=== PATIENT | female | born 1955 | race Caucasian/White ===

== ENCOUNTER → 2017-08-21 16:37 | Outpatient (CLI) | payer OTHER, SELFPAY ==
--- NOTE | 2017-08-21 16:41 | DI.MRI.S_ITS ---
PROCEDURE: MR ANKLE LT WO CON INDICATIONS: SIGNIFICANT BILATERAL MIDFOOT MEDIAL PLANTAR TECHNIQUE: Noncontrast sagittal T1 spin echo and T2 fast spin echo with fat saturation, axial proton density fast spin echo and T2 fast spin echo with fat saturation, coronal T1 spin echo and T2 fast spin echo with fat saturation through the ankle/hindfoot. COMPARISON: [facility], CR, FOOT 3V RIGHT, 03/28/2017, 11:47. [facility], MR, MR ANKLE RT WO CON, 08/21/2017, 16:42. FINDINGS: Image quality: Excellent. Bones and joints: No bone marrow contusions or fractures. There is mild degeneration at the third tarsometatarsal joint. No hindfoot coalitions. No osteochondral injuries of the talar dome. No pathologic joint effusions. Medial structures: The posterior tibialis, flexor digitorum longus, and flexor hallucis longus tendons are intact. Minimal fluid surrounds the posterior tibialis and flexor digitorum longus tendons at about the level of the tip of the medial malleolus. The posterior tibial neurovascular bundle appears normal within the tarsal tunnel, without extrinsic mass effect. The deep layer (anterior and posterior tibiotalar ligaments) and superficial layer (tibionavicular, tibiospring, and tibiocalcaneal ligaments) of the deltoid ligament appear normal. The spring ligament components (superomedial calcaneonavicular, medioplantar oblique calcaneonavicular, and inferoplantar longitudinal ligaments) are intact. Lateral structures: The anterior talofibular, calcaneofibular, and posterior talofibular ligaments appear intact. More superiorly, the anterior and posterior tibiofibular ligaments appear intact, as is the intermalleolar ligament. The tibiofibular syndesmosis is normal in width at 2 mm or less. The peroneus longus and brevis tendons demonstrate normal location and morphology. Adjacent bony peroneal tubercle and retrotrochlear prominence are normal in size. The sinus tarsi demonstrates normal fatty signal, without edema, fibrosis, or cyst formation. Visualized sinus tarsi components (cervical ligament, interosseous talocalcaneal ligament, roots of the inferior extensor retinaculum) appear normal. The calcaneonavicular and calcaneocuboid components of the bifurcate ligament appear intact. The dorsal calcaneocuboid ligament appears intact. Anterior structures: The tibialis anterior, extensor hallucis longus, and extensor digitorum longus tendons appear intact. There is mild tibialis anterior tenosynovitis (image 27 series 6. There is more prominent fluid surrounding the extensor digitorum longus tendon image 21 series 6. The dorsal talonavicular ligament appears intact. Posterior and plantar structures: Achilles tendon is intact however there is mild low signal thickening suggestive of chronic distal low-grade tendinopathy. There is mild thickening and signal change involving the medial band of the plantar fascia at the calcaneal attachment. IMPRESSION: Mild tenosynovitis involving the tibialis anterior, tibialis posterior, flexor digitorum longus and extensor digitorum longus tendons as above. Low-grade chronic appearing distal Achilles tendinopathy Isolated third TMT joint degeneration. Please correlate clinically as the remaining TMT joints appear relatively preserved. Minimal medial band plantar fasciitis Dictated by: Maximus Barrera M.D. on 08/22/2017 at 9:21 Approved by: Maximus Barrera M.D. on 08/22/2017 at 9:32
--- NOTE | 2017-08-21 16:41 | DI.MRI.S_ITS ---
PROCEDURE: MR ANKLE RT WO CON INDICATIONS: SIGNIFICANT BILATERAL MIDFOOT MEDIAL PLANTAR TECHNIQUE: Noncontrast sagittal T1 spin echo and T2 fast spin echo with fat saturation, axial proton density fast spin echo and T2 fast spin echo with fat saturation, coronal T1 spin echo and T2 fast spin echo with fat saturation through the ankle/hindfoot. COMPARISON: [facility], , FOOT 3V RIGHT, 03/28/2017, 11:47. FINDINGS: Image quality: Diagnostic. Bones and joints: No acute fracture, dislocation, or suspicious osseous lesion is identified involving the osseous structures of the right midfoot or hindfoot. Ankle mortise is well-maintained. No osteochondral defects are present. There mild degenerative changes involving the midfoot joints at the level of the tarsometatarsal joints. There is a small plantar calcaneal spur. No significant joint effusions are evident. Medial structures: There is moderate focal thickening and diffuse increased signal evident involving the distal aspect of the tibialis posterior tendon at the level of the navicular. The flexor hallucis longus and flexor digitorum longus tendons are intact and otherwise within normal limits. The deltoid ligament and spring ligament are intact. The posterior tibial nerve appears to be within normal limits through the region of the tarsal tunnel. Lateral structures: The anterior and posterior distal tibiofibular ligaments are somewhat heterogeneous and mildly irregular. No full-thickness tears are evident. There is thickening of the anterior talofibular ligament. The posterior talofibular ligament is attenuated and thinned. A similar appearance is noted involving the calcaneofibular ligament. No full-thickness tear is evident. There is increased signal noted involving the peroneus longus and progress brevis tendons along the posterior margin of the lateral malleolus. No full-thickness tear is evident. There is edema/increased signal identified on the fluid sensitive sequences within the sinus tarsi. Anterior structures: The tibialis anterior, extensor hallucis longus, and extensor digitorum longus tendons appear intact. However, there is fluid contained within the extensor digitorum tendon sheath. Posterior and plantar structures: Achilles tendon is intact. Mild edema is noted within Kagers fat pad. Nonspecific focal thickening is identified involving the mid to distal aspect of the medial band of the plantar fascia underlying the 1st tarsometatarsal joint with increased signal present at this location. This is located near the site of the patient's area of concern. No significant tearing is appreciated. The plantar fascia is otherwise unremarkable. IMPRESSION: 1. Moderate tendinopathy involving the distal margin of the tibialis posterior tendon without significant tearing. 2. Moderate focal thickening involving the mid to distal margin of the plantar fascia underlying the 1st tarsometatarsal joint may be related to plantar fascitis versus plantar fibromatosis. Please correlate clinically. 3. Mild progress brevis and peroneus brevis tendinopathy without significant tearing. 4. Extensor digitorum tenosynovitis. 5. Scarring of the lateral ankle ligaments without a full-thickness tear evident. 6. Small plantar calcaneal spur. Dictated by: Conner Marie M.D. on 08/21/2017 at 16:14 Approved by: Conner Marie M.D. on 08/21/2017 at 16:39
== END ==
PROVIDERS: PCP Family Medicine; Visit Provider Podiatrist
DX: M72.2 Plantar fascial fibromatosis (principal); M65.872 Other synovitis and tenosynovitis, left ankle and foot; M65.871 Other synovitis and tenosynovitis, right ankle and foot
CPT/HCPCS: 73721

== ENCOUNTER → 2017-12-16 11:37 | Outpatient (CLI) | payer OTHER, SELFPAY ==
--- NOTE | 2017-12-16 | DI.MG.S_ITS ---
BILATERAL DIGITAL SCREENING MAMMOGRAM 3D/2D WITH CAD: 12/16/2017 CLINICAL: Routine screening. Family history of breast cancer. Comparison is made to exams dated: 10/29/2016 mammogram, 08/03/2015 mammogram, and 06/22/2014 mammogram - [facility]. There are scattered fibroglandular elements in both breasts. Current study was also evaluated with a Computer Aided Detection (CAD) system. No significant masses, calcifications, or other findings are seen in either breast. There has been no significant interval change. IMPRESSION: NEGATIVE There is no mammographic evidence of malignancy. A 1 year screening mammogram is recommended.(12/17/2018) This exam was interpreted at Station ID: [id number]. NOTE: For mammograms, a report in lay terms will be sent to the patient. Approximately 15% of breast malignancies will not be visualized mammographically. In the management of a palpable breast mass, a negative mammogram must not discourage biopsy of a clinically suspicious lesion. Electronically Signed By: Leah trinidad/kale:12/16/2017 12:26:27 letter sent: Normal Exam ACR BI-RADS Category 1: Negative [id number]
== END ==
PROVIDERS: PCP Family Medicine; Visit Provider Family Medicine
DX: Z12.31 Encounter for screening mammogram for malignant neoplasm of breast (principal); Z80.3 Family history of malignant neoplasm of breast
CPT/HCPCS: 77063; 77067

== ENCOUNTER → 2018-05-19 10:20 | Outpatient (CLI) | payer MEDICARE, OTHER, SELFPAY ==
[2018-05-19 11:08] LABS: Add Manual Diff / Slide Review NO; Basophils Absolute Auto 100 /uL (0-100); Eosinophils Absolute Auto 100 /uL (0-450); Eosinophils Percent Auto 1.3 % (2-4); Hematocrit 42.4 % (36-46); Hemoglobin 13.9 g/dL (12.0-16.0); Lymphocytes Absolute Auto 1300 /uL (1100-4500); Lymphocytes Percent Auto 23.6 % (25-40); Mean Corpuscular HGB Conc 32.9 % (30-36); Mean Corpuscular Hemoglobin 32.7 PG (26-34); Mean Corpuscular Volume 99.3 fL (80-100); Monocytes Absolute Auto 500 /uL (0-900); Monocytes Percent Auto 9.4 % (3-14); Neutrophils Absolute Auto 3500 /uL (1500-7000); Neutrophils Percent Auto 64.7 % (50-75); Platelet Count 316 X10^3/uL (150-400); Red Blood Cell Count 4.27 X10^6/uL (4.0-5.2); White Blood Cell Count 5.4 X10^3/uL (4.5-11.0)
[2018-05-19 12:11] LABS: Alanine Aminotransferase 33 IU/L (9-52); Albumin 4.4 g/dL (3.5-5.0); Albumin Globulin Ratio 1.5 (1.0-2.8); Alkaline Phosphatase 84 U/L (38-126); Aspartate Aminotransferase 24 IU/L (14-36); Bilirubin Total 0.6 mg/dL (0.2-1.3); Blood Urea Nitrogen 18 mg/dL (7-17); Calcium 9.3 mg/dL (8.4-10.2); Carbon Dioxide 25 mmol/L (22-32); Chloride 104 mmol/L (98-107); Cholesterol 274 mg/dL (140-199); Estimated Glomerular Filt Rate > 60.0 mL/min (>60); Globulin 2.9 g/dL (1.7-4.1); Glucose 98 mg/dL (80-110); HDL Cholesterol 66 mg/dL (40-60); HEMOLYSIS < 15 (0-50); LDL Cholesterol Calculated 184 mg/dL (<100); Sodium 138 mmol/L (137-145); Total Protein 7.3 g/dL (6.3-8.2); Triglycerides 121 mg/dL (35-150)
[2018-05-19 12:37] LABS: Thyroid Stimulating Hormone 2.53 uIU/mL (0.47-4.68)
[2018-05-19 17:15] LABS: Creatinine Urine Random 96.8 mg/dL
[2018-05-19 17:21] LABS: Microalbumi Creatinin Ratio Ur 7.2 ug/mg CR (<30); Microalbumin Urine Random 0.7 mg/dL (0-1.6)
== END ==
PROVIDERS: PCP Family Medicine; Visit Provider Family Medicine
DX: E34.9 Endocrine disorder, unspecified (principal); E78.5 Hyperlipidemia, unspecified; I10 Essential (primary) hypertension; M81.0 Age-related osteoporosis without current pathological fracture
CPT/HCPCS: 36415; 80053; 80061; 82043; 82306; 82570; 84443; 85025

== ENCOUNTER → 2018-08-15 11:10 | Outpatient (CLI) | payer MEDICARE, OTHER, SELFPAY ==
[2018-08-18 08:46] LABS: Lipoprofile NMR SEE SEPERATE REPORT
== END ==
PROVIDERS: PCP Family Medicine; Visit Provider Family Medicine
DX: E78.2 Mixed hyperlipidemia (principal)
CPT/HCPCS: 36415; 83704

== ENCOUNTER → 2018-12-09 08:44 | Outpatient (CLI) | payer MEDICARE, OTHER, SELFPAY ==
[2018-12-09 09:58] LABS: Cholesterol 232 mg/dL (140-199); HDL Cholesterol 70 mg/dL (40-60); LDL Cholesterol Calculated 124 mg/dL (<100); Triglycerides 191 mg/dL (35-150)
== END ==
PROVIDERS: PCP Family Medicine; Visit Provider Family Medicine
DX: E78.2 Mixed hyperlipidemia (principal)
CPT/HCPCS: 36415; 80061

== ENCOUNTER → 2019-01-20 12:09 | Outpatient (CLI) | payer MEDICARE, OTHER, SELFPAY ==
--- NOTE | 2019-01-20 | DI.MG.S_ITS ---
BILATERAL DIGITAL SCREENING MAMMOGRAM 3D/2D WITH CAD: 01/20/2019 CLINICAL: Routine screening. Family history of breast cancer. Comparison is made to exams dated: 12/16/2017 mammogram, 10/29/2016 mammogram, and 08/03/2015 mammogram - [facility]. There are scattered fibroglandular elements in both breasts. Current study was also evaluated with a Computer Aided Detection (CAD) system. No significant masses, calcifications, or other findings are seen in either breast. There has been no significant interval change. IMPRESSION: NEGATIVE There is no mammographic evidence of malignancy. A 1 year screening mammogram is recommended. This exam was interpreted at Station ID: [id number]. NOTE: For mammograms, a report in lay terms will be sent to the patient. Approximately 15% of breast malignancies will not be visualized mammographically. In the management of a palpable breast mass, a negative mammogram must not discourage biopsy of a clinically suspicious lesion. Electronically Signed By: Dani mcdowell/kale:01/20/2019 16:01:52 letter sent: Normal Exam ACR BI-RADS Category 1: Negative [id number]
== END ==
PROVIDERS: PCP Family Medicine; Visit Provider Family Medicine
DX: Z12.31 Encounter for screening mammogram for malignant neoplasm of breast (principal); Z80.3 Family history of malignant neoplasm of breast
CPT/HCPCS: 77063; 77067

== ENCOUNTER 2019-04-24 20:01 | Emergency (ER) | payer MEDICARE, OTHER, SELFPAY ==
--- NOTE | 2019-04-24 20:32 | DI.RAD.S_ITS ---
PROCEDURE: XR CHEST 1V INDICATIONS: chest pain TECHNIQUE: One view of the chest was acquired. COMPARISON: [facility], CHEST 2 VIEW, 08/14/2010, 15:55. [facility], CHEST 2 VIEW, 05/05/2014, 10:34. [facility], CHEST 1 VIEW, 04/24/2016, 15:01. FINDINGS: Surgical changes and devices: None. Lungs and pleura: Lungs are clear. No pleural effusions or pneumothorax. Mediastinum: Mediastinal contours appear normal. Heart size is normal. Atherosclerotic calcification of the aortic arch is noted. Bones and chest wall: Age-appropriate bony degenerative changes are seen. No suspicious bony lesions. Overlying soft tissues appear unremarkable. IMPRESSION: Portable chest within normal limits. Dictated by: Cirilo Guadalupe M.D. on 04/24/2019 at 20:42 Approved by: Cirilo Guadalupe M.D. on 04/24/2019 at 20:43
[2019-04-24 20:33] VITALS: BP 174/80; PULSE 90; RESP 16; TEMP 37; O2SAT 100; BMI 27.4
[2019-04-24 20:40] LABS: Add Manual Diff / Slide Review NO; Basophils Absolute Auto 100 /uL (0-100); Basophils Percent Auto 0.9 % (0-2); Eosinophils Absolute Auto 0 /uL (0-450); Eosinophils Percent Auto 0.7 % (2-4); Hematocrit 40.6 % (36-46); Hemoglobin 13.9 g/dL (12.0-16.0); Lymphocytes Absolute Auto 2100 /uL (1100-4500); Lymphocytes Percent Auto 35.2 % (25-40); Mean Corpuscular HGB Conc 34.1 % (30-36); Mean Corpuscular Hemoglobin 33.3 PG (26-34); Mean Corpuscular Volume 97.5 fL (80-100); Monocytes Absolute Auto 700 /uL (0-900); Monocytes Percent Auto 11.6 % (3-14); Neutrophils Absolute Auto 3000 /uL (1500-7000); Neutrophils Percent Auto 51.6 % (50-75); Platelet Count 235 X10^3/uL (150-400); Red Blood Cell Count 4.17 X10^6/uL (4.0-5.2); Red Cell Distribution Width 13.5 % (11.6-14.8); White Blood Cell Count 5.9 X10^3/uL (4.5-11.0)
[2019-04-24 20:41] LABS: Prothrombin Time 11.1 SECONDS (10.1-12.7)
[2019-04-24 20:44] LABS: PTT Partial Thromboplastin Tim 34 SECONDS (26.4-36.2)
[2019-04-24 20:46] LABS: Alanine Aminotransferase 36 IU/L (<35); Albumin 4.5 g/dL (3.5-5.0); Albumin Globulin Ratio 1.6 (1.0-2.8); Alkaline Phosphatase 76 U/L (38-126); Aspartate Aminotransferase 35 IU/L (14-36); Bilirubin Total 0.4 mg/dL (0.2-1.3); Blood Urea Nitrogen 21 mg/dL (7-17); Calcium 9.4 mg/dL (8.4-10.2); Carbon Dioxide 21 mmol/L (22-32); Chloride 108 mmol/L (98-107); Creatine Kinase 76 U/L (30-135); Estimated Glomerular Filt Rate > 60.0 mL/min (>60); Globulin 2.9 g/dL (1.7-4.1); Glucose 108 mg/dL (80-110); HEMOLYSIS < 15 (0-50); Lipase 94 U/L (23-300); Potassium 3.6 mmol/L (3.4-5.1); Sodium 139 mmol/L (137-145); Total Protein 7.4 g/dL (6.3-8.2)
[2019-04-24 20:58] LABS: Troponin I < 0.012 ng/mL (0.01-0.034)
[2019-04-24 21:26] VITALS: BP 185/90; PULSE 88; RESP 20; O2SAT 98
[2019-04-24 21:32] VITALS: BP 182/87; BP 182/95; BP 185/90; PULSE 79; PULSE 80; PULSE 88
[2019-04-24 21:33] LABS: Bacteria Urine None Seen; RBC Urine None Seen (0-5/HPF); WBC Urine None Seen (0-5/HPF)
[2019-04-24 21:39] LABS: Culture Indicated Urine Cult Not Indicated; Urine Comments Microscopic Normal
--- NOTE | 2019-04-24 21:46 | ED_ITS ---
HPI - Chest Pain General Chief Complaint: Chest Pain Stated Complaint: numbness all over,SOB, thinks heart attack Time Seen by Provider: 04/24/19 21:16 Source: patient Mode of arrival: Family Vehicle Limitations: no limitations History of Present Illness HPI narrative: CC: Chest Pressure HPI: The patient is a 64-year-old female who presented to the emergency department with heaviness in her chest. The pain and discomfort started prior to dinner but persisted throughout dinner. It radiated into her left neck and she had tightness in her shoulders. She had nausea with heaving on her way into the emergency department. She has a history of hypertension on losartan. She denies ever having a stroke myocardial infarction or congestive heart failure. Her chest discomfort started between 6:30 p.m. and 7:00 p.m.. She had mild shortness of breath but no palpitations. She had mild facial numbness but no headache and no history of migraines. She has had no cough or recent fall. She did not have any tingling or numbness in her arms. She denied any neck pain. Her discomfort has been 4 to 5/10 in intensity and is always heavy. On her arrival into the emergency department it was still present. She denies a history of smoking cigarettes or headache. She has a history of disequilibrium with dizziness. She has had nausea without vomiting or diarrhea. She has had no troubles with urination. Related Data Home Medications Medication Instructions Recorded Confirmed calcium carbonate 600 mg calcium 1,200 mg PO ONCE tab 05/21/18 04/25/19 (1,500 mg) tablet cholecalciferol (vitamin D3) 50 4,000 unit PO DAILY cap 05/21/18 04/25/19 mcg (2,000 unit) capsule flaxseed 1,000 mg capsule 1,000 mg PO DAILY cap 05/21/18 04/25/19 multivitamin 1 tab PO DAILY 04/25/19 04/25/19 Previous Rx's Medication Instructions Recorded losartan 25 mg tablet 25 mg PO DAILY #90 tab 05/21/18 rosuvastatin 40 mg tablet 40 mg PO DAILY #90 tab 05/21/18 ezetimibe 10 mg tablet 10 mg PO DAILY #90 tab 08/25/18 alprazolam 0.25 mg tablet 0.25 mg PO Q6HP PRN #14 tab 09/17/19 Allergies Allergy/AdvReac Type Severity Reaction Status Date / Time No Known Drug Allergies Allergy Verified 04/21/19 10:50 Review of Systems Review of Systems ROS Unobtainable: All systems reviewed & are unremarkable except as noted in HPI and below Patient History Medical History Abnormal Pap smear of vagina (Acute) Cervical dysplasia (Chronic) Surgical History Anesthesia (Acute) History of colonoscopy (Acute ~2007) History of colonoscopy (Acute ~2015) History of foot surgery (Resolved ~05/17/14) History of hysteroscopy (Acute ~2004) Status post loop electrosurgical excision procedure (LEEP) of cervix (~2012) Family History Father Esophageal cancer Mother Hyperlipidemia Diabetes mellitus Congestive heart failure Grandfather No problems noted. Grandmother Stroke Grandmother No problems noted. Brother Cancer Brother Thyroid disease Brother Neuropathy High cholesterol Sister Crohn's disease Daughter Type 2 diabetes mellitus Family/Other Cancer Family/Other Cancer Social History Smoking Status: Never smoker Smoking Status: Never smoker alcohol intake frequency: 0-2 drinks per day Alcohol type: wine Substance Use Type: does not use Exam Narrative Exam Narrative: PHYSICAL EXAM: CONSTITUTIONAL: Awake, Alert, Oriented, Coherent, Cooperative in NAD. Does not appear toxic or ill. HEAD: AT/NC EENT: PERRL, FROM of eyes, no discharge, no nystagmus No epistaxis or nasal drainage Oral mucosa is moist and pink, posterior pharynx is without erythema or exudate. NECK: Supple, no obvious JVD, Trachea is midline without stridor, no palpable LN or masses. SPINE: No gross deformity, no palpable tenderness of the cervical, thoracic, lumbar or sacral spine. No CVA tenderness. THORAX: No deformity, retractions, chest wall tenderness, subcutaneous air or crepitice. LUNGS: Clear with symmetrical breath sounds without respiratory distress HEART: Normal heart tones, regular rhythm and rate without murmur. ABDOMEN: Soft, non-tender, normal bowel sounds without guarding, rebound, rigidity or palpable mass or organomegaly. EXTREMITIES: No edema, cyanosis, deformity or tenderness. SKIN: No rash, bruising, petechiae or purpura. NEURO: Awake, alert, oriented, conversive, cranial nerves II-XII are symmetrical and normal, moves all 4 extremities and is ambulatory Initial Vital Signs Initial Vital Signs: Vital Signs Temperature 98.6 F 04/24/19 20:33 Pulse Rate 90 04/24/19 20:33 Respiratory Rate 16 04/24/19 20:33 Blood Pressure 174/80 H 04/24/19 20:33 Pulse Oximetry 100 04/24/19 20:33 Scores HEART Score Heart Score history: Moderately Suspicious Heart Score EKG: Normal Heart Score Age: > or = 65 years old Heart Score risk factors: > 3 risk factors or hx of atherosclerotic disease Heart Score troponin: < or = to normal limit Heart Score Total: 5 Course Course Course Narrative: 2344 the patient's chest x-ray and EKG are normal. Her chest pain has resolved. She continues to have hypertension with a systolic blood pressure of 170. Her 2nd troponin is less than 0.012. She has been administered 0.5 inch of Nitropaste. Her heart score is 4-5. I will discuss the patient with the on-call wireless retail manager at [facility]. 0032: Despite the 1/2 inch of nitropaste the patient continues to have some chest pain that ranges from 2 to 4 over 10 in intensity. She will be administered 4 mg of morphine sulfate. We are waiting for the wireless retail manager to call. 0049 I discussed the patient with the hospitalist at [facility]. That physician was Dr. Romano. The patient continued to have pain and discomfort that was 2 to 4/10 in intensity. Just prior to my talking to him I had ordered 4 mg of morphine sulfate for her persistent chest pain. He wanted me to order a nitro drip. However after the patient received nitro her pain and discomfort resolved. Her heart score was 4 to 5/10 in intensity. The patient has a family history of heart disease, she has a history of hypertension and high cholesterol. The patient will be transferred by ALS ambulance to [facility]. At this time the patient is pain-free. Orders Ordered: Discontinued Medications Hydralazine HCl (Apresoline) 5 mg IV NOW ONE Stop: 04/24/19 21:47 Last Admin: 04/24/19 22:09 Dose: 5 mg Documented by: ÓSCAR Nitroglycerin (Nitroglycerin) 50 mg in 250 mls @ 1.5 mls/hr IV TITRATE IRENE; Protocol Last Admin: 04/25/19 01:17 Dose: Not Given Documented by: ÓSCAR Ketorolac Tromethamine (Toradol) 30 mg IV NOW ONE Stop: 04/24/19 21:41 Last Admin: 04/24/19 22:09 Dose: 30 mg Documented by: ÓSCAR Morphine Sulfate (Morphine Sulfate) 4 mg IV NOW ONE Stop: 04/25/19 00:33 Last Admin: 04/25/19 00:54 Dose: 4 mg Documented by: ÓSCAR Nitroglycerin (Nitro-Bid) 0.5 inch TOP NOW ONE Stop: 04/24/19 23:44 Last Admin: 04/25/19 00:02 Dose: 0.5 inch Documented by: ÓSCAR Vital Signs Vital signs: Vital Signs - 8 hr 04/24/19 20:33 04/24/19 21:26 04/24/19 21:32 Temperature 98.6 F Pulse Rate 90 88 Pulse Rate [Orthostatic Lying] 79 Pulse Rate [Orthostatic Sitting] 80 Pulse Rate [Orthostatic Standing] 88 Respiratory Rate 16 20 Blood Pressure 174/80 H Blood Pressure [Orthostatic Lying] 182/87 H Blood Pressure [Orthostatic Sitting] 182/95 H Blood Pressure [Orthostatic Standing] 185/90 H Blood Pressure [Right Arm] 185/90 H Pulse Oximetry 100 98 04/24/19 22:09 04/24/19 23:00 04/25/19 00:02 Temperature Pulse Rate 82 78 81 Pulse Rate [Orthostatic Lying] Pulse Rate [Orthostatic Sitting] Pulse Rate [Orthostatic Standing] Respiratory Rate Blood Pressure 178/88 H 168/83 H 180/84 H Blood Pressure [Orthostatic Lying] Blood Pressure [Orthostatic Sitting] Blood Pressure [Orthostatic Standing] Blood Pressure [Right Arm] Pulse Oximetry MDM - Chest Pain Lab Data Attestation: I reviewed the patient's lab results. Result diagrams: 04/24/19 20:30 04/24/19 20:30 Labs: Lab Results 04/24/19 04/24/19 04/24/19 Range/Units 20:30 20:30 20:30 WBC 5.9 (4.5-11.0) X10^3/uL RBC 4.17 (4.0-5.2) X10^6/uL Hgb 13.9 (12.0-16.0) g/dL Hct 40.6 (36-46) % MCV 97.5 (80-100) fL MCH 33.3 (26-34) PG MCHC 34.1 (30-36) % RDW 13.5 (11.6-14.8) % Plt Count 235 (150-400) X10^3/uL Neut % (Auto) 51.6 (50-75) % Lymph % (Auto) 35.2 (25-40) % [place] % (Auto) 11.6 (3-14) % Eos % (Auto) 0.7 L (2-4) % Baso % (Auto) 0.9 (0-2) % Neut # (Auto) 3000 (1839-4855) /uL Lymph # (Auto) 2100 (1204-1807) /uL [place] # (Auto) 700 (0-900) /uL Eos # (Auto) 0 (0-450) /uL Baso # (Auto) 100 (0-100) /uL PT 11.1 (10.1-12.7) SECONDS INR 1.0 (0.9-1.3) APTT 34 (26.4-36.2) SECONDS Sodium 139 (137-145) mmol/L Potassium 3.6 (3.4-5.1) mmol/L Chloride 108 H (98-107) mmol/L Carbon Dioxide 21 L (22-32) mmol/L BUN 21 H (7-17) mg/dL Creatinine 0.60 (0.52-1.04) mg/dL Estimated GFR > 60.0 (>60) mL/min BUN/Creatinine Ratio 35.0 H (6-22) Glucose 108 (80-110) mg/dL Calcium 9.4 (8.4-10.2) mg/dL Total Bilirubin 0.4 (0.2-1.3) mg/dL AST 35 (14-36) IU/L ALT 36 H (<35) IU/L Alkaline Phosphatase 76 (38-126) U/L Total Creatine Kinase 76 (30-135) U/L CK-MB (CK-2) TNP CK-MB (CK-2) Rel Index TNP Troponin I < 0.012 (0.01-0.034) ng/mL Total Protein 7.4 (6.3-8.2) g/dL Albumin 4.5 (3.5-5.0) g/dL Globulin 2.9 (1.7-4.1) g/dL Albumin/Globulin Ratio 1.6 (1.0-2.8) Lipase 94 (23-300) U/L Urine RBC (0-5/HPF) Urine WBC (0-5/HPF) Urine Bacteria (None) Ur Culture Indicated? Micro UA Comment 04/24/19 04/24/19 Range/Units 21:20 22:35 WBC (4.5-11.0) X10^3/uL RBC (4.0-5.2) X10^6/uL Hgb (12.0-16.0) g/dL Hct (36-46) % MCV (80-100) fL MCH (26-34) PG MCHC (30-36) % RDW (11.6-14.8) % Plt Count (150-400) X10^3/uL Neut % (Auto) (50-75) % Lymph % (Auto) (25-40) % Pre[place] % (Auto) (3-14) % Eos % (Auto) (2-4) % Baso % (Auto) (0-2) % Neut # (Auto) (0388-9192) /uL Lymph # (Auto) (8805-8849) /uL Preble # (Auto) (0-900) /uL Eos # (Auto) (0-450) /uL Baso # (Auto) (0-100) /uL PT (10.1-12.7) SECONDS INR (0.9-1.3) APTT (26.4-36.2) SECONDS Sodium (137-145) mmol/L Potassium (3.4-5.1) mmol/L Chloride (98-107) mmol/L Carbon Dioxide (22-32) mmol/L BUN (7-17) mg/dL Creatinine (0.52-1.04) mg/dL Estimated GFR (>60) mL/min BUN/Creatinine Ratio (6-22) Glucose (80-110) mg/dL Calcium (8.4-10.2) mg/dL Total Bilirubin (0.2-1.3) mg/dL AST (14-36) IU/L ALT (<35) IU/L Alkaline Phosphatase (38-126) U/L Total Creatine Kinase 72 (30-135) U/L CK-MB (CK-2) TNP CK-MB (CK-2) Rel Index TNP Troponin I < 0.012 (0.01-0.034) ng/mL Total Protein (6.3-8.2) g/dL Albumin (3.5-5.0) g/dL Globulin (1.7-4.1) g/dL Albumin/Globulin Ratio (1.0-2.8) Lipase (23-300) U/L Urine RBC None seen (0-5/HPF) Urine WBC None seen (0-5/HPF) Urine Bacteria None seen (None) Ur Culture Indicated? Cult not indicated Micro UA Comment Microscopic normal Urine Dip Bedside Urine Glucose Negative Bedside Urine Bilirubin - Negative Bedside Urine Ketone - Negative Urine Specific [place] 1.015 Bedside Urine Occult Blood +/- Bedside Urine pH 6.0 Bedside Urine Protein - Negative Bedside Urine Urobilinogen - Negative Bedside Urine Nitrite - Negative Bedside Urine Leukocytes +/- 15 Esterase ECG Data Attestation: I personally reviewed and interpreted this ECG as follows: Interpretation: The patient's EKG obtained on April 24 at [place] 20:0 5:[address] depressions in leads V3 V4 V5 and V6. T-wave inversion in V1 and III. There are no other acute diagnostic ST segment changes. Her ventricular rate is 96 underlying rhythm is sinus rhythm intervals otherwise are normal with a normal axis. Discharge Plan Departure Patient Disposition: [facility] Clinical Impression: Chest pressure, Essential hypertension, Dysequilibrium Discharge Date/Time: 04/25/19 01:50 Prescriptions: No Action alprazolam 0.25 mg tablet 0.25 mg PO Q6HP PRN (Reason: anxiety ) Qty: 14 RF: 3 ezetimibe [Zetia] 10 mg tablet 10 mg PO DAILY Qty: 90 RF: 3 cholecalciferol (vitamin D3) 2,000 unit capsule 4,000 unit PO DAILY RF: 0 calcium carbonate 600 mg calcium (1,500 mg) tablet 1,200 mg PO ONCE RF: 0 flaxseed 1,000 mg capsule 1,000 mg PO DAILY RF: 0 rosuvastatin [Crestor] 40 mg tablet 40 mg PO DAILY Qty: 90 RF: 3 losartan 25 mg tablet 25 mg PO DAILY Qty: 90 RF: 3 multivitamin Tablet 1 tab PO DAILY RF: 0 Referrals: Jasson Jim MD [Primary Care Provider] -
[2019-04-24 22:09] VITALS: BP 178/88; PULSE 82
[2019-04-24] MEDS: HYDRALAZINE 20 MG/ML VIAL 5 MG IV (22:09)
[2019-04-24] MEDS: KETOROLAC 60 MG/2 ML VIAL 30 MG IV (22:09)
[2019-04-24 22:52] LABS: Creatine Kinase 72 U/L (30-135)
[2019-04-24 23:00] VITALS: BP 168/83; PULSE 78
[2019-04-24 23:05] LABS: Troponin I < 0.012 ng/mL (0.01-0.034)
[2019-04-25 00:02] VITALS: BP 180/84; PULSE 81
[2019-04-25] MEDS: NITROGLYCERIN OINT 1 INCH/GM OINT...G. 0.5 INCH TOP (00:02)
[2019-04-25] MEDS: MORPHINE 5 MG/ML INJ 4 MG IV (00:54)
--- NOTE | 2019-04-25 01:06 | PC.NURSE ---
Per Dr Mccullough, hold nitro drip if no Chest pain after morphine. Pt has no current chest pain.
[2019-04-25 01:23] VITALS: BP 157/79; PULSE 83; RESP 13; TEMP 37; O2SAT 97
== END 2019-04-25 01:50 | disposition short-term general hospital (02) ==
PROVIDERS: Emergency Provider Emergency Medicine; PCP Family Medicine
DX: R07.9 Chest pain, unspecified (principal); I10 Essential (primary) hypertension; R42 Dizziness and giddiness
CPT/HCPCS: 36415; 71045; 80053; 81003; 81015; 82550; 83690; 84484; 85025; 85610; 85730; 93005; 96374; 96375; 99284; 99285; J0360; J1885; J2270

== ENCOUNTER 2019-05-20 11:11 | Emergency (ER) | payer MEDICARE, OTHER, SELFPAY ==
[2019-05-20 11:15] VITALS: BP 187/90; PULSE 99; RESP 20; TEMP 36.7; O2SAT 97
--- NOTE | 2019-05-20 11:22 | DI.RAD.S_ITS ---
PROCEDURE: XR CHEST 1V INDICATIONS: chest pain TECHNIQUE: One view of the chest was acquired. COMPARISON: [facility], CR, XR CHEST 1V, 04/24/2019, 20:35. FINDINGS: Surgical changes and devices: None. Lungs and pleura: Lungs are clear. No pleural effusions or pneumothorax. Mediastinum: Mediastinal contours appear normal. Heart size is normal. Bones and chest wall: No suspicious bony lesions. Overlying soft tissues appear unremarkable. IMPRESSION: No acute process. Dictated by: Fatuma Miranda M.D. on 05/20/2019 at 11:37 Approved by: Fatuma Miranda M.D. on 05/20/2019 at 11:37
--- NOTE | 2019-05-20 11:35 | ED_ITS ---
HPI - General Adult General Chief complaint: Abdominal Pain Stated complaint: Severe abdominal pain, hx of hypertension Time Seen by Provider: 05/20/19 11:27 Source: patient Mode of arrival: Ambulatory Limitations: no limitations History of Present Illness HPI narrative: 64-year-old female here for evaluation of epigastric abdominal pain. She states that she has had the pain off and on for the past week. However she has had the pain that she presented to the emergency department today since 0700 hours this morning. Is been constant since this morning. Some nausea no vomiting. No bowel symptoms. No urinary symptoms. Not worse with palpation to movement or breathing. Was seen here in the emergency department approximately 1 month ago where she was transferred to an outside facility for cardiac workup. States she had a stress test at that time and was told that it was unremarkable. No prior abdominal surgeries. Not on nonsteroidal anti- inflammatory. No change in stool color. Has tried some epkl-dax-hvwrvum antacids over the past couple days without any improvement Related Data Home Medications Medication Instructions Recorded Confirmed calcium carbonate 600 mg calcium 1,200 mg PO DAILY tab 05/21/18 05/20/19 (1,500 mg) tablet cholecalciferol (vitamin D3) 50 4,000 unit PO DAILY cap 05/21/18 05/20/19 mcg (2,000 unit) capsule multivitamin 1 tab PO DAILY 04/25/19 05/20/19 ezetimibe [Zetia] 10 mg PO QPM 05/20/19 05/20/19 losartan 25 mg PO QPM 05/20/19 05/20/19 paroxetine HCl [Paxil] 10 mg PO QAM 05/20/19 05/20/19 rosuvastatin [Crestor] 40 mg PO QPM 05/20/19 05/20/19 trazodone 50 - 100 mg PO BEDTIME 05/20/19 05/20/19 Previous Rx's Medication Instructions Recorded sucralfate [Carafate] 1 gram PO QACHS #60 tab 05/20/19 Allergies Allergy/AdvReac Type Severity Reaction Status Date / Time No Known Drug Allergies Allergy Verified 05/20/19 11:21 Review of Systems Constitutional Constitutional: Denies fever(s) and Denies headache(s) ENT Ears, Nose, Mouth, and Throat: Denies headache(s) Cardiovascular Cardiovascular: Denies chest pain and Denies dyspnea Respiratory Respiratory: Denies dyspnea Gastrointestinal Gastrointestinal: Reports abdominal pain, Denies change in stool character, Reports nausea and Denies vomiting Genitourinary Genitourinary: Denies dysuria and Denies vaginal discharge Musculoskeletal Musculoskeletal: Denies myalgias and Denies arthralgias Integumentary/Breasts Skin/Breast: Denies lesions and Denies rash Neurologic Neurologic: Denies behavioral changes and Denies headache(s) Psychiatric Psychiatric: Denies behavioral changes Hematologic/Lymphatic Hematologic/Lymphatic: Denies easy bleeding and Denies easy bruising Patient History Medical History Abnormal Pap smear of vagina (Acute) Cervical dysplasia (Chronic) Social History Smoking Status: Never smoker Smoking Status: Never smoker alcohol intake frequency: 0-2 drinks per day Alcohol type: wine Substance Use Type: does not use Exam Initial Vital Signs Initial Vital Signs: Vital Signs Temperature 98.0 F 05/20/19 11:15 Pulse Rate 99 H 05/20/19 11:15 Respiratory Rate 20 05/20/19 11:15 Blood Pressure 187/90 H 05/20/19 11:15 Pulse Oximetry 97 05/20/19 11:15 Const General: cooperative, comfortable, well developed and well groomed Limitations: mental status not altered HENHI Head: normal to inspection and normocephalic Resp Effort & Inspection: normal respiratory effort Auscultation: clear to auscultation bilaterally Cardio Rate: regular rate Rhythm: regular rhythm GI Inspection: non-distended Palpation: soft, No firm and No tender Skin Lesions: no lesions Rashes: no rashes Neuro General: alert and awake Cognition: normal cognition Speech: speech normal Extrem General: normal to inspection and capillary refill normal Psych Appearance: grossly normal and well kempt Course Orders Ordered: ED Orders 05/20/19 11:21 EKG-12 Lead Stat 05/20/19 11:22 XR chest 1V Stat 05/20/19 11:37 Complete Blood Count AUTO DIFF Stat Comprehensive Metabolic Panel Stat Lipase Stat Magnesium Stat Partial Thromboplastin Time Stat Prothrombin Time INR Stat Troponin & CK Cardiac Panel Stat Discontinued Medications Al Hydrox/Mg Hydrox/Simethicone 20 ml/ Lidocaine HCl 15 ml 0 ml PO NOW ONE Stop: 05/20/19 11:37 Last Admin: 05/20/19 11:41 Dose: 35 ml Documented by: LORENAHT Pantoprazole Sodium (Protonix) 40 mg IV NOW ONE Stop: 05/20/19 13:06 Vital Signs Vital signs: Vital Signs - 8 hr 05/20/19 11:15 05/20/19 11:45 05/20/19 12:45 Temperature 98.0 F Pulse Rate 99 H 72 81 Respiratory Rate 20 20 14 Blood Pressure 187/90 H Blood Pressure [Left Arm] 143/74 H 154/84 H Pulse Oximetry 97 96 96 Medical Decision Making Lab Data Lab results reviewed: Yes I reviewed the patient's lab results. Result diagrams: 05/20/19 11:37 05/20/19 11:37 Labs: Lab Results 05/20/19 05/20/19 05/20/19 Range/Units 11:37 11:37 11:37 WBC 5.3 (4.5-11.0) X10^3/uL RBC 4.32 (4.0-5.2) X10^6/uL Hgb 14.3 (12.0-16.0) g/dL Hct 41.7 (36-46) % MCV 96.5 (80-100) fL MCH 33.0 (26-34) PG MCHC 34.2 (30-36) % RDW 13.4 (11.6-14.8) % Plt Count 232 (150-400) X10^3/uL Neut % (Auto) 67.9 (50-75) % Lymph % (Auto) 23.8 L (25-40) % [place] % (Auto) 7.6 (3-14) % Eos % (Auto) 0.2 L (2-4) % Baso % (Auto) 0.5 (0-2) % Neut # (Auto) 3600 (3148-6157) /uL Lymph # (Auto) 1300 (2141-3017) /uL [place] # (Auto) 400 (0-900) /uL Eos # (Auto) 0 (0-450) /uL Baso # (Auto) 0 (0-100) /uL PT 12.2 (10.1-12.7) SECONDS INR 1.1 (0.9-1.3) APTT 32 D (26.4-36.2) SECONDS Sodium 138 (137-145) mmol/L Potassium 3.9 (3.4-5.1) mmol/L Chloride 101 (98-107) mmol/L Carbon Dioxide 26 (22-32) mmol/L BUN 15 (7-17) mg/dL Creatinine 0.70 (0.52-1.04) mg/dL Estimated GFR > 60.0 (>60) mL/min BUN/Creatinine Ratio 21.4 (6-22) Glucose 134 H (80-110) mg/dL Calcium 10.4 H (8.4-10.2) mg/dL Magnesium 1.5 L (1.6-2.3) mg/dL Total Bilirubin 0.6 (0.2-1.3) mg/dL AST 28 (14-36) IU/L ALT 35 H (<35) IU/L Alkaline Phosphatase 69 (38-126) U/L Total Creatine Kinase 43 (30-135) U/L CK-MB (CK-2) TNP CK-MB (CK-2) Rel Index TNP Troponin I < 0.012 (0.01-0.034) ng/mL Total Protein 7.3 (6.3-8.2) g/dL Albumin 4.6 (3.5-5.0) g/dL Globulin 2.7 (1.7-4.1) g/dL Albumin/Globulin Ratio 1.7 (1.0-2.8) Lipase 65 (23-300) U/L Urine Dip Bedside Urine Glucose Negative Bedside Urine Bilirubin - Negative Bedside Urine Ketone - Negative Urine Specific [place] 1.015 Bedside Urine Occult Blood +/- Bedside Urine pH 6.5 Bedside Urine Protein - Negative Bedside Urine Urobilinogen - Negative Bedside Urine Nitrite - Negative Bedside Urine Leukocytes - Negative Esterase Point of care testing: Urine Dip Bedside Urine Glucose Negative Bedside Urine Bilirubin - Negative Bedside Urine Ketone - Negative Urine Specific [place] 1.015 Bedside Urine Occult Blood +/- Bedside Urine pH 6.5 Bedside Urine Protein - Negative Bedside Urine Urobilinogen - Negative Bedside Urine Nitrite - Negative Bedside Urine Leukocytes - Negative Esterase Imaging Data Chest x-ray: Radiologist's Impression: [address] [address] XRay Report Signed Patient: Divine Santamaria DIEGO#: [id number] : [id number]:[id number] Age/Sex: 64 / FDate of Service: 05/20/19 Loc: ED Accession Number: [id number] Procedure: XR chest 1V Ordering Provider: Won Burdick D.O. PROCEDURE: XR CHEST 1V INDICATIONS: chest pain TECHNIQUE: One view of the chest was acquired. COMPARISON: [facility], CR, XR CHEST 1V, 04/24/2019, 20:35. FINDINGS: Surgical changes and devices: None. Lungs and pleura: Lungs are clear. No pleural effusions or pneumothorax. Mediastinum: Mediastinal contours appear normal. Heart size is normal. Bones and chest wall: No suspicious bony lesions. Overlying soft tissues appear unremarkable. IMPRESSION: No acute process. Dictated by: Fatuma Miranda M.D. on 05/20/2019 at 11:37 Approved by: Fatuma Miranda M.D. on 05/20/2019 at 11:37 ECG Data Attestation: I personally reviewed and interpreted this ECG as follows: Prior ECG tracings: not available for review Interpretation: Sinus rhythm Ventricular rate of 91 Normal axis Normal QRS Normal QTC Nonspecific ST T wave changes MDM Narrative Medical decision making narrative: Patient has unremarkable EKG. Unremarkable labs. Unremarkable chest x-ray. Had a stress test performed within the past months that patient states is unremarkable. She reported some improvement with a GI cocktail however not as much as she had hoped. Low suspicion for pancreatitis. Low suspicion for gallbladder pathology. No free under the diaphragm. Low suspicion for perforated gastric ulcer. Low suspicion for pneumonia. Low suspicion for pulmonary embolism. Recent cardiac workup and negative troponin and unremarkable EKG make ACS unlikely. I do feel that this is most likely GI etiology. I had long discussion with the patient regarding this. Will send home with Carafate. She has a follow-up with her primary pro vider in approximately 2 weeks. She was instructed to keep that appointment. She was given return precautions and follow-up instructions. Expressed understanding and agreement. Discharge Plan Departure Patient Disposition: Home Clinical Impression: Abdominal pain Qualifiers: Abdominal location: epigastric Qualified Code(s): R10.13 - Epigastric pain Instructions: DI for Abdominal Pain-Adult Activity Restrictions/Additional Instructions: I recommend that you take the Carafate as directed and like we discussed. Keep your follow-up appointment that you have scheduled with your primary provider return to the emergency department for any new or worsening symptoms your prescriptions were electronically transmitted to [facility] Prescriptions: New sucralfate [Carafate] 1 gram tablet 1 gram PO QACHS Qty: 60 RF: 0 No Action cholecalciferol (vitamin D3) 2,000 unit capsule 4,000 unit PO DAILY RF: 0 calcium carbonate 600 mg calcium (1,500 mg) tablet 1,200 mg PO DAILY RF: 0 trazodone 50 mg tablet 50 - 100 mg PO BEDTIME RF: 0 paroxetine HCl [Paxil] 10 mg tablet 10 mg PO QAM RF: 0 losartan 25 mg tablet 25 mg PO QPM RF: 0 ezetimibe [Zetia] 10 mg tablet 10 mg PO QPM RF: 0 rosuvastatin [Crestor] 40 mg tablet 40 mg PO QPM RF: 0 multivitamin Tablet 1 tab PO DAILY RF: 0 Referrals: Jasson Jim MD [Primary Care Provider] -
[2019-05-20] MEDS: MAG HYDROX/ALUMINUM/SIMETH SUS 20 ML, LIDOCAINE VISCOUS 2% 15 ML PO (11:41)
[2019-05-20 11:45] VITALS: BP 143/74; PULSE 72; RESP 20; O2SAT 96
[2019-05-20 11:46] LABS: Add Manual Diff / Slide Review NO; Basophils Absolute Auto 0 /uL (0-100); Basophils Percent Auto 0.5 % (0-2); Eosinophils Absolute Auto 0 /uL (0-450); Eosinophils Percent Auto 0.2 % (2-4); Hematocrit 41.7 % (36-46); Hemoglobin 14.3 g/dL (12.0-16.0); Lymphocytes Absolute Auto 1300 /uL (1100-4500); Lymphocytes Percent Auto 23.8 % (25-40); Mean Corpuscular HGB Conc 34.2 % (30-36); Mean Corpuscular Volume 96.5 fL (80-100); Monocytes Absolute Auto 400 /uL (0-900); Monocytes Percent Auto 7.6 % (3-14); Neutrophils Absolute Auto 3600 /uL (1500-7000); Neutrophils Percent Auto 67.9 % (50-75); Platelet Count 232 X10^3/uL (150-400); Red Blood Cell Count 4.32 X10^6/uL (4.0-5.2); Red Cell Distribution Width 13.4 % (11.6-14.8); White Blood Cell Count 5.3 X10^3/uL (4.5-11.0)
[2019-05-20 11:53] LABS: INR 1.1 (0.9-1.3); Prothrombin Time 12.2 SECONDS (10.1-12.7)
[2019-05-20 11:56] LABS: PTT Partial Thromboplastin Tim 32 SECONDS (26.4-36.2)
[2019-05-20 11:58] LABS: Alanine Aminotransferase 35 IU/L (<35); Albumin 4.6 g/dL (3.5-5.0); Albumin Globulin Ratio 1.7 (1.0-2.8); Alkaline Phosphatase 69 U/L (38-126); Aspartate Aminotransferase 28 IU/L (14-36); BUN Creatinine Ratio 21.4 (6-22); Bilirubin Total 0.6 mg/dL (0.2-1.3); Blood Urea Nitrogen 15 mg/dL (7-17); Calcium 10.4 mg/dL (8.4-10.2); Carbon Dioxide 26 mmol/L (22-32); Chloride 101 mmol/L (98-107); Creatine Kinase 43 U/L (30-135); Estimated Glomerular Filt Rate > 60.0 mL/min (>60); Globulin 2.7 g/dL (1.7-4.1); Glucose 134 mg/dL (80-110); HEMOLYSIS < 15 (0-50); Lipase 65 U/L (23-300); Magnesium 1.5 mg/dL (1.6-2.3); Potassium 3.9 mmol/L (3.4-5.1); Sodium 138 mmol/L (137-145); Total Protein 7.3 g/dL (6.3-8.2)
[2019-05-20 12:12] LABS: Troponin I < 0.012 ng/mL (0.01-0.034)
[2019-05-20 12:45] VITALS: BP 154/84; PULSE 81; RESP 14; O2SAT 96
[2019-05-20] MEDS: PANTOPRAZOLE 40 MG VIAL IV (13:08)
[2019-05-20 14:00] VITALS: BP 144/82; PULSE 69; O2SAT 99
== END 2019-05-20 14:11 | disposition home or self-care (01) ==
PROVIDERS: Emergency Provider Emergency Medicine; PCP Family Medicine
DX: R10.13 Epigastric pain (principal); R07.9 Chest pain, unspecified; I10 Essential (primary) hypertension
CPT/HCPCS: 36415; 71045; 80053; 81003; 82550; 83690; 83735; 84484; 85025; 85610; 85730; 93005; 93010; 96374; 99284; C9113

== ENCOUNTER → 2019-05-29 09:10 | Outpatient (CLI) | payer MEDICARE, OTHER, SELFPAY ==
[2019-05-29 09:49] LABS: Add Manual Diff / Slide Review NO; Basophils Absolute Auto 100 /uL (0-100); Basophils Percent Auto 0.9 % (0-2); Eosinophils Absolute Auto 100 /uL (0-450); Eosinophils Percent Auto 1.3 % (2-4); Hematocrit 39.4 % (36-46); Hemoglobin 13.1 g/dL (12.0-16.0); Lymphocytes Absolute Auto 1100 /uL (1100-4500); Lymphocytes Percent Auto 19.3 % (25-40); Mean Corpuscular HGB Conc 33.2 % (30-36); Mean Corpuscular Hemoglobin 32.5 PG (26-34); Mean Corpuscular Volume 97.7 fL (80-100); Monocytes Absolute Auto 600 /uL (0-900); Monocytes Percent Auto 11.4 % (3-14); Neutrophils Absolute Auto 3700 /uL (1500-7000); Neutrophils Percent Auto 67.1 % (50-75); Platelet Count 248 X10^3/uL (150-400); Red Blood Cell Count 4.04 X10^6/uL (4.0-5.2); Red Cell Distribution Width 13.5 % (11.6-14.8); White Blood Cell Count 5.5 X10^3/uL (4.5-11.0)
[2019-05-29 10:23] LABS: Alanine Aminotransferase 29 IU/L (<35); Albumin 4.2 g/dL (3.5-5.0); Albumin Globulin Ratio 1.8 (1.0-2.8); Alkaline Phosphatase 73 U/L (38-126); Aspartate Aminotransferase 26 IU/L (14-36); BUN Creatinine Ratio 21.1 (6-22); Bilirubin Total 0.5 mg/dL (0.2-1.3); Blood Urea Nitrogen 15 mg/dL (7-17); Calcium 9.4 mg/dL (8.4-10.2); Carbon Dioxide 28 mmol/L (22-32); Chloride 105 mmol/L (98-107); Cholesterol 164 mg/dL (140-199); Estimated Glomerular Filt Rate > 60.0 mL/min (>60); Globulin 2.4 g/dL (1.7-4.1); Glucose 93 mg/dL (80-110); HDL Cholesterol 48 mg/dL (40-60); HEMOLYSIS < 15 (0-50); LDL Cholesterol Calculated 98 mg/dL (<100); Magnesium 1.9 mg/dL (1.6-2.3); Potassium 4.2 mmol/L (3.4-5.1); Sodium 139 mmol/L (137-145); Total Protein 6.6 g/dL (6.3-8.2); Triglycerides 90 mg/dL (35-150)
== END ==
PROVIDERS: PCP Family Medicine; Referring Provider Family Medicine; Visit Provider Family Medicine
DX: I10 Essential (primary) hypertension (principal)
CPT/HCPCS: 36415; 80053; 80061; 83735; 85025

== ENCOUNTER → 2019-09-18 11:10 | Outpatient (CLI) | payer MEDICARE, OTHER, SELFPAY ==
[2019-09-18 12:23] LABS: Cholesterol 227 mg/dL (140-199); HDL Cholesterol 69 mg/dL (40-60); LDL Cholesterol Calculated 140 mg/dL (<100); Triglycerides 91 mg/dL (35-150)
== END ==
PROVIDERS: PCP Family Medicine; Referring Provider Family Medicine; Visit Provider Family Medicine
DX: E78.2 Mixed hyperlipidemia (principal)
CPT/HCPCS: 36415; 80061

== ENCOUNTER → 2020-01-13 12:21 | Outpatient (CLI) | payer MEDICARE, OTHER, SELFPAY ==
[2020-01-13 14:03] LABS: BUN Creatinine Ratio 27.4 (6-22); Blood Urea Nitrogen 17 mg/dL (7-17); Carbon Dioxide 27 mmol/L (22-32); Chloride 102 mmol/L (98-107); Cholesterol 221 mg/dL (140-199); Estimated Glomerular Filt Rate > 60.0 mL/min (>60); Glucose 89 mg/dL (80-110); HDL Cholesterol 74 mg/dL (40-60); HEMOLYSIS < 15 (0-50); LDL Cholesterol Calculated 123 mg/dL (<100); Potassium 4.2 mmol/L (3.4-5.1); Sodium 134 mmol/L (137-145); Triglycerides 118 mg/dL (35-150)
== END ==
PROVIDERS: PCP Family Medicine; Referring Provider Family Medicine; Visit Provider Family Medicine
DX: E78.2 Mixed hyperlipidemia (principal)
CPT/HCPCS: 36415; 80048; 80061

== ENCOUNTER → 2020-03-14 10:58 | Outpatient (CLI) | payer MEDICARE, OTHER, SELFPAY ==
[2020-03-14 11:45] LABS: Add Manual Diff / Slide Review NO; Basophils Absolute Auto 0 /uL (0-100); Basophils Percent Auto 0.9 % (0-2); Eosinophils Absolute Auto 0 /uL (0-450); Eosinophils Percent Auto 0.4 % (2-4); Hematocrit 42.5 % (36-46); Hemoglobin 14.3 g/dL (12.0-16.0); Lymphocytes Absolute Auto 1000 /uL (1100-4500); Lymphocytes Percent Auto 18.7 % (25-40); Mean Corpuscular HGB Conc 33.6 % (30-36); Mean Corpuscular Hemoglobin 32.9 PG (26-34); Monocytes Absolute Auto 400 /uL (0-900); Monocytes Percent Auto 7.9 % (3-14); Neutrophils Absolute Auto 3800 /uL (1500-7000); Neutrophils Percent Auto 72.1 % (50-75); Platelet Count 251 X10^3/uL (150-400); Red Blood Cell Count 4.33 X10^6/uL (4.0-5.2); Red Cell Distribution Width 14.7 % (11.6-14.8); White Blood Cell Count 5.3 X10^3/uL (4.5-11.0)
[2020-03-14 11:52] LABS: Hemoglobin A1C% w Est Avg Glu 5.7 % (4.0-6.0)
[2020-03-14 12:02] LABS: Alanine Aminotransferase 44 IU/L (<35); Albumin 4.4 g/dL (3.5-5.0); Albumin Globulin Ratio 1.4 (1.0-2.8); Alkaline Phosphatase 92 U/L (38-126); Aspartate Aminotransferase 37 IU/L (14-36); BUN Creatinine Ratio 25.7 (6-22); Bilirubin Total 0.9 mg/dL (0.2-1.3); Blood Urea Nitrogen 18 mg/dL (7-17); Calcium 9.3 mg/dL (8.4-10.2); Carbon Dioxide 29 mmol/L (22-32); Chloride 103 mmol/L (98-107); Estimated Glomerular Filt Rate > 60.0 mL/min (>60); Globulin 3.1 g/dL (1.7-4.1); Glucose 111 mg/dL (80-110); HEMOLYSIS < 15 (0-50); Lipase 63 U/L (23-300); Potassium 4.3 mmol/L (3.4-5.1); Sodium 135 mmol/L (137-145); Total Protein 7.5 g/dL (6.3-8.2)
[2020-03-14 12:21] LABS: Free T4, Direct Thyroxine 0.75 ng/dL (0.78-2.19)
== END ==
PROVIDERS: PCP Family Medicine; Referring Provider Family Medicine; Visit Provider Family Medicine
DX: E78.2 Mixed hyperlipidemia (principal); R00.2 Palpitations; I10 Essential (primary) hypertension
CPT/HCPCS: 36415; 80053; 83036; 83690; 84439; 84443; 85025

== ENCOUNTER → 2020-04-18 10:34 | Outpatient (CLI) | payer MEDICARE, OTHER, SELFPAY ==
[2020-04-18 12:06] LABS: Alanine Aminotransferase 43 IU/L (<35); Albumin 4.2 g/dL (3.5-5.0); Albumin Globulin Ratio 1.8 (1.0-2.8); Alkaline Phosphatase 80 U/L (38-126); Aspartate Aminotransferase 41 IU/L (14-36); BUN Creatinine Ratio 27.7 (6-22); Bilirubin Total 0.5 mg/dL (0.2-1.3); Blood Urea Nitrogen 18 mg/dL (7-17); Calcium 9.4 mg/dL (8.4-10.2); Carbon Dioxide 26 mmol/L (22-32); Chloride 104 mmol/L (98-107); Estimated Glomerular Filt Rate > 60.0 mL/min (>60); Globulin 2.4 g/dL (1.7-4.1); Glucose 108 mg/dL (80-110); HEMOLYSIS < 15 (0-50); Potassium 4.4 mmol/L (3.4-5.1); Sodium 136 mmol/L (137-145); Total Protein 6.6 g/dL (6.3-8.2)
[2020-04-18 12:14] LABS: Hemoglobin A1C% w Est Avg Glu 5.7 % (4.0-6.0)
[2020-04-18 12:24] LABS: Free T4, Direct Thyroxine 0.79 ng/dL (0.78-2.19)
[2020-04-18 12:38] LABS: Thyroid Stimulating Hormone 0.515 uIU/mL (0.47-4.68)
== END ==
PROVIDERS: PCP Family Medicine; Referring Provider Family Medicine; Visit Provider Family Medicine
DX: E03.9 Hypothyroidism, unspecified (principal); R73.9 Hyperglycemia, unspecified; R00.2 Palpitations
CPT/HCPCS: 36415; 80053; 83036; 84439; 84443

== ENCOUNTER → 2021-01-11 12:13 | Outpatient (CLI) | payer MEDICARE, OTHER, SELFPAY ==
[2021-01-11 12:46] LABS: Cholesterol 263 mg/dL (140-199); HDL Cholesterol 91 mg/dL (40-60); LDL Cholesterol Calculated 137 mg/dL (<100); Triglycerides 173 mg/dL (35-150)
[2021-01-11 13:06] LABS: Free T4, Direct Thyroxine 0.84 ng/dL (0.78-2.19)
[2021-01-11 13:20] LABS: Thyroid Stimulating Hormone 1.55 uIU/mL (0.47-4.68)
--- NOTE | 2021-01-11 17:43 | DI.MG.S_ITS ---
BILATERAL DIGITAL SCREENING MAMMOGRAM 3D/2D WITH CAD: 01/11/2021 CLINICAL: Routine screening. Family history of breast cancer. Comparison is made to exams dated: 01/20/2019 mammogram, 12/16/2017 mammogram, 10/29/2016 mammogram, 08/03/2015 mammogram, and 06/22/2014 mammogram - [facility]. There are scattered fibroglandular elements in both breasts. Current study was also evaluated with a Computer Aided Detection (CAD) system. No significant masses, calcifications, or other findings are seen in either breast. There has been no significant interval change. IMPRESSION: NEGATIVE There is no mammographic evidence of malignancy. A 1 year screening mammogram is recommended. This exam was interpreted at Station ID: [id number]. NOTE: For mammograms, a report in lay terms will be sent to the patient. Approximately 15% of breast malignancies will not be visualized mammographically. In the management of a palpable breast mass, a negative mammogram must not discourage biopsy of a clinically suspicious lesion. Electronically Signed By: Rajeev evans/kale:01/12/2021 08:51:12 letter sent: Normal Exam ACR BI-RADS Category 1: Negative [id number]
== END ==
PROVIDERS: Family Medicine; PCP Family Medicine; Referring Provider Family Medicine; Visit Provider Family Medicine
DX: E78.2 Mixed hyperlipidemia (principal); E03.9 Hypothyroidism, unspecified; Z12.31 Encounter for screening mammogram for malignant neoplasm of breast; Z80.3 Family history of malignant neoplasm of breast; I10 Essential (primary) hypertension; R00.2 Palpitations
CPT/HCPCS: 36415; 77063; 77067; 80061; 84439; 84443

== ENCOUNTER → 2021-04-03 10:16 | Outpatient (CLI) | payer MEDICARE, OTHER, SELFPAY ==
[2021-04-03 12:10] LABS: Add Manual Diff / Slide Review NO; Basophils Absolute Auto 0 /uL (0-100); Eosinophils Absolute Auto 0 /uL (0-450); Eosinophils Percent Auto 1.1 % (2-4); Hematocrit 40.4 % (36-46); Hemoglobin 13.7 g/dL (12.0-16.0); Lymphocytes Absolute Auto 1400 /uL (1100-4500); Mean Corpuscular HGB Conc 33.9 % (30-36); Mean Corpuscular Volume 97.3 fL (80-100); Monocytes Absolute Auto 400 /uL (0-900); Monocytes Percent Auto 8.9 % (3-14); Neutrophils Absolute Auto 2600 /uL (1500-7000); Platelet Count 248 X10^3/uL (150-400); Red Blood Cell Count 4.16 X10^6/uL (4.0-5.2); Red Cell Distribution Width 14.5 % (11.6-14.8); White Blood Cell Count 4.4 X10^3/uL (4.5-11.0)
[2021-04-03 12:59] LABS: Alanine Aminotransferase 30 IU/L (<35); Albumin 4.3 g/dL (3.5-5.0); Albumin Globulin Ratio 1.7 (1.0-2.8); Alkaline Phosphatase 73 U/L (38-126); Aspartate Aminotransferase 29 IU/L (14-36); BUN Creatinine Ratio 23.6 (6-22); Bilirubin Total 0.5 mg/dL (0.2-1.3); Blood Urea Nitrogen 17 mg/dL (7-17); Calcium 9.7 mg/dL (8.4-10.2); Carbon Dioxide 27 mmol/L (22-32); Chloride 104 mmol/L (98-107); Cholesterol 230 mg/dL (140-199); Estimated Glomerular Filt Rate > 60.0 mL/min (>60); Globulin 2.5 g/dL (1.7-4.1); Glucose 101 mg/dL (80-110); HDL Cholesterol 81 mg/dL (40-60); HEMOLYSIS < 15 (0-50); LDL Cholesterol Calculated 131 mg/dL (<100); Potassium 4.6 mmol/L (3.4-5.1); Sodium 138 mmol/L (137-145); Total Protein 6.8 g/dL (6.3-8.2); Triglycerides 91 mg/dL (35-150)
[2021-04-03 13:09] LABS: Free T4, Direct Thyroxine 0.71 ng/dL (0.78-2.19)
[2021-04-03 13:23] LABS: Thyroid Stimulating Hormone 0.978 uIU/mL (0.47-4.68)
== END ==
PROVIDERS: PCP Family Medicine; Referring Provider Family Medicine; Visit Provider Family Medicine
DX: E03.9 Hypothyroidism, unspecified (principal); E78.2 Mixed hyperlipidemia; I10 Essential (primary) hypertension; R73.9 Hyperglycemia, unspecified
CPT/HCPCS: 36415; 80053; 80061; 84439; 84443; 85025

== ENCOUNTER → 2021-08-17 15:13 | Outpatient (CLI) | payer MEDICARE, OTHER, SELFPAY ==
--- NOTE | 2021-08-17 15:15 | DI.RAD.S_ITS ---
PROCEDURE: XR ANKLE RT MIN 3V INDICATIONS: right ankle pain TECHNIQUE: 3 views of the ankle were acquired. COMPARISON: None. FINDINGS: Bones: No fractures or dislocations. Ankle mortise is normally aligned. No suspicious bony lesions. Calcaneal spur is present. Soft tissues: No tibiotalar joint effusion. Achilles tendon appears normal. IMPRESSION: No visualized acute fracture or dislocation. However, if clinical concern and/or pain persist, short interval imaging followup in 7-10 days is recommended, as occult injury cannot be definitively excluded. Dictated by: Talia Martínez M.D. on 08/17/2021 at 18:39 Approved by: Talia Martínez M.D. on 08/17/2021 at 18:40
== END ==
PROVIDERS: PCP Family Medicine; Referring Provider Family Medicine; Visit Provider Family Medicine
DX: M25.571 Pain in right ankle and joints of right foot (principal)
CPT/HCPCS: 73610

== ENCOUNTER → 2021-09-19 09:37 | Outpatient (CLI) | payer MEDICARE, OTHER, SELFPAY ==
--- NOTE | 2021-09-19 09:38 | DI.MRI.S_ITS ---
PROCEDURE: MR ANKLE RT WO CON INDICATIONS: persistent Right ankle pain TECHNIQUE: Noncontrast sagittal T1 spin echo and T2 fast spin echo with fat saturation, axial proton density fast spin echo and T2 fast spin echo with fat saturation, coronal T1 spin echo and T2 fast spin echo with fat saturation through the ankle/hindfoot. COMPARISON: [facility], MR, MR ANKLE RT WO CON, 08/21/2017, 16:42. FINDINGS: Image quality: Excellent. Bones and joints: There is mild pes planus that appears to be new when compared to the prior MRI from 08/21/2017. There is suspected mild hindfoot valgus. No acute trabecular bone injury. No osteochondral lesion in the talar dome. Prominent nonedematous plantar calcaneal enthesophyte is seen and there is a small posterior calcaneal enthesophyte. Djce-xv-tgnmuvms degenerative changes are seen at the 2nd and 3rd tarsometatarsal joints with subchondral cystic changes. Medial structures: The deep fibers of the deltoid ligament are intact. The superomedial band of the spring ligament and the tibiospring ligament are bowed medially around the talar head. There is thickening of the distal posterior tibialis tendon with surrounding fluid signal, consistent with tendinosis and tenosynovitis. Findings appear mildly worse when compared to the MRI from 08/21/2017. A lobular ganglion cyst is seen projecting into the subcutaneous tissues medial to the talar head measuring approximately 1.5 x 0.5 x 1.0 cm. The flexor digitorum longus and flexor hallucis longus tendons are intact. The posterior tibial neurovascular bundle appears normal within the tarsal tunnel, without extrinsic mass effect. Lateral structures: The anterior talofibular, calcaneofibular, and posterior talofibular ligaments appear intact. The anterior and posterior tibiofibular ligaments appear intact. Mild peroneus brevis tendinosis. The peroneus longus tendon appears to be intact. A there is effacement of the normal fat signal in the sinus tarsi. A ganglion cyst is seen arising from the lateral sinus tarsi extending superiorly towards the extensor retinaculum, measuring up to approximately 1.5 x 0.8 x 1.2 cm. Anterior structures: Moderate fluid is seen surrounding the distal extensor digitorum longus tendons at the level of the mortise joint, which is similar to slightly more prominent when compared to the prior exam from 2018. The tibialis anterior and extensor hallucis longus tendons appear intact. The dorsal talonavicular ligament appears intact. Posterior and plantar structures: Mild thickening of the Achilles tendon is consistent with mild tendinosis. Mild focal thickening of the mid to distal plantar fascia appears unchanged when compared to the prior exam. There is mild chronic thickening of the proximal plantar fascia without associated edema. No abductor digiti quinti muscle atrophy to suggest Georges neuropathy. IMPRESSION: 1. Moderate posterior tibialis tendinosis and tenosynovitis. 2. Mild pes planus and suspected mild hindfoot valgus are new when compared to the prior MRI from 08/21/2017. Medial bowing of the superomedial band of the spring ligament and the tibiospring ligament is noted around the talar head. 3. Mild peroneus brevis tendinosis. 4. Tenosynovitis of the extensor digitorum longus tendon is stable to mildly progressed. 5. Mild Achilles tendinosis. 6. Stable focal thickening of the mid to distal plantar fascia. Chronic mild proximal plantar fasciitis. 7. Optn-jm-[id number] midfoot degenerative changes. Dictated by: Jackson Peralta M.D. on 09/19/2021 at 13:00 Approved by: Jackson Peralta M.D. on 09/19/2021 at 13:15
== END ==
PROVIDERS: PCP Family Medicine; Referring Provider Family Medicine; Visit Provider Family Medicine
DX: M25.571 Pain in right ankle and joints of right foot (principal); G89.29 Other chronic pain; M65.871 Other synovitis and tenosynovitis, right ankle and foot; M21.41 Flat foot [pes planus] (acquired), right foot; M72.2 Plantar fascial fibromatosis
CPT/HCPCS: 73721

== ENCOUNTER → 2021-09-28 12:42 | Outpatient (CLI) | payer MEDICARE, OTHER, SELFPAY ==
[2021-09-28 14:16] LABS: Alanine Aminotransferase 24 IU/L (<35); Albumin 4.2 g/dL (3.5-5.0); Albumin Globulin Ratio 1.6 (1.0-2.8); Alkaline Phosphatase 87 U/L (38-126); Aspartate Aminotransferase 29 IU/L (14-36); BUN Creatinine Ratio 21.9 (6-22); Bilirubin Total 0.7 mg/dL (0.2-1.3); Blood Urea Nitrogen 14 mg/dL (7-17); Calcium 8.7 mg/dL (8.4-10.2); Carbon Dioxide 25 mmol/L (22-32); Chloride 104 mmol/L (98-107); Cholesterol 245 mg/dL (140-199); Estimated Glomerular Filt Rate > 60 mL/min (>60); Globulin 2.6 g/dL (1.7-4.1); Glucose 91 mg/dL (80-110); HDL Cholesterol 54 mg/dL (40-60); HEMOLYSIS < 15 (0-50); LDL Cholesterol Calculated 150 mg/dL (<100); Potassium 3.7 mmol/L (3.4-5.1); Sodium 137 mmol/L (137-145); Total Protein 6.8 g/dL (6.3-8.2); Triglycerides 204 mg/dL (35-150)
[2021-09-28 14:33] LABS: T4 Total Thyroxine 6.39 ug/dL (5.5-11.0)
[2021-09-28 14:46] LABS: Thyroid Stimulating Hormone 0.653 uIU/mL (0.47-4.68)
== END ==
PROVIDERS: PCP Family Medicine; Referring Provider Family Medicine; Visit Provider Family Medicine
DX: E03.9 Hypothyroidism, unspecified (principal); R73.9 Hyperglycemia, unspecified; E78.2 Mixed hyperlipidemia
CPT/HCPCS: 36415; 80053; 80061; 84436; 84443

== ENCOUNTER → 2022-01-29 10:53 | Outpatient (CLI) | payer MEDICARE, OTHER, SELFPAY ==
[2022-01-29 13:15] LABS: Cholesterol 252 mg/dL (140-199); HDL Cholesterol 56 mg/dL (40-60); LDL Cholesterol Calculated 157 mg/dL (<100); Triglycerides 196 mg/dL (35-150)
[2022-01-29 13:28] LABS: Free T4, Direct Thyroxine 0.82 ng/dL (0.78-2.19)
[2022-01-29 13:42] LABS: Thyroid Stimulating Hormone 0.577 uIU/mL (0.47-4.68)
== END ==
PROVIDERS: Family Provider Family Medicine; PCP Family Medicine; Referring Provider Family Medicine; Visit Provider Family Medicine
DX: R73.9 Hyperglycemia, unspecified (principal); E78.2 Mixed hyperlipidemia; E03.9 Hypothyroidism, unspecified; I10 Essential (primary) hypertension
CPT/HCPCS: 36415; 80061; 83036; 84439; 84443

== ENCOUNTER 2022-03-28 09:00 | Outpatient (RCR) | payer MEDICARE, OTHER, SELFPAY ==
--- NOTE | 2021-10-30 18:48 | PT.OIE ---
Current Diagnoses Other chronic pain (10/30/21) Flat foot [pes planus] (acquired), right foot (10/30/21) Pain in right ankle and joints of right foot (10/30/21) Difficulty in walking, not elsewhere classified (10/30/21) Abnormal posture (10/30/21) Weakness (10/30/21) Past Medical History (Last Updated 10/03/21 @ 10:08 by Dc Joy DO) Abnormal Pap smear of vagina Cervical dysplasia Hyperglycemia Hypertension Hypothyroidism Palpitations Pes planus of right foot Right ankle pain Past Surgical History (Last Reviewed 10/03/21 @ 09:32 by Dc Joy DO) Anesthesia History of colonoscopy (~2007) History of colonoscopy (~2015) History of foot surgery (~05/17/14) History of hysteroscopy (~2004) Status post loop electrosurgical excision procedure (LEEP) of cervix (~2012) Visit Care Team Role Provider Type Dc Joy DO Attending Provider Physician Family Provider Primary Care Provider Referring Provider Specialty: Family Practice Address: [address] [place] [address], [facility] Email: [email or web address] Physical Therapy Initial Evaluation PT-OP-A Visit Information Start: 10/26/21 18:06 Freq: Status: Active Protocol: Document 10/30/21 10:29 [facility] (Rec: 10/30/21 12:19 [facility] [id number]) Out-Patient Physical Therapy Visit Information Visit Information Visit Type Initial Evaluation Visit Start Time 11:23 Visit Stop Time 12:15 Total Visit Minutes 52 Visit Number 1 Number of CUSHION BUILDER Visits 0 PT-OP-B Current Condition Start: 10/26/21 18:06 Freq: Status: Active Protocol: Document 10/30/21 10:29 [facility] (Rec: 10/30/21 12:19 [facility] [id number]) Current Condition History of Current Condition Onset Date chronic w/worsening in apr Current Complaints R foot pain & med foot History of Current Condition Pt reports med foot pain along arch and med ankle. Pt saw Dr Jim Hutchinson who noted some changes from prior MRI. She made her a custom insole in 2018 but it made her foot hurt more. She tried to put it in her shoes but couldn't get it in prior to work. 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 Pt tried to wear high tops (chris) but that seemed to hurt worse. Pt has been wearing [employer] shoes and she likes them a lot. She quit walking d/t pain. She works at [employer] in [employer] the section. It would shoot sharp pains when going down and its not as much right now but still uncomfortable. Foot pain got really bad starting in Apr with inc activity at [email or web address]. Foot pain initially started in 2017. She remembers going to her class reunion and wearing heels and the next day foot pain started and that was when it iniitally started. Restaurant General Manager told her she had flat feet.Pt reports the last month its been getting a bit better but unsure why. She works 3 days a week ( thru Sat). By the end of Sat, it is very painful. When not at work, its okay. Pt has not gone on her typical walks since Apr where she used to walk daily (doing [place] 2x). Now rarely walking d/t pain. Avoiding hiking d/t uneven terrain. 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 Has not taken ibuprofen lately but was taking 4 three times a day per MD order but that wwas a little while ago. She hasnt taken anything in the last 2 weeks. Pt reports occ back pain and RLS. She notes she is heavier than she ever has been this past year and was diagnosed w/hypothyroidism . Pt reports dizziness that is a side effect of her meds ( has already discussed w/MD) and she does wonder if this has changed how she walks Prior Treatments and Tests ankle MRI: IMPRESSION: 1. Moderate posterior tibialis tendinosis and tenosynovitis. 2. Mild pes planus and suspected mild hindfoot valgus are new when compared to the prior MRI from 08/21/2017. Medial bowing of the superomedial band of the spring ligament and the tibiospring ligament is noted around the talar head. 3. Mild peroneus brevis tendinosis. 4. Tenosynovitis of the extensor digitorum longus tendon is stable to mildly progressed. 5. Mild Achilles tendinosis. 6. Stable focal thickening of the mid to distal plantar fascia. Chronic mild proximal plantar fasciitis. 7. [id number] midfoot degenerative changes. Treatment Goals Patient/Caregiver Goals Get back to consistant walks, work w/o pain, get foot stronger, cont to be able to cont gardening and walking PT-OP-C Subjective Start: 10/26/21 18:06 Freq: Status: Active Protocol: Document 10/30/21 10:29 [facility] (Rec: 10/30/21 12:19 [facility] [id number]) Patient Questionnaires Foot & Ankle Ability Measure- ADL and Sports FAAM-ADL Score 56 FAAM-Sport Score 9/27 Lower Extremity Functional Scale LEFS Score 58/80 OP-PT Pain Assessment Location R foot Pain Location Details med arch and med ankle Intensity 8 Scale Used Numeric (0 - 10) Description Aching,Throbbing Frequency Constant Pain Duration can take a cuople of days for pain to dec after working 3 full days Pain Aggravating Factors Activity,Standing,Walking, Stair Climbing Other Pain Aggravating Factors uneven terrain, at night, 1st thing in the AM Pain Alleviating Factors Cold,Heat,Medication PT-OP-D Balance Start: 10/26/21 18:06 Freq: Status: Active Protocol: Document 10/30/21 10:29 [facility] (Rec: 10/30/21 12:19 [facility] [id number]) Balance Tests Single Limb Standing Single Limb- Right 5 sec w/lat pelvis shear w/ pain Single Limb- Left 4 sec w/lat pelvis shear PT-OP-F Manual Assessment Start: 10/26/21 18:06 Freq: Status: Active Protocol: Document 10/30/21 10:29 [facility] (Rec: 10/30/21 12:19 [facility] [id number]) Manual Assessments Soft Tissue Assessment Soft Tissue Mobility Assessment plantar fascia tightness and calf tightness, med around fibula discomfort Joint Mobility Assessment Joint Mobility Assessment R foot pronates in>L, R foot turned out, IR of tibia & femur w/knee bends, B rearfoot valgus, L forefoot valgus, R varsu PT-OP-G Mobility & Gait Start: 10/26/21 18:06 Freq: Status: Active Protocol: Document 10/30/21 10:29 [facility] (Rec: 10/30/21 12:19 [facility] [id number]) OP Gait Assessment Comments Gait Comments Dec push off B, reaches w/ steps, Dec stance time R PT-OP-K Range of Motion Start: 10/26/21 18:06 Freq: Status: Active Protocol: Document 10/30/21 10:29 [facility] (Rec: 10/30/21 12:19 [facility] [id number]) Ankle and Foot Goniometric Range of Motion Ankle and Foot Right Active Dorsiflexion with Knee Flexed 8 Dorsiflexion with Knee Extended 0 Plantarflexion 40 Inversion 36 Eversion 10 Comments PROM big toe 70 deg ext Left Active Dorsiflexion with Knee Flexed 10 Dorsiflexion with Knee Extended 5 Plantarflexion 46 Inversion 40 Eversion 20 Comments PROM big toe 60 deg ext PT-OP-M Strength Start: 10/26/21 18:06 Freq: Status: Active Protocol: Document 10/30/21 10:29 [facility] (Rec: 10/30/21 12:19 [facility] [id number]) Hip Strength Hip Manual Muscle Testing Right Flexion (L2) 3+ Fair+ Extension (S1) 3 Fair Abduction 3+ Fair+ External Rotation 3+ Fair+ Internal Rotation 4- Good- Left Flexion (L2) 4 Good Extension (S1) 4- Good- Abduction 4- Good- External Rotation 3+ Fair+ Internal Rotation 5 Normal Knee Strength Knee Manual Muscle Testing Right Flexion (S2) 4- Good- Extension (L3) 5 Normal Comments pain w/flex Left Flexion (S2) 5 Normal Extension (L3) 5 Normal Ankle/Foot Strength Ankle and Foot Manual Muscle Testing Right Dorsiflexion (L4) 4 Good Plantarflexion (S1) 4 Good Inversion 3+ Fair+ Eversion (S1) 4- Good- Comments 15 heel raises -pain Left Dorsiflexion (L4) 5 Normal Plantarflexion (S1) 5 Normal Inversion 5 Normal Eversion (S1) 5 Normal Comments 20 heel raises, cues for knee straight PT-OP-Q Treatments Start: 10/26/21 18:06 Freq: Status: Active Protocol: Document 10/30/21 10:29 [facility] (Rec: 10/30/21 12:19 [facility] [id number]) Self-Care/Home Management Treatment Education Other Education edu re: considering talking to re: sleep study and edu how that can affect pain and her other comorbitities. Discussed how she has atrophy in RLE and how her dec balacne is not appropriate for her age & athleticism PT-OP-T Assessment and Plan Start: 10/26/21 18:06 Freq: Status: Active Protocol: Document 10/30/21 10:29 [facility] (Rec: 10/30/21 12:19 [facility] [id number]) Physical Therapy Assessment Rehab Potential Rehabilitation Potential Good Evaluation Complexity Number of Personal Factors/Comorbidities 3 or More Number of Body Systems Impaired 4 or More Clinical Presentation at Evaluation Evolving Impairments Impairments Activity Tolerance,Balance, Functional Activities, Functional Mobility,Gait,Pain, Posture,ROM,Soft Tissue Mobility,Strength Goals balance Short Term Goal (STG) Pt will be able to do SLS 10 B Rug Inspector Helper Goal (LTG) Pt will be able to do SLS 10 sec w/o lat hip shear, UE use or drop of arch or pain LTG Duration 01/30 strength Short Term Goal (STG) Pt will be indep w/HEP for strength, balance and ROM STG Duration 12/15 Rug Inspector Helper Goal (LTG) Pt will have at least 4+/5 hip strength and 5/5 ankle & knee MMT along w/ at least 3/5 on LPM to show improved stability to allow for greater time on feet w/improved mechanics LTG Duration 01/30 activities Short Term Goal (STG) Pt will be able to do typical home gardening w/o inc foot pain STG Duration 12/15/21 Rug Inspector Helper Goal (LTG) Pt will be able to work without pain inc greater than 2/10 in R foot LTG Duration 01/30 walking Short Term Goal (STG) Pt will be able to walk 2 miles w/mild hills w/o inc pain in foot. STG Duration 12/30 Alf Goal (LTG) Pt will be able to walk [place] 2x in a row w/o inc pain in foot. LTG Duration 01/30 Assessment Summary Assessment Pt presents w/medial ankle pain and medial arch pain with recent MRI showing further pronation and post tib tendinosis & tenosynovitis along wperoneus brevis tendinosis & tenosynovitis of the EDL tendon, and mild achilles teninosis & thickening of mid to distal plantar fascia long w/mild proximal plantar fasciitis. She has had pain since 2018 but has had worsening this year, whcih has significantly decreased her activity. 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 She has significantly impaired balance B in SLS and dec hip stabiltiy which likely contribues to inc load to her R foot. Her R arch is collapsed further than L and further change was noted on imaging. She has impaired gait pattern which may be related to dizziness that pt notes w/ her current meds. She has overall weakness of R foot and would benefit from skilled PT to address these deficits to improve pt's ability to do typical activities. Physical Therapy Plan Frequency and Duration Frequency of Treatment 1-2x/week Duration of Treatment 3 months Plan of Care Start Date 10/30/21 Plan of Care End Date 01/30/22 Therapeutic Interventions Therapeutic Interventions Aquatic Therapy,Balance Training,Gait Training,Home Exercise Program,Joint Mobilizations,Manual Therapy, Neuromuscular Re-education, Patient/Caregiver Education, Self-Care/Home Management,Soft Tissue Mobilization,Taping, Therapeutic Activities, Therapeutic Exercises Modalities Cold Pack/Ice Massage,Electric Stimulation,Hot Packs, Infrared Therapy,Ultrasound Next Visit Focus/Plan Next Note Type Treatment Note Next Visit Plan calf stretch, PF stretch, ball work w/foot, big toe & little toe DF, arch lift, manual to foot and ankle position
--- NOTE | 2021-10-30 18:48 | PT.OPPOC ---
Physical, Occupational & Speech Therapy At [facility] Current Diagnoses Other chronic pain (10/30/21) Flat foot [pes planus] (acquired), right foot (10/30/21) Pain in right ankle and joints of right foot (10/30/21) Difficulty in walking, not elsewhere classified (10/30/21) Abnormal posture (10/30/21) Weakness (10/30/21) Visit Care Team Role Provider Type Dc Joy DO Attending Provider Physician Family Provider Primary Care Provider Referring Provider Specialty: Family Practice Address: [address] [place] [address] Email: [email or web address] Plan Of Care PT-OP-T Assessment and Plan Start: 10/26/21 18:06 Freq: Status: Active Protocol: Document 10/30/21 10:29 [facility] (Rec: 10/30/21 12:19 [facility] [id number]) Physical Therapy Assessment Rehab Potential Rehabilitation Potential Good Evaluation Complexity Number of Personal Factors/Comorbidities 3 or More Number of Body Systems Impaired 4 or More Clinical Presentation at Evaluation Evolving Impairments Impairments Activity Tolerance,Balance, Functional Activities, Functional Mobility,Gait,Pain, Posture,ROM,Soft Tissue Mobility,Strength Goals balance Short Term Goal (STG) Pt will be able to do SLS 10 B Facility Manager Goal (LTG) Pt will be able to do SLS 10 sec w/o lat hip shear, UE use or drop of arch or pain LTG Duration 01/30 strength Short Term Goal (STG) Pt will be indep w/HEP for strength, balance and ROM STG Duration 12/15 Facility Manager Goal (LTG) Pt will have at least 4+/5 hip strength and 5/5 ankle & knee MMT along w/ at least 3/5 on LPM to show improved stability to allow for greater time on feet w/improved mechanics LTG Duration 01/30 activities Short Term Goal (STG) Pt will be able to do typical home gardening w/o inc foot pain STG Duration 12/15/21 [facility] Goal (LTG) Pt will be able to work without pain inc greater than 2/10 in R foot LTG Duration 01/30 walking Short Term Goal (STG) Pt will be able to walk 2 miles w/mild hills w/o inc pain in foot. STG Duration 12/30 [facility] Goal (LTG) Pt will be able to walk [place] 2x in a row w/o inc pain in foot. LTG Duration 01/30 Assessment Summary Assessment Pt presents w/medial ankle pain and medial arch pain with recent MRI showing further pronation and post tib tendinosis & tenosynovitis along wperoneus brevis tendinosis & tenosynovitis of the EDL tendon, and mild achilles teninosis & thickening of mid to distal plantar fascia long w/mild proximal plantar fasciitis. She has had pain since 2018 but has had worsening this year, whcih has significantly decreased her activity. 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 She has significantly impaired balance B in SLS and dec hip stabiltiy which likely contribues to inc load to her R foot. Her R arch is collapsed further than L and further change was noted on imaging. She has impaired gait pattern which may be related to dizziness that pt notes w/ her current meds. She has overall weakness of R foot and would benefit from skilled PT to address these deficits to improve pt's ability to do typical activities. Physical Therapy Plan Frequency and Duration Frequency of Treatment 1-2x/week Duration of Treatment 3 months Plan of Care Start Date 10/30/21 Plan of Care End Date 01/30/22 Therapeutic Interventions Therapeutic Interventions Aquatic Therapy,Balance Training,Gait Training,Home Exercise Program,Joint Mobilizations,Manual Therapy, Neuromuscular Re-education, Patient/Caregiver Education, Self-Care/Home Management,Soft Tissue Mobilization,Taping, Therapeutic Activities, Therapeutic Exercises Modalities Cold Pack/Ice Massage,Electric Stimulation,Hot Packs, Infrared Therapy,Ultrasound Next Visit Focus/Plan Next Note Type Treatment Note Next Visit Plan calf stretch, PF stretch, ball work w/foot, big toe & little toe DF, arch lift, manual to foot and ankle position Plan of Care Dates Plan of Care Start Date 10/30/21 Plan of Care End Date 01/30/22 Electronically Signed by: Heather Joy, PT 10/30/21 [id number] If you are in agreement with this Plan of Care, please return a signed and dated copy. I have reviewed this Plan of Care and certify that the skilled therapy services above are required to meet the patient?s needs. Physician Signature Date Printed Name and Credentials Clinical Instructor Signature Printed Name and Credentials
--- NOTE | 2021-10-31 17:45 | PT.OTN ---
Current Diagnoses Other chronic pain (10/31/21) Flat foot [pes planus] (acquired), right foot (10/31/21) Pain in right ankle and joints of right foot (10/31/21) Difficulty in walking, not elsewhere classified (10/31/21) Abnormal posture (10/31/21) Weakness (10/31/21) Physical Therapy Treatment Note PT-OP-A Visit Information Start: 10/26/21 18:06 Freq: Status: Active Protocol: Document 10/31/21 14:37 [facility] (Rec: 10/31/21 17:45 [facility] [id number]) Out-Patient Physical Therapy Visit Information Visit Information Visit Type Treatment Note Visit Start Time 14:35 Visit Stop Time 15:15 Total Visit Minutes 40 Visit Number 2 Number of STUCCO MASON Visits 0 PT-OP-B Current Condition Start: 10/26/21 18:06 Freq: Status: Active Protocol: Document 10/30/21 10:29 [facility] (Rec: 10/30/21 12:19 [facility] [id number]) Current Condition History of Current Condition Onset Date chronic w/worsening in apr Current Complaints R foot pain & med foot History of Current Condition Pt reports med foot pain along arch and med ankle. Pt saw Dr Jim Hutchinson who noted some changes from prior MRI. She made her a custom insole in 2018 but it made her foot hurt more. She tried to put it in her shoes but couldn't get it in prior to work. 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 Pt tried to wear high tops (chris) but that seemed to hurt worse. Pt has been wearing [employer] shoes and she likes them a lot. She quit walking d/t pain. She works at [employer] in [employer]. It would shoot sharp pains when going down and its not as much right now but still uncomfortable. Foot pain got really bad starting in Apr with inc activity at nursery. Foot pain initially started in 2018. She remembers going to her class reunion and wearing heels and the next day foot pain started and that was when it iniitally started. [employer] Representative told her she had flat feet.Pt reports the last month its been getting a bit better but unsure why. She works 3 days a week ( thru Sat). By the end of Sat, it is very painful. When not at work, its okay. Pt has not gone on her typical walks since Apr where she used to walk daily (doing [place] 2x). Now rarely walking d/t pain. Avoiding hiking d/t uneven terrain. 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 Has not taken ibuprofen lately but was taking 4 three times a day per MD order but that wwas a little while ago. She hasnt taken anything in the last 2 weeks. Pt reports occ back pain and RLS. She notes she is heavier than she ever has been this past year and was diagnosed w/hypothyroidism . Pt reports dizziness that is a side effect of her meds ( has already discussed w/) and she does wonder if this has changed how she walks Prior Treatments and Tests ankle MRI: IMPRESSION: 1. Moderate posterior tibialis tendinosis and tenosynovitis. 2. Mild pes planus and suspected mild hindfoot valgus are new when compared to the prior MRI from 08/21/2017. Medial bowing of the superomedial band of the spring ligament and the tibiospring ligament is noted around the talar head. 3. Mild peroneus brevis tendinosis. 4. Tenosynovitis of the extensor digitorum longus tendon is stable to mildly progressed. 5. Mild Achilles tendinosis. 6. Stable focal thickening of the mid to distal plantar fascia. Chronic mild proximal plantar fasciitis. 7. [id number] midfoot degenerative changes. Treatment Goals Patient/Caregiver Goals Get back to consistant walks, work w/o pain, get foot stronger, cont to be able to cont gardening and walking PT-OP-C Subjective Start: 10/26/21 18:06 Freq: Status: Active Protocol: Document 10/31/21 14:37 [facility] (Rec: 10/31/21 17:45 [facility] [id number]) OP-PT Subjective Patient Comments Patient Comments Pt reprots she is planning to contact re: sleep study PT-OP-D Balance Start: 10/26/21 18:06 Freq: Status: Active Protocol: Document 10/30/21 10:29 [facility] (Rec: 10/30/21 12:19 [facility] [id number]) Balance Tests Single Limb Standing Single Limb- Right 5 sec w/lat pelvis shear w/ pain Single Limb- Left 4 sec w/lat pelvis shear PT-OP-F Manual Assessment Start: 10/26/21 18:06 Freq: Status: Active Protocol: Document 10/30/21 10:29 [facility] (Rec: 10/30/21 12:19 [facility] [id number]) Manual Assessments Soft Tissue Assessment Soft Tissue Mobility Assessment plantar fascia tightness and calf tightness, med around fibula discomfort Joint Mobility Assessment Joint Mobility Assessment R foot pronates in>L, R foot turned out, IR of tibia & femur w/knee bends, B rearfoot valgus, L forefoot valgus, R varsu PT-OP-G Mobility & Gait Start: 10/26/21 18:06 Freq: Status: Active Protocol: Document 10/30/21 10:29 [facility] (Rec: 10/30/21 12:19 [facility] [id number]) OP Gait Assessment Comments Gait Comments Dec push off B, reaches w/ steps, Dec stance time R PT-OP-K Range of Motion Start: 10/26/21 18:06 Freq: Status: Active Protocol: Document 10/30/21 10:29 [facility] (Rec: 10/30/21 12:19 [facility] [id number]) Ankle and Foot Goniometric Range of Motion Ankle and Foot Right Active Dorsiflexion with Knee Flexed 8 Dorsiflexion with Knee Extended 0 Plantarflexion 40 Inversion 36 Eversion 10 Comments PROM big toe 70 deg ext Left Active Dorsiflexion with Knee Flexed 10 Dorsiflexion with Knee Extended 5 Plantarflexion 46 Inversion 40 Eversion 20 Comments PROM big toe 60 deg ext PT-OP-M Strength Start: 10/26/21 18:06 Freq: Status: Active Protocol: Document 10/30/21 10:29 [facility] (Rec: 10/30/21 12:19 [facility] [id number]) Hip Strength Hip Manual Muscle Testing Right Flexion (L2) 3+ Fair+ Extension (S1) 3 Fair Abduction 3+ Fair+ External Rotation 3+ Fair+ Internal Rotation 4- Good- Left Flexion (L2) 4 Good Extension (S1) 4- Good- Abduction 4- Good- External Rotation 3+ Fair+ Internal Rotation 5 Normal Knee Strength Knee Manual Muscle Testing Right Flexion (S2) 4- Good- Extension (L3) 5 Normal Comments pain w/flex Left Flexion (S2) 5 Normal Extension (L3) 5 Normal Ankle/Foot Strength Ankle and Foot Manual Muscle Testing Right Dorsiflexion (L4) 4 Good Plantarflexion (S1) 4 Good Inversion 3+ Fair+ Eversion (S1) 4- Good- Comments 15 heel raises -pain Left Dorsiflexion (L4) 5 Normal Plantarflexion (S1) 5 Normal Inversion 5 Normal Eversion (S1) 5 Normal Comments 20 heel raises, cues for knee straight PT-OP-Q Treatments Start: 10/26/21 18:06 Freq: Status: Active Protocol: Document 10/31/21 14:37 [facility] (Rec: 10/31/21 17:45 [facility] [id number]) Therapeutic Exercises Sitting Exercises reciprocal toe ext Sitting Exercise Name tried seated adn standing Side bilateral Reps/Minutes 10 ea Comments required hold down of opp toe tennis ball Side right Equipment Used sm ball Reps/Minutes 1 min Comments set up under tender spot & move toes stretch Sitting Exercise Name plantar fasica Side right Reps/Minutes 30 sec Standing Exercises arch lift Side bilateral Reps/Minutes 2x10 SLS Standing Exercise Name HH on rail prn Side bilateral Reps/Minutes 45 sec ea trialing stretch Standing Exercise Name fwd lean calf stretch Side bilateral Reps/Minutes 30 sec Manual Therapy Treatment Soft Tissue Mobilization plantar fascia Body Location R Mobilization Type Rolling Intensity/Depth Moderate Body Position Supine Joint Mobilizations cuneiforms Joint R Direction gapipng FM over foam roll talus Joint R Direction distraction, lat glide, AP FM tibfib Joint R Direction AP tib FM calcaneus Joint R Direction distraction, med glide FM PT-OP-T Assessment and Plan Start: 10/26/21 18:06 Freq: Status: Active Protocol: Document 10/31/21 14:37 [facility] (Rec: 10/31/21 17:45 [facility] [id number]) Physical Therapy Assessment Goals balance Short Term Goal (STG) Pt will be able to do SLS 10 B Intermediate Goal (LTG) Pt will be able to do SLS 10 sec w/o lat hip shear, UE use or drop of arch or pain LTG Duration 01/30 strength Short Term Goal (STG) Pt will be indep w/HEP for strength, balance and ROM STG Duration 12/15 Intermediate Goal (LTG) Pt will have at least 4+/5 hip strength and 5/5 ankle & knee MMT along w/ at least 3/5 on LPM to show improved stability to allow for greater time on feet w/improved mechanics LTG Duration 01/30 activities Short Term Goal (STG) Pt will be able to do typical home gardening w/o inc foot pain STG Duration 12/15/21 Intermediate Goal (LTG) Pt will be able to work without pain inc greater than 2/10 in R foot LTG Duration 01/30 walking Short Term Goal (STG) Pt will be able to walk 2 miles w/mild hills w/o inc pain in foot. STG Duration 12/30 [place] Goal (LTG) Pt will be able to walk [place] 2x in a row w/o inc pain in foot. LTG Duration 01/30 Assessment Summary Assessment Pt did well with exercises w/o c/o pain but had difficulty w /reciprocal toe ext. She had improved ability to create arch w/arch lift w/o lift of big toe after manual treatment Physical Therapy Plan Frequency and Duration Frequency of Treatment 1-2x/week Duration of Treatment 3 months Plan of Care Start Date 10/30/21 Plan of Care End Date 01/30/22 Next Visit Focus/Plan Next Note Type Treatment Note Next Visit Plan review exercises, cont to work on manual to foot and ankle
--- NOTE | 2021-11-06 18:04 | PT.OTN ---
Current Diagnoses Other chronic pain (11/06/21) Flat foot [pes planus] (acquired), right foot (11/06/21) Pain in right ankle and joints of right foot (11/06/21) Difficulty in walking, not elsewhere classified (11/06/21) Abnormal posture (11/06/21) Weakness (11/06/21) Physical Therapy Treatment Note PT-OP-A Visit Information Start: 10/26/21 18:06 Freq: Status: Active Protocol: Document 11/06/21 18:01 [facility] (Rec: 11/06/21 18:04 [facility] [id number]) Out-Patient Physical Therapy Visit Information Visit Information Visit Type Treatment Note Visit Start Time 11: Visit Stop Time 12:02 Total Visit Minutes 40 Visit Number 3 Number of DIRECTOR OF CARDIOPULMONARY SERVICES Visits 0 PT-OP-B Current Condition Start: 10/26/21 18:06 Freq: Status: Active Protocol: Document 10/30/21 10:29 [facility] (Rec: 10/30/21 12:19 [facility] [id number]) Current Condition History of Current Condition Onset Date chronic w/worsening in apr Current Complaints R foot pain & med foot History of Current Condition Pt reports med foot pain along arch and med ankle. Pt saw Dr Jim Hutchinson who noted some changes from prior MRI. She made her a custom insole in 2018 but it made her foot hurt more. She tried to put it in her shoes but couldn't get it in prior to work. 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 Pt tried to wear high tops (chris) but that seemed to hurt worse. Pt has been wearing [employer] shoes and she likes them a lot. She quit walking d/t pain. She works at [employer] in [employer] [place] [employer]. It would shoot sharp pains when going down and its not as much right now but still uncomfortable. Foot pain got really bad starting in Apr with inc activity at nursery. Foot pain initially started in 2018. She remembers going to her class reunion and wearing heels and the next day foot pain started and that was when it iniitally started. [employer] Artist told her she had flat feet.Pt reports the last month its been getting a bit better but unsure why. She works 3 days a week ( thru Sat). By the end of Sat, it is very painful. When not at work, its okay. Pt has not gone on her typical walks since Apr where she used to walk daily (doing [place] 2x). Now rarely walking d/t pain. Avoiding hiking d/t uneven terrain. 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 Has not taken ibuprofen lately but was taking 4 three times a day per MD order but that wwas a little while ago. She hasnt taken anything in the last 2 weeks. Pt reports occ back pain and RLS. She notes she is heavier than she ever has been this past year and was diagnosed w/hypothyroidism . Pt reports dizziness that is a side effect of her meds ( has already discussed w/) and she does wonder if this has changed how she walks Prior Treatments and Tests ankle MRI: IMPRESSION: 1. Moderate posterior tibialis tendinosis and tenosynovitis. 2. Mild pes planus and suspected mild hindfoot valgus are new when compared to the prior MRI from 08/21/2017. Medial bowing of the superomedial band of the spring ligament and the tibiospring ligament is noted around the talar head. 3. Mild peroneus brevis tendinosis. 4. Tenosynovitis of the extensor digitorum longus tendon is stable to mildly progressed. 5. Mild Achilles tendinosis. 6. Stable focal thickening of the mid to distal plantar fascia. Chronic mild proximal plantar fasciitis. 7. [id number] midfoot degenerative changes. Treatment Goals Patient/Caregiver Goals Get back to consistant walks, work w/o pain, get foot stronger, cont to be able to cont gardening and walking PT-OP-C Subjective Start: 10/26/21 18:06 Freq: Status: Active Protocol: Document 11/06/21 18:01 [facility] (Rec: 11/06/21 18:04 [facility] [id number]) OP-PT Subjective Patient Comments Patient Comments Pt reports compliance w/HEP PT-OP-D Balance Start: 10/26/21 18:06 Freq: Status: Active Protocol: Document 10/30/21 10:29 [facility] (Rec: 10/30/21 12:19 [facility] [id number]) Balance Tests Single Limb Standing Single Limb- Right 5 sec w/lat pelvis shear w/ pain Single Limb- Left 4 sec w/lat pelvis shear PT-OP-F Manual Assessment Start: 10/26/21 18:06 Freq: Status: Active Protocol: Document 10/30/21 10:29 [facility] (Rec: 10/30/21 12:19 [facility] [id number]) Manual Assessments Soft Tissue Assessment Soft Tissue Mobility Assessment plantar fascia tightness and calf tightness, med around fibula discomfort Joint Mobility Assessment Joint Mobility Assessment R foot pronates in>L, R foot turned out, IR of tibia & femur w/knee bends, B rearfoot valgus, L forefoot valgus, R varsu PT-OP-G Mobility & Gait Start: 10/26/21 18:06 Freq: Status: Active Protocol: Document 10/30/21 10:29 [facility] (Rec: 10/30/21 12:19 [facility] [id number]) OP Gait Assessment Comments Gait Comments Dec push off B, reaches w/ steps, Dec stance time R PT-OP-K Range of Motion Start: 10/26/21 18:06 Freq: Status: Active Protocol: Document 10/30/21 10:29 [facility] (Rec: 10/30/21 12:19 [facility] [id number]) Ankle and Foot Goniometric Range of Motion Ankle and Foot Right Active Dorsiflexion with Knee Flexed 8 Dorsiflexion with Knee Extended 0 Plantarflexion 40 Inversion 36 Eversion 10 Comments PROM big toe 70 deg ext Left Active Dorsiflexion with Knee Flexed 10 Dorsiflexion with Knee Extended 5 Plantarflexion 46 Inversion 40 Eversion 20 Comments PROM big toe 60 deg ext PT-OP-M Strength Start: 10/26/21 18:06 Freq: Status: Active Protocol: Document 10/30/21 10:29 [facility] (Rec: 10/30/21 12:19 [facility] [id number]) Hip Strength Hip Manual Muscle Testing Right Flexion (L2) 3+ Fair+ Extension (S1) 3 Fair Abduction 3+ Fair+ External Rotation 3+ Fair+ Internal Rotation 4- Good- Left Flexion (L2) 4 Good Extension (S1) 4- Good- Abduction 4- Good- External Rotation 3+ Fair+ Internal Rotation 5 Normal Knee Strength Knee Manual Muscle Testing Right Flexion (S2) 4- Good- Extension (L3) 5 Normal Comments pain w/flex Left Flexion (S2) 5 Normal Extension (L3) 5 Normal Ankle/Foot Strength Ankle and Foot Manual Muscle Testing Right Dorsiflexion (L4) 4 Good Plantarflexion (S1) 4 Good Inversion 3+ Fair+ Eversion (S1) 4- Good- Comments 15 heel raises -pain Left Dorsiflexion (L4) 5 Normal Plantarflexion (S1) 5 Normal Inversion 5 Normal Eversion (S1) 5 Normal Comments 20 heel raises, cues for knee straight PT-OP-Q Treatments Start: 10/26/21 18:06 Freq: Status: Active Protocol: Document 11/06/21 18:01 [facility] (Rec: 11/06/21 18:04 [facility] [id number]) Therapeutic Exercises Sitting Exercises reciprocal toe ext Side bilateral Reps/Minutes 10 ea Comments required hold down of opp toe & help of PT stretch Sitting Exercise Name plantar fasica Side right Reps/Minutes 30 sec Standing Exercises arch lift Side bilateral Reps/Minutes 2x10 Comments PT assisting in movement SLS Standing Exercise Name HH on rail prn Side bilateral Reps/Minutes 45 sec ea trialing stretch Standing Exercise Name fwd lean calf stretch Side bilateral Reps/Minutes 30 sec Manual Therapy Treatment Soft Tissue Mobilization plantar fascia Body Location R Mobilization Type Rolling Intensity/Depth Moderate Body Position Supine Joint Mobilizations talus Joint R Direction distraction, lat glide, AP FM tibfib Joint R Direction AP tib FM calcaneus Joint R Direction distraction FM PT-OP-T Assessment and Plan Start: 10/26/21 18:06 Freq: Status: Active Protocol: Document 11/06/21 18:01 [facility] (Rec: 11/06/21 18:04 [facility] [id number]) Physical Therapy Assessment Goals balance Short Term Goal (STG) Pt will be able to do SLS 10 B Service Person Goal (LTG) Pt will be able to do SLS 10 sec w/o lat hip shear, UE use or drop of arch or pain LTG Duration 01/30 strength Short Term Goal (STG) Pt will be indep w/HEP for strength, balance and ROM STG Duration 12/15 [facility] Goal (LTG) Pt will have at least 4+/5 hip strength and 5/5 ankle & knee MMT along w/ at least 3/5 on LPM to show improved stability to allow for greater time on feet w/improved mechanics LTG Duration 01/30 activities Short Term Goal (STG) Pt will be able to do typical home gardening w/o inc foot pain STG Duration 12/15/21 [facility] Goal (LTG) Pt will be able to work without pain inc greater than 2/10 in R foot LTG Duration 01/30 walking Short Term Goal (STG) Pt will be able to walk 2 miles w/mild hills w/o inc pain in foot. STG Duration 12/30 Service Person Goal (LTG) Pt will be able to walk [place] 2x in a row w/o inc pain in foot. LTG Duration 01/30 Assessment Summary Assessment Pt did well with exercises w/ min cues but still struggles w /reciprocal DF exercise. She had imrpoved ankle joint DF w/ manual today. Physical Therapy Plan Frequency and Duration Frequency of Treatment 1-2x/week Duration of Treatment 3 months Plan of Care Start Date 10/30/21 Plan of Care End Date 01/30/22 Next Visit Focus/Plan Next Note Type Treatment Note Next Visit Plan cont to work on reciprocal toe ext exercises, manual to foot and ankle further. hip hikes for SL strengthening
--- NOTE | 2021-11-13 12:17 | PT.OTN ---
Current Diagnoses Other chronic pain (11/13/21) Flat foot [pes planus] (acquired), right foot (11/13/21) Pain in right ankle and joints of right foot (11/13/21) Difficulty in walking, not elsewhere classified (11/13/21) Abnormal posture (11/13/21) Weakness (11/13/21) Physical Therapy Treatment Note PT-OP-A Visit Information Start: 10/26/21 18:06 Freq: Status: Active Protocol: Document 11/13/21 11:20 [facility] (Rec: 11/13/21 12:17 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 (Rec: 10/30/21 12:19 [facility] [id number]) Current Condition History of Current Condition Onset Date chronic w/worsening in apr Current Complaints R foot pain & med foot History of Current Condition Pt reports med foot pain along arch and med ankle. Pt saw Dr Jim Hutchinson who noted some changes from prior MRI. She made her a custom insole in 2018 but it made her foot hurt more. She tried to put it in her shoes but couldn't get it in prior to work. 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 Pt tried to wear high tops (chris) but that seemed to hurt worse. Pt has been wearing [employer] shoes and she likes them a lot. She quit walking d/t pain. She works at [employer] in [place] [employer]. It would shoot sharp pains when going down and its not as much right now but still uncomfortable. Foot pain got really bad starting in Apr with inc activity at nursery. Foot pain initially started in 2018. She remembers going to her class reunion and wearing heels and the next day foot pain started and that was when it iniitally started. Medical Pathologist told her she had flat feet.Pt reports the last month its been getting a bit better but unsure why. She works 3 days a week ( thru Sat). By the end of Sat, it is very painful. When not at work, its okay. Pt has not gone on her typical walks since Apr where she used to walk daily (doing [place] 2x). Now rarely walking d/t pain. Avoiding hiking d/t uneven terrain. 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 Has not taken ibuprofen lately but was taking 4 three times a day per MD order but that wwas a little while ago. She hasnt taken anything in the last 2 weeks. Pt reports occ back pain and RLS. She notes she is heavier than she ever has been this past year and was diagnosed w/hypothyroidism . Pt reports dizziness that is a side effect of her meds ( has already discussed w/) and she does wonder if this has changed how she walks Prior Treatments and Tests ankle MRI: IMPRESSION: 1. Moderate posterior tibialis tendinosis and tenosynovitis. 2. Mild pes planus and suspected mild hindfoot valgus are new when compared to the prior MRI from 08/21/2017. Medial bowing of the superomedial band of the spring ligament and the tibiospring ligament is noted around the talar head. 3. Mild peroneus brevis tendinosis. 4. Tenosynovitis of the extensor digitorum longus tendon is stable to mildly progressed. 5. Mild Achilles tendinosis. 6. Stable focal thickening of the mid to distal plantar fascia. Chronic mild proximal plantar fasciitis. 7. [id number] midfoot degenerative changes. Treatment Goals Patient/Caregiver Goals Get back to consistant walks, work w/o pain, get foot stronger, cont to be able to cont gardening and walking PT-OP-C Subjective Start: 10/26/21 18:06 Freq: Status: Active Protocol: Document 11/13/21 11:20 [facility] (Rec: 11/13/21 12:17 [facility] [id number]) OP-PT Subjective Patient Comments Patient Comments Pt reports compliance w/HEP. not very sore today PT-OP-D Balance Start: 10/26/21 18:06 Freq: Status: Active Protocol: Document 10/30/21 10:29 [facility] (Rec: 10/30/21 12:19 [facility] [id number]) Balance Tests Single Limb Standing Single Limb- Right 5 sec w/lat pelvis shear w/ pain Single Limb- Left 4 sec w/lat pelvis shear PT-OP-F Manual Assessment Start: 10/26/21 18:06 Freq: Status: Active Protocol: Document 10/30/21 10:29 [facility] (Rec: 10/30/21 12:19 [facility] [id number]) Manual Assessments Soft Tissue Assessment Soft Tissue Mobility Assessment plantar fascia tightness and calf tightness, med around fibula discomfort Joint Mobility Assessment Joint Mobility Assessment R foot pronates in>L, R foot turned out, IR of tibia & femur w/knee bends, B rearfoot valgus, L forefoot valgus, R varsu PT-OP-G Mobility & Gait Start: 10/26/21 18:06 Freq: Status: Active Protocol: Document 10/30/21 10:29 [facility] (Rec: 10/30/21 12:19 [facility] [id number]) OP Gait Assessment Comments Gait Comments Dec push off B, reaches w/ steps, Dec stance time R PT-OP-K Range of Motion Start: 10/26/21 18:06 Freq: Status: Active Protocol: Document 10/30/21 10:29 [facility] (Rec: 10/30/21 12:19 [facility] [id number]) Ankle and Foot Goniometric Range of Motion Ankle and Foot Right Active Dorsiflexion with Knee Flexed 8 Dorsiflexion with Knee Extended 0 Plantarflexion 40 Inversion 36 Eversion 10 Comments PROM big toe 70 deg ext Left Active Dorsiflexion with Knee Flexed 10 Dorsiflexion with Knee Extended 5 Plantarflexion 46 Inversion 40 Eversion 20 Comments PROM big toe 60 deg ext PT-OP-M Strength Start: 10/26/21 18:06 Freq: Status: Active Protocol: Document 10/30/21 10:29 [facility] (Rec: 10/30/21 12:19 [facility] [id number]) Hip Strength Hip Manual Muscle Testing Right Flexion (L2) 3+ Fair+ Extension (S1) 3 Fair Abduction 3+ Fair+ External Rotation 3+ Fair+ Internal Rotation 4- Good- Left Flexion (L2) 4 Good Extension (S1) 4- Good- Abduction 4- Good- External Rotation 3+ Fair+ Internal Rotation 5 Normal Knee Strength Knee Manual Muscle Testing Right Flexion (S2) 4- Good- Extension (L3) 5 Normal Comments pain w/flex Left Flexion (S2) 5 Normal Extension (L3) 5 Normal Ankle/Foot Strength Ankle and Foot Manual Muscle Testing Right Dorsiflexion (L4) 4 Good Plantarflexion (S1) 4 Good Inversion 3+ Fair+ Eversion (S1) 4- Good- Comments 15 heel raises -pain Left Dorsiflexion (L4) 5 Normal Plantarflexion (S1) 5 Normal Inversion 5 Normal Eversion (S1) 5 Normal Comments 20 heel raises, cues for knee straight PT-OP-Q Treatments Start: 10/26/21 18:06 Freq: Status: Active Protocol: Document 11/13/21 11:20 [facility] (Rec: 11/13/21 12:17 [facility] [id number]) Therapeutic Exercises Sitting Exercises reciprocal toe ext Side bilateral Reps/Minutes 10 ea Comments required hold down of opp toe & help of PT Standing Exercises arch lift Side bilateral Reps/Minutes x10 Comments PT assisting in movement stretch Standing Exercise Name fwd lean calf stretch Side bilateral Reps/Minutes 30 sec Other Exercises DF Other Exercise Name 1/2 kneel self mob Side right Equipment Used lvl 4 band Reps/Minutes 10 Manual Therapy Treatment Soft Tissue Mobilization plantar fascia Body Location R Mobilization Type Rolling Intensity/Depth Moderate Body Position Supine Joint Mobilizations cuneiforms Joint R Direction gapipng FM over foam roll & standing talus Joint R Direction distraction AP FM supine & seated tibfib Joint R Direction AP tib FM supine & seated PT-OP-T Assessment and Plan Start: 10/26/21 18:06 Freq: Status: Active Protocol: Document 11/13/21 11:20 [facility] (Rec: 11/13/21 12:17 [facility] [id number]) Physical Therapy Assessment Goals balance Short Term Goal (STG) Pt will be able to do SLS 10 B Materials Specialist Goal (LTG) Pt will be able to do SLS 10 sec w/o lat hip shear, UE use or drop of arch or pain LTG Duration 01/30 strength Short Term Goal (STG) Pt will be indep w/HEP for strength, balance and ROM STG Duration 12/15 Materials Specialist Goal (LTG) Pt will have at least 4+/5 hip strength and 5/5 ankle & knee MMT along w/ at least 3/5 on LPM to show improved stability to allow for greater time on feet w/improved mechanics LTG Duration 01/30 activities Short Term Goal (STG) Pt will be able to do typical home gardening w/o inc foot pain STG Duration 12/15/21 Halfway Goal (LTG) Pt will be able to work without pain inc greater than 2/10 in R foot LTG Duration 01/30 walking Short Term Goal (STG) Pt will be able to walk 2 miles w/mild hills w/o inc pain in foot. STG Duration 12/30 Materials Specialist Goal (LTG) Pt will be able to walk [place] 2x in a row w/o inc pain in foot. LTG Duration 01/30 Assessment Summary Assessment Pt did well with exercises and had imrpoved arch lift after manual therapy with improved abiltiy to keep big toe down. Pt very tender around tib for AP glide Physical Therapy Plan Frequency and Duration Frequency of Treatment 1-2x/week Duration of Treatment 3 months Plan of Care Start Date 10/30/21 Plan of Care End Date 01/30/22 Next Visit Focus/Plan Next Note Type Treatment Note Next Visit Plan cont to work on reciprocal toe ext exercises, manual to foot and ankle further. hip hikes for SL strengthening
--- NOTE | 2021-11-15 12:23 | PT.OTN ---
Current Diagnoses Other chronic pain (11/15/21) Flat foot [pes planus] (acquired), right foot (11/15/21) Pain in right ankle and joints of right foot (11/15/21) Difficulty in walking, not elsewhere classified (11/15/21) Abnormal posture (11/15/21) Weakness (11/15/21) Physical Therapy Treatment Note PT-OP-A Visit Information Start: 10/26/21 18:06 Freq: Status: Active Protocol: Document 11/15/21 12:18 [facility] (Rec: 11/15/21 12:23 [facility] [id number]) Out-Patient Physical Therapy Visit Information Visit Information Visit Type Treatment Note Visit Start Time 11:20 Visit Stop Time 12:00 Total Visit Minutes 40 Visit Number 5 Number of 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 Pt saw Dr Jim Hutchinson who noted some changes from prior MRI. She made her a custom insole in 2018 but it made her foot hurt more. She tried to put it in her shoes but couldn't get it in prior to work. 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 Pt tried to wear high tops (chris) but that seemed to hurt worse. Pt has been wearing [employer] shoes and she likes them a lot. She quit walking d/t pain. She works at [employer] in [employer]. It would shoot sharp pains when going down and its not as much right now but still uncomfortable. Foot pain got really bad starting in Apr with inc activity at nursery. Foot pain initially started in 2018. She remembers going to her class reunion and wearing heels and the next day foot pain started and that was when it iniitally started. Tin Dipper told her she had flat feet.Pt reports the last month its been getting a bit better but unsure why. She works 3 days a week ( thru Sat). By the end of Sat, it is very painful. When not at work, its okay. Pt has not gone on her typical walks since Apr where she used to walk daily (doing [place] 2x). Now rarely walking d/t pain. Avoiding hiking d/t uneven terrain. 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 Has not taken ibuprofen lately but was taking 4 three times a day per MD order but that wwas a little while ago. She hasnt taken anything in the last 2 weeks. Pt reports occ back pain and RLS. She notes she is heavier than she ever has been this past year and was diagnosed w/hypothyroidism . Pt reports dizziness that is a side effect of her meds ( has already discussed w/) and she does wonder if this has changed how she walks Prior Treatments and Tests ankle MRI: IMPRESSION: 1. Moderate posterior tibialis tendinosis and tenosynovitis. 2. Mild pes planus and suspected mild hindfoot valgus are new when compared to the prior MRI from 08/21/2017. Medial bowing of the superomedial band of the spring ligament and the tibiospring ligament is noted around the talar head. 3. Mild peroneus brevis tendinosis. 4. Tenosynovitis of the extensor digitorum longus tendon is stable to mildly progressed. 5. Mild Achilles tendinosis. 6. Stable focal thickening of the mid to distal plantar fascia. Chronic mild proximal plantar fasciitis. 7. [id number] midfoot degenerative changes. Treatment Goals Patient/Caregiver Goals Get back to consistant walks, work w/o pain, get foot stronger, cont to be able to cont gardening and walking PT-OP-C Subjective Start: 10/26/21 18:06 Freq: Status: Active Protocol: Document 11/15/21 12:18 [facility] (Rec: 11/15/21 12:23 [facility] [id number]) OP-PT Subjective Patient Comments Patient Comments Pt reprots sore after last session but only lasted that day. PT-OP-D Balance Start: 10/26/21 18:06 Freq: Status: Active Protocol: Document 10/30/21 10:29 [facility] (Rec: 10/30/21 12:19 [facility] [id number]) Balance Tests Single Limb Standing Single Limb- Right 5 sec w/lat pelvis shear w/ pain Single Limb- Left 4 sec w/lat pelvis shear PT-OP-F Manual Assessment Start: 10/26/21 18:06 Freq: Status: Active Protocol: Document 10/30/21 10:29 [facility] (Rec: 10/30/21 12:19 [facility] [id number]) Manual Assessments Soft Tissue Assessment Soft Tissue Mobility Assessment plantar fascia tightness and calf tightness, med around fibula discomfort Joint Mobility Assessment Joint Mobility Assessment R foot pronates in>L, R foot turned out, IR of tibia & femur w/knee bends, B rearfoot valgus, L forefoot valgus, R varsu PT-OP-G Mobility & Gait Start: 10/26/21 18:06 Freq: Status: Active Protocol: Document 10/30/21 10:29 [facility] (Rec: 10/30/21 12:19 [facility] [id number]) OP Gait Assessment Comments Gait Comments Dec push off B, reaches w/ steps, Dec stance time R PT-OP-K Range of Motion Start: 10/26/21 18:06 Freq: Status: Active Protocol: Document 10/30/21 10:29 [facility] (Rec: 10/30/21 12:19 [facility] [id number]) Ankle and Foot Goniometric Range of Motion Ankle and Foot Right Active Dorsiflexion with Knee Flexed 8 Dorsiflexion with Knee Extended 0 Plantarflexion 40 Inversion 36 Eversion 10 Comments PROM big toe 70 deg ext Left Active Dorsiflexion with Knee Flexed 10 Dorsiflexion with Knee Extended 5 Plantarflexion 46 Inversion 40 Eversion 20 Comments PROM big toe 60 deg ext PT-OP-M Strength Start: 10/26/21 18:06 Freq: Status: Active Protocol: Document 10/30/21 10:29 [facility] (Rec: 10/30/21 12:19 [facility] [id number]) Hip Strength Hip Manual Muscle Testing Right Flexion (L2) 3+ Fair+ Extension (S1) 3 Fair Abduction 3+ Fair+ External Rotation 3+ Fair+ Internal Rotation 4- Good- Left Flexion (L2) 4 Good Extension (S1) 4- Good- Abduction 4- Good- External Rotation 3+ Fair+ Internal Rotation 5 Normal Knee Strength Knee Manual Muscle Testing Right Flexion (S2) 4- Good- Extension (L3) 5 Normal Comments pain w/flex Left Flexion (S2) 5 Normal Extension (L3) 5 Normal Ankle/Foot Strength Ankle and Foot Manual Muscle Testing Right Dorsiflexion (L4) 4 Good Plantarflexion (S1) 4 Good Inversion 3+ Fair+ Eversion (S1) 4- Good- Comments 15 heel raises -pain Left Dorsiflexion (L4) 5 Normal Plantarflexion (S1) 5 Normal Inversion 5 Normal Eversion (S1) 5 Normal Comments 20 heel raises, cues for knee straight PT-OP-Q Treatments Start: 10/26/21 18:06 Freq: Status: Active Protocol: Document 11/15/21 12:18 [facility] (Rec: 11/15/21 12:23 [facility] [id number]) Gym Equipment Shuttle Balance red clips Details fwd & side: WBOS & NBOS dec 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 Manual Therapy Treatment Soft Tissue Mobilization Calf Body Location R Mobilization Type Rolling Intensity/Depth Moderate Body Position Prone plantar fascia Body Location R Mobilization Type Rolling Intensity/Depth Moderate Body Position Supine Joint Mobilizations cuneiforms Joint R Direction gapping FM talus Joint R PA FM tibfib Direction PA FM fib Neuro Re-Education Treatment Balance Activities foam Surface blue foam Comments NBOS & WBOS & staggered stance B EC PT-OP-T Assessment and Plan Start: 10/26/21 18:06 Freq: Status: Active Protocol: Document 11/15/21 12:18 [facility] (Rec: 11/15/21 12:23 [facility] [id number]) Physical Therapy Assessment Goals balance Short Term Goal (STG) Pt will be able to do SLS 10 B Boiler Coverer Goal (LTG) Pt will be able to do SLS 10 sec w/o lat hip shear, UE use or drop of arch or pain LTG Duration 01/30 strength Short Term Goal (STG) Pt will be indep w/HEP for strength, balance and ROM STG Duration 12/15 Group Home Goal (LTG) Pt will have at least 4+/5 hip strength and 5/5 ankle & knee MMT along w/ at least 3/5 on LPM to show improved stability to allow for greater time on feet w/improved mechanics LTG Duration 01/30 activities Short Term Goal (STG) Pt will be able to do typical home gardening w/o inc foot pain STG Duration 12/15/21 Group Home Goal (LTG) Pt will be able to work without pain inc greater than 2/10 in R foot LTG Duration 01/30 walking Short Term Goal (STG) Pt will be able to walk 2 miles w/mild hills w/o inc pain in foot. STG Duration 12/30 Boiler Coverer Goal (LTG) Pt will be able to walk [place] 2x in a row w/o inc pain in foot. LTG Duration 01/30 Assessment Summary Assessment Pt did well with balance but was significantly challenged with this activity. She still has a lot of foot and ankle stiffness but did improve DF ROM w/manual Physical Therapy Plan Frequency and Duration Frequency of Treatment 1-2x/week Duration of Treatment 3 months Plan of Care Start Date 10/30/21 Plan of Care End Date 01/30/22 Next Visit Focus/Plan Next Note Type Treatment Note Next Visit Plan cont to work on balance, manual to foot and ankle further. hip hikes for SL strengthening
--- NOTE | 2021-11-22 12:11 | PT.OTN ---
Current Diagnoses Other chronic pain (11/22/21) Flat foot [pes planus] (acquired), right foot (11/22/21) Pain in right ankle and joints of right foot (11/22/21) Difficulty in walking, not elsewhere classified (11/22/21) Abnormal posture (11/22/21) Weakness (11/22/21) Physical Therapy Treatment Note PT-OP-A Visit Information Start: 10/26/21 18:06 Freq: Status: Active Protocol: Document 11/22/21 09:22 [facility] (Rec: 11/22/21 10:36 [facility] [id number]) Out-Patient Physical Therapy Visit Information Visit Information Visit Type Treatment Note Visit Note 08/25 Visit Start Time 09:08 Visit Stop Time 09:57 Total Visit Minutes 49 Visit Number 6 Number of CONCHE LOADER AND UNLOADER Visits 0 PT-OP-B Current Condition Start: 10/26/21 18:06 Freq: Status: Active Protocol: Document 10/30/21 10:29 [facility] (Rec: 10/30/21 12:19 [facility] [id number]) Current Condition History of Current Condition Onset Date chronic w/worsening in apr Current Complaints R foot pain & med foot History of Current Condition Pt reports med foot pain along arch and med ankle. Pt saw Dr Jim Hutchinson who noted some changes from prior MRI. She made her a custom insole in 2018 but it made her foot hurt more. She tried to put it in her shoes but couldn't get it in prior to work. 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 Pt tried to wear high tops (chris) but that seemed to hurt worse. Pt has been wearing [employer] shoes and she likes them a lot. She quit walking d/t pain. She works at [employer] in [employer]. It would shoot sharp pains when going down and its not as much right now but still uncomfortable. Foot pain got really bad starting in Apr with inc activity at [employer]. Foot pain initially started in 2018. She remembers going to her class reunion and wearing heels and the next day foot pain started and that was when it iniitally started. Screw Supervisor told her she had flat feet.Pt reports the last month its been getting a bit better but unsure why. She works 3 days a week ( thru Sat). By the end of Sat, it is very painful. When not at work, its okay. Pt has not gone on her typical walks since Apr where she used to walk daily (doing [place] 2x). Now rarely walking d/t pain. Avoiding hiking d/t uneven terrain. 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 Has not taken ibuprofen lately but was taking 4 three times a day per MD order but that wwas a little while ago. She hasnt taken anything in the last 2 weeks. Pt reports occ back pain and RLS. She notes she is heavier than she ever has been this past year and was diagnosed w/hypothyroidism . Pt reports dizziness that is a side effect of her meds ( has already discussed w/) and she does wonder if this has changed how she walks Prior Treatments and Tests ankle MRI: IMPRESSION: 1. Moderate posterior tibialis tendinosis and tenosynovitis. 2. Mild pes planus and suspected mild hindfoot valgus are new when compared to the prior MRI from 08/21/2017. Medial bowing of the superomedial band of the spring ligament and the tibiospring ligament is noted around the talar head. 3. Mild peroneus brevis tendinosis. 4. Tenosynovitis of the extensor digitorum longus tendon is stable to mildly progressed. 5. Mild Achilles tendinosis. 6. Stable focal thickening of the mid to distal plantar fascia. Chronic mild proximal plantar fasciitis. 7. [id number] midfoot degenerative changes. Treatment Goals Patient/Caregiver Goals Get back to consistant walks, work w/o pain, get foot stronger, cont to be able to cont gardening and walking PT-OP-C Subjective Start: 10/26/21 18:06 Freq: Status: Active Protocol: Document 11/22/21 09:22 [facility] (Rec: 11/22/21 10:36 [facility] [id number]) OP-PT Subjective Patient Comments Patient Comments Pt reprots she has been able to do better w/reciprocal toe exercises PT-OP-D Balance Start: 10/26/21 18:06 Freq: Status: Active Protocol: Document 10/30/21 10:29 [facility] (Rec: 10/30/21 12:[id number] Balance Tests Single Limb Standing Single Limb- Right 5 sec w/lat pelvis shear w/ pain Single Limb- Left 4 sec w/lat pelvis shear PT-OP-F Manual Assessment Start: 10/26/21 18:06 Freq: Status: Active Protocol: Document 10/30/21 10:29 [facility] (Rec: 10/30/21 12:19 [facility] [id number]) Manual Assessments Soft Tissue Assessment Soft Tissue Mobility Assessment plantar fascia tightness and calf tightness, med around fibula discomfort Joint Mobility Assessment Joint Mobility Assessment R foot pronates in>L, R foot turned out, IR of tibia & femur w/knee bends, B rearfoot valgus, L forefoot valgus, R varsu PT-OP-G Mobility & Gait Start: 10/26/21 18:06 Freq: Status: Active Protocol: Document 10/30/21 10:29 [facility] (Rec: 10/30/21 12:19 [facility] [id number]) OP Gait Assessment Comments Gait Comments Dec push off B, reaches w/ steps, Dec stance time R PT-OP-K Range of Motion Start: 10/26/21 18:06 Freq: Status: Active Protocol: Document 10/30/21 10:29 [facility] (Rec: 10/30/21 12:19 [facility] [id number]) Ankle and Foot Goniometric Range of Motion Ankle and Foot Right Active Dorsiflexion with Knee Flexed 8 Dorsiflexion with Knee Extended 0 Plantarflexion 40 Inversion 36 Eversion 10 Comments PROM big toe 70 deg ext Left Active Dorsiflexion with Knee Flexed 10 Dorsiflexion with Knee Extended 5 Plantarflexion 46 Inversion 40 Eversion 20 Comments PROM big toe 60 deg ext PT-OP-M Strength Start: 10/26/21 18:06 Freq: Status: Active Protocol: Document 10/30/21 10:29 [facility] (Rec: 10/30/21 12:19 [facility] [id number]) Hip Strength Hip Manual Muscle Testing Right Flexion (L2) 3+ Fair+ Extension (S1) 3 Fair Abduction 3+ Fair+ External Rotation 3+ Fair+ Internal Rotation 4- Good- Left Flexion (L2) 4 Good Extension (S1) 4- Good- Abduction 4- Good- External Rotation 3+ Fair+ Internal Rotation 5 Normal Knee Strength Knee Manual Muscle Testing Right Flexion (S2) 4- Good- Extension (L3) 5 Normal Comments pain w/flex Left Flexion (S2) 5 Normal Extension (L3) 5 Normal Ankle/Foot Strength Ankle and Foot Manual Muscle Testing Right Dorsiflexion (L4) 4 Good Plantarflexion (S1) 4 Good Inversion 3+ Fair+ Eversion (S1) 4- Good- Comments 15 heel raises -pain Left Dorsiflexion (L4) 5 Normal Plantarflexion (S1) 5 Normal Inversion 5 Normal Eversion (S1) 5 Normal Comments 20 heel raises, cues for knee straight PT-OP-Q Treatments Start: 10/26/21 18:06 Freq: Status: Active Protocol: Document 11/22/21 09:22 [facility] (Rec: 11/22/21 10:36 [facility] [id number]) Gym Equipment Shuttle Balance red clips Details fwd & side: WBOS & NBOS dec BODYBUILDER Manual Therapy Treatment Soft Tissue Mobilization Calf Body Location R Mobilization Type Rolling Intensity/Depth Moderate Body Position Prone plantar fascia Body Location R Mobilization Type Rolling Intensity/Depth Moderate Body Position Supine Comments manual & cupping Joint Mobilizations cuneiforms Joint R Direction gapping FM talus Joint R distraction & AP FM calcaneus Joint R Direction distraction FM Neuro Re-Education Treatment Balance Activities bosu Details step ups B Reps/Duration 8 ea foam Surface blue foam Comments staggereds tance w/head turns & EC trials B PT-OP-R Modalities Start: 10/26/21 18:06 Freq: Status: Active Protocol: Document 11/22/21 09:22 [facility] (Rec: 11/22/21 12:11 [facility] [id number]) Hot Pack/Cold Pack Treatment Cold Pack Location R foot/ankle Patient Position Hooklying Treatment Duration (minutes) 10 PT-OP-T Assessment and Plan Start: 10/26/21 18:06 Freq: Status: Active Protocol: Document 11/22/21 09:22 [facility] (Rec: 11/22/21 10:36 [facility] [id number]) Physical Therapy Assessment Goals balance Short Term Goal (STG) Pt will be able to do SLS 10 B Shelter Goal (LTG) Pt will be able to do SLS 10 sec w/o lat hip shear, UE use or drop of arch or pain LTG Duration 01/30 strength Short Term Goal (STG) Pt will be indep w/HEP for strength, balance and ROM STG Duration 12/15 Sailmaker Goal (LTG) Pt will have at least 4+/5 hip strength and 5/5 ankle & knee MMT along w/ at least 3/5 on LPM to show improved stability to allow for greater time on feet w/improved mechanics LTG Duration 01/30 activities Short Term Goal (STG) Pt will be able to do typical home gardening w/o inc foot pain STG Duration 12/15/21 Sailmaker Goal (LTG) Pt will be able to work without pain inc greater than 2/10 in R foot LTG Duration 01/30 walking Short Term Goal (STG) Pt will be able to walk 2 miles w/mild hills w/o inc pain in foot. STG Duration 12/30 Shelter Goal (LTG) Pt will be able to walk [place] 2x in a row w/o inc pain in foot. LTG Duration 01/30 Assessment Summary Assessment Pt did well with balance exercises but cont to be challenged by unstable surfaces but showed improvement since last session Physical Therapy Plan Frequency and Duration Frequency of Treatment 1-2x/week Duration of Treatment 3 months Plan of Care Start Date 10/30/21 Plan of Care End Date 01/30/22 Next Visit Focus/Plan Next Note Type Treatment Note Next Visit Plan cont to work on balance, manual to foot and ankle further. hip hikes for SL strengthening
--- NOTE | 2021-12-04 11:14 | PT.OTN ---
Current Diagnoses Other chronic pain (12/04/21) Flat foot [pes planus] (acquired), right foot (12/04/21) Pain in right ankle and joints of right foot (12/04/21) Difficulty in walking, not elsewhere classified (12/04/21) Abnormal posture (12/04/21) Weakness (12/04/21) Physical Therapy Treatment Note PT-OP-A Visit Information Start: 10/26/21 18:06 Freq: Status: Active Protocol: Document 12/04/21 10:30 [facility] (Rec: 12/04/21 11:14 [facility] [id number]) Out-Patient Physical Therapy Visit Information Visit Information Visit Type Treatment Note Visit Note 09/24 Visit Start Time 10:30 Visit Stop Time 11:20 Total Visit Minutes 50 Visit Number 7 Number of RETIREMENT SPECIALIST Visits 0 PT-OP-B Current Condition Start: 10/26/21 18:06 Freq: Status: Active Protocol: Document 10/30/21 10:29 [facility] (Rec: 10/30/21 12:19 [facility] [id number]) Current Condition History of Current Condition Onset Date chronic w/worsening in apr Current Complaints R foot pain & med foot History of Current Condition Pt reports med foot pain along arch and med ankle. Pt saw Dr Jim Hutchinson who noted some changes from prior MRI. She made her a custom insole in 2018 but it made her foot hurt more. She tried to put it in her shoes but couldn't get it in prior to work. 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 Pt tried to wear high tops (chris) but that seemed to hurt worse. Pt has been wearing [employer] shoes and she likes them a lot. She quit walking d/t pain. She works at [employer] in [employer]. It would shoot sharp pains when going down and its not as much right now but still uncomfortable. Foot pain got really bad starting in Apr with inc activity at [employer]. Foot pain initially started in 2018. She remembers going to her class reunion and wearing heels and the next day foot pain started and that was when it iniitally started. Angledozer Operator told her she had flat feet.Pt reports the last month its been getting a bit better but unsure why. She works 3 days a week ( thru Sat). By the end of Sat, it is very painful. When not at work, its okay. Pt has not gone on her typical walks since Apr where she used to walk daily (doing [place] 2x). Now rarely walking d/t pain. Avoiding hiking d/t uneven terrain. 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 Has not taken ibuprofen lately but was taking 4 three times a day per MD order but that wwas a little while ago. She hasnt taken anything in the last 2 weeks. Pt reports occ back pain and RLS. She notes she is heavier than she ever has been this past year and was diagnosed w/hypothyroidism . Pt reports dizziness that is a side effect of her meds ( has already discussed w/) and she does wonder if this has changed how she walks Prior Treatments and Tests ankle MRI: IMPRESSION: 1. Moderate posterior tibialis tendinosis and tenosynovitis. 2. Mild pes planus and suspected mild hindfoot valgus are new when compared to the prior MRI from 08/21/2017. Medial bowing of the superomedial band of the spring ligament and the tibiospring ligament is noted around the talar head. 3. Mild peroneus brevis tendinosis. 4. Tenosynovitis of the extensor digitorum longus tendon is stable to mildly progressed. 5. Mild Achilles tendinosis. 6. Stable focal thickening of the mid to distal plantar fascia. Chronic mild proximal plantar fasciitis. 7. [id number] midfoot degenerative changes. Treatment Goals Patient/Caregiver Goals Get back to consistant walks, work w/o pain, get foot stronger, cont to be able to cont gardening and walking PT-OP-C Subjective Start: 10/26/21 18:06 Freq: Status: Active Protocol: Document 12/04/21 10:30 [facility] (Rec: 12/04/21 11:14 [facility] [id number]) OP-PT Subjective Patient Comments Patient Comments Pt notes she is still pretty sore by the end of her work day. Was able [place], and felt like her balance was fairly poor. PT-OP-D Balance Start: 10/26/21 18:06 Freq: Status: Active Protocol: Document 10/30/21 10:29 [facility] (Rec: 10/30/21 12:19 [facility] [id number]) Balance Tests Single Limb Standing Single Limb- Right 5 sec w/lat pelvis shear w/ pain Single Limb- Left 4 sec w/lat pelvis shear PT-OP-F Manual Assessment Start: 10/26/21 18:06 Freq: Status: Active Protocol: Document 10/30/21 10:29 [facility] (Rec: 10/30/21 12:19 [facility] [id number]) Manual Assessments Soft Tissue Assessment Soft Tissue Mobility Assessment plantar fascia tightness and calf tightness, med around fibula discomfort Joint Mobility Assessment Joint Mobility Assessment R foot pronates in>L, R foot turned out, IR of tibia & femur w/knee bends, B rearfoot valgus, L forefoot valgus, R varsu PT-OP-G Mobility & Gait Start: 10/26/21 18:06 Freq: Status: Active Protocol: Document 10/30/21 10:29 [facility] (Rec: 10/30/21 12:19 [facility] [id number]) OP Gait Assessment Comments Gait Comments Dec push off B, reaches w/ steps, Dec stance time R PT-OP-K Range of Motion Start: 10/26/21 18:06 Freq: Status: Active Protocol: Document 10/30/21 10:29 [facility] (Rec: 10/30/21 12:19 [facility] [id number]) Ankle and Foot Goniometric Range of Motion Ankle and Foot Right Active Dorsiflexion with Knee Flexed 8 Dorsiflexion with Knee Extended 0 Plantarflexion 40 Inversion 36 Eversion 10 Comments PROM big toe 70 deg ext Left Active Dorsiflexion with Knee Flexed 10 Dorsiflexion with Knee Extended 5 Plantarflexion 46 Inversion 40 Eversion 20 Comments PROM big toe 60 deg ext PT-OP-M Strength Start: 10/26/21 18:06 Freq: Status: Active Protocol: Document 10/30/21 10:29 [facility] (Rec: 10/30/21 12:19 [facility] [id number]) Hip Strength Hip Manual Muscle Testing Right Flexion (L2) 3+ Fair+ Extension (S1) 3 Fair Abduction 3+ Fair+ External Rotation 3+ Fair+ Internal Rotation 4- Good- Left Flexion (L2) 4 Good Extension (S1) 4- Good- Abduction 4- Good- External Rotation 3+ Fair+ Internal Rotation 5 Normal Knee Strength Knee Manual Muscle Testing Right Flexion (S2) 4- Good- Extension (L3) 5 Normal Comments pain w/flex Left Flexion (S2) 5 Normal Extension (L3) 5 Normal Ankle/Foot Strength Ankle and Foot Manual Muscle Testing Right Dorsiflexion (L4) 4 Good Plantarflexion (S1) 4 Good Inversion 3+ Fair+ Eversion (S1) 4- Good- Comments 15 heel raises -pain Left Dorsiflexion (L4) 5 Normal Plantarflexion (S1) 5 Normal Inversion 5 Normal Eversion (S1) 5 Normal Comments 20 heel raises, cues for knee straight PT-OP-Q Treatments Start: 10/26/21 18:06 Freq: Status: Active Protocol: Document 12/04/21 10:30 [facility] (Rec: 12/04/21 11:14 [facility] [id number]) Gym Equipment Shuttle Balance red clips Details WBOS, Staggered, LAteral weight shift Manual Therapy Treatment Soft Tissue Mobilization Calf Body Location R Mobilization Type Rolling Intensity/Depth Moderate Body Position Prone plantar fascia Body Location R Mobilization Type Sustained Pressure,Trigger Point Release Intensity/Depth Moderate Body Position Supine Comments manual Joint Mobilizations cuneiforms Joint R Direction gapping FM talus Joint R distraction & AP FM calcaneus Joint R Direction distraction FM Neuro Re-Education Treatment Balance Activities bosu Details step ups B Reps/Duration 8 ea foam Surface blue foam Comments SLS, Tandem PT-OP-R Modalities Start: 10/26/21 18:06 Freq: Status: Active Protocol: Document 12/04/21 10:30 [facility] (Rec: 12/04/21 11:14 [facility] [id number]) Hot Pack/Cold Pack Treatment Cold Pack Location R foot/ankle Patient Position Hooklying Treatment Duration (minutes) 10 PT-OP-T Assessment and Plan Start: 10/26/21 18:06 Freq: Status: Active Protocol: Document 12/04/21 10:30 [facility] (Rec: 12/04/21 11:14 [facility] [id number]) Physical Therapy Assessment Goals balance Short Term Goal (STG) Pt will be able to do SLS 10 B Sales Account Manager Goal (LTG) Pt will be able to do SLS 10 sec w/o lat hip shear, UE use or drop of arch or pain LTG Duration 01/30 strength Short Term Goal (STG) Pt will be indep w/HEP for strength, balance and ROM STG Duration 12/15 Shelter Goal (LTG) Pt will have at least 4+/5 hip strength and 5/5 ankle & knee MMT along w/ at least 3/5 on LPM to show improved stability to allow for greater time on feet w/improved mechanics LTG Duration 01/30 activities Short Term Goal (STG) Pt will be able to do typical home gardening w/o inc foot pain STG Duration 12/15/21 Sales Account Manager Goal (LTG) Pt will be able to work without pain inc greater than 2/10 in R foot LTG Duration 01/30 walking Short Term Goal (STG) Pt will be able to walk 2 miles w/mild hills w/o inc pain in foot. STG Duration 12/30 Sales Account Manager Goal (LTG) Pt will be able to walk [place] 2x in a row w/o inc pain in foot. LTG Duration 01/30 Assessment Summary Assessment Pt struggled with most balance exercises today, but was able to work hard with them, and showed some improvement over the course of her session today. Physical Therapy Plan Frequency and Duration Frequency of Treatment 1-2x/week Duration of Treatment 3 months Plan of Care Start Date 10/30/21 Plan of Care End Date 01/30/22 Next Visit Focus/Plan Next Note Type Treatment Note Next Visit Plan cont to work on balance, manual to foot and ankle further. hip hikes for SL strengthening
--- NOTE | 2021-12-06 09:03 | PT.OTN ---
Current Diagnoses Other chronic pain (12/06/21) Flat foot [pes planus] (acquired), right foot (12/06/21) Pain in right ankle and joints of right foot (12/06/21) Difficulty in walking, not elsewhere classified (12/06/21) Abnormal posture (12/06/21) Weakness (12/06/21) Physical Therapy Treatment Note PT-OP-A Visit Information Start: 10/26/21 18:06 Freq: Status: Active Protocol: Document 12/06/21 08:25 [facility] (Rec: 12/06/21 09:03 [facility] [id number]) Out-Patient Physical Therapy Visit Information Visit Information Visit Type Treatment Note Visit Note 10/25 Visit Start Time 08:20 Visit Stop Time 09:10 Total Visit Minutes 50 Visit Number 8 Number of BET TAKER Visits 0 PT-OP-B Current Condition Start: 10/26/21 18:06 Freq: Status: Active Protocol: Document 10/30/21 10:29 [facility] (Rec: 10/30/21 12:19 [facility] [id number]) Current Condition History of Current Condition Onset Date chronic w/worsening in apr Current Complaints R foot pain & med foot History of Current Condition Pt reports med foot pain along arch and med ankle. Pt saw Dr Jim Hutchinson who noted some changes from prior MRI. She made her a custom insole in 2018 but it made her foot hurt more. She tried to put it in her shoes but couldn't get it in prior to work. 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 Pt tried to wear high tops (chris) but that seemed to hurt worse. Pt has been wearing [employer] shoes and she likes them a lot. She quit walking d/t pain. She works at [employer] in [place] [employer]. It would shoot sharp pains when going down and its not as much right now but still uncomfortable. Foot pain got really bad starting in Apr with inc activity at [employer]. Foot pain initially started in 2018. She remembers going to her class reunion and wearing heels and the next day foot pain started and that was when it iniitally started. Cement Mason Apprentice told her she had flat feet.Pt reports the last month its been getting a bit better but unsure why. She works 3 days a week ( thru Sat). By the end of Sat, it is very painful. When not at work, its okay. Pt has not gone on her typical walks since Apr where she used to walk daily (doing [place] 2x). Now rarely walking d/t pain. Avoiding hiking d/t uneven terrain. 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 Has not taken ibuprofen lately but was taking 4 three times a day per MD order but that wwas a little while ago. She hasnt taken anything in the last 2 weeks. Pt reports occ back pain and RLS. She notes she is heavier than she ever has been this past year and was diagnosed w/hypothyroidism . Pt reports dizziness that is a side effect of her meds ( has already discussed w/) and she does wonder if this has changed how she walks Prior Treatments and Tests ankle MRI: IMPRESSION: 1. Moderate posterior tibialis tendinosis and tenosynovitis. 2. Mild pes planus and suspected mild hindfoot valgus are new when compared to the prior MRI from 08/21/2017. Medial bowing of the superomedial band of the spring ligament and the tibiospring ligament is noted around the talar head. 3. Mild peroneus brevis tendinosis. 4. Tenosynovitis of the extensor digitorum longus tendon is stable to mildly progressed. 5. Mild Achilles tendinosis. 6. Stable focal thickening of the mid to distal plantar fascia. Chronic mild proximal plantar fasciitis. 7. [id number] midfoot degenerative changes. Treatment Goals Patient/Caregiver Goals Get back to consistant walks, work w/o pain, get foot stronger, cont to be able to cont gardening and walking PT-OP-C Subjective Start: 10/26/21 18:06 Freq: Status: Active Protocol: Document 12/06/21 08:25 [facility] (Rec: 12/06/21 09:03 [facility] [id number]) OP-PT Subjective Patient Comments Patient Comments Pt reports her core was sore after last session PT-OP-D Balance Start: 10/26/21 18:06 Freq: Status: Active Protocol: Document 10/30/21 10:29 [facility] (Rec: 10/30/21 12:19 [facility] [id number]) Balance Tests Single Limb Standing Single Limb- Right 5 sec w/lat pelvis shear w/ pain Single Limb- Left 4 sec w/lat pelvis shear PT-OP-F Manual Assessment Start: 10/26/21 18:06 Freq: Status: Active Protocol: Document 10/30/21 10:29 [facility] (Rec: 10/30/21 12:19 [facility] [id number]) Manual Assessments Soft Tissue Assessment Soft Tissue Mobility Assessment plantar fascia tightness and calf tightness, med around fibula discomfort Joint Mobility Assessment Joint Mobility Assessment R foot pronates in>L, R foot turned out, IR of tibia & femur w/knee bends, B rearfoot valgus, L forefoot valgus, R varsu PT-OP-G Mobility & Gait Start: 10/26/21 18:06 Freq: Status: Active Protocol: Document 10/30/21 10:29 [facility] (Rec: 10/30/21 12:19 [facility] [id number]) OP Gait Assessment Comments Gait Comments Dec push off B, reaches w/ steps, Dec stance time R PT-OP-K Range of Motion Start: 10/26/21 18:06 Freq: Status: Active Protocol: Document 10/30/21 10:29 [facility] (Rec: 10/30/21 12:19 [facility] [id number]) Ankle and Foot Goniometric Range of Motion Ankle and Foot Right Active Dorsiflexion with Knee Flexed 8 Dorsiflexion with Knee Extended 0 Plantarflexion 40 Inversion 36 Eversion 10 Comments PROM big toe 70 deg ext Left Active Dorsiflexion with Knee Flexed 10 Dorsiflexion with Knee Extended 5 Plantarflexion 46 Inversion 40 Eversion 20 Comments PROM big toe 60 deg ext PT-OP-M Strength Start: 10/26/21 18:06 Freq: Status: Active Protocol: Document 10/30/21 10:29 [facility] (Rec: 10/30/21 12:19 [facility] [id number]) Hip Strength Hip Manual Muscle Testing Right Flexion (L2) 3+ Fair+ Extension (S1) 3 Fair Abduction 3+ Fair+ External Rotation 3+ Fair+ Internal Rotation 4- Good- Left Flexion (L2) 4 Good Extension (S1) 4- Good- Abduction 4- Good- External Rotation 3+ Fair+ Internal Rotation 5 Normal Knee Strength Knee Manual Muscle Testing Right Flexion (S2) 4- Good- Extension (L3) 5 Normal Comments pain w/flex Left Flexion (S2) 5 Normal Extension (L3) 5 Normal Ankle/Foot Strength Ankle and Foot Manual Muscle Testing Right Dorsiflexion (L4) 4 Good Plantarflexion (S1) 4 Good Inversion 3+ Fair+ Eversion (S1) 4- Good- Comments 15 heel raises -pain Left Dorsiflexion (L4) 5 Normal Plantarflexion (S1) 5 Normal Inversion 5 Normal Eversion (S1) 5 Normal Comments 20 heel raises, cues for knee straight PT-OP-Q Treatments Start: 10/26/21 18:06 Freq: Status: Active Protocol: Document 12/06/21 08:25 [facility] (Rec: 12/06/21 09:03 [facility] [id number]) Gym Equipment Shuttle Balance red clips Comments fwd: WOBS, NBOS, staggered stance B side: WBOS & NBOS Therapeutic Exercises Standing Exercises DF Side bilateral Reps/Minutes 15 Comments back against wall hip hike Side bilateral Reps/Minutes 12 ea arch lift Side bilateral Reps/Minutes x10 stretch Standing Exercise Name off step Side bilateral Reps/Minutes 30 sec Manual Therapy Treatment Soft Tissue Mobilization Calf Body Location R Mobilization Type Rolling Intensity/Depth Moderate Body Position Prone plantar fascia Body Location R Mobilization Type Sustained Pressure,Trigger Point Release Intensity/Depth Moderate Body Position Supine Comments manual Joint Mobilizations cuneiforms Joint R Direction gapping FM talus Joint R distraction & AP FM Neuro Re-Education Treatment Balance Activities bosu Comments 1. step ups B x8 2. standing balance w/head turns 3. marches B PT-OP-R Modalities Start: 10/26/21 18:06 Freq: Status: Active Protocol: Document 12/06/21 08:25 [facility] (Rec: 12/06/21 09:03 [facility] [id number]) Hot Pack/Cold Pack Treatment Cold Pack Location R foot/ankle Patient Position Hooklying Treatment Duration (minutes) 10 PT-OP-T Assessment and Plan Start: 10/26/21 18:06 Freq: Status: Active Protocol: Document 12/06/21 08:25 [facility] (Rec: 12/06/21 09:03 [facility] [id number]) Physical Therapy Assessment Goals balance Short Term Goal (STG) Pt will be able to do SLS 10 B Travel Assistant Goal (LTG) Pt will be able to do SLS 10 sec w/o lat hip shear, UE use or drop of arch or pain LTG Duration 01/30 strength Short Term Goal (STG) Pt will be indep w/HEP for strength, balance and ROM STG Duration 12/15 Intermediate Goal (LTG) Pt will have at least 4+/5 hip strength and 5/5 ankle & knee MMT along w/ at least 3/5 on LPM to show improved stability to allow for greater time on feet w/improved mechanics LTG Duration 01/30 activities Short Term Goal (STG) Pt will be able to do typical home gardening w/o inc foot pain STG Duration 12/15/21 Intermediate Goal (LTG) Pt will be able to work without pain inc greater than 2/10 in R foot LTG Duration 01/30 walking Short Term Goal (STG) Pt will be able to walk 2 miles w/mild hills w/o inc pain in foot. STG Duration 12/30 Travel Assistant Goal (LTG) Pt will be able to walk [place] 2x in a row w/o inc pain in foot. LTG Duration 01/30 Assessment Summary Assessment Pt did better with balance but struggled w/unstable surfaces . She is slowly getting more forefoot mobility. Physical Therapy Plan Frequency and Duration Frequency of Treatment 1-2x/week Duration of Treatment 3 months Plan of Care Start Date 10/30/21 Plan of Care End Date 01/30/22 Next Visit Focus/Plan Next Note Type Treatment Note Next Visit Plan cont to work on balance, manual to foot and ankle further.
--- NOTE | 2021-12-11 10:26 | PT.OTN ---
Current Diagnoses Other chronic pain (12/11/21) Flat foot [pes planus] (acquired), right foot (12/11/21) Pain in right ankle and joints of right foot (12/11/21) Difficulty in walking, not elsewhere classified (12/11/21) Abnormal posture (12/11/21) Weakness (12/11/21) Physical Therapy Treatment Note PT-OP-A Visit Information Start: 10/26/21 18:06 Freq: Status: Active Protocol: Document 12/11/21 09:45 [facility] (Rec: 12/11/21 10:26 [facility] [id number]) Out-Patient Physical Therapy Visit Information Visit Information Visit Type Treatment Note Visit Note 11/25 Visit Start Time 09:45 Visit Stop Time 10:35 Total Visit Minutes 50 Visit Number 9 Number of MDM DEVELOPER Visits 0 PT-OP-B Current Condition Start: 10/26/21 18:06 Freq: Status: Active Protocol: Document 10/30/21 10:29 [facility] (Rec: 10/30/21 12:19 [facility] [id number]) Current Condition History of Current Condition Onset Date chronic w/worsening in apr Current Complaints R foot pain & med foot History of Current Condition Pt reports med foot pain along arch and med ankle. Pt saw Dr Jim Hutchinson who noted some changes from prior MRI. She made her a custom insole in 2018 but it made her foot hurt more. She tried to put it in her shoes but couldn't get it in prior to work. 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 Pt tried to wear high tops (chris) but that seemed to hurt worse. Pt has been wearing [employer] shoes and she likes them a lot. She quit walking d/t pain. She works at [employer] in [place] [employer]. It would shoot sharp pains when going down and its not as much right now but still uncomfortable. Foot pain got really bad starting in Apr with inc activity at [employer]. Foot pain initially started in 2018. She remembers going to her class reunion and wearing heels and the next day foot pain started and that was when it iniitally started. Security Services Specialist told her she had flat feet.Pt reports the last month its been getting a bit better but unsure why. She works 3 days a week ( thru Sat). By the end of Sat, it is very painful. When not at work, its okay. Pt has not gone on her typical walks since Apr where she used to walk daily (doing [place] 2x). Now rarely walking d/t pain. Avoiding hiking d/t uneven terrain. 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 Has not taken ibuprofen lately but was taking 4 three times a day per MD order but that wwas a little while ago. She hasnt taken anything in the last 2 weeks. Pt reports occ back pain and RLS. She notes she is heavier than she ever has been this past year and was diagnosed w/hypothyroidism . Pt reports dizziness that is a side effect of her meds ( has already discussed w/) and she does wonder if this has changed how she walks Prior Treatments and Tests ankle MRI: IMPRESSION: 1. Moderate posterior tibialis tendinosis and tenosynovitis. 2. Mild pes planus and suspected mild hindfoot valgus are new when compared to the prior MRI from 08/21/2017. Medial bowing of the superomedial band of the spring ligament and the tibiospring ligament is noted around the talar head. 3. Mild peroneus brevis tendinosis. 4. Tenosynovitis of the extensor digitorum longus tendon is stable to mildly progressed. 5. Mild Achilles tendinosis. 6. Stable focal thickening of the mid to distal plantar fascia. Chronic mild proximal plantar fasciitis. 7. [id number] midfoot degenerative changes. 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 PT-OP-D Balance Start: 10/26/21 18:06 Freq: Status: Active Protocol: Document 10/30/21 10:29 [facility] (Rec: 10/30/21 12:19 [facility] [id number]) Balance Tests Single Limb Standing Single Limb- Right 5 sec w/lat pelvis shear w/ pain Single Limb- Left 4 sec w/lat pelvis shear PT-OP-F Manual Assessment Start: 10/26/21 18:06 Freq: Status: Active Protocol: Document 10/30/21 10:29 [facility] (Rec: 10/30/21 12:19 [facility] [id number]) Manual Assessments Soft Tissue Assessment Soft Tissue Mobility Assessment plantar fascia tightness and calf tightness, med around fibula discomfort Joint Mobility Assessment Joint Mobility Assessment R foot pronates in>L, R foot turned out, IR of tibia & femur w/knee bends, B rearfoot valgus, L forefoot valgus, R varsu PT-OP-G Mobility & Gait Start: 10/26/21 18:06 Freq: Status: Active Protocol: Document 10/30/21 10:29 [facility] (Rec: 10/30/21 12:19 [facility] [id number]) OP Gait Assessment Comments Gait Comments Dec push off B, reaches w/ steps, Dec stance time R PT-OP-K Range of Motion Start: 10/26/21 18:06 Freq: Status: Active Protocol: Document 10/30/21 10:29 [facility] (Rec: 10/30/21 12:19 [facility] [id number]) Ankle and Foot Goniometric Range of Motion Ankle and Foot Right Active Dorsiflexion with Knee Flexed 8 Dorsiflexion with Knee Extended 0 Plantarflexion 40 Inversion 36 Eversion 10 Comments PROM big toe 70 deg ext Left Active Dorsiflexion with Knee Flexed 10 Dorsiflexion with Knee Extended 5 Plantarflexion 46 Inversion 40 Eversion 20 Comments PROM big toe 60 deg ext PT-OP-M Strength Start: 10/26/21 18:06 Freq: Status: Active Protocol: Document 10/30/21 10:29 [facility] (Rec: 10/30/21 12:19 [facility] [id number]) Hip Strength Hip Manual Muscle Testing Right Flexion (L2) 3+ Fair+ Extension (S1) 3 Fair Abduction 3+ Fair+ External Rotation 3+ Fair+ Internal Rotation 4- Good- Left Flexion (L2) 4 Good Extension (S1) 4- Good- Abduction 4- Good- External Rotation 3+ Fair+ Internal Rotation 5 Normal Knee Strength Knee Manual Muscle Testing Right Flexion (S2) 4- Good- Extension (L3) 5 Normal Comments pain w/flex Left Flexion (S2) 5 Normal Extension (L3) 5 Normal Ankle/Foot Strength Ankle and Foot Manual Muscle Testing Right Dorsiflexion (L4) 4 Good Plantarflexion (S1) 4 Good Inversion 3+ Fair+ Eversion (S1) 4- Good- Comments 15 heel raises -pain Left Dorsiflexion (L4) 5 Normal Plantarflexion (S1) 5 Normal Inversion 5 Normal Eversion (S1) 5 Normal Comments 20 heel raises, cues for knee straight PT-OP-Q Treatments Start: 10/26/21 18:06 Freq: Status: Active Protocol: Document 12/11/21 09:45 [facility] (Rec: 12/11/21 10:26 [facility] [id number]) Manual Therapy Treatment Soft Tissue Mobilization Calf Body Location R Mobilization Type Rolling Intensity/Depth Moderate Body Position Prone plantar fascia Body Location R Mobilization Type Sustained Pressure,Trigger Point Release Intensity/Depth Moderate Body Position Supine Comments manual Joint Mobilizations cuneiforms Joint R Direction gapping FM talus Joint R distraction & AP FM Neuro Re-Education Treatment Balance Activities tandem Details tandem stance bosu Comments 1. step ups B x8 2. standing balance w/head turns 3. eyes closed foam Surface blue foam Comments SLS, Tandem PT-OP-R Modalities Start: 10/26/21 18:06 Freq: Status: Active Protocol: Document 12/11/21 09:45 [facility] (Rec: 12/11/21 10:26 [facility] [id number]) Hot Pack/Cold Pack Treatment Cold Pack Location R foot/ankle Patient Position Hooklying Treatment Duration (minutes) 10 PT-OP-T Assessment and Plan Start: 10/26/21 18:06 Freq: Status: Active Protocol: Document 12/11/21 09:45 [facility] (Rec: 12/11/21 10:26 [facility] [id number]) Physical Therapy Assessment Impairments Impairments Activity Tolerance,Balance, Functional Activities, Functional Mobility,Gait,Pain, Posture,ROM,Soft Tissue Mobility,Strength Goals balance Short Term Goal (STG) Pt will be able to do SLS 10 B Residential Goal (LTG) Pt will be able to do SLS 10 sec w/o lat hip shear, UE use or drop of arch or pain LTG Duration 01/30 strength Short Term Goal (STG) Pt will be indep w/HEP for strength, balance and ROM STG Duration 12/15 Sales Support Manager Goal (LTG) Pt will have at least 4+/5 hip strength and 5/5 ankle & knee MMT along w/ at least 3/5 on LPM to show improved stability to allow for greater time on feet w/improved mechanics LTG Duration 01/30 activities Short Term Goal (STG) Pt will be able to do typical home gardening w/o inc foot pain STG Duration 12/15/21 Residential Goal (LTG) Pt will be able to work without pain inc greater than 2/10 in R foot LTG Duration 01/30 walking Short Term Goal (STG) Pt will be able to walk 2 miles w/mild hills w/o inc pain in foot. STG Duration 12/30 Residential Goal (LTG) Pt will be able to walk [place] 2x in a row w/o inc pain in foot. LTG Duration 01/30 Assessment Summary Assessment Pt doing better today with her balance, still a bit of a struggle on uneven surfaces. Notable tone and tenderness in right intrinsic foot muscles, especially along the medial arch. Physical Therapy Plan Frequency and Duration Frequency of Treatment 1-2x/week Duration of treatment (weeks) 12 Plan of Care Start Date 10/30/21 Plan of Care End Date 01/30/22
--- NOTE | 2021-12-13 10:33 | PT.OTN ---
Current Diagnoses Other chronic pain (12/13/21) Flat foot [pes planus] (acquired), right foot (12/13/21) Pain in right ankle and joints of right foot (12/13/21) Difficulty in walking, not elsewhere classified (12/13/21) Abnormal posture (12/13/21) Weakness (12/13/21) Physical Therapy Treatment Note PT-OP-A Visit Information Start: 10/26/21 18:06 Freq: Status: Active Protocol: Document 12/13/21 09:45 DCW (Rec: 12/13/21 10:33 DCW [id number]) Out-Patient Physical Therapy Visit Information Visit Information Visit Type Treatment Note Visit Note 12/25 Visit Start Time 09:45 Visit Stop Time 10:30 Total Visit Minutes 45 Visit Number 10 Number of SENIOR AIR DIRECTOR Visits 0 PT-OP-B Current Condition Start: 10/26/21 18:06 Freq: Status: Active Protocol: Document 10/30/21 10:29 [facility] (Rec: 10/30/21 12:19 [facility] [id number]) Current Condition History of Current Condition Onset Date chronic w/worsening in apr Current Complaints R foot pain & med foot History of Current Condition Pt reports med foot pain along arch and med ankle. Pt saw Dr Jim Hutchinson who noted some changes from prior MRI. She made her a custom insole in 2018 but it made her foot hurt more. She tried to put it in her shoes but couldn't get it in prior to work. 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 Pt tried to wear high tops (chris) but that seemed to hurt worse. Pt has been wearing [employer] shoes and she likes them a lot. She quit walking d/t pain. She works at [employer] in [employer] the [employer]. It would shoot sharp pains when going down and its not as much right now but still uncomfortable. Foot pain got really bad starting in Apr with inc activity at [employer]. Foot pain initially started in 2018. She remembers going to her class reunion and wearing heels and the next day foot pain started and that was when it iniitally started. Document Controller told her she had flat feet.Pt reports the last month its been getting a bit better but unsure why. She works 3 days a week ( thru Sat). By the end of Sat, it is very painful. When not at work, its okay. Pt has not gone on her typical walks since Apr where she used to walk daily (doing [place] 2x). Now rarely walking d/t pain. Avoiding hiking d/t uneven terrain. 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 Has not taken ibuprofen lately but was taking 4 three times a day per MD order but that wwas a little while ago. She hasnt taken anything in the last 2 weeks. Pt reports occ back pain and RLS. She notes she is heavier than she ever has been this past year and was diagnosed w/hypothyroidism . Pt reports dizziness that is a side effect of her meds ( has already discussed w/) and she does wonder if this has changed how she walks Prior Treatments and Tests ankle MRI: IMPRESSION: 1. Moderate posterior tibialis tendinosis and tenosynovitis. 2. Mild pes planus and suspected mild hindfoot valgus are new when compared to the prior MRI from 08/21/2017. Medial bowing of the superomedial band of the spring ligament and the tibiospring ligament is noted around the talar head. 3. Mild peroneus brevis tendinosis. 4. Tenosynovitis of the extensor digitorum longus tendon is stable to mildly progressed. 5. Mild Achilles tendinosis. 6. Stable focal thickening of the mid to distal plantar fascia. Chronic mild proximal plantar fasciitis. 7. [id number] midfoot degenerative changes. Treatment Goals Patient/Caregiver Goals Get back to consistant walks, work w/o pain, get foot stronger, cont to be able to cont gardening and walking PT-OP-C Subjective Start: 10/26/21 18:06 Freq: Status: Active Protocol: Document 12/13/21 09:45 DCW (Rec: 12/13/21 10:33 DCW [id number]) OP-PT Subjective Patient Comments Patient Comments It kept me awake last night. I don't know why, I didn't do much of anything. PT-OP-D Balance Start: 10/26/21 18:06 Freq: Status: Active Protocol: Document 10/30/21 10:29 LR (Rec: 10/30/21 12:19 [facility] [id number]) Balance Tests Single Limb Standing Single Limb- Right 5 sec w/lat pelvis shear w/ pain Single Limb- Left 4 sec w/lat pelvis shear PT-OP-F Manual Assessment Start: 10/26/21 18:06 Freq: Status: Active Protocol: Document 10/30/21 10:29 [facility] (Rec: 10/30/21 12:19 [facility] [id number]) Manual Assessments Soft Tissue Assessment Soft Tissue Mobility Assessment plantar fascia tightness and calf tightness, med around fibula discomfort Joint Mobility Assessment Joint Mobility Assessment R foot pronates in>L, R foot turned out, IR of tibia & femur w/knee bends, B rearfoot valgus, L forefoot valgus, R varsu PT-OP-G Mobility & Gait Start: 10/26/21 18:06 Freq: Status: Active Protocol: Document 10/30/21 10:29 [facility] (Rec: 10/30/21 12:19 [facility] [id number]) OP Gait Assessment Comments Gait Comments Dec push off B, reaches w/ steps, Dec stance time R PT-OP-K Range of Motion Start: 10/26/21 18:06 Freq: Status: Active Protocol: Document 10/30/21 10:29 [facility] (Rec: 10/30/21 12:19 [facility] [id number]) Ankle and Foot Goniometric Range of Motion Ankle and Foot Right Active Dorsiflexion with Knee Flexed 8 Dorsiflexion with Knee Extended 0 Plantarflexion 40 Inversion 36 Eversion 10 Comments PROM big toe 70 deg ext Left Active Dorsiflexion with Knee Flexed 10 Dorsiflexion with Knee Extended 5 Plantarflexion 46 Inversion 40 Eversion 20 Comments PROM big toe 60 deg ext PT-OP-M Strength Start: 10/26/21 18:06 Freq: Status: Active Protocol: Document 10/30/21 10:29 [facility] (Rec: 10/30/21 12:19 [facility] [id number]) Hip Strength Hip Manual Muscle Testing Right Flexion (L2) 3+ Fair+ Extension (S1) 3 Fair Abduction 3+ Fair+ External Rotation 3+ Fair+ Internal Rotation 4- Good- Left Flexion (L2) 4 Good Extension (S1) 4- Good- Abduction 4- Good- External Rotation 3+ Fair+ Internal Rotation 5 Normal Knee Strength Knee Manual Muscle Testing Right Flexion (S2) 4- Good- Extension (L3) 5 Normal Comments pain w/flex Left Flexion (S2) 5 Normal Extension (L3) 5 Normal Ankle/Foot Strength Ankle and Foot Manual Muscle Testing Right Dorsiflexion (L4) 4 Good Plantarflexion (S1) 4 Good Inversion 3+ Fair+ Eversion (S1) 4- Good- Comments 15 heel raises -pain Left Dorsiflexion (L4) 5 Normal Plantarflexion (S1) 5 Normal Inversion 5 Normal Eversion (S1) 5 Normal Comments 20 heel raises, cues for knee straight PT-OP-Q Treatments Start: 10/26/21 18:06 Freq: Status: Active Protocol: Document 12/13/21 09:45 DCW (Rec: 12/13/21 10:33 DCW [id number]) Gym Equipment Shuttle Balance red clips Comments fwd: WOBS, NBOS, staggered stance B side: WBOS & NBOS Manual Therapy Treatment Soft Tissue Mobilization Calf Body Location B Mobilization Type Rolling,Strumming,Sustained Pressure Intensity/Depth Moderate Body Position Prone plantar fascia Body Location R Mobilization Type Sustained Pressure,Trigger Point Release Intensity/Depth Moderate Body Position Supine Comments manual Joint Mobilizations cuneiforms Joint R Direction gapping FM talus Joint R distraction & AP FM Neuro Re-Education Treatment Balance Activities bosu Comments 1. step ups B x8 2. standing balance w/head turns 3. eyes closed PT-OP-R Modalities Start: 10/26/21 18:06 Freq: Status: Active Protocol: Document 12/11/21 09:45 DCW (Rec: 12/11/21 10:26 DCW [id number]) Hot Pack/Cold Pack Treatment Cold Pack Location R foot/ankle Patient Position Hooklying Treatment Duration (minutes) 10 PT-OP-T Assessment and Plan Start: 10/26/21 18:06 Freq: Status: Active Protocol: Document 12/13/21 09:45 DCW (Rec: 12/13/21 10:33 DCW [id number]) Physical Therapy Assessment Impairments Impairments Activity Tolerance,Balance, Functional Activities, Functional Mobility,Gait,Pain, Posture,ROM,Soft Tissue Mobility,Strength Goals balance Short Term Goal (STG) Pt will be able to do SLS 10 B Skilled Nursing Goal (LTG) Pt will be able to do SLS 10 sec w/o lat hip shear, UE use or drop of arch or pain LTG Duration 01/30/22 strength Short Term Goal (STG) Pt will be indep w/HEP for strength, balance and ROM STG Duration 12/15/21 Field Cane Scale Clerk Goal (LTG) Pt will have at least 4+/5 hip strength and 5/5 ankle & knee MMT along w/ at least 3/5 on LPM to show improved stability to allow for greater time on feet w/improved mechanics LTG Duration 01/30/22 activities Short Term Goal (STG) Pt will be able to do typical home gardening w/o inc foot pain STG Duration 12/15/21 Field Cane Scale Clerk Goal (LTG) Pt will be able to work without pain inc greater than 2/10 in R foot LTG Duration 01/30/22 walking Short Term Goal (STG) Pt will be able to walk 2 miles w/mild hills w/o inc pain in foot. STG Duration 12/30 Field Cane Scale Clerk Goal (LTG) Pt will be able to walk [place] 2x in a row w/o inc pain in foot. LTG Duration 01/30 Assessment Summary Assessment Pt balance better once again today, still experiencing some increased right foot pain with more intensive balance challenges. Responding well to calf and foot STM. Physical Therapy Plan Frequency and Duration Frequency of Treatment 1-2x/week Duration of treatment (weeks) 12 Plan of Care Start Date 10/30/21 Plan of Care End Date 01/30/22
--- NOTE | 2021-12-18 10:31 | PT.OTN ---
Current Diagnoses Other chronic pain (12/18/21) Flat foot [pes planus] (acquired), right foot (12/18/21) Pain in right ankle and joints of right foot (12/18/21) Difficulty in walking, not elsewhere classified (12/18/21) Abnormal posture (12/18/21) Weakness (12/18/21) Physical Therapy Treatment Note PT-OP-A Visit Information Start: 10/26/21 18:06 Freq: Status: Active Protocol: Document 12/18/21 09:48 DCW (Rec: 12/18/21 10:31 DCW [id number]) Out-Patient Physical Therapy Visit Information Visit Information Visit Type Treatment Note Visit Note 02/04 Visit Start Time 09:48 Visit Stop Time 10:35 Total Visit Minutes 48 Visit Number 11 Number of LEASING MACHINE TENDER Visits 0 PT-OP-B Current Condition Start: 10/26/21 18:06 Freq: Status: Active Protocol: Document 10/30/21 10:29 [facility] (Rec: 10/30/21 12:19 [facility] [id number]) Current Condition History of Current Condition Onset Date chronic w/worsening in apr Current Complaints R foot pain & med foot History of Current Condition Pt reports med foot pain along arch and med ankle. Pt saw Dr Jim Hutchinson who noted some changes from prior MRI. She made her a custom insole in 2018 but it made her foot hurt more. She tried to put it in her shoes but couldn't get it in prior to work. 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 Pt tried to wear high tops (chris) but that seemed to hurt worse. Pt has been wearing [employer] shoes and she likes them a lot. She quit walking d/t pain. She works at [employer] in [employer] the [employer]. It would shoot sharp pains when going down and its not as much right now but still uncomfortable. Foot pain got really bad starting in Apr with inc activity at [employer]. Foot pain initially started in 2018. She remembers going to her class reunion and wearing heels and the next day foot pain started and that was when it iniitally started. Patient Support Assistant told her she had flat feet.Pt reports the last month its been getting a bit better but unsure why. She works 3 days a week ( thru Sat). By the end of Sat, it is very painful. When not at work, its okay. Pt has not gone on her typical walks since Apr where she used to walk daily (doing [place] 2x). Now rarely walking d/t pain. Avoiding hiking d/t uneven terrain. 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 Has not taken ibuprofen lately but was taking 4 three times a day per MD order but that wwas a little while ago. She hasnt taken anything in the last 2 weeks. Pt reports occ back pain and RLS. She notes she is heavier than she ever has been this past year and was diagnosed w/hypothyroidism . Pt reports dizziness that is a side effect of her meds ( has already discussed w/) and she does wonder if this has changed how she walks Prior Treatments and Tests ankle MRI: IMPRESSION: 1. Moderate posterior tibialis tendinosis and tenosynovitis. 2. Mild pes planus and suspected mild hindfoot valgus are new when compared to the prior MRI from 08/21/2017. Medial bowing of the superomedial band of the spring ligament and the tibiospring ligament is noted around the talar head. 3. Mild peroneus brevis tendinosis. 4. Tenosynovitis of the extensor digitorum longus tendon is stable to mildly progressed. 5. Mild Achilles tendinosis. 6. Stable focal thickening of the mid to distal plantar fascia. Chronic mild proximal plantar fasciitis. 7. [id number] midfoot degenerative changes. Treatment Goals Patient/Caregiver Goals Get back to consistant walks, work w/o pain, get foot stronger, cont to be able to cont gardening and walking PT-OP-C Subjective Start: 10/26/21 18:06 Freq: Status: Active Protocol: Document 12/18/21 09:48 DCW (Rec: 12/18/21 10:31 DCW [id number]) OP-PT Subjective Patient Comments Patient Comments Today, it feels pretty good. Admits it didn't feel that great after working this weekend. PT-OP-D Balance Start: 10/26/21 18:06 Freq: Status: Active Protocol: Document 10/30/21 10:29 LR (Rec: 10/30/21 12:19 [facility] [id number]) Balance Tests Single Limb Standing Single Limb- Right 5 sec w/lat pelvis shear w/ pain Single Limb- Left 4 sec w/lat pelvis shear PT-OP-F Manual Assessment Start: 10/26/21 18:06 Freq: Status: Active Protocol: Document 10/30/21 10:29 [facility] (Rec: 10/30/21 12:19 [facility] [id number]) Manual Assessments Soft Tissue Assessment Soft Tissue Mobility Assessment plantar fascia tightness and calf tightness, med around fibula discomfort Joint Mobility Assessment Joint Mobility Assessment R foot pronates in>L, R foot turned out, IR of tibia & femur w/knee bends, B rearfoot valgus, L forefoot valgus, R varsu PT-OP-G Mobility & Gait Start: 10/26/21 18:06 Freq: Status: Active Protocol: Document 10/30/21 10:29 [facility] (Rec: 10/30/21 12:19 [facility] [id number]) OP Gait Assessment Comments Gait Comments Dec push off B, reaches w/ steps, Dec stance time R PT-OP-K Range of Motion Start: 10/26/21 18:06 Freq: Status: Active Protocol: Document 10/30/21 10:29 [facility] (Rec: 10/30/21 12:19 [facility] [id number]) Ankle and Foot Goniometric Range of Motion Ankle and Foot Right Active Dorsiflexion with Knee Flexed 8 Dorsiflexion with Knee Extended 0 Plantarflexion 40 Inversion 36 Eversion 10 Comments PROM big toe 70 deg ext Left Active Dorsiflexion with Knee Flexed 10 Dorsiflexion with Knee Extended 5 Plantarflexion 46 Inversion 40 Eversion 20 Comments PROM big toe 60 deg ext PT-OP-M Strength Start: 10/26/21 18:06 Freq: Status: Active Protocol: Document 10/30/21 10:29 [facility] (Rec: 10/30/21 12:19 [facility] [id number]) Hip Strength Hip Manual Muscle Testing Right Flexion (L2) 3+ Fair+ Extension (S1) 3 Fair Abduction 3+ Fair+ External Rotation 3+ Fair+ Internal Rotation 4- Good- Left Flexion (L2) 4 Good Extension (S1) 4- Good- Abduction 4- Good- External Rotation 3+ Fair+ Internal Rotation 5 Normal Knee Strength Knee Manual Muscle Testing Right Flexion (S2) 4- Good- Extension (L3) 5 Normal Comments pain w/flex Left Flexion (S2) 5 Normal Extension (L3) 5 Normal Ankle/Foot Strength Ankle and Foot Manual Muscle Testing Right Dorsiflexion (L4) 4 Good Plantarflexion (S1) 4 Good Inversion 3+ Fair+ Eversion (S1) 4- Good- Comments 15 heel raises -pain Left Dorsiflexion (L4) 5 Normal Plantarflexion (S1) 5 Normal Inversion 5 Normal Eversion (S1) 5 Normal Comments 20 heel raises, cues for knee straight PT-OP-Q Treatments Start: 10/26/21 18:06 Freq: Status: Active Protocol: Document 12/18/21 09:48 DCW (Rec: 12/18/21 10:31 DCW [id number]) Gym Equipment Shuttle Balance red clips Comments fwd: WOBS, NBOS, staggered stance B side: WBOS & NBOS Manual Therapy Treatment Soft Tissue Mobilization Calf Body Location B Mobilization Type Rolling,Strumming,Sustained Pressure Intensity/Depth Moderate Body Position Prone plantar fascia Body Location R Mobilization Type Sustained Pressure,Trigger Point Release Intensity/Depth Moderate Body Position Supine Comments manual Joint Mobilizations cuneiforms Joint R Direction gapping FM talus Joint R distraction & AP FM Neuro Re-Education Treatment Balance Activities bosu Comments 1. step ups B x8 2. standing balance w/head turns 3. eyes closed PT-OP-R Modalities Start: 10/26/21 18:06 Freq: Status: Active Protocol: Document 12/18/21 09:48 DCW (Rec: 12/18/21 10:31 DCW [id number]) Hot Pack/Cold Pack Treatment Cold Pack Location R foot/ankle Patient Position Hooklying Treatment Duration (minutes) 10 PT-OP-T Assessment and Plan Start: 10/26/21 18:06 Freq: Status: Active Protocol: Document 12/18/21 09:48 DCW (Rec: 12/18/21 10:31 DCW [id number]) Physical Therapy Assessment Impairments Impairments Activity Tolerance,Balance, Functional Activities, Functional Mobility,Gait,Pain, Posture,ROM,Soft Tissue Mobility,Strength Goals balance Short Term Goal (STG) Pt will be able to do SLS 10 B Custodial Goal (LTG) Pt will be able to do SLS 10 sec w/o lat hip shear, UE use or drop of arch or pain LTG Duration 01/30/22 strength Short Term Goal (STG) Pt will be indep w/HEP for strength, balance and ROM STG Duration 12/15/21 Custodial Goal (LTG) Pt will have at least 4+/5 hip strength and 5/5 ankle & knee MMT along w/ at least 3/5 on LPM to show improved stability to allow for greater time on feet w/improved mechanics LTG Duration 01/30/22 activities Short Term Goal (STG) Pt will be able to do typical home gardening w/o inc foot pain STG Duration 12/15/21 Custodial Goal (LTG) Pt will be able to work without pain inc greater than 2/10 in R foot LTG Duration 01/30/22 walking Short Term Goal (STG) Pt will be able to walk 2 miles w/mild hills w/o inc pain in foot. STG Duration 12/30 Custodial Goal (LTG) Pt will be able to walk [place] 2x in a row w/o inc pain in foot. LTG Duration 01/30 Assessment Summary Assessment Pt showing increased tone and tenderness in right calf today , pt unable to figure out cause. Overall pt performing better with balance challenges , although addition of head movement increases pt difficulty. Physical Therapy Plan Frequency and Duration Frequency of Treatment 1-2x/week Duration of treatment (weeks) 12 Plan of Care Start Date 10/30/21 Plan of Care End Date 01/30/22 Therapeutic Interventions Therapeutic Interventions Aquatic Therapy,Balance Training,Gait Training,Home Exercise Program,Joint Mobilizations,Manual Therapy, Neuromuscular Re-education, Patient/Caregiver Education, Self-Care/Home Management,Soft Tissue Mobilization,Taping, Therapeutic Activities, Therapeutic Exercises Modalities Cold Pack/Ice Massage,Electric Stimulation,Hot Packs, Infrared Therapy,Ultrasound Next Visit Focus/Plan Next Note Type Treatment Note Next Visit Plan cont to work on balance, manual to foot and ankle further.
--- NOTE | 2021-12-20 10:28 | PT.OTN ---
Current Diagnoses Other chronic pain (12/20/21) Flat foot [pes planus] (acquired), right foot (12/20/21) Pain in right ankle and joints of right foot (12/20/21) Difficulty in walking, not elsewhere classified (12/20/21) Abnormal posture (12/20/21) Weakness (12/20/21) Physical Therapy Treatment Note PT-OP-A Visit Information Start: 10/26/21 18:06 Freq: Status: Active Protocol: Document 12/20/21 10:22 [facility] (Rec: 12/20/21 10:28 [facility] [id number]) Out-Patient Physical Therapy Visit Information Visit Information Visit Type Treatment Note Visit Note 03/06 Visit Start Time 09:09 Visit Stop Time 09:58 Total Visit Minutes 49 Visit Number 12 Number of CUSTOMER DEVELOPMENT MANAGER Visits 0 PT-OP-B Current Condition Start: 10/26/21 18:06 Freq: Status: Active Protocol: Document 10/30/21 10:29 [facility] (Rec: 10/30/21 12:19 [facility] [id number]) Current Condition History of Current Condition Onset Date chronic w/worsening in apr Current Complaints R foot pain & med foot History of Current Condition Pt reports med foot pain along arch and med ankle. Pt saw Dr Jim Hutchinson who noted some changes from prior MRI. She made her a custom insole in 2018 but it made her foot hurt more. She tried to put it in her shoes but couldn't get it in prior to work. 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 Pt tried to wear high tops (chris) but that seemed to hurt worse. Pt has been wearing [employer] shoes and she likes them a lot. She quit walking d/t pain. She works at [employer] in [place] [employer] the [email or web address]. It would shoot sharp pains when going down and its not as much right now but still uncomfortable. Foot pain got really bad starting in Apr with inc activity at [employer]. Foot pain initially started in 2018. She remembers going to her class reunion and wearing heels and the next day foot pain started and that was when it iniitally started. Tour Actor told her she had flat feet.Pt reports the last month its been getting a bit better but unsure why. She works 3 days a week ( thru Sat). By the end of Sat, it is very painful. When not at work, its okay. Pt has not gone on her typical walks since Apr where she used to walk daily (doing [place] 2x). Now rarely walking d/t pain. Avoiding hiking d/t uneven terrain. 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 Has not taken ibuprofen lately but was taking 4 three times a day per MD order but that wwas a little while ago. She hasnt taken anything in the last 2 weeks. Pt reports occ back pain and RLS. She notes she is heavier than she ever has been this past year and was diagnosed w/hypothyroidism . Pt reports dizziness that is a side effect of her meds ( has already discussed w/) and she does wonder if this has changed how she walks Prior Treatments and Tests ankle MRI: IMPRESSION: 1. Moderate posterior tibialis tendinosis and tenosynovitis. 2. Mild pes planus and suspected mild hindfoot valgus are new when compared to the prior MRI from 08/21/2017. Medial bowing of the superomedial band of the spring ligament and the tibiospring ligament is noted around the talar head. 3. Mild peroneus brevis tendinosis. 4. Tenosynovitis of the extensor digitorum longus tendon is stable to mildly progressed. 5. Mild Achilles tendinosis. 6. Stable focal thickening of the mid to distal plantar fascia. Chronic mild proximal plantar fasciitis. 7. [id number] midfoot degenerative changes. Treatment Goals Patient/Caregiver Goals Get back to consistant walks, work w/o pain, get foot stronger, cont to be able to cont gardening and walking PT-OP-C Subjective Start: 10/26/21 18:06 Freq: Status: Active Protocol: Document 12/20/21 10:22 [facility] (Rec: 12/20/21 10:28 [facility] [id number]) OP-PT Subjective Patient Comments Patient Comments Pt reports she has been doing a [place] walks [place] now. Still painful after 3 days of work. PT-OP-D Balance Start: 10/26/21 18:06 Freq: Status: Active Protocol: Document 10/30/21 10:29 [facility] (Rec: 10/30/21 12:19 [facility] [id number]) Balance Tests Single Limb Standing Single Limb- Right 5 sec w/lat pelvis shear w/ pain Single Limb- Left 4 sec w/lat pelvis shear PT-OP-F Manual Assessment Start: 10/26/21 18:06 Freq: Status: Active Protocol: Document 10/30/21 10:29 [facility] (Rec: 10/30/21 12:19 [facility] [id number]) Manual Assessments Soft Tissue Assessment Soft Tissue Mobility Assessment plantar fascia tightness and calf tightness, med around fibula discomfort Joint Mobility Assessment Joint Mobility Assessment R foot pronates in>L, R foot turned out, IR of tibia & femur w/knee bends, B rearfoot valgus, L forefoot valgus, R varsu PT-OP-G Mobility & Gait Start: 10/26/21 18:06 Freq: Status: Active Protocol: Document 10/30/21 10:29 [facility] (Rec: 10/30/21 12:19 [facility] [id number]) OP Gait Assessment Comments Gait Comments Dec push off B, reaches w/ steps, Dec stance time R PT-OP-K Range of Motion Start: 10/26/21 18:06 Freq: Status: Active Protocol: Document 10/30/21 10:29 [facility] (Rec: 10/30/21 12:19 [facility] [id number]) Ankle and Foot Goniometric Range of Motion Ankle and Foot Right Active Dorsiflexion with Knee Flexed 8 Dorsiflexion with Knee Extended 0 Plantarflexion 40 Inversion 36 Eversion 10 Comments PROM big toe 70 deg ext Left Active Dorsiflexion with Knee Flexed 10 Dorsiflexion with Knee Extended 5 Plantarflexion 46 Inversion 40 Eversion 20 Comments PROM big toe 60 deg ext PT-OP-M Strength Start: 10/26/21 18:06 Freq: Status: Active Protocol: Document 10/30/21 10:29 [facility] (Rec: 10/30/21 12:19 [facility] [id number]) Hip Strength Hip Manual Muscle Testing Right Flexion (L2) 3+ Fair+ Extension (S1) 3 Fair Abduction 3+ Fair+ External Rotation 3+ Fair+ Internal Rotation 4- Good- Left Flexion (L2) 4 Good Extension (S1) 4- Good- Abduction 4- Good- External Rotation 3+ Fair+ Internal Rotation 5 Normal Knee Strength Knee Manual Muscle Testing Right Flexion (S2) 4- Good- Extension (L3) 5 Normal Comments pain w/flex Left Flexion (S2) 5 Normal Extension (L3) 5 Normal Ankle/Foot Strength Ankle and Foot Manual Muscle Testing Right Dorsiflexion (L4) 4 Good Plantarflexion (S1) 4 Good Inversion 3+ Fair+ Eversion (S1) 4- Good- Comments 15 heel raises -pain Left Dorsiflexion (L4) 5 Normal Plantarflexion (S1) 5 Normal Inversion 5 Normal Eversion (S1) 5 Normal Comments 20 heel raises, cues for knee straight PT-OP-Q Treatments Start: 10/26/21 18:06 Freq: Status: Active Protocol: Document 12/20/21 10:22 [facility] (Rec: 12/20/21 10:28 [facility] [id number]) Gym Equipment Shuttle Balance red clips Details head turns as able Comments fwd: WOBS, NBOS, staggered stance B side: WBOS & NBOS Manual Therapy Treatment Soft Tissue Mobilization Calf Body Location B Mobilization Type Rolling,Strumming,Sustained Pressure Intensity/Depth Moderate Body Position Prone plantar fascia Body Location R Mobilization Type Sustained Pressure,Trigger Point Release Intensity/Depth Moderate Body Position Supine Comments manual Joint Mobilizations cuneiforms Joint R Direction gapping FM tibfib Direction PA FM tib Neuro Re-Education Treatment Balance Activities foam Comments staggered stance B EC PT-OP-R Modalities Start: 10/26/21 18:06 Freq: Status: Active Protocol: Document 12/20/21 10:22 [facility] (Rec: 12/20/21 10:28 [facility] [id number]) Hot Pack/Cold Pack Treatment Cold Pack Location R foot/ankle Patient Position Hooklying Treatment Duration (minutes) 10 PT-OP-T Assessment and Plan Start: 10/26/21 18:06 Freq: Status: Active Protocol: Document 12/20/21 10:22 [facility] (Rec: 12/20/21 10:28 [facility] [id number]) Physical Therapy Assessment Goals balance Short Term Goal (STG) Pt will be able to do SLS 10 B Fpc Goal (LTG) Pt will be able to do SLS 10 sec w/o lat hip shear, UE use or drop of arch or pain LTG Duration 01/30/22 strength Short Term Goal (STG) Pt will be indep w/HEP for strength, balance and ROM STG Duration 12/15/21 Fpc Goal (LTG) Pt will have at least 4+/5 hip strength and 5/5 ankle & knee MMT along w/ at least 3/5 on LPM to show improved stability to allow for greater time on feet w/improved mechanics LTG Duration 01/30/22 activities Short Term Goal (STG) Pt will be able to do typical home gardening w/o inc foot pain STG Duration 12/15/21 Energy Rater Goal (LTG) Pt will be able to work without pain inc greater than 2/10 in R foot LTG Duration 01/30/22 walking Short Term Goal (STG) Pt will be able to walk 2 miles w/mild hills w/o inc pain in foot. STG Duration 12/30 Energy Rater Goal (LTG) Pt will be able to walk [place] 2x in a row w/o inc pain in foot. LTG Duration 01/30 Assessment Summary Assessment Pt did well with balance exercsies today showing improved stabiltiy. Pt did note soreness in foot after balance so stopped at that point w/balance. Physical Therapy Plan Frequency and Duration Frequency of Treatment 1-2x/week Duration of treatment (weeks) 12 Plan of Care Start Date 10/30/21 Plan of Care End Date 01/30/22 Next Visit Focus/Plan Next Note Type Treatment Note Next Visit Plan cont to work on balance, manual to foot and ankle further.
--- NOTE | 2022-01-01 10:31 | PT.OTN ---
Current Diagnoses Other chronic pain (01/01/22) Flat foot [pes planus] (acquired), right foot (01/01/22) Pain in right ankle and joints of right foot (01/01/22) Difficulty in walking, not elsewhere classified (01/01/22) Abnormal posture (01/01/22) Weakness (01/01/22) Physical Therapy Treatment Note PT-OP-A Visit Information Start: 10/26/21 18:06 Freq: Status: Active Protocol: Document 01/01/22 09:46 [facility] (Rec: 01/01/22 10:[address] [facility] [id number]) Out-Patient Physical Therapy Visit Information Visit Information Visit Type Treatment Note Visit Note Visit Start Time 09:46 Visit Stop Time 10:35 Total Visit Minutes 49 Visit Number 13 Number of REST ROOM ATTENDANT Visits 0 PT-OP-B Current Condition Start: 10/26/21 18:06 Freq: Status: Active Protocol: Document 10/30/21 10:29 [facility] (Rec: 10/30/21 12:19 [facility] [id number]) Current Condition History of Current Condition Onset Date chronic w/worsening in apr Current Complaints R foot pain & med foot History of Current Condition Pt reports med foot pain along arch and med ankle. Pt saw Dr Jim Hutchinson who noted some changes from prior MRI. She made her a custom insole in 2018 but it made her foot hurt more. She tried to put it in her shoes but couldn't get it in prior to work. 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 Pt tried to wear high tops (chris) but that seemed to hurt worse. Pt has been wearing [employer] shoes and she likes them a lot. She quit walking d/t pain. She works at [employer] in [employer]. It would shoot sharp pains when going down and its not as much right now but still uncomfortable. Foot pain got really bad starting in Apr with inc activity at [employer]. Foot pain initially started in 2018. She remembers going to her class reunion and wearing heels and the next day foot pain started and that was when it iniitally started. Grant Coordinator told her she had flat feet.Pt reports the last month its been getting a bit better but unsure why. She works 3 days a week ( thru Sat). By the end of Sat, it is very painful. When not at work, its okay. Pt has not gone on her typical walks since Apr where she used to walk daily (doing [place]x). Now rarely walking d/t pain. Avoiding hiking d/t uneven terrain. 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 Has not taken ibuprofen lately but was taking 4 three times a day per MD order but that wwas a little while ago. She hasnt taken anything in the last 2 weeks. Pt reports occ back pain and RLS. She notes she is heavier than she ever has been this past year and was diagnosed w/hypothyroidism . Pt reports dizziness that is a side effect of her meds ( has already discussed w/) and she does wonder if this has changed how she walks Prior Treatments and Tests ankle MRI: IMPRESSION: 1. Moderate posterior tibialis tendinosis and tenosynovitis. 2. Mild pes planus and suspected mild hindfoot valgus are new when compared to the prior MRI from 08/21/2017. Medial bowing of the superomedial band of the spring ligament and the tibiospring ligament is noted around the talar head. 3. Mild peroneus brevis tendinosis. 4. Tenosynovitis of the extensor digitorum longus tendon is stable to mildly progressed. 5. Mild Achilles tendinosis. 6. Stable focal thickening of the mid to distal plantar fascia. Chronic mild proximal plantar fasciitis. 7. Cwkc-[id number] midfoot degenerative changes. Treatment Goals Patient/Caregiver Goals Get back to consistant walks, work w/o pain, get foot stronger, cont to be able to cont gardening and walking PT-OP-C Subjective Start: 10/26/21 18:06 Freq: Status: Active Protocol: Document 01/01/22 09:46 [facility] (Rec: 01/01/22 10:30 [facility] [id number]) OP-PT Subjective Patient Comments Patient Comments We were gone last week, so I missed out on my PT, and I could really feel it. PT-OP-D Balance Start: 10/26/21 18:06 Freq: Status: Active Protocol: Document 10/30/21 10:29 [facility] (Rec: 10/30/21 12:19 [facility] [id number]) Balance Tests Single Limb Standing Single Limb- Right 5 sec w/lat pelvis shear w/ pain Single Limb- Left 4 sec w/lat pelvis shear PT-OP-F Manual Assessment Start: 10/26/21 18:06 Freq: Status: Active Protocol: Document 10/30/21 10:29 [facility] (Rec: 10/30/21 12:19 [facility] [id number]) Manual Assessments Soft Tissue Assessment Soft Tissue Mobility Assessment plantar fascia tightness and calf tightness, med around fibula discomfort Joint Mobility Assessment Joint Mobility Assessment R foot pronates in>L, R foot turned out, IR of tibia & femur w/knee bends, B rearfoot valgus, L forefoot valgus, R varsu PT-OP-G Mobility & Gait Start: 10/26/21 18:06 Freq: Status: Active Protocol: Document 10/30/21 10:29 [facility] (Rec: 10/30/21 12:19 [facility] [id number]) OP Gait Assessment Comments Gait Comments Dec push off B, reaches w/ steps, Dec stance time R PT-OP-K Range of Motion Start: 10/26/21 18:06 Freq: Status: Active Protocol: Document 10/30/21 10:29 [facility] (Rec: 10/30/21 12:19 [facility] [id number]) Ankle and Foot Goniometric Range of Motion Ankle and Foot Right Active Dorsiflexion with Knee Flexed 8 Dorsiflexion with Knee Extended 0 Plantarflexion 40 Inversion 36 Eversion 10 Comments PROM big toe 70 deg ext Left Active Dorsiflexion with Knee Flexed 10 Dorsiflexion with Knee Extended 5 Plantarflexion 46 Inversion 40 Eversion 20 Comments PROM big toe 60 deg ext PT-OP-M Strength Start: 10/26/21 18:06 Freq: Status: Active Protocol: Document 10/30/21 10:29 [facility] (Rec: 10/30/21 12:19 [facility] [id number]) Hip Strength Hip Manual Muscle Testing Right Flexion (L2) 3+ Fair+ Extension (S1) 3 Fair Abduction 3+ Fair+ External Rotation 3+ Fair+ Internal Rotation 4- Good- Left Flexion (L2) 4 Good Extension (S1) 4- Good- Abduction 4- Good- External Rotation 3+ Fair+ Internal Rotation 5 Normal Knee Strength Knee Manual Muscle Testing Right Flexion (S2) 4- Good- Extension (L3) 5 Normal Comments pain w/flex Left Flexion (S2) 5 Normal Extension (L3) 5 Normal Ankle/Foot Strength Ankle and Foot Manual Muscle Testing Right Dorsiflexion (L4) 4 Good Plantarflexion (S1) 4 Good Inversion 3+ Fair+ Eversion (S1) 4- Good- Comments 15 heel raises -pain Left Dorsiflexion (L4) 5 Normal Plantarflexion (S1) 5 Normal Inversion 5 Normal Eversion (S1) 5 Normal Comments 20 heel raises, cues for knee straight PT-OP-Q Treatments Start: 10/26/21 18:06 Freq: Status: Active Protocol: Document 01/01/22 09:46 [facility] (Rec: 01/01/22 10:30 [facility] [id number]) Gym Equipment Shuttle Balance red clips Comments fwd: WOBS, staggered stance B side: WBOS & NBOS Manual Therapy Treatment Soft Tissue Mobilization Calf Body Location B Mobilization Type Rolling,Strumming,Sustained Pressure Intensity/Depth Moderate Body Position Prone plantar fascia Body Location R Mobilization Type Sustained Pressure,Trigger Point Release Intensity/Depth Moderate Body Position Supine Comments manual Joint Mobilizations cuneiforms Joint R Direction gapping FM tibfib Direction PA FM tib Neuro Re-Education Treatment Balance Activities foam Surface blue foam Comments staggered stance B EC PT-OP-R Modalities Start: 10/26/21 18:06 Freq: Status: Active Protocol: Document 01/01/22 09:46 [facility] (Rec: 01/01/22 10:30 [facility] [id number]) Hot Pack/Cold Pack Treatment Cold Pack Location R foot/ankle Patient Position Hooklying Treatment Duration (minutes) 10 PT-OP-T Assessment and Plan Start: 10/26/21 18:06 Freq: Status: Active Protocol: Document 01/01/22 09:46 [facility] (Rec: 01/01/22 10:30 [facility] [id number]) Physical Therapy Assessment Impairments Impairments Activity Tolerance,Balance, Functional Activities, Functional Mobility,Gait,Pain, Posture,ROM,Soft Tissue Mobility,Strength Goals balance Short Term Goal (STG) Pt will be able to do SLS 10 B Race Starter Goal (LTG) Pt will be able to do SLS 10 sec w/o lat hip shear, UE use or drop of arch or pain LTG Duration 01/30/22 strength Short Term Goal (STG) Pt will be indep w/HEP for strength, balance and ROM STG Duration 12/15/21 Race Starter Goal (LTG) Pt will have at least 4+/5 hip strength and 5/5 ankle & knee MMT along w/ at least 3/5 on LPM to show improved stability to allow for greater time on feet w/improved mechanics LTG Duration 01/30/22 activities Short Term Goal (STG) Pt will be able to do typical home gardening w/o inc foot pain STG Duration 12/15/21 Penitentiary Goal (LTG) Pt will be able to work without pain inc greater than 2/10 in R foot LTG Duration 01/30/22 walking Short Term Goal (STG) Pt will be able to walk 2 miles w/mild hills w/o inc pain in foot. STG Duration 12/30 Race Starter Goal (LTG) Pt will be able to walk [place] 2x in a row w/o inc pain in foot. LTG Duration 01/30/22 Assessment Summary Assessment Pt reporting increased soreness with activity today, most notably with balance challenges. Pt having difficulty after traveling last week and missing PT. Physical Therapy Plan Frequency and Duration Frequency of Treatment 1-2x/week Duration of treatment (weeks) 12 Plan of Care Start Date 10/30/21 Plan of Care End Date 01/30/22 Therapeutic Interventions Therapeutic Interventions Aquatic Therapy,Balance Training,Gait Training,Home Exercise Program,Joint Mobilizations,Manual Therapy, Neuromuscular Re-education, Patient/Caregiver Education, Self-Care/Home Management,Soft Tissue Mobilization,Taping, Therapeutic Activities, Therapeutic Exercises Modalities Cold Pack/Ice Massage,Electric Stimulation,Hot Packs, Infrared Therapy,Ultrasound Next Visit Focus/Plan Next Note Type Treatment Note Next Visit Plan cont to work on balance, manual to foot and ankle further.
--- NOTE | 2022-01-03 13:30 | PT.OTN ---
Current Diagnoses Other chronic pain (01/03/22) Flat foot [pes planus] (acquired), right foot (01/03/22) Pain in right ankle and joints of right foot (01/03/22) Difficulty in walking, not elsewhere classified (01/03/22) Abnormal posture (01/03/22) Weakness (01/03/22) Physical Therapy Treatment Note PT-OP-A Visit Information Start: 10/26/21 18:06 Freq: Status: Active Protocol: Document 01/03/22 13:24 [facility] (Rec: 01/03/22 13:30 [facility] [id number]) Out-Patient Physical Therapy Visit Information Visit Information Visit Type Treatment Note Visit Note Visit Start Time 09:06 Visit Stop Time 09:55 Total Visit Minutes 49 Visit Number 14 Number of REGIONAL ENGINEER Visits 0 PT-OP-B Current Condition Start: 10/26/21 18:06 Freq: Status: Active Protocol: Document 10/30/21 10:29 [facility] (Rec: 10/30/21 12:19 [facility] [id number]) Current Condition History of Current Condition Onset Date chronic w/worsening in apr Current Complaints R foot pain & med foot History of Current Condition Pt reports med foot pain along arch and med ankle. Pt saw Dr Jim Hutchinson who noted some changes from prior MRI. She made her a custom insole in 2018 but it made her foot hurt more. She tried to put it in her shoes but couldn't get it in prior to work. 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 Pt tried to wear high tops (chris) but that seemed to hurt worse. Pt has been wearing [employer] shoes and she likes them a lot. She quit walking d/t pain. She works at [employer] in [place] [employer]. It would shoot sharp pains when going down and its not as much right now but still uncomfortable. Foot pain got really bad starting in Apr with inc activity at [email or web address]. Foot pain initially started in 2018. She remembers going to her class reunion and wearing heels and the next day foot pain started and that was when it iniitally started. Assistant Bookkeeper told her she had flat feet.Pt reports the last month its been getting a bit better but unsure why. She works 3 days a week ( thru Sat). By the end of Sat, it is very painful. When not at work, its okay. Pt has not gone on her typical walks since Apr where she used to walk daily (doing [place] 2x). Now rarely walking d/t pain. Avoiding hiking d/t uneven terrain. 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 Has not taken ibuprofen lately but was taking 4 three times a day per MD order but that wwas a little while ago. She hasnt taken anything in the last 2 weeks. Pt reports occ back pain and RLS. She notes she is heavier than she ever has been this past year and was diagnosed w/hypothyroidism . Pt reports dizziness that is a side effect of her meds ( has already discussed w/) and she does wonder if this has changed how she walks Prior Treatments and Tests ankle MRI: IMPRESSION: 1. Moderate posterior tibialis tendinosis and tenosynovitis. 2. Mild pes planus and suspected mild hindfoot valgus are new when compared to the prior MRI from 08/21/2017. Medial bowing of the superomedial band of the spring ligament and the tibiospring ligament is noted around the talar head. 3. Mild peroneus brevis tendinosis. 4. Tenosynovitis of the extensor digitorum longus tendon is stable to mildly progressed. 5. Mild Achilles tendinosis. 6. Stable focal thickening of the mid to distal plantar fascia. Chronic mild proximal plantar fasciitis. 7. [id number] midfoot degenerative changes. Treatment Goals Patient/Caregiver Goals Get back to consistant walks, work w/o pain, get foot stronger, cont to be able to cont gardening and walking PT-OP-C Subjective Start: 10/26/21 18:06 Freq: Status: Active Protocol: Document 01/03/22 13:24 [facility] (Rec: 01/03/22 13:30 [facility] [id number]) OP-PT Subjective Patient Comments Patient Comments Pt reprots she noticed that she missed PT last week d/t vacation. She feels better when attending PT PT-OP-D Balance Start: 10/26/21 18:06 Freq: Status: Active Protocol: Document 10/30/21 10:29 [facility] (Rec: 10/30/21 12:19 [facility] [id number]) Balance Tests Single Limb Standing Single Limb- Right 5 sec w/lat pelvis shear w/ pain Single Limb- Left 4 sec w/lat pelvis shear PT-OP-F Manual Assessment Start: 10/26/21 18:06 Freq: Status: Active Protocol: Document 10/30/21 10:29 [facility] (Rec: 10/30/21 12:19 [facility] [id number]) Manual Assessments Soft Tissue Assessment Soft Tissue Mobility Assessment plantar fascia tightness and calf tightness, med around fibula discomfort Joint Mobility Assessment Joint Mobility Assessment R foot pronates in>L, R foot turned out, IR of tibia & femur w/knee bends, B rearfoot valgus, L forefoot valgus, R varsu PT-OP-G Mobility & Gait Start: 10/26/21 18:06 Freq: Status: Active Protocol: Document 10/30/21 10:29 [facility] (Rec: 10/30/21 12:19 [facility] [id number]) OP Gait Assessment Comments Gait Comments Dec push off B, reaches w/ steps, Dec stance time R PT-OP-K Range of Motion Start: 10/26/21 18:06 Freq: Status: Active Protocol: Document 10/30/21 10:29 [facility] (Rec: 10/30/21 12:19 [facility] [id number]) Ankle and Foot Goniometric Range of Motion Ankle and Foot Right Active Dorsiflexion with Knee Flexed 8 Dorsiflexion with Knee Extended 0 Plantarflexion 40 Inversion 36 Eversion 10 Comments PROM big toe 70 deg ext Left Active Dorsiflexion with Knee Flexed 10 Dorsiflexion with Knee Extended 5 Plantarflexion 46 Inversion 40 Eversion 20 Comments PROM big toe 60 deg ext PT-OP-M Strength Start: 10/26/21 18:06 Freq: Status: Active Protocol: Document 10/30/21 10:29 [facility] (Rec: 10/30/21 12:19 [facility] [id number]) Hip Strength Hip Manual Muscle Testing Right Flexion (L2) 3+ Fair+ Extension (S1) 3 Fair Abduction 3+ Fair+ External Rotation 3+ Fair+ Internal Rotation 4- Good- Left Flexion (L2) 4 Good Extension (S1) 4- Good- Abduction 4- Good- External Rotation 3+ Fair+ Internal Rotation 5 Normal Knee Strength Knee Manual Muscle Testing Right Flexion (S2) 4- Good- Extension (L3) 5 Normal Comments pain w/flex Left Flexion (S2) 5 Normal Extension (L3) 5 Normal Ankle/Foot Strength Ankle and Foot Manual Muscle Testing Right Dorsiflexion (L4) 4 Good Plantarflexion (S1) 4 Good Inversion 3+ Fair+ Eversion (S1) 4- Good- Comments 15 heel raises -pain Left Dorsiflexion (L4) 5 Normal Plantarflexion (S1) 5 Normal Inversion 5 Normal Eversion (S1) 5 Normal Comments 20 heel raises, cues for knee straight PT-OP-Q Treatments Start: 10/26/21 18:06 Freq: Status: Active Protocol: Document 01/03/22 13:24 [facility] (Rec: 01/03/22 13:30 [facility] [id number]) Gym Equipment Shuttle Balance red clips Details head turns as able Comments fwd: WOBS, NBOS, staggered stance B side: WBOS & NBOS Manual Therapy Treatment Soft Tissue Mobilization Calf Body Location B Mobilization Type Rolling,Strumming,Sustained Pressure Intensity/Depth Moderate Body Position Prone plantar fascia Body Location R Mobilization Type Sustained Pressure,Trigger Point Release Intensity/Depth Moderate Body Position Supine Comments manual Joint Mobilizations cuboid Joint R Direction lat FM navicular Joint R Direction med glide FM cuneiforms Joint R Direction gapping FM calcaneus Joint R distraction Taping KT Body Location arch for support R Type of Tape Kinesio Tape Skin Inspection good Neuro Re-Education Treatment Balance Activities bosu Comments 1. step ups blue x10 B 2. squats black x10 3. DL balance black side PT-OP-R Modalities Start: 10/26/21 18:06 Freq: Status: Active Protocol: Document 01/03/22 13:24 [facility] (Rec: 01/03/22 13:30 [facility] [id number]) Hot Pack/Cold Pack Treatment Cold Pack Location R foot/ankle Patient Position Hooklying Treatment Duration (minutes) 10 PT-OP-T Assessment and Plan Start: 10/26/21 18:06 Freq: Status: Active Protocol: Document 01/03/22 13:24 [facility] (Rec: 01/03/22 13:30 [facility] [id number]) Physical Therapy Assessment Goals balance Short Term Goal (STG) Pt will be able to do SLS 10 B Prison Goal (LTG) Pt will be able to do SLS 10 sec w/o lat hip shear, UE use or drop of arch or pain LTG Duration 01/30/22 strength Short Term Goal (STG) Pt will be indep w/HEP for strength, balance and ROM STG Duration 12/15/21 Information Security Goal (LTG) Pt will have at least 4+/5 hip strength and 5/5 ankle & knee MMT along w/ at least 3/5 on LPM to show improved stability to allow for greater time on feet w/improved mechanics LTG Duration 01/30/22 activities Short Term Goal (STG) Pt will be able to do typical home gardening w/o inc foot pain STG Duration 12/15/21 Information Security Goal (LTG) Pt will be able to work without pain inc greater than 2/10 in R foot LTG Duration 01/30/22 walking Short Term Goal (STG) Pt will be able to walk 2 miles w/mild hills w/o inc pain in foot. STG Duration 12/30 Information Security Goal (LTG) Pt will be able to walk [place] 2x in a row w/o inc pain in foot. LTG Duration 01/30/22 Assessment Summary Assessment Pt did better w/balance today showing more stability. SHe did not have any pain reproted w/balance activities tdoay. Attempted arch taping to see if that helps pain Physical Therapy Plan Frequency and Duration Frequency of Treatment 1-2x/week Duration of treatment (weeks) 12 Plan of Care Start Date 10/30/21 Plan of Care End Date 01/22/22 Next Visit Focus/Plan Next Note Type Treatment Note Next Visit Plan cont to work on balance, manual to foot and ankle further.
--- NOTE | 2022-01-08 12:47 | PT.OTN ---
Current Diagnoses Other chronic pain (01/08/22) Flat foot [pes planus] (acquired), right foot (01/08/22) Pain in right ankle and joints of right foot (01/08/22) Difficulty in walking, not elsewhere classified (01/08/22) Abnormal posture (01/08/22) Weakness (01/08/22) Physical Therapy Treatment Note PT-OP-A Visit Information Start: 10/26/21 18:06 Freq: Status: Active Protocol: Document 01/08/22 12:00 [facility] (Rec: 01/08/22 12:47 [facility] [id number]) Out-Patient Physical Therapy Visit Information Visit Information Visit Type Treatment Note Visit Note Visit Start Time 12:00 Visit Stop Time 12:50 Total Visit Minutes 50 Visit Number 15 Number of POSTAL SERVICE CLERK Visits 0 PT-OP-B Current Condition Start: 10/26/21 18:06 Freq: Status: Active Protocol: Document 10/30/21 10:29 [facility] (Rec: 10/30/21 12:19 [facility] [id number]) Current Condition History of Current Condition Onset Date chronic w/worsening in apr Current Complaints R foot pain & med foot History of Current Condition Pt reports med foot pain along arch and med ankle. Pt saw Dr Jim Hutchinson who noted some changes from prior MRI. She made her a custom insole in 2018 but it made her foot hurt more. She tried to put it in her shoes but couldn't get it in prior to work. 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 Pt tried to wear high tops (chris) but that seemed to hurt worse. Pt has been wearing [employer] shoes and she likes them a lot. She quit walking d/t pain. She works at [employer] in [place] [employer]. It would shoot sharp pains when going down and its not as much right now but still uncomfortable. Foot pain got really bad starting in Apr with inc activity at [employer]. Foot pain initially started in 2018. She remembers going to her class reunion and wearing heels and the next day foot pain started and that was when it iniitally started. Airplane Inspector told her she had flat feet.Pt reports the last month its been getting a bit better but unsure why. She works 3 days a week ( thru Sat). By the end of Sat, it is very painful. When not at work, its okay. Pt has not gone on her typical walks since Apr where she used to walk daily (doing [place] 2x). Now rarely walking d/t pain. Avoiding hiking d/t uneven terrain. 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 Has not taken ibuprofen lately but was taking 4 three times a day per MD order but that wwas a little while ago. She hasnt taken anything in the last 2 weeks. Pt reports occ back pain and RLS. She notes she is heavier than she ever has been this past year and was diagnosed w/hypothyroidism . Pt reports dizziness that is a side effect of her meds ( has already discussed w/) and she does wonder if this has changed how she walks Prior Treatments and Tests ankle MRI: IMPRESSION: 1. Moderate posterior tibialis tendinosis and tenosynovitis. 2. Mild pes planus and suspected mild hindfoot valgus are new when compared to the prior MRI from 08/21/2017. Medial bowing of the superomedial band of the spring ligament and the tibiospring ligament is noted around the talar head. 3. Mild peroneus brevis tendinosis. 4. Tenosynovitis of the extensor digitorum longus tendon is stable to mildly progressed. 5. Mild Achilles tendinosis. 6. Stable focal thickening of the mid to distal plantar fascia. Chronic mild proximal plantar fasciitis. 7. Kxsv-[id number] midfoot degenerative changes. Treatment Goals Patient/Caregiver Goals Get back to consistant walks, work w/o pain, get foot stronger, cont to be able to cont gardening and walking PT-OP-C Subjective Start: 10/26/21 18:06 Freq: Status: Active Protocol: Document 01/08/22 12:00 [facility] (Rec: 01/08/22 12:47 [facility] [id number]) OP-PT Subjective Patient Comments Patient Comments Regarding use of K-tape last week, I think it helped a lot ! PT-OP-D Balance Start: 10/26/21 18:06 Freq: Status: Active Protocol: Document 10/30/21 10:29 [facility] (Rec: 10/30/21 12:19 [facility] [id number]) Balance Tests Single Limb Standing Single Limb- Right 5 sec w/lat pelvis shear w/ pain Single Limb- Left 4 sec w/lat pelvis shear PT-OP-F Manual Assessment Start: 10/26/21 18:06 Freq: Status: Active Protocol: Document 10/30/21 10:29 [facility] (Rec: 10/30/21 12:19 [facility] [id number]) Manual Assessments Soft Tissue Assessment Soft Tissue Mobility Assessment plantar fascia tightness and calf tightness, med around fibula discomfort Joint Mobility Assessment Joint Mobility Assessment R foot pronates in>L, R foot turned out, IR of tibia & femur w/knee bends, B rearfoot valgus, L forefoot valgus, R varsu PT-OP-G Mobility & Gait Start: 10/26/21 18:06 Freq: Status: Active Protocol: Document 10/30/21 10:29 [facility] (Rec: 10/30/21 12:19 [facility] [id number]) OP Gait Assessment Comments Gait Comments Dec push off B, reaches w/ steps, Dec stance time R PT-OP-K Range of Motion Start: 10/26/21 18:06 Freq: Status: Active Protocol: Document 10/30/21 10:29 [facility] (Rec: 10/30/21 12:19 [facility] [id number]) Ankle and Foot Goniometric Range of Motion Ankle and Foot Right Active Dorsiflexion with Knee Flexed 8 Dorsiflexion with Knee Extended 0 Plantarflexion 40 Inversion 36 Eversion 10 Comments PROM big toe 70 deg ext Left Active Dorsiflexion with Knee Flexed 10 Dorsiflexion with Knee Extended 5 Plantarflexion 46 Inversion 40 Eversion 20 Comments PROM big toe 60 deg ext PT-OP-M Strength Start: 10/26/21 18:06 Freq: Status: Active Protocol: Document 10/30/21 10:29 [facility] (Rec: 10/30/21 12:19 [facility] [id number]) Hip Strength Hip Manual Muscle Testing Right Flexion (L2) 3+ Fair+ Extension (S1) 3 Fair Abduction 3+ Fair+ External Rotation 3+ Fair+ Internal Rotation 4- Good- Left Flexion (L2) 4 Good Extension (S1) 4- Good- Abduction 4- Good- External Rotation 3+ Fair+ Internal Rotation 5 Normal Knee Strength Knee Manual Muscle Testing Right Flexion (S2) 4- Good- Extension (L3) 5 Normal Comments pain w/flex Left Flexion (S2) 5 Normal Extension (L3) 5 Normal Ankle/Foot Strength Ankle and Foot Manual Muscle Testing Right Dorsiflexion (L4) 4 Good Plantarflexion (S1) 4 Good Inversion 3+ Fair+ Eversion (S1) 4- Good- Comments 15 heel raises -pain Left Dorsiflexion (L4) 5 Normal Plantarflexion (S1) 5 Normal Inversion 5 Normal Eversion (S1) 5 Normal Comments 20 heel raises, cues for knee straight PT-OP-Q Treatments Start: 10/26/21 18:06 Freq: Status: Active Protocol: Document 01/08/22 12:00 [facility] (Rec: 01/08/22 12:47 [facility] [id number]) Gym Equipment Shuttle Balance red clips Details head turns as able Comments fwd: WOBS, NBOS, staggered stance B side: WBOS & NBOS Manual Therapy Treatment Soft Tissue Mobilization Calf Body Location B Mobilization Type Rolling,Strumming,Sustained Pressure Intensity/Depth Moderate Body Position Prone plantar fascia Body Location R Mobilization Type Sustained Pressure,Trigger Point Release Intensity/Depth Moderate Body Position Supine Comments manual Joint Mobilizations tibfib Direction PA FM tib calcaneus Joint R distraction Neuro Re-Education Treatment Balance Activities bosu Comments 1. step ups blue x10 B 2. squats black x10 3. DL balance black side PT-OP-R Modalities Start: 10/26/21 18:06 Freq: Status: Active Protocol: Document 01/08/22 12:00 [facility] (Rec: 01/08/22 12:47 [facility] [id number]) Hot Pack/Cold Pack Treatment Cold Pack Location R foot/ankle Patient Position Hooklying Treatment Duration (minutes) 10 PT-OP-T Assessment and Plan Start: 10/26/21 18:06 Freq: Status: Active Protocol: Document 01/08/22 12:00 [facility] (Rec: 01/08/22 12:47 [facility] [id number]) Physical Therapy Assessment Impairments Impairments Activity Tolerance,Balance, Functional Activities, Functional Mobility,Gait,Pain, Posture,ROM,Soft Tissue Mobility,Strength Goals balance Short Term Goal (STG) Pt will be able to do SLS 10 B Tractor Sweeper Operator Goal (LTG) Pt will be able to do SLS 10 sec w/o lat hip shear, UE use or drop of arch or pain LTG Duration 01/30/22 strength Short Term Goal (STG) Pt will be indep w/HEP for strength, balance and ROM STG Duration 12/15/21 Half-Way Goal (LTG) Pt will have at least 4+/5 hip strength and 5/5 ankle & knee MMT along w/ at least 3/5 on LPM to show improved stability to allow for greater time on feet w/improved mechanics LTG Duration 01/30/22 activities Short Term Goal (STG) Pt will be able to do typical home gardening w/o inc foot pain STG Duration 12/15/21 Half-Way Goal (LTG) Pt will be able to work without pain inc greater than 2/10 in R foot LTG Duration 01/30/22 walking Short Term Goal (STG) Pt will be able to walk 2 miles w/mild hills w/o inc pain in foot. STG Duration 12/30 Half-Way Goal (LTG) Pt will be able to walk [place] 2x in a row w/o inc pain in foot. LTG Duration 01/30/22 Assessment Summary Assessment Pt continues to show some progress with balance, did much better with standing ADLs when using K-tape, feels it will be beneficial having it put on before she starts her work week. Physical Therapy Plan Frequency and Duration Frequency of Treatment 1-2x/week Duration of treatment (weeks) 12 Plan of Care Start Date 10/30/21 Plan of Care End Date 01/30/22 Therapeutic Interventions Therapeutic Interventions Aquatic Therapy,Balance Training,Gait Training,Home Exercise Program,Joint Mobilizations,Manual Therapy, Neuromuscular Re-education, Patient/Caregiver Education, Self-Care/Home Management,Soft Tissue Mobilization,Taping, Therapeutic Activities, Therapeutic Exercises Modalities Cold Pack/Ice Massage,Electric Stimulation,Hot Packs, Infrared Therapy,Ultrasound Next Visit Focus/Plan Next Note Type Treatment Note Next Visit Plan cont to work on balance, manual to foot and ankle further.
--- NOTE | 2022-01-10 12:08 | PT.OTN ---
Current Diagnoses Other chronic pain (01/10/22) Flat foot [pes planus] (acquired), right foot (01/10/22) Pain in right ankle and joints of right foot (01/10/22) Difficulty in walking, not elsewhere classified (01/10/22) Abnormal posture (01/10/22) Weakness (01/10/22) Physical Therapy Treatment Note PT-OP-A Visit Information Start: 10/26/21 18:06 Freq: Status: Active Protocol: Document 01/10/22 09:48 [facility] (Rec: 01/10/22 12:08 [facility] [id number]) Out-Patient Physical Therapy Visit Information Visit Information Visit Type Treatment Note Visit Note 08/25 Visit Start Time 09:51 Visit Stop Time 10:40 Total Visit Minutes 49 Visit Number 16 Number of CLOTHING PATTERNMAKER Visits 0 PT-OP-B Current Condition Start: 10/26/21 18:06 Freq: Status: Active Protocol: Document 10/30/21 10:29 [facility] (Rec: 10/30/21 12:19 [facility] [id number]) Current Condition History of Current Condition Onset Date chronic w/worsening in apr Current Complaints R foot pain & med foot History of Current Condition Pt reports med foot pain along arch and med ankle. Pt saw Dr Jim Hutchinson who noted some changes from prior MRI. She made her a custom insole in 2018 but it made her foot hurt more. She tried to put it in her shoes but couldn't get it in prior to work. 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 Pt tried to wear high tops (chris) but that seemed to hurt worse. Pt has been wearing [employer] shoes and she likes them a lot. She quit walking d/t pain. She works at [employer] in [employer] the [employer]. It would shoot sharp pains when going down and its not as much right now but still uncomfortable. Foot pain got really bad starting in Apr with inc activity at [employer]. Foot pain initially started in 2018. She remembers going to her class reunion and wearing heels and the next day foot pain started and that was when it iniitally started. Textile Chemist told her she had flat feet.Pt reports the last month its been getting a bit better but unsure why. She works 3 days a week ( thru Sat). By the end of Sat, it is very painful. When not at work, its okay. Pt has not gone on her typical walks since Apr where she used to walk daily (doing [place] 2x). Now rarely walking d/t pain. Avoiding hiking d/t uneven terrain. 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 Has not taken ibuprofen lately but was taking 4 three times a day per MD order but that wwas a little while ago. She hasnt taken anything in the last 2 weeks. Pt reports occ back pain and RLS. She notes she is heavier than she ever has been this past year and was diagnosed w/hypothyroidism . Pt reports dizziness that is a side effect of her meds ( has already discussed w/) and she does wonder if this has changed how she walks Prior Treatments and Tests ankle MRI: IMPRESSION: 1. Moderate posterior tibialis tendinosis and tenosynovitis. 2. Mild pes planus and suspected mild hindfoot valgus are new when compared to the prior MRI from 08/21/2017. Medial bowing of the superomedial band of the spring ligament and the tibiospring ligament is noted around the talar head. 3. Mild peroneus brevis tendinosis. 4. Tenosynovitis of the extensor digitorum longus tendon is stable to mildly progressed. 5. Mild Achilles tendinosis. 6. Stable focal thickening of the mid to distal plantar fascia. Chronic mild proximal plantar fasciitis. 7. [id number] midfoot degenerative changes. Treatment Goals Patient/Caregiver Goals Get back to consistant walks, work w/o pain, get foot stronger, cont to be able to cont gardening and walking PT-OP-C Subjective Start: 10/26/21 18:06 Freq: Status: Active Protocol: Document 01/10/22 09:48 [facility] (Rec: 01/10/22 12:08 [facility] [id number]) OP-PT Subjective Patient Comments Patient Comments Pt went back to the gym on Saturday. She did the elliptical and did some weights. It felt fine on the elliptical PT-OP-D Balance Start: 10/26/21 18:06 Freq: Status: Active Protocol: Document 10/30/21 10:29 [facility] (Rec: 10/30/21 12:19 [facility] [id number]) Balance Tests Single Limb Standing Single Limb- Right 5 sec w/lat pelvis shear w/ pain Single Limb- Left 4 sec w/lat pelvis shear PT-OP-F Manual Assessment Start: 10/26/21 18:06 Freq: Status: Active Protocol: Document 10/30/21 10:29 [facility] (Rec: 10/30/21 12:19 [facility] [id number]) Manual Assessments Soft Tissue Assessment Soft Tissue Mobility Assessment plantar fascia tightness and calf tightness, med around fibula discomfort Joint Mobility Assessment Joint Mobility Assessment R foot pronates in>L, R foot turned out, IR of tibia & femur w/knee bends, B rearfoot valgus, L forefoot valgus, R varsu PT-OP-G Mobility & Gait Start: 10/26/21 18:06 Freq: Status: Active Protocol: Document 10/30/21 10:29 [facility] (Rec: 10/30/21 12:19 [facility] [id number]) OP Gait Assessment Comments Gait Comments Dec push off B, reaches w/ steps, Dec stance time R PT-OP-K Range of Motion Start: 10/26/21 18:06 Freq: Status: Active Protocol: Document 10/30/21 10:29 [facility] (Rec: 10/30/21 12:19 [facility] [id number]) Ankle and Foot Goniometric Range of Motion Ankle and Foot Right Active Dorsiflexion with Knee Flexed 8 Dorsiflexion with Knee Extended 0 Plantarflexion 40 Inversion 36 Eversion 10 Comments PROM big toe 70 deg ext Left Active Dorsiflexion with Knee Flexed 10 Dorsiflexion with Knee Extended 5 Plantarflexion 46 Inversion 40 Eversion 20 Comments PROM big toe 60 deg ext PT-OP-M Strength Start: 10/26/21 18:06 Freq: Status: Active Protocol: Document 10/30/21 10:29 [facility] (Rec: 10/30/21 12:19 [facility] [id number]) Hip Strength Hip Manual Muscle Testing Right Flexion (L2) 3+ Fair+ Extension (S1) 3 Fair Abduction 3+ Fair+ External Rotation 3+ Fair+ Internal Rotation 4- Good- Left Flexion (L2) 4 Good Extension (S1) 4- Good- Abduction 4- Good- External Rotation 3+ Fair+ Internal Rotation 5 Normal Knee Strength Knee Manual Muscle Testing Right Flexion (S2) 4- Good- Extension (L3) 5 Normal Comments pain w/flex Left Flexion (S2) 5 Normal Extension (L3) 5 Normal Ankle/Foot Strength Ankle and Foot Manual Muscle Testing Right Dorsiflexion (L4) 4 Good Plantarflexion (S1) 4 Good Inversion 3+ Fair+ Eversion (S1) 4- Good- Comments 15 heel raises -pain Left Dorsiflexion (L4) 5 Normal Plantarflexion (S1) 5 Normal Inversion 5 Normal Eversion (S1) 5 Normal Comments 20 heel raises, cues for knee straight PT-OP-Q Treatments Start: 10/26/21 18:06 Freq: Status: Active Protocol: Document 01/10/22 09:48 [facility] (Rec: 01/10/22 12:08 [facility] [id number]) Therapeutic Exercises Sitting Exercises TBAND Sitting Exercise Name DF,inversion, eversion Side right Equipment Used L2 Reps/Minutes 12 ea Standing Exercises heel raises Standing Exercise Name on step Side bilateral Reps/Minutes 30 DF Side bilateral Reps/Minutes 20 Comments back against wall Manual Therapy Treatment Soft Tissue Mobilization Calf Body Location R Mobilization Type Rolling,Strumming,Sustained Pressure Intensity/Depth Moderate Body Position Prone plantar fascia Body Location R Mobilization Type Sustained Pressure,Trigger Point Release Intensity/Depth Moderate Body Position Supine Comments manual Joint Mobilizations cuboid Joint R Direction lat FM navicular Joint R Direction med glide FM cuneiforms Joint R Direction gapping FM calcaneus Joint R distraction Neuro Re-Education Treatment Balance Activities bosu Comments 1. step ups blue x10 B 2. squats black x10 3. DL balance black side 4. mini lunge to bosu x10 B PT-OP-R Modalities Start: 10/26/21 18:06 Freq: Status: Active Protocol: Document 01/10/22 09:48 [facility] (Rec: 01/10/22 12:08 [facility] [id number]) Hot Pack/Cold Pack Treatment Cold Pack Location R foot/ankle Patient Position Hooklying Treatment Duration (minutes) 10 PT-OP-T Assessment and Plan Start: 10/26/21 18:06 Freq: Status: Active Protocol: Document 01/10/22 09:48 [facility] (Rec: 01/10/22 12:08 [facility] [id number]) Physical Therapy Assessment Goals balance Short Term Goal (STG) Pt will be able to do SLS 10 B Senior Living Goal (LTG) Pt will be able to do SLS 10 sec w/o lat hip shear, UE use or drop of arch or pain LTG Duration 01/30/22 strength Short Term Goal (STG) Pt will be indep w/HEP for strength, balance and ROM STG Duration 12/15/21 Senior Living Goal (LTG) Pt will have at least 4+/5 hip strength and 5/5 ankle & knee MMT along w/ at least 3/5 on LPM to show improved stability to allow for greater time on feet w/improved mechanics LTG Duration 01/30/22 activities Short Term Goal (STG) Pt will be able to do typical home gardening w/o inc foot pain STG Duration 12/15/21 Carpentry Teacher Goal (LTG) Pt will be able to work without pain inc greater than 2/10 in R foot LTG Duration 01/30/22 walking Short Term Goal (STG) Pt will be able to walk 2 miles w/mild hills w/o inc pain in foot. STG Duration 12/30 Carpentry Teacher Goal (LTG) Pt will be able to walk [place] 2x in a row w/o inc pain in foot. LTG Duration 01/30/22 Assessment Summary Assessment Pt did well with exercises today and did not have any pain during exercises. balance is improving significantly and pt is showing more stabiltiy Physical Therapy Plan Frequency and Duration Frequency of Treatment 1-2x/week Duration of treatment (weeks) 12 Plan of Care Start Date 10/30/21 Plan of Care End Date 01/30/22 Next Visit Focus/Plan Next Note Type Treatment Note Next Visit Plan cont to work on balance, manual to foot and ankle further.
--- NOTE | 2022-01-15 11:17 | PT.OTN ---
Current Diagnoses Other chronic pain (01/15/22) Flat foot [pes planus] (acquired), right foot (01/15/22) Pain in right ankle and joints of right foot (01/15/22) Difficulty in walking, not elsewhere classified (01/15/22) Abnormal posture (01/15/22) Weakness (01/15/22) Physical Therapy Treatment Note PT-OP-A Visit Information Start: 10/26/21 18:06 Freq: Status: Active Protocol: Document 01/15/22 10:30 [facility] (Rec: 01/15/22 11:17 [facility] [id number]) Out-Patient Physical Therapy Visit Information Visit Information Visit Type Treatment Note Visit Note 09/24 Visit Start Time 10:30 Visit Stop Time 11:20 Total Visit Minutes 50 Visit Number 17 Number of FOOD SAMPLER Visits 0 PT-OP-B Current Condition Start: 10/26/21 18:06 Freq: Status: Active Protocol: Document 10/30/21 10:29 [facility] (Rec: 10/30/21 12:19 [facility] [id number]) Current Condition History of Current Condition Onset Date chronic w/worsening in apr Current Complaints R foot pain & med foot History of Current Condition Pt reports med foot pain along arch and med ankle. Pt saw Dr Jim Hutchinson who noted some changes from prior MRI. She made her a custom insole in 2018 but it made her foot hurt more. She tried to put it in her shoes but couldn't get it in prior to work. 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 Pt tried to wear high tops (chris) but that seemed to hurt worse. Pt has been wearing [employer] shoes and she likes them a lot. She quit walking d/t pain. She works at [employer] in [employer] the [employer]. It would shoot sharp pains when going down and its not as much right now but still uncomfortable. Foot pain got really bad starting in Apr with inc activity at [employer]. Foot pain initially started in 2018. She remembers going to her class reunion and wearing heels and the next day foot pain started and that was when it iniitally started. Support Teacher told her she had flat feet.Pt reports the last month its been getting a bit better but unsure why. She works 3 days a week ( thru Sat). By the end of Sat, it is very painful. When not at work, its okay. Pt has not gone on her typical walks since Apr where she used to walk daily (doing [place] 2x). Now rarely walking d/t pain. Avoiding hiking d/t uneven terrain. 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 Has not taken ibuprofen lately but was taking 4 three times a day per MD order but that wwas a little while ago. She hasnt taken anything in the last 2 weeks. Pt reports occ back pain and RLS. She notes she is heavier than she ever has been this past year and was diagnosed w/hypothyroidism . Pt reports dizziness that is a side effect of her meds ( has already discussed w/) and she does wonder if this has changed how she walks Prior Treatments and Tests ankle MRI: IMPRESSION: 1. Moderate posterior tibialis tendinosis and tenosynovitis. 2. Mild pes planus and suspected mild hindfoot valgus are new when compared to the prior MRI from 08/21/2017. Medial bowing of the superomedial band of the spring ligament and the tibiospring ligament is noted around the talar head. 3. Mild peroneus brevis tendinosis. 4. Tenosynovitis of the extensor digitorum longus tendon is stable to mildly progressed. 5. Mild Achilles tendinosis. 6. Stable focal thickening of the mid to distal plantar fascia. Chronic mild proximal plantar fasciitis. 7. [id number] midfoot degenerative changes. Treatment Goals Patient/Caregiver Goals Get back to consistant walks, work w/o pain, get foot stronger, cont to be able to cont gardening and walking PT-OP-C Subjective Start: 10/26/21 18:06 Freq: Status: Active Protocol: Document 01/15/22 10:30 [facility] (Rec: 01/15/22 11:17 [facility] [id number]) OP-PT Subjective Patient Comments Patient Comments It's doing better, I even did some dancing over the weekend . PT-OP-D Balance Start: 10/26/21 18:06 Freq: Status: Active Protocol: Document 10/30/21 10:29 [facility] (Rec: 10/30/21 12:19 [facility] [id number]) Balance Tests Single Limb Standing Single Limb- Right 5 sec w/lat pelvis shear w/ pain Single Limb- Left 4 sec w/lat pelvis shear PT-OP-F Manual Assessment Start: 10/26/21 18:06 Freq: Status: Active Protocol: Document 10/30/21 10:29 [facility] (Rec: 10/30/21 12:19 [facility] [id number]) Manual Assessments Soft Tissue Assessment Soft Tissue Mobility Assessment plantar fascia tightness and calf tightness, med around fibula discomfort Joint Mobility Assessment Joint Mobility Assessment R foot pronates in>L, R foot turned out, IR of tibia & femur w/knee bends, B rearfoot valgus, L forefoot valgus, R varsu PT-OP-G Mobility & Gait Start: 10/26/21 18:06 Freq: Status: Active Protocol: Document 10/30/21 10:29 [facility] (Rec: 10/30/21 12:19 [facility] [id number]) OP Gait Assessment Comments Gait Comments Dec push off B, reaches w/ steps, Dec stance time R PT-OP-K Range of Motion Start: 10/26/21 18:06 Freq: Status: Active Protocol: Document 10/30/21 10:29 [facility] (Rec: 10/30/21 12:19 [facility] [id number]) Ankle and Foot Goniometric Range of Motion Ankle and Foot Right Active Dorsiflexion with Knee Flexed 8 Dorsiflexion with Knee Extended 0 Plantarflexion 40 Inversion 36 Eversion 10 Comments PROM big toe 70 deg ext Left Active Dorsiflexion with Knee Flexed 10 Dorsiflexion with Knee Extended 5 Plantarflexion 46 Inversion 40 Eversion 20 Comments PROM big toe 60 deg ext PT-OP-M Strength Start: 10/26/21 18:06 Freq: Status: Active Protocol: Document 10/30/21 10:29 [facility] (Rec: 10/30/21 12:19 [facility] [id number]) Hip Strength Hip Manual Muscle Testing Right Flexion (L2) 3+ Fair+ Extension (S1) 3 Fair Abduction 3+ Fair+ External Rotation 3+ Fair+ Internal Rotation 4- Good- Left Flexion (L2) 4 Good Extension (S1) 4- Good- Abduction 4- Good- External Rotation 3+ Fair+ Internal Rotation 5 Normal Knee Strength Knee Manual Muscle Testing Right Flexion (S2) 4- Good- Extension (L3) 5 Normal Comments pain w/flex Left Flexion (S2) 5 Normal Extension (L3) 5 Normal Ankle/Foot Strength Ankle and Foot Manual Muscle Testing Right Dorsiflexion (L4) 4 Good Plantarflexion (S1) 4 Good Inversion 3+ Fair+ Eversion (S1) 4- Good- Comments 15 heel raises -pain Left Dorsiflexion (L4) 5 Normal Plantarflexion (S1) 5 Normal Inversion 5 Normal Eversion (S1) 5 Normal Comments 20 heel raises, cues for knee straight PT-OP-Q Treatments Start: 10/26/21 18:06 Freq: Status: Active Protocol: Document 01/15/22 10:30 [facility] (Rec: 01/15/22 11:17 [facility] [id number]) Gym Equipment Shuttle Balance red clips Details head turns as able Comments fwd: WOBS, NBOS, staggered stance B side: WBOS & NBOS Manual Therapy Treatment Soft Tissue Mobilization Calf Body Location B Mobilization Type Rolling,Strumming,Sustained Pressure Intensity/Depth Moderate Body Position Prone plantar fascia Body Location R Mobilization Type Sustained Pressure,Trigger Point Release Intensity/Depth Moderate Body Position Supine Comments manual Joint Mobilizations navicular Joint R Direction med glide FM cuneiforms Joint R Direction gapping FM tibfib Direction PA FM tib calcaneus Joint R distraction PT-OP-R Modalities Start: 10/26/21 18:06 Freq: Status: Active Protocol: Document 01/15/22 10:30 [facility] (Rec: 01/15/22 11:17 [facility] [id number]) Hot Pack/Cold Pack Treatment Cold Pack Location R foot/ankle Patient Position Hooklying Treatment Duration (minutes) 10 PT-OP-T Assessment and Plan Start: 10/26/21 18:06 Freq: Status: Active Protocol: Document 01/15/22 10:30 [facility] (Rec: 01/15/22 11:17 [facility] [id number]) Physical Therapy Assessment Impairments Impairments Activity Tolerance,Balance, Functional Activities, Functional Mobility,Gait,Pain, Posture,ROM,Soft Tissue Mobility,Strength Goals balance Short Term Goal (STG) Pt will be able to do SLS 10 B [facility] Goal (LTG) Pt will be able to do SLS 10 sec w/o lat hip shear, UE use or drop of arch or pain LTG Duration 01/30/22 strength Short Term Goal (STG) Pt will be indep w/HEP for strength, balance and ROM STG Duration 12/15/21 [facility] Goal (LTG) Pt will have at least 4+/5 hip strength and 5/5 ankle & knee MMT along w/ at least 3/5 on LPM to show improved stability to allow for greater time on feet w/improved mechanics LTG Duration 01/30/22 activities Short Term Goal (STG) Pt will be able to do typical home gardening w/o inc foot pain STG Duration 12/15/21 [facility] Goal (LTG) Pt will be able to work without pain inc greater than 2/10 in R foot LTG Duration 01/30/22 walking Short Term Goal (STG) Pt will be able to walk 2 miles w/mild hills w/o inc pain in foot. STG Duration 12/30 Wet Process Technician Goal (LTG) Pt will be able to walk [place] 2x in a row w/o inc pain in foot. LTG Duration 01/30/22 Assessment Summary Assessment Pt reports she strained a muscle in her hip over the weekend, and it was bothering her during BOSU exercises, so these were skipped this week. Otherwise, pt doing much better, balance looks good, improved joint mobility throughout foot. Physical Therapy Plan Frequency and Duration Frequency of Treatment 1-2x/week Duration of treatment (weeks) 12 Plan of Care Start Date 10/30/21 Plan of Care End Date 01/30/22 Therapeutic Interventions Therapeutic Interventions Aquatic Therapy,Balance Training,Gait Training,Home Exercise Program,Joint Mobilizations,Manual Therapy, Neuromuscular Re-education, Patient/Caregiver Education, Self-Care/Home Management,Soft Tissue Mobilization,Taping, Therapeutic Activities, Therapeutic Exercises Modalities Cold Pack/Ice Massage,Electric Stimulation,Hot Packs, Infrared Therapy,Ultrasound Next Visit Focus/Plan Next Note Type Treatment Note Next Visit Plan cont to work on balance, manual to foot and ankle further.
--- NOTE | 2022-01-17 11:23 | PT.OTN ---
Current Diagnoses Other chronic pain (01/17/22) Flat foot [pes planus] (acquired), right foot (01/17/22) Pain in right ankle and joints of right foot (01/17/22) Difficulty in walking, not elsewhere classified (01/17/22) Abnormal posture (01/17/22) Weakness (01/17/22) Physical Therapy Treatment Note PT-OP-A Visit Information Start: 10/26/21 18:06 Freq: Status: Active Protocol: Document 01/17/22 10:30 [facility] (Rec: 01/17/22 11:22 [facility] [id number]) Out-Patient Physical Therapy Visit Information Visit Information Visit Type Treatment Note Visit Note 10/25 Visit Start Time 10:30 Visit Stop Time 11:20 Total Visit Minutes 50 Visit Number 18 Number of EBAY RESELLER Visits 0 PT-OP-B Current Condition Start: 10/26/21 18:06 Freq: Status: Active Protocol: Document 10/30/21 10:29 [facility] (Rec: 10/30/21 12:19 [facility] [id number]) Current Condition History of Current Condition Onset Date chronic w/worsening in apr Current Complaints R foot pain & med foot History of Current Condition Pt reports med foot pain along arch and med ankle. Pt saw Dr Jim Hutchinson who noted some changes from prior MRI. She made her a custom insole in 2018 but it made her foot hurt more. She tried to put it in her shoes but couldn't get it in prior to work. 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 Pt tried to wear high tops (chris) but that seemed to hurt worse. Pt has been wearing [employer] shoes and she likes them a lot. She quit walking d/t pain. She works at [employer] in [employer]. It would shoot sharp pains when going down and its not as much right now but still uncomfortable. Foot pain got really bad starting in Apr with inc activity at [employer]. Foot pain initially started in 2018. She remembers going to her class reunion and wearing heels and the next day foot pain started and that was when it iniitally started. Spl[employer] Rolling Machine Job Setter told her she had flat feet.Pt reports the last month its been getting a bit better but unsure why. She works 3 days a week ( thru Sat). By the end of Sat, it is very painful. When not at work, its okay. Pt has not gone on her typical walks since Apr where she used to walk daily (doing [place] 2x). Now rarely walking d/t pain. Avoiding hiking d/t uneven terrain. 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 Has not taken ibuprofen lately but was taking 4 three times a day per MD order but that wwas a little while ago. She hasnt taken anything in the last 2 weeks. Pt reports occ back pain and RLS. She notes she is heavier than she ever has been this past year and was diagnosed w/hypothyroidism . Pt reports dizziness that is a side effect of her meds ( has already discussed w/) and she does wonder if this has changed how she walks Prior Treatments and Tests ankle MRI: IMPRESSION: 1. Moderate posterior tibialis tendinosis and tenosynovitis. 2. Mild pes planus and suspected mild hindfoot valgus are new when compared to the prior MRI from 08/21/2017. Medial bowing of the superomedial band of the spring ligament and the tibiospring ligament is noted around the talar head. 3. Mild peroneus brevis tendinosis. 4. Tenosynovitis of the extensor digitorum longus tendon is stable to mildly progressed. 5. Mild Achilles tendinosis. 6. Stable focal thickening of the mid to distal plantar fascia. Chronic mild proximal plantar fasciitis. 7. [id number] midfoot degenerative changes. Treatment Goals Patient/Caregiver Goals Get back to consistant walks, work w/o pain, get foot stronger, cont to be able to cont gardening and walking PT-OP-C Subjective Start: 10/26/21 18:06 Freq: Status: Active Protocol: Document 01/17/22 10:30 [facility] (Rec: 01/17/22 11:22 [facility] [id number]) OP-PT Subjective Patient Comments Patient Comments It's feeling good! I think it 's getting stronger. PT-OP-D Balance Start: 10/26/21 18:06 Freq: Status: Active Protocol: Document 10/30/21 10:29 [facility] (Rec: 10/30/21 12:19 [facility] [id number]) Balance Tests Single Limb Standing Single Limb- Right 5 sec w/lat pelvis shear w/ pain Single Limb- Left 4 sec w/lat pelvis shear PT-OP-F Manual Assessment Start: 10/26/21 18:06 Freq: Status: Active Protocol: Document 10/30/21 10:29 [facility] (Rec: 10/30/21 12:19 [facility] [id number]) Manual Assessments Soft Tissue Assessment Soft Tissue Mobility Assessment plantar fascia tightness and calf tightness, med around fibula discomfort Joint Mobility Assessment Joint Mobility Assessment R foot pronates in>L, R foot turned out, IR of tibia & femur w/knee bends, B rearfoot valgus, L forefoot valgus, R varsu PT-OP-G Mobility & Gait Start: 10/26/21 18:06 Freq: Status: Active Protocol: Document 10/30/21 10:29 [facility] (Rec: 10/30/21 12:19 [facility] [id number]) OP Gait Assessment Comments Gait Comments Dec push off B, reaches w/ steps, Dec stance time R PT-OP-K Range of Motion Start: 10/26/21 18:06 Freq: Status: Active Protocol: Document 10/30/21 10:29 [facility] (Rec: 10/30/21 12:19 [facility] [id number]) Ankle and Foot Goniometric Range of Motion Ankle and Foot Right Active Dorsiflexion with Knee Flexed 8 Dorsiflexion with Knee Extended 0 Plantarflexion 40 Inversion 36 Eversion 10 Comments PROM big toe 70 deg ext Left Active Dorsiflexion with Knee Flexed 10 Dorsiflexion with Knee Extended 5 Plantarflexion 46 Inversion 40 Eversion 20 Comments PROM big toe 60 deg ext PT-OP-M Strength Start: 10/26/21 18:06 Freq: Status: Active Protocol: Document 10/30/21 10:29 [facility] (Rec: 10/30/21 12:19 [facility] [id number]) Hip Strength Hip Manual Muscle Testing Right Flexion (L2) 3+ Fair+ Extension (S1) 3 Fair Abduction 3+ Fair+ External Rotation 3+ Fair+ Internal Rotation 4- Good- Left Flexion (L2) 4 Good Extension (S1) 4- Good- Abduction 4- Good- External Rotation 3+ Fair+ Internal Rotation 5 Normal Knee Strength Knee Manual Muscle Testing Right Flexion (S2) 4- Good- Extension (L3) 5 Normal Comments pain w/flex Left Flexion (S2) 5 Normal Extension (L3) 5 Normal Ankle/Foot Strength Ankle and Foot Manual Muscle Testing Right Dorsiflexion (L4) 4 Good Plantarflexion (S1) 4 Good Inversion 3+ Fair+ Eversion (S1) 4- Good- Comments 15 heel raises -pain Left Dorsiflexion (L4) 5 Normal Plantarflexion (S1) 5 Normal Inversion 5 Normal Eversion (S1) 5 Normal Comments 20 heel raises, cues for knee straight PT-OP-Q Treatments Start: 10/26/21 18:06 Freq: Status: Active Protocol: Document 01/17/22 10:30 [facility] (Rec: 01/17/22 11:22 [facility] [id number]) Gym Equipment Shuttle Balance red clips Details head turns as able Comments fwd: WOBS, NBOS, staggered stance B side: WBOS & NBOS Therapeutic Exercises Standing Exercises heel raises Standing Exercise Name on step Side bilateral Reps/Minutes 30 Manual Therapy Treatment Soft Tissue Mobilization Calf Body Location B Mobilization Type Rolling,Strumming,Sustained Pressure Intensity/Depth Moderate Body Position Prone plantar fascia Body Location R Mobilization Type Sustained Pressure,Trigger Point Release Intensity/Depth Moderate Body Position Supine Comments manual Joint Mobilizations navicular Joint R Direction med glide FM cuneiforms Joint R Direction gapping FM tibfib Direction PA FM tib calcaneus Joint R distraction PT-OP-R Modalities Start: 10/26/21 18:06 Freq: Status: Active Protocol: Document 01/17/22 10:30 [facility] (Rec: 01/17/22 11:22 [facility] [id number]) Hot Pack/Cold Pack Treatment Cold Pack Location R foot/ankle Patient Position Hooklying Treatment Duration (minutes) 10 PT-OP-T Assessment and Plan Start: 10/26/21 18:06 Freq: Status: Active Protocol: Document 01/17/22 10:30 [facility] (Rec: 01/17/22 11:22 [facility] [id number]) Physical Therapy Assessment Impairments Impairments Activity Tolerance,Balance, Functional Activities, Functional Mobility,Gait,Pain, Posture,ROM,Soft Tissue Mobility,Strength Goals balance Short Term Goal (STG) Pt will be able to do SLS 10 B Pre Sales Technical Consultant Goal (LTG) Pt will be able to do SLS 10 sec w/o lat hip shear, UE use or drop of arch or pain LTG Duration 01/30/22 strength Short Term Goal (STG) Pt will be indep w/HEP for strength, balance and ROM STG Duration 12/15/21 Shelter Goal (LTG) Pt will have at least 4+/5 hip strength and 5/5 ankle & knee MMT along w/ at least 3/5 on LPM to show improved stability to allow for greater time on feet w/improved mechanics LTG Duration 01/30/22 activities Short Term Goal (STG) Pt will be able to do typical home gardening w/o inc foot pain STG Duration 12/15/21 Shelter Goal (LTG) Pt will be able to work without pain inc greater than 2/10 in R foot LTG Duration 01/30/22 walking Short Term Goal (STG) Pt will be able to walk 2 miles w/mild hills w/o inc pain in foot. STG Duration 12/30 Pre Sales Technical Consultant Goal (LTG) Pt will be able to walk [place] 2x in a row w/o inc pain in foot. LTG Duration 01/30/22 Assessment Summary Assessment Pt doing better overall, requested skipping k-tape so she can see how she does at work this week without relying on any additional support. Physical Therapy Plan Frequency and Duration Frequency of Treatment 1-2x/week Duration of treatment (weeks) 12 Plan of Care Start Date 10/30/21 Plan of Care End Date 01/30/22 Therapeutic Interventions Therapeutic Interventions Aquatic Therapy,Balance Training,Gait Training,Home Exercise Program,Joint Mobilizations,Manual Therapy, Neuromuscular Re-education, Patient/Caregiver Education, Self-Care/Home Management,Soft Tissue Mobilization,Taping, Therapeutic Activities, Therapeutic Exercises Modalities Cold Pack/Ice Massage,Electric Stimulation,Hot Packs, Infrared Therapy,Ultrasound Next Visit Focus/Plan Next Note Type Treatment Note Next Visit Plan cont to work on balance, manual to foot and ankle further.
--- NOTE | 2022-01-22 10:30 | PT.OTN ---
Current Diagnoses Other chronic pain (01/22/22) Flat foot [pes planus] (acquired), right foot (01/22/22) Pain in right ankle and joints of right foot (01/22/22) Difficulty in walking, not elsewhere classified (01/22/22) Abnormal posture (01/22/22) Weakness (01/22/22) Physical Therapy Treatment Note PT-OP-A Visit Information Start: 10/26/21 18:06 Freq: Status: Active Protocol: Document 01/22/22 09:45 [facility] (Rec: 01/22/22 10:30 [facility] [id number]) Out-Patient Physical Therapy Visit Information Visit Information Visit Type Treatment Note Visit Note 11/25 Visit Start Time 09:45 Visit Stop Time 10:35 Total Visit Minutes 50 Visit Number 19 Number of RECORDS AND INFORMATION MANAGER Visits 0 PT-OP-B Current Condition Start: 10/26/21 18:06 Freq: Status: Active Protocol: Document 10/30/21 10:29 [facility] (Rec: 10/30/21 12:19 [facility] [id number]) Current Condition History of Current Condition Onset Date chronic w/worsening in apr Current Complaints R foot pain & med foot History of Current Condition Pt reports med foot pain along arch and med ankle. Pt saw Dr Jim Hutchinson who noted some changes from prior MRI. She made her a custom insole in 2018 but it made her foot hurt more. She tried to put it in her shoes but couldn't get it in prior to work. 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 Pt tried to wear high tops (chris) but that seemed to hurt worse. Pt has been wearing [employer] shoes and she likes them a lot. She quit walking d/t pain. She works at [employer] in [employer] the [employer]. It would shoot sharp pains when going down and its not as much right now but still uncomfortable. Foot pain got really bad starting in Apr with inc activity at [employer]. Foot pain initially started in 2018. She remembers going to her class reunion and wearing heels and the next day foot pain started and that was when it iniitally started. Public [employer] Trolley Driver told her she had flat feet.Pt reports the last month its been getting a bit better but unsure why. She works 3 days a week ( thru Sat). By the end of Sat, it is very painful. When not at work, its okay. Pt has not gone on her typical walks since Apr where she used to walk daily (doing [place] 2x). Now rarely walking d/t pain. Avoiding hiking d/t uneven terrain. 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 Has not taken ibuprofen lately but was taking 4 three times a day per MD order but that wwas a little while ago. She hasnt taken anything in the last 2 weeks. Pt reports occ back pain and RLS. She notes she is heavier than she ever has been this past year and was diagnosed w/hypothyroidism . Pt reports dizziness that is a side effect of her meds ( has already discussed w/) and she does wonder if this has changed how she walks Prior Treatments and Tests ankle MRI: IMPRESSION: 1. Moderate posterior tibialis tendinosis and tenosynovitis. 2. Mild pes planus and suspected mild hindfoot valgus are new when compared to the prior MRI from 08/21/2017. Medial bowing of the superomedial band of the spring ligament and the tibiospring ligament is noted around the talar head. 3. Mild peroneus brevis tendinosis. 4. Tenosynovitis of the extensor digitorum longus tendon is stable to mildly progressed. 5. Mild Achilles tendinosis. 6. Stable focal thickening of the mid to distal plantar fascia. Chronic mild proximal plantar fasciitis. 7. [id number] midfoot degenerative changes. Treatment Goals Patient/Caregiver Goals Get back to consistant walks, work w/o pain, get foot stronger, cont to be able to cont gardening and walking PT-OP-C Subjective Start: 10/26/21 18:06 Freq: Status: Active Protocol: Document 01/22/22 09:45 [facility] (Rec: 01/22/22 10:30 [facility] [id number]) OP-PT Subjective Patient Comments Patient Comments Pt notes no problems since she was last here, I think my foot is doing better. PT-OP-D Balance Start: 10/26/21 18:06 Freq: Status: Active Protocol: Document 10/30/21 10:29 [facility] (Rec: 10/30/21 12:19 [facility] [id number]) Balance Tests Single Limb Standing Single Limb- Right 5 sec w/lat pelvis shear w/ pain Single Limb- Left 4 sec w/lat pelvis shear PT-OP-F Manual Assessment Start: 10/26/21 18:06 Freq: Status: Active Protocol: Document 10/30/21 10:29 [facility] (Rec: 10/30/21 12:19 [facility] [id number]) Manual Assessments Soft Tissue Assessment Soft Tissue Mobility Assessment plantar fascia tightness and calf tightness, med around fibula discomfort Joint Mobility Assessment Joint Mobility Assessment R foot pronates in>L, R foot turned out, IR of tibia & femur w/knee bends, B rearfoot valgus, L forefoot valgus, R varsu PT-OP-G Mobility & Gait Start: 10/26/21 18:06 Freq: Status: Active Protocol: Document 10/30/21 10:29 [facility] (Rec: 10/30/21 12:19 [facility] [id number]) OP Gait Assessment Comments Gait Comments Dec push off B, reaches w/ steps, Dec stance time R PT-OP-K Range of Motion Start: 10/26/21 18:06 Freq: Status: Active Protocol: Document 10/30/21 10:29 [facility] (Rec: 10/30/21 12:19 [facility] [id number]) Ankle and Foot Goniometric Range of Motion Ankle and Foot Right Active Dorsiflexion with Knee Flexed 8 Dorsiflexion with Knee Extended 0 Plantarflexion 40 Inversion 36 Eversion 10 Comments PROM big toe 70 deg ext Left Active Dorsiflexion with Knee Flexed 10 Dorsiflexion with Knee Extended 5 Plantarflexion 46 Inversion 40 Eversion 20 Comments PROM big toe 60 deg ext PT-OP-M Strength Start: 10/26/21 18:06 Freq: Status: Active Protocol: Document 10/30/21 10:29 [facility] (Rec: 10/30/21 12:19 [facility] [id number]) Hip Strength Hip Manual Muscle Testing Right Flexion (L2) 3+ Fair+ Extension (S1) 3 Fair Abduction 3+ Fair+ External Rotation 3+ Fair+ Internal Rotation 4- Good- Left Flexion (L2) 4 Good Extension (S1) 4- Good- Abduction 4- Good- External Rotation 3+ Fair+ Internal Rotation 5 Normal Knee Strength Knee Manual Muscle Testing Right Flexion (S2) 4- Good- Extension (L3) 5 Normal Comments pain w/flex Left Flexion (S2) 5 Normal Extension (L3) 5 Normal Ankle/Foot Strength Ankle and Foot Manual Muscle Testing Right Dorsiflexion (L4) 4 Good Plantarflexion (S1) 4 Good Inversion 3+ Fair+ Eversion (S1) 4- Good- Comments 15 heel raises -pain Left Dorsiflexion (L4) 5 Normal Plantarflexion (S1) 5 Normal Inversion 5 Normal Eversion (S1) 5 Normal Comments 20 heel raises, cues for knee straight PT-OP-Q Treatments Start: 10/26/21 18:06 Freq: Status: Active Protocol: Document 01/22/22 09:45 [facility] (Rec: 01/22/22 10:30 [facility] [id number]) Gym Equipment Shuttle Balance red clips Details head turns as able Comments fwd: WOBS, NBOS, staggered stance B side: WBOS & NBOS Therapeutic Exercises Standing Exercises heel raises Standing Exercise Name on step Side bilateral Reps/Minutes 30 Manual Therapy Treatment Soft Tissue Mobilization Calf Body Location B Mobilization Type Rolling,Strumming,Sustained Pressure Intensity/Depth Moderate Body Position Prone plantar fascia Body Location R Mobilization Type Sustained Pressure,Trigger Point Release Intensity/Depth Moderate Body Position Supine Comments manual Joint Mobilizations navicular Joint R Direction med glide FM cuneiforms Joint R Direction gapping FM tibfib Direction PA FM tib calcaneus Joint R distraction PT-OP-R Modalities Start: 10/26/21 18:06 Freq: Status: Active Protocol: Document 01/22/22 09:45 [facility] (Rec: 01/22/22 10:30 [facility] [id number]) Hot Pack/Cold Pack Treatment Cold Pack Location R foot/ankle Patient Position Hooklying Treatment Duration (minutes) 10 PT-OP-T Assessment and Plan Start: 10/26/21 18:06 Freq: Status: Active Protocol: Document 01/22/22 09:45 [facility] (Rec: 01/22/22 10:30 [facility] [id number]) Physical Therapy Assessment Impairments Impairments Activity Tolerance,Balance, Functional Activities, Functional Mobility,Gait,Pain, Posture,ROM,Soft Tissue Mobility,Strength Goals balance Short Term Goal (STG) Pt will be able to do SLS 10 B Corncob Pipe Supervisor Goal (LTG) Pt will be able to do SLS 10 sec w/o lat hip shear, UE use or drop of arch or pain LTG Duration 01/30/22 strength Short Term Goal (STG) Pt will be indep w/HEP for strength, balance and ROM STG Duration 12/15/21 Corncob Pipe Supervisor Goal (LTG) Pt will have at least 4+/5 hip strength and 5/5 ankle & knee MMT along w/ at least 3/5 on LPM to show improved stability to allow for greater time on feet w/improved mechanics LTG Duration 01/30/22 activities Short Term Goal (STG) Pt will be able to do typical home gardening w/o inc foot pain STG Duration 12/15/21 Corncob Pipe Supervisor Goal (LTG) Pt will be able to work without pain inc greater than 2/10 in R foot LTG Duration 01/30/22 walking Short Term Goal (STG) Pt will be able to walk 2 miles w/mild hills w/o inc pain in foot. STG Duration 12/30 Corncob Pipe Supervisor Goal (LTG) Pt will be able to walk [place] 2x in a row w/o inc pain in foot. LTG Duration 01/30/22 Assessment Summary Assessment Pt showing great improvement from initial evaluation, minimal complaints overall, just noticing some general tightness in bilateral calves by end of day. Reviewed calf stretches, likely nearing discharge. Physical Therapy Plan Frequency and Duration Frequency of Treatment 1-2x/week Duration of treatment (weeks) 12 Plan of Care Start Date 10/30/21 Plan of Care End Date 01/30/22 Therapeutic Interventions Therapeutic Interventions Aquatic Therapy,Balance Training,Gait Training,Home Exercise Program,Joint Mobilizations,Manual Therapy, Neuromuscular Re-education, Patient/Caregiver Education, Self-Care/Home Management,Soft Tissue Mobilization,Taping, Therapeutic Activities, Therapeutic Exercises Modalities Cold Pack/Ice Massage,Electric Stimulation,Hot Packs, Infrared Therapy,Ultrasound Next Visit Focus/Plan Next Note Type Treatment Note Next Visit Plan cont to work on balance, manual to foot and ankle further.
--- NOTE | 2022-01-24 10:01 | PT.OTN ---
Current Diagnoses Other chronic pain (01/24/22) Flat foot [pes planus] (acquired), right foot (01/24/22) Pain in right ankle and joints of right foot (01/24/22) Difficulty in walking, not elsewhere classified (01/24/22) Abnormal posture (01/24/22) Weakness (01/24/22) Physical Therapy Treatment Note PT-OP-A Visit Information Start: 10/26/21 18:06 Freq: Status: Active Protocol: Document 01/24/22 09:04 [facility] (Rec: 01/24/22 10:01 [facility] [id number]) Out-Patient Physical Therapy Visit Information Visit Information Visit Type Progress Note Visit Note 03/27 Visit Start Time 09:05 Visit Stop Time 09:46 Total Visit Minutes 41 Visit Number 20 Number of CORN PICKER Visits 0 PT-OP-B Current Condition Start: 10/26/21 18:06 Freq: Status: Active Protocol: Document 10/30/21 10:29 [facility] (Rec: 10/30/21 12:19 [facility] [id number]) Current Condition History of Current Condition Onset Date chronic w/worsening in apr Current Complaints R foot pain & med foot History of Current Condition Pt reports med foot pain along arch and med ankle. Pt saw Dr Jim Hutchinson who noted some changes from prior MRI. She made her a custom insole in 2018 but it made her foot hurt more. She tried to put it in her shoes but couldn't get it in prior to work. 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 Pt tried to wear high tops (chris) but that seemed to hurt worse. Pt has been wearing [employer] shoes and she likes them a lot. She quit walking d/t pain. She works at [employer] in [employer]. It would shoot sharp pains when going down and its not as much right now but still uncomfortable. Foot pain got really bad starting in Apr with inc activity at [employer]. Foot pain initially started in 2018. She remembers going to her class reunion and wearing heels and the next day foot pain started and that was when it iniitally started. Metrologist told her she had flat feet.Pt reports the last month its been getting a bit better but unsure why. She works 3 days a week ( thru Sat). By the end of Sat, it is very painful. When not at work, its okay. Pt has not gone on her typical walks since Apr where she used to walk daily (doing [place] 2x). Now rarely walking d/t pain. Avoiding hiking d/t uneven terrain. 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 Has not taken ibuprofen lately but was taking 4 three times a day per MD order but that wwas a little while ago. She hasnt taken anything in the last 2 weeks. Pt reports occ back pain and RLS. She notes she is heavier than she ever has been this past year and was diagnosed w/hypothyroidism . Pt reports dizziness that is a side effect of her meds ( has already discussed w/) and she does wonder if this has changed how she walks Prior Treatments and Tests ankle MRI: IMPRESSION: 1. Moderate posterior tibialis tendinosis and tenosynovitis. 2. Mild pes planus and suspected mild hindfoot valgus are new when compared to the prior MRI from 08/21/2017. Medial bowing of the superomedial band of the spring ligament and the tibiospring ligament is noted around the talar head. 3. Mild peroneus brevis tendinosis. 4. Tenosynovitis of the extensor digitorum longus tendon is stable to mildly progressed. 5. Mild Achilles tendinosis. 6. Stable focal thickening of the mid to distal plantar fascia. Chronic mild proximal plantar fasciitis. 7. [id number] midfoot degenerative changes. Treatment Goals Patient/Caregiver Goals Get back to consistant walks, work w/o pain, get foot stronger, cont to be able to cont gardening and walking PT-OP-C Subjective Start: 10/26/21 18:06 Freq: Status: Active Protocol: Document 01/24/22 09:04 [facility] (Rec: 01/24/22 10:01 [facility] [id number]) OP-PT Subjective Patient Comments Patient Comments Pt reprots her foot does not hurt as much as it used to. Notes she pulled her L groin some how about a week ago. Patient Reported Progress Improving PT-OP-D Balance Start: 10/26/21 18:06 Freq: Status: Active Protocol: Document 01/24/22 09:04 [facility] (Rec: 01/24/22 10:01 [facility] [id number]) Balance Tests Single Limb Standing Single Limb- Right 6 sec w/lat pelvis shear Single Limb- Left 5 sec w/lat pelvis shear PT-OP-F Manual Assessment Start: 10/26/21 18:06 Freq: Status: Active Protocol: Document 10/30/21 10:29 [facility] (Rec: 10/30/21 12:19 [facility] [id number]) Manual Assessments Soft Tissue Assessment Soft Tissue Mobility Assessment plantar fascia tightness and calf tightness, med around fibula discomfort Joint Mobility Assessment Joint Mobility Assessment R foot pronates in>L, R foot turned out, IR of tibia & femur w/knee bends, B rearfoot valgus, L forefoot valgus, R varsu PT-OP-G Mobility & Gait Start: 10/26/21 18:06 Freq: Status: Active Protocol: Document 10/30/21 10:29 [facility] (Rec: 10/30/21 12:19 [facility] [id number]) OP Gait Assessment Comments Gait Comments Dec push off B, reaches w/ steps, Dec stance time R PT-OP-J Posture/Palpation/Skin Start: 10/26/21 18:06 Freq: Status: Active Protocol: Document 01/24/22 09:04 [facility] (Rec: 01/24/22 10:01 [facility] [id number]) Posture Evaluation [facility] Postural Classification System Lumbar Protective Mechanism Left AP 2 Lumbar Protective Mechanism Right AP 2 Lumbar Protective Mechanism Left PA 2 Lumbar Protective Mechanism Right PA 3 PT-OP-K Range of Motion Start: 10/26/21 18:06 Freq: Status: Active Protocol: Document 10/30/21 10:29 [facility] (Rec: 10/30/21 12:19 [facility] [id number]) Ankle and Foot Goniometric Range of Motion Ankle and Foot Right Active Dorsiflexion with Knee Flexed 8 Dorsiflexion with Knee Extended 0 Plantarflexion 40 Inversion 36 Eversion 10 Comments PROM big toe 70 deg ext Left Active Dorsiflexion with Knee Flexed 10 Dorsiflexion with Knee Extended 5 Plantarflexion 46 Inversion 40 Eversion 20 Comments PROM big toe 60 deg ext PT-OP-M Strength Start: 10/26/21 18:06 Freq: Status: Active Protocol: Document 01/24/22 09:04 [facility] (Rec: 01/24/22 10:01 [facility] [id number]) Hip Strength Hip Manual Muscle Testing Right Flexion (L2) 4 Good Extension (S1) 4+ Good+ Abduction 4 Good Adduction 5 Normal External Rotation 4 Good Internal Rotation 5 Normal Left Flexion (L2) 4 Good Extension (S1) 4+ Good+ Abduction 4 Good Adduction 5 Normal External Rotation 4 Good Internal Rotation 5 Normal Knee Strength Knee Manual Muscle Testing Right Flexion (S2) 5 Normal Extension (L3) 5 Normal Left Flexion (S2) 5 Normal Extension (L3) 5 Normal Ankle/Foot Strength Ankle and Foot Manual Muscle Testing Right Dorsiflexion (L4) 5 Normal Plantarflexion (S1) 5 Normal Inversion 5 Normal Eversion (S1) 4 Good Comments 20 heel raises w/slightly less range Left Dorsiflexion (L4) 5 Normal Plantarflexion (S1) 5 Normal Inversion 5 Normal Eversion (S1) 5 Normal Comments 20 heel raises, cues for knee straight PT-OP-Q Treatments Start: 10/26/21 18:06 Freq: Status: Active Protocol: Document 01/24/22 09:04 [facility] (Rec: 01/24/22 10:01 [facility] [id number]) Therapeutic Exercises Supine Exercises stretch Supine Exercise Name figure 4 Side left Reps/Minutes 30 sec Comments opp knee straight Standing Exercises heel raises Standing Exercise Name SL Side bilateral Reps/Minutes 20 ea hip hike Side bilateral Reps/Minutes 12 ea stretch Standing Exercise Name hip flexor Side bilateral Reps/Minutes 30 sec Neuro Re-Education Treatment Balance Activities SLS Comments 1. opp foot on ball w/rolls B 2. may on blue foam slow 3. trials B PT-OP-R Modalities Start: 10/26/21 18:06 Freq: Status: Active Protocol: Document 01/22/22 09:45 [facility] (Rec: 01/22/22 10:30 [facility] [id number]) Hot Pack/Cold Pack Treatment Cold Pack Location R foot/ankle Patient Position Hooklying Treatment Duration (minutes) 10 PT-OP-T Assessment and Plan Start: 10/26/21 18:06 Freq: Status: Active Protocol: Document 01/24/22 09:04 [facility] (Rec: 01/24/22 10:01 [facility] [id number]) Physical Therapy Assessment Goals balance Short Term Goal (STG) Pt will be able to do SLS 10 B 01/24 still difficult STG Duration 03/01 Hvac Sales Engineer Goal (LTG) Pt will be able to do SLS 10 sec w/o lat hip shear, UE use or drop of arch or pain LTG Duration 03/21/22 strength Short Term Goal (STG) Pt will be indep w/HEP for strength, balance and ROM STG Duration achieved advancing as needed Care Home Goal (LTG) Pt will have at least 4+/5 hip strength and 5/5 ankle & knee MMT along w/ at least 3/5 on LPM to show improved stability to allow for greater time on feet w/improved mechanics 01/24-improved LTG Duration 03/21 activities Short Term Goal (STG) Pt will be able to do typical home gardening w/o inc foot pain 01/24-hurts a little when doing it. STG Duration 02/24 Care Home Goal (LTG) Pt will be able to work without pain inc greater than 2/10 in R foot 01/24-at end of work week 3 LTG Duration 03/27 walking Short Term Goal (STG) Pt will be able to walk 2 miles w/mild hills w/o inc pain in foot. 01/24-has mild pain still STG Duration 02/23 Care Home Goal (LTG) Pt will be able to walk [place] 2x in a row w/o inc pain in foot. 01/24-has done 1 lap w/only feeling it a little LTG Duration 03/21/22 Assessment Summary Assessment Pt is making good improvement with PT and is able to do some walks and gardening with min pain. she has less pain after her work day but is still noting pain.S he still shows dec SL balance and some dec overall LE stabiltiy and would benefit from cont PT to dec pain further and cont to imrpove ankle and hip stability to improve mechanics . Physical Therapy Plan Frequency and Duration Frequency of Treatment 1-2x/week Duration of treatment (weeks) 8 Plan of Care Start Date 01/24/22 Plan of Care End Date 03/21/22 Therapeutic Interventions Therapeutic Interventions Aquatic Therapy,Balance Training,Gait Training,Home Exercise Program,Joint Mobilizations,Manual Therapy, Neuromuscular Re-education, Patient/Caregiver Education, Self-Care/Home Management,Soft Tissue Mobilization,Taping, Therapeutic Activities, Therapeutic Exercises Modalities Cold Pack/Ice Massage,Electric Stimulation,Hot Packs, Infrared Therapy,Ultrasound Next Visit Focus/Plan Next Note Type Treatment Note Next Visit Plan cont to work on balance, manual to foot and ankle further.
--- NOTE | 2022-01-24 10:01 | PT.OPPOC ---
Physical, Occupational & Speech Therapy At [facility] Current Diagnoses Other chronic pain (01/24/22) Flat foot [pes planus] (acquired), right foot (01/24/22) Pain in right ankle and joints of right foot (01/24/22) Difficulty in walking, not elsewhere classified (01/24/22) Abnormal posture (01/24/22) Weakness (01/24/22) Visit Care Team Role Provider Type Dc Joy DO Attending Provider Physician Family Provider Primary Care Provider Referring Provider Specialty: Family Practice Address: [address] [place] [address], [facility] Email: [email or web address] Plan Of Care PT-OP-T Assessment and Plan Start: 10/26/21 18:06 Freq: Status: Active Protocol: Document 01/24/22 09:04 [facility] (Rec: 01/24/22 10:01 [facility] [id number]) Physical Therapy Assessment Goals balance Short Term Goal (STG) Pt will be able to do SLS 10 B 01/24 still difficult STG Duration 03/01 Industrial Refrigeration Mechanic Goal (LTG) Pt will be able to do SLS 10 sec w/o lat hip shear, UE use or drop of arch or pain LTG Duration 03/21/22 strength Short Term Goal (STG) Pt will be indep w/HEP for strength, balance and ROM STG Duration achieved advancing as needed Industrial Refrigeration Mechanic Goal (LTG) Pt will have at least 4+/5 hip strength and 5/5 ankle & knee MMT along w/ at least 3/5 on LPM to show improved stability to allow for greater time on feet w/improved mechanics 01/24-improved LTG Duration 03/21 activities Short Term Goal (STG) Pt will be able to do typical home gardening w/o inc foot pain 01/24-hurts a little when doing it. STG Duration 02/24 Industrial Refrigeration Mechanic Goal (LTG) Pt will be able to work without pain inc greater than 2/10 in R foot 01/24-at end of work week 3/ LTG Duration 03/27 walking Short Term Goal (STG) Pt will be able to walk 2 miles w/mild hills w/o inc pain in foot. 01/24-has mild pain still STG Duration 02/23 [facility] Goal (LTG) Pt will be able to walk [place] 2x in a row w/o inc pain in foot. 01/24-has done 1 lap w/only feeling it a little LTG Duration 03/21/22 Assessment Summary Assessment Pt is making good improvement with PT and is able to do some walks and gardening with min pain. she has less pain after her work day but is still noting pain.S he still shows dec SL balance and some dec overall LE stabiltiy and would benefit from cont PT to dec pain further and cont to imrpove ankle and hip stability to improve mechanics . Physical Therapy Plan Frequency and Duration Frequency of Treatment 1-2x/week Duration of treatment (weeks) 8 Plan of Care Start Date 01/24/22 Plan of Care End Date 03/21/22 Therapeutic Interventions Therapeutic Interventions Aquatic Therapy,Balance Training,Gait Training,Home Exercise Program,Joint Mobilizations,Manual Therapy, Neuromuscular Re-education, Patient/Caregiver Education, Self-Care/Home Management,Soft Tissue Mobilization,Taping, Therapeutic Activities, Therapeutic Exercises Modalities Cold Pack/Ice Massage,Electric Stimulation,Hot Packs, Infrared Therapy,Ultrasound Next Visit Focus/Plan Next Note Type Treatment Note Next Visit Plan cont to work on balance, manual to foot and ankle further. Plan of Care Dates Plan of Care Start Date 01/24/22 Plan of Care End Date 03/21/22 Electronically Signed by: Heather Joy, PT 01/24/22 1001 If you are in agreement with this Plan of Care, please return a signed and dated copy. I have reviewed this Plan of Care and certify that the skilled therapy services above are required to meet the patient?s needs. Physician Signature Date Printed Name and Credentials Clinical Instructor Signature Printed Name and Credentials
--- NOTE | 2022-01-30 09:50 | PT.OTN ---
Current Diagnoses Other chronic pain (01/30/22) Flat foot [pes planus] (acquired), right foot (01/30/22) Pain in right ankle and joints of right foot (01/30/22) Difficulty in walking, not elsewhere classified (01/30/22) Abnormal posture (01/30/22) Weakness (01/30/22) Physical Therapy Treatment Note PT-OP-A Visit Information Start: 10/26/21 18:06 Freq: Status: Active Protocol: Document 01/30/22 09:04 [facility] (Rec: 01/30/22 09:49 [facility] [id number]) Out-Patient Physical Therapy Visit Information Visit Information Visit Type Treatment Note Visit Note 04/27 Visit Start Time 09:05 Visit Stop Time 09:55 Total Visit Minutes 50 Visit Number 21 Number of DINING ROOM HOSTESS Visits 0 PT-OP-B Current Condition Start: 10/26/21 18:06 Freq: Status: Active Protocol: Document 10/30/21 10:29 [facility] (Rec: 10/30/21 12:19 [facility] [id number]) Current Condition History of Current Condition Onset Date chronic w/worsening in apr Current Complaints R foot pain & med foot History of Current Condition Pt reports med foot pain along arch and med ankle. Pt saw Dr Jim Hutchinson who noted some changes from prior MRI. She made her a custom insole in 2018 but it made her foot hurt more. She tried to put it in her shoes but couldn't get it in prior to work. 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 Pt tried to wear high tops (chris) but that seemed to hurt worse. Pt has been wearing [employer] shoes and she likes them a lot. She quit walking d/t pain. She works at [employer] in [employer] the [employer]. It would shoot sharp pains when going down and its not as much right now but still uncomfortable. Foot pain got really bad starting in Apr with inc activity at [employer]. Foot pain initially started in 2018. She remembers going to her class reunion and wearing heels and the next day foot pain started and that was when it iniitally started. 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 She works 3 days a week ( thru Sat). By the end of Sat, it is very painful. When not at work, its okay. Pt has not gone on her typical walks since Apr where she used to walk daily (doing [place] 2x). Now rarely walking d/t pain. Avoiding hiking d/t uneven terrain. 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 Has not taken ibuprofen lately but was taking 4 three times a day per MD order but that wwas a little while ago. She hasnt taken anything in the last 2 weeks. Pt reports occ back pain and RLS. She notes she is heavier than she ever has been this past year and was diagnosed w/hypothyroidism . Pt reports dizziness that is a side effect of her meds ( has already discussed w/) and she does wonder if this has changed how she walks Prior Treatments and Tests ankle MRI: IMPRESSION: 1. Moderate posterior tibialis tendinosis and tenosynovitis. 2. Mild pes planus and suspected mild hindfoot valgus are new when compared to the prior MRI from 08/21/2017. Medial bowing of the superomedial band of the spring ligament and the tibiospring ligament is noted around the talar head. 3. Mild peroneus brevis tendinosis. 4. Tenosynovitis of the extensor digitorum longus tendon is stable to mildly progressed. 5. Mild Achilles tendinosis. 6. Stable focal thickening of the mid to distal plantar fascia. Chronic mild proximal plantar fasciitis. 7. [id number] midfoot degenerative changes. Treatment Goals Patient/Caregiver Goals Get back to consistant walks, work w/o pain, get foot stronger, cont to be able to cont gardening and walking PT-OP-C Subjective Start: 10/26/21 18:06 Freq: Status: Active Protocol: Document 01/30/22 09:04 [facility] (Rec: 01/30/22 09:49 [facility] [id number]) OP-PT Subjective Patient Comments Patient Comments Pt reports doing a flat about 3-4 mile walk without foot pain. L hip still a bit sore. PT-OP-D Balance Start: 10/26/21 18:06 Freq: Status: Active Protocol: Document 01/24/22 09:04 [facility] (Rec: 01/24/22 10:01 [facility] [id number]) Balance Tests Single Limb Standing Single Limb- Right 6 sec w/lat pelvis shear Single Limb- Left 5 sec w/lat pelvis shear PT-OP-F Manual Assessment Start: 10/26/21 18:06 Freq: Status: Active Protocol: Document 10/30/21 10:29 [facility] (Rec: 10/30/21 12:19 [facility] [id number]) Manual Assessments Soft Tissue Assessment Soft Tissue Mobility Assessment plantar fascia tightness and calf tightness, med around fibula discomfort Joint Mobility Assessment Joint Mobility Assessment R foot pronates in>L, R foot turned out, IR of tibia & femur w/knee bends, B rearfoot valgus, L forefoot valgus, R varsu PT-OP-G Mobility & Gait Start: 10/26/21 18:06 Freq: Status: Active Protocol: Document 10/30/21 10:29 [facility] (Rec: 10/30/21 12:19 [facility] [id number]) OP Gait Assessment Comments Gait Comments Dec push off B, reaches w/ steps, Dec stance time R PT-OP-J Posture/Palpation/Skin Start: 10/26/21 18:06 Freq: Status: Active Protocol: Document 01/24/22 09:04 [facility] (Rec: 01/24/22 10:01 [facility] [id number]) Posture Evaluation [facility] Postural Classification System Lumbar Protective Mechanism Left AP 2 Lumbar Protective Mechanism Right AP 2 Lumbar Protective Mechanism Left PA 2 Lumbar Protective Mechanism Right PA 3 PT-OP-K Range of Motion Start: 10/26/21 18:06 Freq: Status: Active Protocol: Document 10/30/21 10:29 [facility] (Rec: 10/30/21 12:19 [facility] [id number]) Ankle and Foot Goniometric Range of Motion Ankle and Foot Right Active Dorsiflexion with Knee Flexed 8 Dorsiflexion with Knee Extended 0 Plantarflexion 40 Inversion 36 Eversion 10 Comments PROM big toe 70 deg ext Left Active Dorsiflexion with Knee Flexed 10 Dorsiflexion with Knee Extended 5 Plantarflexion 46 Inversion 40 Eversion 20 Comments PROM big toe 60 deg ext PT-OP-M Strength Start: 10/26/21 18:06 Freq: Status: Active Protocol: Document 01/24/22 09:04 [facility] (Rec: 01/24/22 10:01 [facility] [id number]) Hip Strength Hip Manual Muscle Testing Right Flexion (L2) 4 Good Extension (S1) 4+ Good+ Abduction 4 Good Adduction 5 Normal External Rotation 4 Good Internal Rotation 5 Normal Left Flexion (L2) 4 Good Extension (S1) 4+ Good+ Abduction 4 Good Adduction 5 Normal External Rotation 4 Good Internal Rotation 5 Normal Knee Strength Knee Manual Muscle Testing Right Flexion (S2) 5 Normal Extension (L3) 5 Normal Left Flexion (S2) 5 Normal Extension (L3) 5 Normal Ankle/Foot Strength Ankle and Foot Manual Muscle Testing Right Dorsiflexion (L4) 5 Normal Plantarflexion (S1) 5 Normal Inversion 5 Normal Eversion (S1) 4 Good Comments 20 heel raises w/slightly less range Left Dorsiflexion (L4) 5 Normal Plantarflexion (S1) 5 Normal Inversion 5 Normal Eversion (S1) 5 Normal Comments 20 heel raises, cues for knee straight PT-OP-Q Treatments Start: 10/26/21 18:06 Freq: Status: Active Protocol: Document 01/30/22 09:04 [facility] (Rec: 01/30/22 09:49 [facility] [id number]) Therapeutic Exercises Supine Exercises stretch Supine Exercise Name figure 4 Side left Reps/Minutes 30 sec Comments opp knee to chest Sitting Exercises TBAND Sitting Exercise Name DF,inversion, eversion Side right Equipment Used L2 Reps/Minutes 12 ea Standing Exercises heel raises Standing Exercise Name on step Side bilateral Reps/Minutes 15 hip hike Side bilateral Reps/Minutes 15 ea stretch Standing Exercise Name 1. hip flexor 2. step calf stretch Side bilateral Reps/Minutes 30 sec Manual Therapy Treatment Soft Tissue Mobilization Calf Body Location B Mobilization Type Rolling,Strumming,Sustained Pressure Intensity/Depth Moderate Body Position Prone plantar fascia Body Location R Mobilization Type Sustained Pressure,Trigger Point Release Intensity/Depth Moderate Body Position Supine Comments manual Joint Mobilizations cuneiforms Joint R Direction gapping FM tibfib Direction PA FM tib Neuro Re-Education Treatment Balance Activities SLS Comments 1. opp foot on ball w/rolls B 2. may x30 on blue foam slow 3. trials B 4. may on bosu x15 B tandem Comments 1. stance trials 2. tandem w/lg step B on blue foam PT-OP-R Modalities Start: 10/26/21 18:06 Freq: Status: Active Protocol: Document 01/30/22 09:04 [facility] (Rec: 01/30/22 09:49 [facility] [id number]) Hot Pack/Cold Pack Treatment Cold Pack Location R foot/ankle Patient Position Hooklying Treatment Duration (minutes) 10 PT-OP-T Assessment and Plan Start: 10/26/21 18:06 Freq: Status: Active Protocol: Document 01/30/22 09:04 [facility] (Rec: 01/30/22 09:49 [facility] [id number]) Physical Therapy Assessment Goals balance Short Term Goal (STG) Pt will be able to do SLS 10 B 01/24 still difficult STG Duration 03/01 Custodial Goal (LTG) Pt will be able to do SLS 10 sec w/o lat hip shear, UE use or drop of arch or pain LTG Duration 03/21/22 strength Short Term Goal (STG) Pt will be indep w/HEP for strength, balance and ROM STG Duration achieved advancing as needed Custodial Goal (LTG) Pt will have at least 4+/5 hip strength and 5/5 ankle & knee MMT along w/ at least 3/5 on LPM to show improved stability to allow for greater time on feet w/improved mechanics 01/24-improved LTG Duration 03/21 activities Short Term Goal (STG) Pt will be able to do typical home gardening w/o inc foot pain 01/24-hurts a little when doing it. STG Duration 02/24 Slip Dumper Goal (LTG) Pt will be able to work without pain inc greater than 2/10 in R foot 01/24-at end of work week 3/ LTG Duration 03/27 walking Short Term Goal (STG) Pt will be able to walk 2 miles w/mild hills w/o inc pain in foot. 01/24-has mild pain still STG Duration 02/23 Slip Dumper Goal (LTG) Pt will be able to walk [place] 2x in a row w/o inc pain in foot. 01/24-has done 1 lap w/only feeling it a little LTG Duration 03/21/22 Assessment Summary Assessment Pt did well with the exercises today w/most challenge w/ balance activities. Improving foot mobility. cues needed for foot and ankle exercises. Physical Therapy Plan Frequency and Duration Frequency of Treatment 1-2x/week Duration of treatment (weeks) 8 Plan of Care Start Date 01/24/22 Plan of Care End Date 03/21/22 Next Visit Focus/Plan Next Note Type Treatment Note Next Visit Plan cont to work on balance, manual to foot and ankle further.
--- NOTE | 2022-02-05 12:18 | PT.OTN ---
Current Diagnoses Other chronic pain (02/05/22) Flat foot [pes planus] (acquired), right foot (02/05/22) Pain in right ankle and joints of right foot (02/05/22) Difficulty in walking, not elsewhere classified (02/05/22) Abnormal posture (02/05/22) Weakness (02/05/22) Physical Therapy Treatment Note PT-OP-A Visit Information Start: 10/26/21 18:06 Freq: Status: Active Protocol: Document 02/05/22 09:13 [facility] (Rec: 02/05/22 12:18 [facility] [id number]) Out-Patient Physical Therapy Visit Information Visit Information Visit Type Treatment Note Visit Note 05/25 Visit Start Time 09:10 Visit Stop Time 09:50 Total Visit Minutes 40 Visit Number 22 Number of EXPORT CLERK Visits 0 PT-OP-B Current Condition Start: 10/26/21 18:06 Freq: Status: Active Protocol: Document 10/30/21 10:29 [facility] (Rec: 10/30/21 12:19 [facility] [id number]) Current Condition History of Current Condition Onset Date chronic w/worsening in apr Current Complaints R foot pain & med foot History of Current Condition Pt reports med foot pain along arch and med ankle. Pt saw Dr Jim Hutchinson who noted some changes from prior MRI. She made her a custom insole in 2018 but it made her foot hurt more. She tried to put it in her shoes but couldn't get it in prior to work. 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 Pt tried to wear high tops (chris) but that seemed to hurt worse. Pt has been wearing [employer] shoes and she likes them a lot. She quit walking d/t pain. She works at [employer] in [employer] the [employer]. It would shoot sharp pains when going down and its not as much right now but still uncomfortable. Foot pain got really bad starting in Apr with inc activity at [employer]. Foot pain initially started in 2018. She remembers going to her class reunion and wearing heels and the next day foot pain started and that was when it iniitally started. 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 She works 3 days a week ( thru Sat). By the end of Sat, it is very painful. When not at work, its okay. Pt has not gone on her typical walks since Apr where she used to walk daily (doing [place] 2x). Now rarely walking d/t pain. Avoiding hiking d/t uneven terrain. 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 Has not taken ibuprofen lately but was taking 4 three times a day per MD order but that wwas a little while ago. She hasnt taken anything in the last 2 weeks. Pt reports occ back pain and RLS. She notes she is heavier than she ever has been this past year and was diagnosed w/hypothyroidism . Pt reports dizziness that is a side effect of her meds ( has already discussed w/) and she does wonder if this has changed how she walks Prior Treatments and Tests ankle MRI: IMPRESSION: 1. Moderate posterior tibialis tendinosis and tenosynovitis. 2. Mild pes planus and suspected mild hindfoot valgus are new when compared to the prior MRI from 08/21/2017. Medial bowing of the superomedial band of the spring ligament and the tibiospring ligament is noted around the talar head. 3. Mild peroneus brevis tendinosis. 4. Tenosynovitis of the extensor digitorum longus tendon is stable to mildly progressed. 5. Mild Achilles tendinosis. 6. Stable focal thickening of the mid to distal plantar fascia. Chronic mild proximal plantar fasciitis. 7. [id number] midfoot degenerative changes. Treatment Goals Patient/Caregiver Goals Get back to consistant walks, work w/o pain, get foot stronger, cont to be able to cont gardening and walking PT-OP-C Subjective Start: 10/26/21 18:06 Freq: Status: Active Protocol: Document 02/05/22 09:13 [facility] (Rec: 02/05/22 12:18 [facility] [id number]) OP-PT Subjective Patient Comments Patient Comments Pt goes to work after PT today PT-OP-D Balance Start: 10/26/21 18:06 Freq: Status: Active Protocol: Document 01/24/22 09:04 [facility] (Rec: 01/24/22 10:01 [facility] [id number]) Balance Tests Single Limb Standing Single Limb- Right 6 sec w/lat pelvis shear Single Limb- Left 5 sec w/lat pelvis shear PT-OP-F Manual Assessment Start: 10/26/21 18:06 Freq: Status: Active Protocol: Document 10/30/21 10:29 [facility] (Rec: 10/30/21 12:19 [facility] [id number]) Manual Assessments Soft Tissue Assessment Soft Tissue Mobility Assessment plantar fascia tightness and calf tightness, med around fibula discomfort Joint Mobility Assessment Joint Mobility Assessment R foot pronates in>L, R foot turned out, IR of tibia & femur w/knee bends, B rearfoot valgus, L forefoot valgus, R varsu PT-OP-G Mobility & Gait Start: 10/26/21 18:06 Freq: Status: Active Protocol: Document 10/30/21 10:29 [facility] (Rec: 10/30/21 12:19 [facility] [id number]) OP Gait Assessment Comments Gait Comments Dec push off B, reaches w/ steps, Dec stance time R PT-OP-J Posture/Palpation/Skin Start: 10/26/21 18:06 Freq: Status: Active Protocol: Document 01/24/22 09:04 [facility] (Rec: 01/24/22 10:01 [facility] [id number]) Posture Evaluation [facility] Postural Classification System Lumbar Protective Mechanism Left AP 2 Lumbar Protective Mechanism Right AP 2 Lumbar Protective Mechanism Left PA 2 Lumbar Protective Mechanism Right PA 3 PT-OP-K Range of Motion Start: 10/26/21 18:06 Freq: Status: Active Protocol: Document 10/30/21 10:29 [facility] (Rec: 10/30/21 12:19 [facility] [id number]) Ankle and Foot Goniometric Range of Motion Ankle and Foot Right Active Dorsiflexion with Knee Flexed 8 Dorsiflexion with Knee Extended 0 Plantarflexion 40 Inversion 36 Eversion 10 Comments PROM big toe 70 deg ext Left Active Dorsiflexion with Knee Flexed 10 Dorsiflexion with Knee Extended 5 Plantarflexion 46 Inversion 40 Eversion 20 Comments PROM big toe 60 deg ext PT-OP-M Strength Start: 10/26/21 18:06 Freq: Status: Active Protocol: Document 01/24/22 09:04 [facility] (Rec: 01/24/22 10:01 [facility] [id number]) Hip Strength Hip Manual Muscle Testing Right Flexion (L2) 4 Good Extension (S1) 4+ Good+ Abduction 4 Good Adduction 5 Normal External Rotation 4 Good Internal Rotation 5 Normal Left Flexion (L2) 4 Good Extension (S1) 4+ Good+ Abduction 4 Good Adduction 5 Normal External Rotation 4 Good Internal Rotation 5 Normal Knee Strength Knee Manual Muscle Testing Right Flexion (S2) 5 Normal Extension (L3) 5 Normal Left Flexion (S2) 5 Normal Extension (L3) 5 Normal Ankle/Foot Strength Ankle and Foot Manual Muscle Testing Right Dorsiflexion (L4) 5 Normal Plantarflexion (S1) 5 Normal Inversion 5 Normal Eversion (S1) 4 Good Comments 20 heel raises w/slightly less range Left Dorsiflexion (L4) 5 Normal Plantarflexion (S1) 5 Normal Inversion 5 Normal Eversion (S1) 5 Normal Comments 20 heel raises, cues for knee straight PT-OP-Q Treatments Start: 10/26/21 18:06 Freq: Status: Active Protocol: Document 02/05/22 09:13 [facility] (Rec: 02/05/22 12:18 [facility] [id number]) Gym Equipment Shuttle Balance red clips Comments fwd: WBOS EC, NBOS head turns, WBOS squats, staggered stance B side: WBOS w/head turns& NBOS Therapeutic Exercises Standing Exercises hip hike Side bilateral Reps/Minutes 15 ea Comments 2 finger hold Manual Therapy Treatment Soft Tissue Mobilization Calf Body Location B Mobilization Type Rolling,Strumming,Sustained Pressure Intensity/Depth Moderate Body Position Prone plantar fascia Body Location R Mobilization Type Sustained Pressure,Trigger Point Release Intensity/Depth Moderate Body Position Supine Comments manual Joint Mobilizations talus Joint R AP FM calcaneus Joint R distraction Taping KT Body Location arch for support R Type of Tape Kinesio Tape Skin Inspection good Neuro Re-Education Treatment Balance Activities SLS Comments 1. opp foot on ball w/rolls B 2. may x30 on blue foam slow 3. trials B 4. may on bosu x15 B tandem Comments 1. stance trials 2. tandem w/lg step B on blue foam PT-OP-R Modalities Start: 10/26/21 18:06 Freq: Status: Active Protocol: Document 01/30/22 09:04 [facility] (Rec: 01/30/22 09:49 [facility] [id number]) Hot Pack/Cold Pack Treatment Cold Pack Location R foot/ankle Patient Position Hooklying Treatment Duration (minutes) 10 PT-OP-T Assessment and Plan Start: 10/26/21 18:06 Freq: Status: Active Protocol: Document 02/05/22 09:13 [facility] (Rec: 02/05/22 12:18 [facility] [id number]) Physical Therapy Assessment Goals balance Short Term Goal (STG) Pt will be able to do SLS 10 B 01/24 still difficult STG Duration 03/01 Noteman Goal (LTG) Pt will be able to do SLS 10 sec w/o lat hip shear, UE use or drop of arch or pain LTG Duration 03/21/22 strength Short Term Goal (STG) Pt will be indep w/HEP for strength, balance and ROM STG Duration achieved advancing as needed Skilled Nursing Goal (LTG) Pt will have at least 4+/5 hip strength and 5/5 ankle & knee MMT along w/ at least 3/5 on LPM to show improved stability to allow for greater time on feet w/improved mechanics 01/24-improved LTG Duration 03/21 activities Short Term Goal (STG) Pt will be able to do typical home gardening w/o inc foot pain 01/24-hurts a little when doing it. STG Duration 02/24 Skilled Nursing Goal (LTG) Pt will be able to work without pain inc greater than 2/10 in R foot 01/24-at end of work week 3- LTG Duration 03/27 walking Short Term Goal (STG) Pt will be able to walk 2 miles w/mild hills w/o inc pain in foot. 01/24-has mild pain still STG Duration 02/23 Skilled Nursing Goal (LTG) Pt will be able to walk [place] 2x in a row w/o inc pain in foot. 01/24-has done 1 lap w/only feeling it a little LTG Duration 03/21/22 Assessment Summary Assessment Pt did well balance excerices today and is showing more staiblity in SL psoitions. Physical Therapy Plan Frequency and Duration Frequency of Treatment 1-2x/week Duration of treatment (weeks) 8 Plan of Care Start Date 01/24/22 Plan of Care End Date 03/21/22 Next Visit Focus/Plan Next Note Type Treatment Note Next Visit Plan cont to work on balance, manual to foot and ankle further.
--- NOTE | 2022-02-07 09:50 | PT.OTN ---
Current Diagnoses Other chronic pain (02/07/22) Flat foot [pes planus] (acquired), right foot (02/07/22) Pain in right ankle and joints of right foot (02/07/22) Difficulty in walking, not elsewhere classified (02/07/22) Abnormal posture (02/07/22) Weakness (02/07/22) Physical Therapy Treatment Note PT-OP-A Visit Information Start: 10/26/21 18:06 Freq: Status: Active Protocol: Document 02/07/22 09:09 [facility] (Rec: 02/07/22 09:49 [facility] [id number]) Out-Patient Physical Therapy Visit Information Visit Information Visit Type Treatment Note Visit Note 06/25 Visit Start Time 09:05 Visit Stop Time 09:45 Total Visit Minutes 40 Visit Number 23 Number of FOX FARMER Visits 0 PT-OP-B Current Condition Start: 10/26/21 18:06 Freq: Status: Active Protocol: Document 10/30/21 10:29 [facility] (Rec: 10/30/21 12:19 [facility] [id number]) Current Condition History of Current Condition Onset Date chronic w/worsening in apr Current Complaints R foot pain & med foot History of Current Condition Pt reports med foot pain along arch and med ankle. Pt saw Dr Jim Hutchinson who noted some changes from prior MRI. She made her a custom insole in 2018 but it made her foot hurt more. She tried to put it in her shoes but couldn't get it in prior to work. 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 Pt tried to wear high tops (chris) but that seemed to hurt worse. Pt has been wearing [employer] shoes and she likes them a lot. She quit walking d/t pain. She works at [employer] in [employer]. It would shoot sharp pains when going down and its not as much right now but still uncomfortable. Foot pain got really bad starting in Apr with inc activity at [employer]. Foot pain initially started in 2018. She remembers going to her class reunion and wearing heels and the next day foot pain started and that was when it iniitally started. Garnett Feeder told her she had flat feet.Pt reports the last month its been getting a bit better but unsure why. She works 3 days a week ( thru Sat). By the end of Sat, it is very painful. When not at work, its okay. Pt has not gone on her typical walks since Apr where she used to walk daily (doing [place] 2x). Now rarely walking d/t pain. Avoiding hiking d/t uneven terrain. 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 Has not taken ibuprofen lately but was taking 4 three times a day per MD order but that wwas a little while ago. She hasnt taken anything in the last 2 weeks. Pt reports occ back pain and RLS. She notes she is heavier than she ever has been this past year and was diagnosed w/hypothyroidism . Pt reports dizziness that is a side effect of her meds ( has already discussed w/) and she does wonder if this has changed how she walks Prior Treatments and Tests ankle MRI: IMPRESSION: 1. Moderate posterior tibialis tendinosis and tenosynovitis. 2. Mild pes planus and suspected mild hindfoot valgus are new when compared to the prior MRI from 08/21/2017. Medial bowing of the superomedial band of the spring ligament and the tibiospring ligament is noted around the talar head. 3. Mild peroneus brevis tendinosis. 4. Tenosynovitis of the extensor digitorum longus tendon is stable to mildly progressed. 5. Mild Achilles tendinosis. 6. Stable focal thickening of the mid to distal plantar fascia. Chronic mild proximal plantar fasciitis. 7. [id number] midfoot degenerative changes. Treatment Goals Patient/Caregiver Goals Get back to consistant walks, work w/o pain, get foot stronger, cont to be able to cont gardening and walking PT-OP-C Subjective Start: 10/26/21 18:06 Freq: Status: Active Protocol: Document 02/07/22 09:09 [facility] (Rec: 02/07/22 09:49 [facility] [id number]) OP-PT Subjective Patient Comments Patient Comments Pt reprots doing okay after going to work after PT PT-OP-D Balance Start: 10/26/21 18:06 Freq: Status: Active Protocol: Document 01/24/22 09:04 [facility] (Rec: 01/24/22 10:01 [facility] [id number]) Balance Tests Single Limb Standing Single Limb- Right 6 sec w/lat pelvis shear Single Limb- Left 5 sec w/lat pelvis shear PT-OP-F Manual Assessment Start: 10/26/21 18:06 Freq: Status: Active Protocol: Document 10/30/21 10:29 [facility] (Rec: 10/30/21 12:19 [facility] [id number]) Manual Assessments Soft Tissue Assessment Soft Tissue Mobility Assessment plantar fascia tightness and calf tightness, med around fibula discomfort Joint Mobility Assessment Joint Mobility Assessment R foot pronates in>L, R foot turned out, IR of tibia & femur w/knee bends, B rearfoot valgus, L forefoot valgus, R varsu PT-OP-G Mobility & Gait Start: 10/26/21 18:06 Freq: Status: Active Protocol: Document 10/30/21 10:29 [facility] (Rec: 10/30/21 12:19 [facility] [id number]) OP Gait Assessment Comments Gait Comments Dec push off B, reaches w/ steps, Dec stance time R PT-OP-J Posture/Palpation/Skin Start: 10/26/21 18:06 Freq: Status: Active Protocol: Document 01/24/22 09:04 [facility] (Rec: 01/24/22 10:01 [facility] [id number]) Posture Evaluation [facility] Postural Classification System Lumbar Protective Mechanism Left AP 2 Lumbar Protective Mechanism Right AP 2 Lumbar Protective Mechanism Left PA 2 Lumbar Protective Mechanism Right PA 3 PT-OP-K Range of Motion Start: 10/26/21 18:06 Freq: Status: Active Protocol: Document 10/30/21 10:29 [facility] (Rec: 10/30/21 12:19 [facility] [id number]) Ankle and Foot Goniometric Range of Motion Ankle and Foot Right Active Dorsiflexion with Knee Flexed 8 Dorsiflexion with Knee Extended 0 Plantarflexion 40 Inversion 36 Eversion 10 Comments PROM big toe 70 deg ext Left Active Dorsiflexion with Knee Flexed 10 Dorsiflexion with Knee Extended 5 Plantarflexion 46 Inversion 40 Eversion 20 Comments PROM big toe 60 deg ext PT-OP-M Strength Start: 10/26/21 18:06 Freq: Status: Active Protocol: Document 01/24/22 09:04 [facility] (Rec: 01/24/22 10:01 [facility] [id number]) Hip Strength Hip Manual Muscle Testing Right Flexion (L2) 4 Good Extension (S1) 4+ Good+ Abduction 4 Good Adduction 5 Normal External Rotation 4 Good Internal Rotation 5 Normal Left Flexion (L2) 4 Good Extension (S1) 4+ Good+ Abduction 4 Good Adduction 5 Normal External Rotation 4 Good Internal Rotation 5 Normal Knee Strength Knee Manual Muscle Testing Right Flexion (S2) 5 Normal Extension (L3) 5 Normal Left Flexion (S2) 5 Normal Extension (L3) 5 Normal Ankle/Foot Strength Ankle and Foot Manual Muscle Testing Right Dorsiflexion (L4) 5 Normal Plantarflexion (S1) 5 Normal Inversion 5 Normal Eversion (S1) 4 Good Comments 20 heel raises w/slightly less range Left Dorsiflexion (L4) 5 Normal Plantarflexion (S1) 5 Normal Inversion 5 Normal Eversion (S1) 5 Normal Comments 20 heel raises, cues for knee straight PT-OP-Q Treatments Start: 10/26/21 18:06 Freq: Status: Active Protocol: Document 02/07/22 09:09 [facility] (Rec: 02/07/22 09:49 [facility] [id number]) Gym Equipment Shuttle Balance red clips Comments fwd: WBOS head turns NBOS head turns, WBOS squats, staggered stance B side: WBOS w/head turns& NBOS Therapeutic Exercises Standing Exercises side step Side bilateral Equipment Used lvl 1 Reps/Minutes 20ft hip hike Side bilateral Reps/Minutes 15 ea Comments 2 finger hold Manual Therapy Treatment Soft Tissue Mobilization Calf Body Location B Mobilization Type Rolling,Strumming,Sustained Pressure Intensity/Depth Moderate Body Position Prone plantar fascia Body Location R Mobilization Type Sustained Pressure,Trigger Point Release Intensity/Depth Moderate Body Position Supine Comments manual Joint Mobilizations talus Joint R distraction, med & AP FM calcaneus Joint R distraction & lat glide Neuro Re-Education Treatment Balance Activities SLS Comments 1. opp foot on ball w/rolls B 2. may on blue foam slow 3. EC B w/control 4. may on bosu x15 B PT-OP-R Modalities Start: 10/26/21 18:06 Freq: Status: Active Protocol: Document 02/07/22 09:09 [facility] (Rec: 02/07/22 09:49 [facility] [id number]) Hot Pack/Cold Pack Treatment Cold Pack Location R foot/ankle Patient Position Hooklying Treatment Duration (minutes) 10 PT-OP-T Assessment and Plan Start: 10/26/21 18:06 Freq: Status: Active Protocol: Document 02/07/22 09:09 [facility] (Rec: 02/07/22 09:49 [facility] [id number]) Physical Therapy Assessment Goals balance Short Term Goal (STG) Pt will be able to do SLS 10 B 01/24 still difficult STG Duration 03/01 Distilling Department Supervisor Goal (LTG) Pt will be able to do SLS 10 sec w/o lat hip shear, UE use or drop of arch or pain LTG Duration 03/21/22 strength Short Term Goal (STG) Pt will be indep w/HEP for strength, balance and ROM STG Duration achieved advancing as needed Senior Living Goal (LTG) Pt will have at least 4+/5 hip strength and 5/5 ankle & knee MMT along w/ at least 3/5 on LPM to show improved stability to allow for greater time on feet w/improved mechanics 01/24-improved LTG Duration 03/21 activities Short Term Goal (STG) Pt will be able to do typical home gardening w/o inc foot pain 01/24-hurts a little when doing it. STG Duration 02/24 Distilling Department Supervisor Goal (LTG) Pt will be able to work without pain inc greater than 2/10 in R foot 01/24-at end of work week 3- LTG Duration 03/27 walking Short Term Goal (STG) Pt will be able to walk 2 miles w/mild hills w/o inc pain in foot. 01/24-has mild pain still STG Duration 02/23 Distilling Department Supervisor Goal (LTG) Pt will be able to walk [place] 2x in a row w/o inc pain in foot. 01/24-has done 1 lap w/only feeling it a little LTG Duration 03/21/22 Assessment Summary Assessment Pt showed better balance on bosu and foam and w/ball today . Cont challenge in SL and w/ abd exercises. Physical Therapy Plan Frequency and Duration Frequency of Treatment 1-2x/week Duration of treatment (weeks) 8 Plan of Care Start Date 01/24/22 Plan of Care End Date 03/21/22 Next Visit Focus/Plan Next Note Type Treatment Note Next Visit Plan cont to work on balance, manual to foot and ankle further.
--- NOTE | 2022-02-13 12:21 | PT.OTN ---
Current Diagnoses Other chronic pain (02/13/22) Flat foot [pes planus] (acquired), right foot (02/13/22) Pain in right ankle and joints of right foot (02/13/22) Difficulty in walking, not elsewhere classified (02/13/22) Abnormal posture (02/13/22) Weakness (02/13/22) Physical Therapy Treatment Note PT-OP-A Visit Information Start: 10/26/21 18:06 Freq: Status: Active Protocol: Document 02/13/22 11:27 [facility] (Rec: 02/13/22 12:21 [facility] [id number]) Out-Patient Physical Therapy Visit Information Visit Information Visit Type Treatment Note Visit Note 07/25 Visit Start Time 11:23 Visit Stop Time 12:03 Total Visit Minutes 40 Visit Number 24 Number of HAND FLATWORK FINISHER Visits 0 PT-OP-B Current Condition Start: 10/26/21 18:06 Freq: Status: Active Protocol: Document 10/30/21 10:29 [facility] (Rec: 10/30/21 12:19 [facility] [id number]) Current Condition History of Current Condition Onset Date chronic w/worsening in apr Current Complaints R foot pain & med foot History of Current Condition Pt reports med foot pain along arch and med ankle. Pt saw Dr Jim Hutchinson who noted some changes from prior MRI. She made her a custom insole in 2018 but it made her foot hurt more. She tried to put it in her shoes but couldn't get it in prior to work. 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 Pt tried to wear high tops (chris) but that seemed to hurt worse. Pt has been wearing [employer] shoes and she likes them a lot. She quit walking d/t pain. She works at [employer] in [employer]. It would shoot sharp pains when going down and its not as much right now but still uncomfortable. Foot pain got really bad starting in Apr with inc activity at [employer]. Foot pain initially started in 2018. She remembers going to her class reunion and wearing heels and the next day foot pain started and that was when it iniitally started. Hospital Librarian told her she had flat feet.Pt reports the last month its been getting a bit better but unsure why. She works 3 days a week ( thru Sat). By the end of Sat, it is very painful. When not at work, its okay. Pt has not gone on her typical walks since Apr where she used to walk daily (doing [place] 2x). Now rarely walking d/t pain. Avoiding hiking d/t uneven terrain. 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 Has not taken ibuprofen lately but was taking 4 three times a day per MD order but that wwas a little while ago. She hasnt taken anything in the last 2 weeks. Pt reports occ back pain and RLS. She notes she is heavier than she ever has been this past year and was diagnosed w/hypothyroidism . Pt reports dizziness that is a side effect of her meds ( has already discussed w/) and she does wonder if this has changed how she walks Prior Treatments and Tests ankle MRI: IMPRESSION: 1. Moderate posterior tibialis tendinosis and tenosynovitis. 2. Mild pes planus and suspected mild hindfoot valgus are new when compared to the prior MRI from 08/21/2017. Medial bowing of the superomedial band of the spring ligament and the tibiospring ligament is noted around the talar head. 3. Mild peroneus brevis tendinosis. 4. Tenosynovitis of the extensor digitorum longus tendon is stable to mildly progressed. 5. Mild Achilles tendinosis. 6. Stable focal thickening of the mid to distal plantar fascia. Chronic mild proximal plantar fasciitis. 7. [id number] midfoot degenerative changes. Treatment Goals Patient/Caregiver Goals Get back to consistant walks, work w/o pain, get foot stronger, cont to be able to cont gardening and walking PT-OP-C Subjective Start: 10/26/21 18:06 Freq: Status: Active Protocol: Document 02/13/22 11:27 [facility] (Rec: 02/13/22 12:21 [facility] [id number]) OP-PT Subjective Patient Comments Patient Comments A little soreness after her day yesterday PT-OP-D Balance Start: 10/26/21 18:06 Freq: Status: Active Protocol: Document 01/24/22 09:04 [facility] (Rec: 01/24/22 10:01 [facility] [id number]) Balance Tests Single Limb Standing Single Limb- Right 6 sec w/lat pelvis shear Single Limb- Left 5 sec w/lat pelvis shear PT-OP-F Manual Assessment Start: 10/26/21 18:06 Freq: Status: Active Protocol: Document 10/30/21 10:29 [facility] (Rec: 10/30/21 12:19 [facility] [id number]) Manual Assessments Soft Tissue Assessment Soft Tissue Mobility Assessment plantar fascia tightness and calf tightness, med around fibula discomfort Joint Mobility Assessment Joint Mobility Assessment R foot pronates in>L, R foot turned out, IR of tibia & femur w/knee bends, B rearfoot valgus, L forefoot valgus, R varsu PT-OP-G Mobility & Gait Start: 10/26/21 18:06 Freq: Status: Active Protocol: Document 10/30/21 10:29 [facility] (Rec: 10/30/21 12:19 [facility] [id number]) OP Gait Assessment Comments Gait Comments Dec push off B, reaches w/ steps, Dec stance time R PT-OP-J Posture/Palpation/Skin Start: 10/26/21 18:06 Freq: Status: Active Protocol: Document 01/24/22 09:04 [facility] (Rec: 01/24/22 10:01 [facility] [id number]) Posture Evaluation [facility] Postural Classification System Lumbar Protective Mechanism Left AP 2 Lumbar Protective Mechanism Right AP 2 Lumbar Protective Mechanism Left PA 2 Lumbar Protective Mechanism Right PA 3 PT-OP-K Range of Motion Start: 10/26/21 18:06 Freq: Status: Active Protocol: Document 10/30/21 10:29 [facility] (Rec: 10/30/21 12:19 [facility] [id number]) Ankle and Foot Goniometric Range of Motion Ankle and Foot Right Active Dorsiflexion with Knee Flexed 8 Dorsiflexion with Knee Extended 0 Plantarflexion 40 Inversion 36 Eversion 10 Comments PROM big toe 70 deg ext Left Active Dorsiflexion with Knee Flexed 10 Dorsiflexion with Knee Extended 5 Plantarflexion 46 Inversion 40 Eversion 20 Comments PROM big toe 60 deg ext PT-OP-M Strength Start: 10/26/21 18:06 Freq: Status: Active Protocol: Document 01/24/22 09:04 [facility] (Rec: 01/24/22 10:01 [facility] [id number]) Hip Strength Hip Manual Muscle Testing Right Flexion (L2) 4 Good Extension (S1) 4+ Good+ Abduction 4 Good Adduction 5 Normal External Rotation 4 Good Internal Rotation 5 Normal Left Flexion (L2) 4 Good Extension (S1) 4+ Good+ Abduction 4 Good Adduction 5 Normal External Rotation 4 Good Internal Rotation 5 Normal Knee Strength Knee Manual Muscle Testing Right Flexion (S2) 5 Normal Extension (L3) 5 Normal Left Flexion (S2) 5 Normal Extension (L3) 5 Normal Ankle/Foot Strength Ankle and Foot Manual Muscle Testing Right Dorsiflexion (L4) 5 Normal Plantarflexion (S1) 5 Normal Inversion 5 Normal Eversion (S1) 4 Good Comments 20 heel raises w/slightly less range Left Dorsiflexion (L4) 5 Normal Plantarflexion (S1) 5 Normal Inversion 5 Normal Eversion (S1) 5 Normal Comments 20 heel raises, cues for knee straight PT-OP-Q Treatments Start: 10/26/21 18:06 Freq: Status: Active Protocol: Document 02/13/22 11:27 [facility] (Rec: 02/13/22 12:21 [facility] [id number]) Gym Equipment Shuttle Balance red clips Comments fwd: WBOS head turns NBOS head turns, WBOS squats, staggered stance B head turns side: WBOS w/head turns& NBOS Therapeutic Exercises Standing Exercises side step Side bilateral Equipment Used lvl 1 Reps/Minutes 20ft hip hike Side bilateral Reps/Minutes 15 ea Comments 1 finger hold Manual Therapy Treatment Soft Tissue Mobilization Calf Body Location B Mobilization Type Rolling,Strumming,Sustained Pressure Intensity/Depth Moderate Body Position Prone plantar fascia Body Location R Mobilization Type Sustained Pressure,Trigger Point Release Intensity/Depth Moderate Body Position Supine Comments manual Joint Mobilizations cuneiforms Joint R Direction gapping FM talus Joint lat, distraction FM calcaneus Joint R distraction Neuro Re-Education Treatment Balance Activities SLS Comments 1. opp foot on ball w/rolls B 2. may x30 on blue foam slow 3. EC marching B w/control 4. may on bosu x20 B 5. SLS step over and back homero w/tap either side or hover if able x10 B 6. SLS trials B PT-OP-R Modalities Start: 10/26/21 18:06 Freq: Status: Active Protocol: Document 02/07/22 09:09 [facility] (Rec: 02/07/22 09:49 [facility] [id number]) Hot Pack/Cold Pack Treatment Cold Pack Location R foot/ankle Patient Position Hooklying Treatment Duration (minutes) 10 PT-OP-T Assessment and Plan Start: 10/26/21 18:06 Freq: Status: Active Protocol: Document 02/13/22 11:27 [facility] (Rec: 02/13/22 12:21 [facility] [id number]) Physical Therapy Assessment Goals balance Short Term Goal (STG) Pt will be able to do SLS 10 B 01/24 still difficult STG Duration 03/01 Penitentiary Goal (LTG) Pt will be able to do SLS 10 sec w/o lat hip shear, UE use or drop of arch or pain LTG Duration 03/21/22 strength Short Term Goal (STG) Pt will be indep w/HEP for strength, balance and ROM STG Duration achieved advancing as needed Penitentiary Goal (LTG) Pt will have at least 4+/5 hip strength and 5/5 ankle & knee MMT along w/ at least 3/5 on LPM to show improved stability to allow for greater time on feet w/improved mechanics 01/24-improved LTG Duration 03/21 activities Short Term Goal (STG) Pt will be able to do typical home gardening w/o inc foot pain 01/24-hurts a little when doing it. STG Duration 02/24 Penitentiary Goal (LTG) Pt will be able to work without pain inc greater than 2/10 in R foot 01/24-at end of work week 3/ LTG Duration 03/27 walking Short Term Goal (STG) Pt will be able to walk 2 miles w/mild hills w/o inc pain in foot. 01/24-has mild pain still STG Duration 02/23 Research Agricultural Engineer Goal (LTG) Pt will be able to walk [place] 2x in a row w/o inc pain in foot. 01/24-has done 1 lap w/only feeling it a little LTG Duration 03/21/22 Assessment Summary Assessment Pt is improivng w/all modified SLS activtiies but is still very challenged by SLS. Improving balance on uneven surfaces DL Physical Therapy Plan Frequency and Duration Frequency of Treatment 1-2x/week Duration of treatment (weeks) 8 Plan of Care Start Date 01/24/22 Plan of Care End Date 03/21/22 Next Visit Focus/Plan Next Note Type Treatment Note Next Visit Plan cont to work on balance, manual to foot and ankle further.
--- NOTE | 2022-03-01 14:30 | PT.OTN ---
Current Diagnoses Other chronic pain (03/01/22) Flat foot [pes planus] (acquired), right foot (03/01/22) Pain in right ankle and joints of right foot (03/01/22) Difficulty in walking, not elsewhere classified (03/01/22) Abnormal posture (03/01/22) Weakness (03/01/22) Physical Therapy Treatment Note PT-OP-A Visit Information Start: 10/26/21 18:06 Freq: Status: Active Protocol: Document 03/01/22 13:47 [facility] (Rec: 03/01/22 14:29 [facility] [id number]) Out-Patient Physical Therapy Visit Information Visit Information Visit Type Treatment Note Visit Note 08/25 Visit Start Time 13:47 Visit Stop Time 14:27 Total Visit Minutes 40 Visit Number 25 Number of CLAY STAIN MIXER Visits 0 PT-OP-B Current Condition Start: 10/26/21 18:06 Freq: Status: Active Protocol: Document 10/30/21 10:29 [facility] (Rec: 10/30/21 12:19 [facility] [id number]) Current Condition History of Current Condition Onset Date chronic w/worsening in apr Current Complaints R foot pain & med foot History of Current Condition Pt reports med foot pain along arch and med ankle. Pt saw Dr Jim Hutchinson who noted some changes from prior MRI. She made her a custom insole in 2018 but it made her foot hurt more. She tried to put it in her shoes but couldn't get it in prior to work. 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 Pt tried to wear high tops (chris) but that seemed to hurt worse. Pt has been wearing [employer] shoes and she likes them a lot. She quit walking d/t pain. She works at [employer] in [employer] [place]. It would shoot sharp pains when going down and its not as much right now but still uncomfortable. Foot pain got really bad starting in Apr with inc activity at [employer]. Foot pain initially started in 2018. She remembers going to her class reunion and wearing heels and the next day foot pain started and that was when it iniitally started. Electrical Contacts Adjuster told her she had flat feet.Pt reports the last month its been getting a bit better but unsure why. She works 3 days a week ( thru Sat). By the end of Sat, it is very painful. When not at work, its okay. Pt has not gone on her typical walks since Apr where she used to walk daily (doing [place] 2x). Now rarely walking d/t pain. Avoiding hiking d/t uneven terrain. 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 Has not taken ibuprofen lately but was taking 4 three times a day per MD order but that wwas a little while ago. She hasnt taken anything in the last 2 weeks. Pt reports occ back pain and RLS. She notes she is heavier than she ever has been this past year and was diagnosed w/hypothyroidism . Pt reports dizziness that is a side effect of her meds ( has already discussed w/) and she does wonder if this has changed how she walks Prior Treatments and Tests ankle MRI: IMPRESSION: 1. Moderate posterior tibialis tendinosis and tenosynovitis. 2. Mild pes planus and suspected mild hindfoot valgus are new when compared to the prior MRI from 08/21/2017. Medial bowing of the superomedial band of the spring ligament and the tibiospring ligament is noted around the talar head. 3. Mild peroneus brevis tendinosis. 4. Tenosynovitis of the extensor digitorum longus tendon is stable to mildly progressed. 5. Mild Achilles tendinosis. 6. Stable focal thickening of the mid to distal plantar fascia. Chronic mild proximal plantar fasciitis. 7. [id number] midfoot degenerative changes. Treatment Goals Patient/Caregiver Goals Get back to consistant walks, work w/o pain, get foot stronger, cont to be able to cont gardening and walking PT-OP-C Subjective Start: 10/26/21 18:06 Freq: Status: Active Protocol: Document 03/01/22 13:47 [facility] (Rec: 03/01/22 14:29 [facility] [id number]) OP-PT Subjective Patient Comments Patient Comments Pt reports she had COVID for 2 weeks so has been not very active so ankle has felt fine. She has only worked 1 partial day since. Fatigues quickly still. PT-OP-D Balance Start: 10/26/21 18:06 Freq: Status: Active Protocol: Document 01/24/22 09:04 [facility] (Rec: 01/24/22 10:01 [facility] [id number]) Balance Tests Single Limb Standing Single Limb- Right 6 sec w/lat pelvis shear Single Limb- Left 5 sec w/lat pelvis shear PT-OP-F Manual Assessment Start: 10/26/21 18:06 Freq: Status: Active Protocol: Document 10/30/21 10:29 [facility] (Rec: 10/30/21 12:19 [facility] [id number]) Manual Assessments Soft Tissue Assessment Soft Tissue Mobility Assessment plantar fascia tightness and calf tightness, med around fibula discomfort Joint Mobility Assessment Joint Mobility Assessment R foot pronates in>L, R foot turned out, IR of tibia & femur w/knee bends, B rearfoot valgus, L forefoot valgus, R varsu PT-OP-G Mobility & Gait Start: 10/26/21 18:06 Freq: Status: Active Protocol: Document 10/30/21 10:29 [facility] (Rec: 10/30/21 12:19 [facility] [id number]) OP Gait Assessment Comments Gait Comments Dec push off B, reaches w/ steps, Dec stance time R PT-OP-J Posture/Palpation/Skin Start: 10/26/21 18:06 Freq: Status: Active Protocol: Document 01/24/22 09:04 [facility] (Rec: 01/24/22 10:01 [facility] [id number]) Posture Evaluation [facility] Postural Classification System Lumbar Protective Mechanism Left AP 2 Lumbar Protective Mechanism Right AP 2 Lumbar Protective Mechanism Left PA 2 Lumbar Protective Mechanism Right PA 3 PT-OP-K Range of Motion Start: 10/26/21 18:06 Freq: Status: Active Protocol: Document 10/30/21 10:29 [facility] (Rec: 10/30/21 12:19 [facility] [id number]) Ankle and Foot Goniometric Range of Motion Ankle and Foot Right Active Dorsiflexion with Knee Flexed 8 Dorsiflexion with Knee Extended 0 Plantarflexion 40 Inversion 36 Eversion 10 Comments PROM big toe 70 deg ext Left Active Dorsiflexion with Knee Flexed 10 Dorsiflexion with Knee Extended 5 Plantarflexion 46 Inversion 40 Eversion 20 Comments PROM big toe 60 deg ext PT-OP-M Strength Start: 10/26/21 18:06 Freq: Status: Active Protocol: Document 01/24/22 09:04 [facility] (Rec: 01/24/22 10:01 [facility] [id number]) Hip Strength Hip Manual Muscle Testing Right Flexion (L2) 4 Good Extension (S1) 4+ Good+ Abduction 4 Good Adduction 5 Normal External Rotation 4 Good Internal Rotation 5 Normal Left Flexion (L2) 4 Good Extension (S1) 4+ Good+ Abduction 4 Good Adduction 5 Normal External Rotation 4 Good Internal Rotation 5 Normal Knee Strength Knee Manual Muscle Testing Right Flexion (S2) 5 Normal Extension (L3) 5 Normal Left Flexion (S2) 5 Normal Extension (L3) 5 Normal Ankle/Foot Strength Ankle and Foot Manual Muscle Testing Right Dorsiflexion (L4) 5 Normal Plantarflexion (S1) 5 Normal Inversion 5 Normal Eversion (S1) 4 Good Comments 20 heel raises w/slightly less range Left Dorsiflexion (L4) 5 Normal Plantarflexion (S1) 5 Normal Inversion 5 Normal Eversion (S1) 5 Normal Comments 20 heel raises, cues for knee straight PT-OP-Q Treatments Start: 10/26/21 18:06 Freq: Status: Active Protocol: Document 03/01/22 13:47 [facility] (Rec: 03/01/22 14:29 [facility] [id number]) Gym Equipment Shuttle Balance red clips Comments fwd: WBOS head turns NBOS head turns, WBOS squats, staggered stance B head turns side: WBOS w/head turns& NBOS Manual Therapy Treatment Soft Tissue Mobilization Calf Body Location B Mobilization Type Rolling,Strumming,Sustained Pressure Intensity/Depth Moderate Body Position Prone plantar fascia Body Location R Mobilization Type Sustained Pressure,Trigger Point Release Intensity/Depth Moderate Body Position Supine Comments manual Joint Mobilizations talus Joint R distraction & AP FM tibfib Direction PA FM tib calcaneus Joint R distraction Neuro Re-Education Treatment Balance Activities SLS Comments 1. opp foot on ball w/rolls B 2. may x30 on blue foam slow 3. EC marching B w/control 4. may on bosu x20 B 5. SLS side step over and back homero w/tap other side x12 B on blue foam 6. SLS trials B PT-OP-R Modalities Start: 10/26/21 18:06 Freq: Status: Active Protocol: Document 02/07/22 09:09 [facility] (Rec: 02/07/22 09:49 [facility] [id number]) Hot Pack/Cold Pack Treatment Cold Pack Location R foot/ankle Patient Position Hooklying Treatment Duration (minutes) 10 PT-OP-T Assessment and Plan Start: 10/26/21 18:06 Freq: Status: Active Protocol: Document 03/01/22 13:47 [facility] (Rec: 03/01/22 14:29 [facility] [id number]) Physical Therapy Assessment Goals balance Short Term Goal (STG) Pt will be able to do SLS 10 B 01/24 still difficult STG Duration 03/01 Retirement Goal (LTG) Pt will be able to do SLS 10 sec w/o lat hip shear, UE use or drop of arch or pain LTG Duration 03/21/22 strength Short Term Goal (STG) Pt will be indep w/HEP for strength, balance and ROM STG Duration achieved advancing as needed Swatch Paster Goal (LTG) Pt will have at least 4+/5 hip strength and 5/5 ankle & knee MMT along w/ at least 3/5 on LPM to show improved stability to allow for greater time on feet w/improved mechanics 01/24-improved LTG Duration 03/21 activities Short Term Goal (STG) Pt will be able to do typical home gardening w/o inc foot pain 01/24-hurts a little when doing it. STG Duration 02/24 Retirement Goal (LTG) Pt will be able to work without pain inc greater than 2/10 in R foot 01/24-at end of work week 3/ LTG Duration 03/27 walking Short Term Goal (STG) Pt will be able to walk 2 miles w/mild hills w/o inc pain in foot. 01/24-has mild pain still STG Duration 02/23 Swatch Paster Goal (LTG) Pt will be able to walk [place] 2x in a row w/o inc pain in foot. 01/24-has done 1 lap w/only feeling it a little LTG Duration 03/21/22 Assessment Summary Assessment Pt did well with balance exercises despite dec activity the past 2 weeks. Noted ankle pain w/wobbling of shuttle board w/squats side facing. Pt was able to do 7 sec on LLE and RLE 4 sec. Physical Therapy Plan Frequency and Duration Frequency of Treatment 1-2x/week Duration of treatment (weeks) 8 Plan of Care Start Date 01/24/22 Plan of Care End Date 03/21/22 Next Visit Focus/Plan Next Note Type Treatment Note Next Visit Plan cont to work on balance, manual to foot and ankle further.
--- NOTE | 2022-03-28 10:35 | PT.OTN ---
Current Diagnoses Other chronic pain (03/28/22) Flat foot [pes planus] (acquired), right foot (03/28/22) Pain in right ankle and joints of right foot (03/28/22) Difficulty in walking, not elsewhere classified (03/28/22) Abnormal posture (03/28/22) Weakness (03/28/22) Physical Therapy Treatment Note PT-OP-A Visit Information Start: 10/26/21 18:06 Freq: Status: Active Protocol: Document 03/28/22 09:06 [facility] (Rec: 03/28/22 10:35 [facility] [id number]) Out-Patient Physical Therapy Visit Information Visit Information Visit Type Discharge Summary Visit Start Time 09:06 Visit Stop Time 09:45 Total Visit Minutes 39 Number of CREW CAR DRIVER Visits 0 PT-OP-B Current Condition Start: 10/26/21 18:06 Freq: Status: Active Protocol: Document 10/30/21 10:29 [facility] (Rec: 10/30/21 12:19 [facility] [id number]) Current Condition History of Current Condition Onset Date chronic w/worsening in apr Current Complaints R foot pain & med foot History of Current Condition Pt reports med foot pain along arch and med ankle. Pt saw Dr Jim Hutchinson who noted some changes from prior MRI. She made her a custom insole in 2018 but it made her foot hurt more. She tried to put it in her shoes but couldn't get it in prior to work. 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 Pt tried to wear high tops (chris) but that seemed to hurt worse. Pt has been wearing [employer] shoes and she likes them a lot. She quit walking d/t pain. She works at [employer] in [place]. It would shoot sharp pains when going down and its not as much right now but still uncomfortable. Foot pain got really bad starting in Apr with inc activity at nursery. Foot pain initially started in 2018. She remembers going to her class reunion and wearing heels and the next day foot pain started and that was when it iniitally started. Picker And Packer told her she had flat feet.Pt reports the last month its been getting a bit better but unsure why. She works 3 days a week (THurs thru Sat). By the end of Sat, it is very painful. When not at work, its okay. Pt has not gone on her typical walks since Apr where she used to walk daily (doing [place] 2x). Now rarely walking d/t pain. Avoiding hiking d/t uneven terrain. 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 Has not taken ibuprofen lately but was taking 4 three times a day per MD order but that wwas a little while ago. She hasnt taken anything in the last 2 weeks. Pt reports occ back pain and RLS. She notes she is heavier than she ever has been this past year and was diagnosed w/hypothyroidism . Pt reports dizziness that is a side effect of her meds ( has already discussed w/) and she does wonder if this has changed how she walks Prior Treatments and Tests ankle MRI: IMPRESSION: 1. Moderate posterior tibialis tendinosis and tenosynovitis. 2. Mild pes planus and suspected mild hindfoot valgus are new when compared to the prior MRI from 08/21/2017. Medial bowing of the superomedial band of the spring ligament and the tibiospring ligament is noted around the talar head. 3. Mild peroneus brevis tendinosis. 4. Tenosynovitis of the extensor digitorum longus tendon is stable to mildly progressed. 5. Mild Achilles tendinosis. 6. Stable focal thickening of the mid to distal plantar fascia. Chronic mild proximal plantar fasciitis. 7. Fvtq-fs-gfeejbei midfoot degenerative changes. Treatment Goals Patient/Caregiver Goals Get back to consistant walks, work w/o pain, get foot stronger, cont to be able to cont gardening and walking PT-OP-C Subjective Start: 10/26/21 18:06 Freq: Status: Active Protocol: Document 03/28/22 09:06 [facility] (Rec: 03/28/22 10:35 [facility] [id number]) OP-PT Subjective Patient Comments Patient Comments Pt reports foot has been feeling good. She has walked recently and work has been okay but has worked less w/ being sick then holidays PT-OP-D Balance Start: 10/26/21 18:06 Freq: Status: Active Protocol: Document 03/28/22 09:06 [facility] (Rec: 03/28/22 10:35 [facility] [id number]) Balance Tests Single Limb Standing Single Limb- Right 6 sec Single Limb- Left 6 sec PT-OP-F Manual Assessment Start: 10/26/21 18:06 Freq: Status: Active Protocol: Document 10/30/21 10:29 [facility] (Rec: 10/30/21 12:19 [facility] [id number]) Manual Assessments Soft Tissue Assessment Soft Tissue Mobility Assessment plantar fascia tightness and calf tightness, med around fibula discomfort Joint Mobility Assessment Joint Mobility Assessment R foot pronates in>L, R foot turned out, IR of tibia & femur w/knee bends, B rearfoot valgus, L forefoot valgus, R varsu PT-OP-G Mobility & Gait Start: 10/26/21 18:06 Freq: Status: Active Protocol: Document 10/30/21 10:29 [facility] (Rec: 10/30/21 12:19 [facility] [id number]) OP Gait Assessment Comments Gait Comments Dec push off B, reaches w/ steps, Dec stance time R PT-OP-J Posture/Palpation/Skin Start: 10/26/21 18:06 Freq: Status: Active Protocol: Document 01/24/22 09:04 [facility] (Rec: 01/24/22 10:01 [facility] [id number]) Posture Evaluation [facility] Postural Classification System Lumbar Protective Mechanism Left AP 2 Lumbar Protective Mechanism Right AP 2 Lumbar Protective Mechanism Left PA 2 Lumbar Protective Mechanism Right PA 3 PT-OP-K Range of Motion Start: 10/26/21 18:06 Freq: Status: Active Protocol: Document 10/30/21 10:29 [facility] (Rec: 10/30/21 12:19 [facility] [id number]) Ankle and Foot Goniometric Range of Motion Ankle and Foot Right Active Dorsiflexion with Knee Flexed 8 Dorsiflexion with Knee Extended 0 Plantarflexion 40 Inversion 36 Eversion 10 Comments PROM big toe 70 deg ext Left Active Dorsiflexion with Knee Flexed 10 Dorsiflexion with Knee Extended 5 Plantarflexion 46 Inversion 40 Eversion 20 Comments PROM big toe 60 deg ext PT-OP-M Strength Start: 10/26/21 18:06 Freq: Status: Active Protocol: Document 03/28/22 09:06 [facility] (Rec: 03/28/22 10:35 [facility] [id number]) Hip Strength Hip Manual Muscle Testing Right Flexion (L2) 5 Normal Extension (S1) 5 Normal Abduction 4+ Good+ Adduction 5 Normal External Rotation 5 Normal Internal Rotation 5 Normal Left Flexion (L2) 5 Normal Extension (S1) 5 Normal Abduction 4+ Good+ Adduction 5 Normal External Rotation 5 Normal Internal Rotation 5 Normal Knee Strength Knee Manual Muscle Testing Right Flexion (S2) 5 Normal Extension (L3) 5 Normal Left Flexion (S2) 5 Normal Extension (L3) 5 Normal Ankle/Foot Strength Ankle and Foot Manual Muscle Testing Right Dorsiflexion (L4) 5 Normal Plantarflexion (S1) 5 Normal Inversion 5 Normal Eversion (S1) 5 Normal Comments 20 heel raises w/slightly less range Left Dorsiflexion (L4) 5 Normal Plantarflexion (S1) 5 Normal Inversion 5 Normal Eversion (S1) 5 Normal Comments 20 heel raises, cues for knee straight PT-OP-Q Treatments Start: 10/26/21 18:06 Freq: Status: Active Protocol: Document 03/28/22 09:06 [facility] (Rec: 03/28/22 10:35 [facility] [id number]) Therapeutic Exercises Standing Exercises heel raises Standing Exercise Name SL Side right Reps/Minutes 20 arch lift Side bilateral Reps/Minutes x10 stretch Standing Exercise Name 1. hip flexor 2. step calf stretch Side bilateral Reps/Minutes 30 sec Manual Therapy Treatment Soft Tissue Mobilization plantar fascia Body Location R Mobilization Type Sustained Pressure,Trigger Point Release Intensity/Depth Moderate Body Position Supine Comments manual Joint Mobilizations hip Joint inf & ER FM Body Position Hooklying Neuro Re-Education Treatment Balance Activities SLS Details b trials tandem Details B trials Self-Care/Home Management Treatment Education Patient Education Home Exercise Program Other Education edu to cont HEP. Importance of strenght and balance to be cont along with flexiblity and self soft tissue work. edu to discusss w/MD re: supplemetns d/t c/o inc overall jt pain since covid and encouraged to drink a lot of fluids and eat healthy. Edu to ask for referral for PT if hip pain cont. PT-OP-R Modalities Start: 10/26/21 18:06 Freq: Status: Active Protocol: Document 02/07/22 09:09 [facility] (Rec: 02/07/22 09:49 [facility] [id number]) Hot Pack/Cold Pack Treatment Cold Pack Location R foot/ankle Patient Position Hooklying Treatment Duration (minutes) 10 PT-OP-T Assessment and Plan Start: 10/26/21 18:06 Freq: Status: Active Protocol: Document 03/28/22 09:06 [facility] (Rec: 03/28/22 10:35 [facility] [id number]) Physical Therapy Assessment Goals balance Short Term Goal (STG) Pt will be able to do SLS 10 B 01/24 still difficult STG Duration able to do 6 sec Loader Operator/Ground Leader Goal (LTG) Pt will be able to do SLS 10 sec w/o lat hip shear, UE use or drop of arch or pain LTG Duration less shear but albe to do 6 sec only strength Short Term Goal (STG) Pt will be indep w/HEP for strength, balance and ROM STG Duration achieved advancing as needed Loader Operator/Ground Leader Goal (LTG) Pt will have at least 4+/5 hip strength and 5/5 ankle & knee MMT along w/ at least 3/5 on LPM to show improved stability to allow for greater time on feet w/improved mechanics 01/24-improved LTG Duration achieved LPM n/t activities Short Term Goal (STG) Pt will be able to do typical home gardening w/o inc foot pain 01/24-hurts a little when doing it. STG Duration has not done recently Care Home Goal (LTG) Pt will be able to work without pain inc greater than 2/10 in R foot 01/24-at end of work week 3-/ 10 LTG Duration achieved 2/10 after wrok walking Short Term Goal (STG) Pt will be able to walk 2 miles w/mild hills w/o inc pain in foot. 01/24-has mild pain still STG Duration achieved Care Home Goal (LTG) Pt will be able to walk [place] 2x in a row w/o inc pain in foot. 01/24-has done 1 lap w/only feeling it a little LTG Duration has not tried Assessment Summary Assessment Pt has had a lot less pain in R ankle/foot recently and is showing much improved strength and balance and flexiblity. She is cont HEP at home and has self care tools. Physical Therapy Plan Frequency and Duration Plan of Care Start Date 03/28/22 Plan of Care End Date 03/28/22 Therapeutic Interventions Therapeutic Interventions Aquatic Therapy,Balance Training,Gait Training,Home Exercise Program,Joint Mobilizations,Manual Therapy, Neuromuscular Re-education, Patient/Caregiver Education, Self-Care/Home Management,Soft Tissue Mobilization,Taping, Therapeutic Activities, Therapeutic Exercises Modalities Cold Pack/Ice Massage,Electric Stimulation,Hot Packs, Infrared Therapy,Ultrasound Discharge Physical Therapy Discharge Reasons Goals Met
--- NOTE | 2022-03-28 10:35 | PT.OPPOC ---
Physical, Occupational & Speech Therapy At [facility] Current Diagnoses Other chronic pain (03/28/22) Flat foot [pes planus] (acquired), right foot (03/28/22) Pain in right ankle and joints of right foot (03/28/22) Difficulty in walking, not elsewhere classified (03/28/22) Abnormal posture (03/28/22) Weakness (03/28/22) Visit Care Team Role Provider Type Dc Joy DO Attending Provider Physician Family Provider Primary Care Provider Referring Provider Specialty: Family Practice Address: [address] [place] [address], [facility] Email: [email or web address] Plan Of Care PT-OP-T Assessment and Plan Start: 10/26/21 18:06 Freq: Status: Active Protocol: Document 03/28/22 09:06 [facility] (Rec: 03/28/22 10:35 [facility] [id number]) Physical Therapy Assessment Goals balance Short Term Goal (STG) Pt will be able to do SLS 10 B 01/24 still difficult STG Duration able to do 6 sec Field Traffic Investigator Goal (LTG) Pt will be able to do SLS 10 sec w/o lat hip shear, UE use or drop of arch or pain LTG Duration less shear but albe to do 6 sec only strength Short Term Goal (STG) Pt will be indep w/HEP for strength, balance and ROM STG Duration achieved advancing as needed Field Traffic Investigator Goal (LTG) Pt will have at least 4+/5 hip strength and 5/5 ankle & knee MMT along w/ at least 3/5 on LPM to show improved stability to allow for greater time on feet w/improved mechanics 01/24-improved LTG Duration achieved LPM n/t activities Short Term Goal (STG) Pt will be able to do typical home gardening w/o inc foot pain 01/24-hurts a little when doing it. STG Duration has not done recently Shelter Goal (LTG) Pt will be able to work without pain inc greater than 2/10 in R foot 01/24-at end of work week 3-/4/ 10 LTG Duration achieved 2/10 after wrok walking Short Term Goal (STG) Pt will be able to walk 2 miles w/mild hills w/o inc pain in foot. 01/24-has mild pain still STG Duration achieved Field Traffic Investigator Goal (LTG) Pt will be able to walk [place] 2x in a row w/o inc pain in foot. 01/24-has done 1 lap w/only feeling it a little LTG Duration has not tried Assessment Summary Assessment Pt has had a lot less pain in R ankle/foot recently and is showing much improved strength and balance and flexiblity. She is cont HEP at home and has self care tools. Physical Therapy Plan Frequency and Duration Plan of Care Start Date 03/28/22 Plan of Care End Date 03/28/22 Therapeutic Interventions Therapeutic Interventions Aquatic Therapy,Balance Training,Gait Training,Home Exercise Program,Joint Mobilizations,Manual Therapy, Neuromuscular Re-education, Patient/Caregiver Education, Self-Care/Home Management,Soft Tissue Mobilization,Taping, Therapeutic Activities, Therapeutic Exercises Modalities Cold Pack/Ice Massage,Electric Stimulation,Hot Packs, Infrared Therapy,Ultrasound Discharge Physical Therapy Discharge Reasons Goals Met Plan of Care Dates Plan of Care Start Date 03/28/22 Plan of Care End Date 03/28/22 Electronically Signed by: Heather Joy, PT 03/28/22 [id number] If you are in agreement with this Plan of Care, please return a signed and dated copy. I have reviewed this Plan of Care and certify that the skilled therapy services above are required to meet the patient?s needs. Physician Signature Date Printed Name and Credentials Clinical Instructor Signature Printed Name and Credentials
== END 2022-03-29 12:25 | disposition home or self-care (01) ==
LOC: PHYS 09:00
PROVIDERS: Family Provider Family Medicine; PCP Family Medicine; Referring Provider Family Medicine; Visit Provider Family Medicine
DX: M21.41 Flat foot [pes planus] (acquired), right foot (principal); M25.571 Pain in right ankle and joints of right foot; G89.29 Other chronic pain; R26.2 Difficulty in walking, not elsewhere classified; R53.1 Weakness; R29.3 Abnormal posture
CPT/HCPCS: 97110; 97112; 97140; 97162; 97535

== ENCOUNTER → 2022-06-04 08:24 | Outpatient (CLI) | payer MEDICARE, OTHER, SELFPAY ==
[2022-06-04 10:22] LABS: Alanine Aminotransferase 27 IU/L (<35); Albumin 4.1 g/dL (3.5-5.0); Albumin Globulin Ratio 1.4 (1.0-2.8); Alkaline Phosphatase 104 U/L (38-126); Aspartate Aminotransferase 25 IU/L (14-36); Bilirubin Total 0.7 mg/dL (0.2-1.3); Blood Urea Nitrogen 12 mg/dL (7-17); Calcium 9.2 mg/dL (8.4-10.2); Carbon Dioxide 26 mmol/L (22-32); Chloride 103 mmol/L (98-107); Estimated Glomerular Filt Rate > 60 mL/min (>60); Globulin 2.9 g/dL (1.7-4.1); Glucose 116 mg/dL (80-110); HDL Cholesterol 52 mg/dL (40-60); HEMOLYSIS < 15 (0-50); Potassium 3.9 mmol/L (3.4-5.1); Sodium 137 mmol/L (137-145); Triglycerides 254 mg/dL (35-150)
[2022-06-04 10:23] LABS: Hemoglobin A1C% w Est Avg Glu 5.8 % (4.0-6.0)
[2022-06-04 10:32] LABS: Cholesterol 385 mg/dL (140-199); LDL Cholesterol Calculated 282 mg/dL (<100)
[2022-06-04 10:36] LABS: Free T4, Direct Thyroxine 1.06 ng/dL (0.78-2.19)
[2022-06-04 10:50] LABS: Thyroid Stimulating Hormone 1.14 uIU/mL (0.47-4.68)
== END ==
PROVIDERS: Family Provider Family Medicine; PCP Family Medicine; Referring Provider Family Medicine; Visit Provider Family Medicine
DX: R73.9 Hyperglycemia, unspecified (principal); E03.9 Hypothyroidism, unspecified; E78.2 Mixed hyperlipidemia; G47.9 Sleep disorder, unspecified; I10 Essential (primary) hypertension
CPT/HCPCS: 36415; 80053; 80061; 83036; 84439; 84443

== ENCOUNTER → 2022-11-09 11:27 | Outpatient (CLI) | payer MEDICARE, OTHER, SELFPAY ==
[2022-11-09 12:00] LABS: Add Manual Diff / Slide Review NO; Basophils Absolute Auto 100 /uL (0-100); Basophils Percent Auto 0.9 % (0-2); Eosinophils Absolute Auto 100 /uL (0-450); Eosinophils Percent Auto 1.4 % (2-4); Hematocrit 40.6 % (36-46); Hemoglobin 13.8 g/dL (12.0-16.0); Lymphocytes Absolute Auto 1800 /uL (1100-4500); Lymphocytes Percent Auto 28.6 % (25-40); Mean Corpuscular Hemoglobin 33.1 PG (26-34); Mean Corpuscular Volume 97.4 fL (80-100); Monocytes Absolute Auto 700 /uL (0-900); Monocytes Percent Auto 10.9 % (3-14); Neutrophils Absolute Auto 3600 /uL (1500-7000); Neutrophils Percent Auto 58.2 % (50-75); Platelet Count 315 X10^3/uL (150-400); Red Blood Cell Count 4.17 X10^6/uL (4.0-5.2); Red Cell Distribution Width 13.8 % (11.6-14.8); White Blood Cell Count 6.2 X10^3/uL (4.5-11.0)
[2022-11-09 12:04] LABS: Hemoglobin A1C% w Est Avg Glu 5.5 % (4.0-6.0)
[2022-11-09 12:15] LABS: Alanine Aminotransferase 21 IU/L (<35); Albumin 4.2 g/dL (3.5-5.0); Albumin Globulin Ratio 1.6 (1.0-2.8); Alkaline Phosphatase 107 U/L (38-126); Aspartate Aminotransferase 23 IU/L (14-36); BUN Creatinine Ratio 24.1 (6-22); Bilirubin Total 0.7 mg/dL (0.2-1.3); Blood Urea Nitrogen 14 mg/dL (7-17); Calcium 9.3 mg/dL (8.4-10.2); Carbon Dioxide 26 mmol/L (22-32); Chloride 102 mmol/L (98-107); Cholesterol 311 mg/dL (140-199); Estimated Glomerular Filt Rate > 60 mL/min (>60); Globulin 2.7 g/dL (1.7-4.1); Glucose 107 mg/dL (80-110); HDL Cholesterol 55 mg/dL (40-60); HEMOLYSIS < 15 (0-50); LDL Cholesterol Calculated 219 mg/dL (<100); Potassium 4.5 mmol/L (3.4-5.1); Sodium 134 mmol/L (137-145); Total Protein 6.9 g/dL (6.3-8.2); Triglycerides 183 mg/dL (35-150)
[2022-11-09 12:27] LABS: Free T4, Direct Thyroxine 1.19 ng/dL (0.78-2.19)
[2022-11-09 12:40] LABS: Thyroid Stimulating Hormone 0.246 uIU/mL (0.47-4.68)
== END ==
PROVIDERS: Family Provider Family Medicine; PCP Family Medicine; Referring Provider Family Medicine; Visit Provider Family Medicine
DX: E03.9 Hypothyroidism, unspecified (principal); R73.9 Hyperglycemia, unspecified; E78.2 Mixed hyperlipidemia
CPT/HCPCS: 36415; 80053; 80061; 83036; 84439; 84443; 85025

== ENCOUNTER → 2022-11-27 10:08 | Outpatient (CLI) | payer MEDICARE, OTHER, SELFPAY ==
--- NOTE | 2022-11-27 10:09 | DI.CT.S_ITS ---
PROCEDURE: CT ANGIO HEAD INDICATIONS: eval persistent ataxia TECHNIQUE: Precontrast 4.5 mm thick angled axial sections acquired from the foramen magnum to the vertex. After the administration of intravenous contrast, 1 mm thick sections acquired through the [place]. Postcontrast 4.5 mm thick sections then re-acquired from the foramen magnum to the vertex. 10 mm thick twumqjl-utywbfbrt-yhvgvykyps (MIP) reformats were acquired of the central intracranial vasculature. For radiation dose reduction, the following was used: automated exposure control, adjustment of mA and/or kV according to patient size. COMPARISON: None. FINDINGS: Image quality: Excellent. Anterior circulation: Intracranial internal carotid arteries are normal in size and flow. The flow within the paired anterior cerebral arteries is normal and symmetric. The flow within the middle cerebral arteries is normal and symmetric. The anterior communicating artery is seen. No aneurysms are seen. Posterior circulation: Vertebral arteries are codominant. Visualized portions of the vertebral arteries demonstrate normal caliber, and join to form a normal appearing basilar artery. Flow within the posterior cerebral arteries is normal and symmetric. No aneurysms are seen. Visualized portions of the brain demonstrate no visualized acute abnormality. It is limited evaluation secondary to CTA protocol. IMPRESSION: No areas of hemodynamically significant stenosis, vascular occlusion or aneurysmal dilation within the anterior circulation. No areas of hemodynamically significant stenosis, vascular occlusion or aneurysmal dilation within the posterior circulation. Dictated by: Talia Martínez M.D. on 11/27/2022 at 16:35 Approved by: Talia Martínez M.D. on 11/27/2022 at 16:36
== END ==
PROVIDERS: Family Provider Family Medicine; PCP Family Medicine; Referring Provider Family Medicine; Visit Provider Family Medicine
DX: R27.0 Ataxia, unspecified (principal); R42 Dizziness and giddiness
CPT/HCPCS: 70496

== ENCOUNTER → 2023-05-20 11:39 | Outpatient (CLI) | payer MEDICARE, OTHER, SELFPAY ==
--- NOTE | 2023-05-20 12:37 | DI.MG.S_ITS ---
BILATERAL DIGITAL SCREENING MAMMOGRAM 3D/2D WITH CAD: 05/20/2023 CLINICAL: Routine screening. Family history of breast cancer. Comparison is made to exams dated: 01/11/2021 mammogram, 01/20/2019 mammogram, and 12/16/2017 mammogram - [facility]. There are scattered areas of fibroglandular density in both breasts (category b / 25%-50% glandular tissue). Current study was also evaluated with a Computer Aided Detection (CAD) system. No significant masses, calcifications, or other findings are seen in either breast. There has been no significant interval change. IMPRESSION: NEGATIVE There is no mammographic evidence of malignancy. A 1 year screening mammogram is recommended. Based on the Tyrer Cuzick model (a risk assessment model) the patient's lifetime risk is 8.3% and her 10 year risk is 5.3%. According to the ACR, ACS, and NCCN guidelines, an annual breast MRI exam along with mammogram is recommended if the patient's lifetime risk is 20% or greater. This exam was interpreted at Station ID: [id number]. NOTE: For mammograms, a report in lay terms will be sent to the patient. Approximately 15% of breast malignancies will not be visualized mammographically. In the management of a palpable breast mass, a negative mammogram must not discourage biopsy of a clinically suspicious lesion. Electronically Signed By: Umu Zamora M.D., PH.D nick/kale:05/21/2023 09:42:48 letter sent: Normal Exam ACR BI-RADS Category 1: Negative [id number]
== END ==
PROVIDERS: Family Provider Family Medicine; PCP Family Medicine; Referring Provider Family Medicine; Visit Provider Family Medicine
DX: Z12.31 Encounter for screening mammogram for malignant neoplasm of breast (principal); Z80.3 Family history of malignant neoplasm of breast; R92.323 Mammographic fibroglandular density, bilateral breasts
CPT/HCPCS: 77063; 77067

== ENCOUNTER → 2023-07-15 14:21 | Outpatient (CLI) | payer MEDICARE, OTHER, SELFPAY ==
[2023-07-15 15:01] LABS: Add Manual Diff / Slide Review NO; Basophils Absolute Auto 0 /uL (0-100); Basophils Percent Auto 0.6 % (0-2); Eosinophils Absolute Auto 100 /uL (0-450); Eosinophils Percent Auto 1.6 % (2-4); Hematocrit 40.1 % (36-46); Hemoglobin 13.4 g/dL (12.0-16.0); Lymphocytes Absolute Auto 2000 /uL (1100-4500); Mean Corpuscular HGB Conc 33.4 % (30-36); Mean Corpuscular Hemoglobin 32.8 PG (26-34); Monocytes Absolute Auto 600 /uL (0-900); Monocytes Percent Auto 9.1 % (3-14); Neutrophils Absolute Auto 4100 /uL (1500-7000); Neutrophils Percent Auto 59.7 % (50-75); Platelet Count 288 X10^3/uL (150-400); Red Blood Cell Count 4.09 X10^6/uL (4.0-5.2); Red Cell Distribution Width 13.9 % (11.6-14.8); White Blood Cell Count 6.9 X10^3/uL (4.5-11.0)
[2023-07-15 15:18] LABS: Alanine Aminotransferase 24 IU/L (<35); Albumin 4.3 g/dL (3.5-5.0); Albumin Globulin Ratio 1.8 (1.0-2.8); Alkaline Phosphatase 101 U/L (38-126); Aspartate Aminotransferase 24 IU/L (14-36); BUN Creatinine Ratio 27.3 (6-22); Bilirubin Total 0.9 mg/dL (0.2-1.3); Blood Urea Nitrogen 15 mg/dL (7-17); Calcium 9.4 mg/dL (8.4-10.2); Carbon Dioxide 24 mmol/L (22-32); Chloride 106 mmol/L (98-107); Cholesterol 319 mg/dL (140-199); Estimated Glomerular Filt Rate > 60 mL/min (>60); Globulin 2.4 g/dL (1.7-4.1); Glucose 89 mg/dL (80-110); HDL Cholesterol 74 mg/dL (40-60); HEMOLYSIS < 15 (0-50); LDL Cholesterol Calculated 200 mg/dL (<100); Potassium 3.8 mmol/L (3.4-5.1); Sodium 136 mmol/L (137-145); Total Protein 6.7 g/dL (6.3-8.2); Triglycerides 225 mg/dL (35-150)
[2023-07-15 15:34] LABS: Free T4, Direct Thyroxine 1.16 ng/dL (0.78-2.19)
[2023-07-15 15:48] LABS: Thyroid Stimulating Hormone 0.699 uIU/mL (0.47-4.68)
== END ==
PROVIDERS: Family Provider Family Medicine; PCP Family Medicine; Referring Provider Family Medicine; Visit Provider Family Medicine
DX: I10 Essential (primary) hypertension (principal); E03.9 Hypothyroidism, unspecified; R73.9 Hyperglycemia, unspecified; E78.2 Mixed hyperlipidemia; E34.9 Endocrine disorder, unspecified; M85.80 Other specified disorders of bone density and structure, unspecified site
CPT/HCPCS: 36415; 80053; 80061; 84439; 84443; 85025

== ENCOUNTER → 2023-11-07 16:32 | Outpatient (CLI) | payer MEDICARE, OTHER, SELFPAY ==
--- NOTE | 2023-11-07 16:34 | DI.RAD.S_ITS ---
PROCEDURE: XR ANKLE LT MIN 3V INDICATIONS: Left ankle pain; swelling medial side; No hx of injury TECHNIQUE: 3 views of the ankle were acquired. COMPARISON: [facility], CR, XR ANKLE RT MIN 3V, 08/17/2021, 15:05. FINDINGS: Bones: No fractures or dislocations. Ankle mortise is normally aligned. No suspicious bony lesions. Calcaneal spur. Soft tissues: No tibiotalar joint effusion. Achilles tendon appears normal. IMPRESSION: No visualized acute fracture or dislocation. However, if clinical concern and/or pain persist, short interval imaging followup in 7-10 days is recommended, as occult injury cannot be definitively excluded. Dictated by: Talia Marítnez M.D. on 11/07/2023 at 21:15 Approved by: Talia Martínez M.D. on 11/07/2023 at 21:17
== END ==
PROVIDERS: Family Provider Family Medicine; PCP Family Medicine; Referring Provider Physician Assistant; Visit Provider Physician Assistant
DX: M25.572 Pain in left ankle and joints of left foot (principal); M77.32 Calcaneal spur, left foot
CPT/HCPCS: 73610

== ENCOUNTER → 2023-11-13 16:42 | Outpatient (CLI) | payer MEDICARE, OTHER, SELFPAY ==
--- NOTE | 2023-11-13 16:43 | DI.MRI.S_ITS ---
PROCEDURE: MR ANKLE LT WO CON INDICATIONS: Medial left ankle pain and swelling - no hx of injury TECHNIQUE: Noncontrast sagittal T1 spin echo and T2 fast spin echo with fat saturation, axial proton density fast spin echo and T2 fast spin echo with fat saturation, coronal T1 spin echo and T2 fast spin echo with fat saturation through the ankle/hindfoot. COMPARISON: [facility], MR, MR ANKLE LT WO CON, 08/21/2017, 17:06. FINDINGS: Image quality: Excellent. There is some mild to moderate thickening of the Achilles tendon in its mid substance with some increased signal in the associated peritenon consistent with some acute inflammation. Remainder of the ankle ligaments and tendons appear intact. There is moderate tenosynovitis involving the posterior tibial tendon with mild tenosynovitis flexor hallucis longus tendon and extensor digitorum longus tendon. There is some mild to moderate edematous changes subcutaneous tissues along the medial aspect of the foot. There is some stable moderate osteoarthritic type degenerative change involving the 3rd tarsometatarsal joint. Marrow signal in the remaining bones appears within normal limits. Plantar fascia appears within normal limits. There is a calcaneal heel spur at the insertion of the plantar fascia. No loculated fluid collections or soft tissue masses are identified. Visualized musculature is unremarkable. No significant joint effusion is identified. The talar dome appears within normal limits without evidence for osteochondral defect. IMPRESSION: 1. Moderate tenosynovitis of the posterior tibial tendon. 2. Mild tenosynovitis of the flexor hallucis longus and extensor digitorum longus tendon. 3. Mild to moderate thickening of the mid substance of the Achilles tendon with increased signal in peritenon consistent with some acute inflammation. 4. 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 5. Calcaneal heel spur. 6. Moderate edematous changes in the subcutaneous tissues along the medial aspect of the foot. Dictated by: Won Koch M.D. on 11/14/2023 at 10:08 Approved by: Won Koch M.D. on 11/14/2023 at 11:03
== END ==
PROVIDERS: Family Provider Family Medicine; PCP Family Medicine; Referring Provider Physician Assistant; Visit Provider Physician Assistant
DX: M65.872 Other synovitis and tenosynovitis, left ankle and foot (principal); M77.32 Calcaneal spur, left foot; M25.472 Effusion, left ankle
CPT/HCPCS: 73721

== ENCOUNTER 2024-03-10 14:59 | Emergency (ER) | payer MEDICARE, OTHER, SELFPAY ==
[2024-03-10] VITALS (11 sets, daily range): BP systolic 177–203; BP diastolic 84–96; PULSE 74–100; RESP 12–22; TEMP 36.4; O2SAT 96–99; BMI 28.3
--- NOTE | 2024-03-10 15:10 | DI.RAD.S_ITS ---
PROCEDURE: XR CHEST 1V INDICATIONS: chest pain TECHNIQUE: One view of the chest was acquired. COMPARISON: [facility], CR, XR CHEST 1V, 05/20/2019, 11:24. [facility], CR, XR CHEST 1V, 04/24/2019, 20:35. FINDINGS: Surgical changes and devices: None. Lungs and pleura: Lungs are clear. No pleural effusions or pneumothorax. Mediastinum: Mediastinal contours appear normal. Heart size is normal. Bones and chest wall: No suspicious bony lesions. Overlying soft tissues appear unremarkable. IMPRESSION: No acute cardiopulmonary abnormality is seen. Approved by: Jackson Peralta M.D. on 03/10/2024 at 15:28
--- NOTE | 2024-03-10 15:10 | EKG_ITS ---
[facility] [address] [place] [address] Test Date: 2024-03-10 Pat Name: Divine Santamaria Department: [facility] Room: Gender: Female Photo Editor: : 1955 Requested By: Order Number: [id number] Reading MD: Terence Irizarry Measurements Intervals [place] Rate: 101 P: 63 [place]: 160 QRS: 8 QRSD: 82 T: 50 QT: 356 QTc: 461 Interpretive Statements Sinus tachycardia Nonspecific ST abnormality Electronically Signed On 03-10-2024 17:52:42 PST by Terence Irizarry
[2024-03-10 15:37] LABS: Bacteria Urine Occasional (0-1); Culture Indicated Urine Cult Not Indicated; RBC Urine 1-5/HPF (0-5/HPF); Squamous Epithelial Cell Urine 1-5 /HPF (0-5/HPF); Urine Volume 10mL (spun); WBC Urine 1-5/HPF (0-5/HPF)
[2024-03-10 15:39] LABS: Add Manual Diff / Slide Review NO; Basophils Absolute Auto 100 /uL (0-100); Basophils Percent Auto 0.8 % (0-2); Eosinophils Absolute Auto 0 /uL (0-450); Eosinophils Percent Auto 0.5 % (2-4); Hematocrit 43.3 % (36-46); Hemoglobin 14.6 g/dL (12.0-16.0); Lymphocytes Absolute Auto 1900 /uL (1100-4500); Lymphocytes Percent Auto 22.5 % (25-40); Mean Corpuscular HGB Conc 33.6 % (30-36); Mean Corpuscular Hemoglobin 33.1 PG (26-34); Mean Corpuscular Volume 98.6 fL (80-100); Monocytes Absolute Auto 600 /uL (0-900); Monocytes Percent Auto 7.5 % (3-14); Neutrophils Absolute Auto 5700 /uL (1500-7000); Neutrophils Percent Auto 68.7 % (50-75); Platelet Count 343 X10^3/uL (150-400); Red Blood Cell Count 4.39 X10^6/uL (4.0-5.2); Red Cell Distribution Width 14.1 % (11.6-14.8); White Blood Cell Count 8.3 X10^3/uL (4.5-11.0)
[2024-03-10 15:45] LABS: Prothrombin Time 11.1 SECONDS (9.4-12.5)
[2024-03-10 15:48] LABS: PTT Partial Thromboplastin Tim 35 SECONDS (25.1-36.5)
[2024-03-10 15:49] LABS: Alanine Aminotransferase 27 IU/L (<35); Albumin 4.6 g/dL (3.5-5.0); Albumin Globulin Ratio 1.6 (1.0-2.8); Alkaline Phosphatase 100 U/L (38-126); Aspartate Aminotransferase 34 IU/L (14-36); BUN Creatinine Ratio 23.9 (6-22); Bilirubin Total 0.9 mg/dL (0.2-1.3); Blood Urea Nitrogen 16 mg/dL (7-17); Calcium 9.6 mg/dL (8.4-10.2); Carbon Dioxide 22 mmol/L (22-32); Chloride 105 mmol/L (98-107); Creatine Kinase 89 U/L (30-135); Estimated Glomerular Filt Rate > 60 mL/min (>60); Globulin 2.9 g/dL (1.7-4.1); Glucose 102 mg/dL (80-110); HEMOLYSIS 44 (0-50); Lipase 62 U/L (23-300); Magnesium 1.7 mg/dL (1.6-2.3); Potassium 4.1 mmol/L (3.4-5.1); Sodium 136 mmol/L (137-145); Total Protein 7.5 g/dL (6.3-8.2)
[2024-03-10 16:01] LABS: NT-proBNP (BNP-Adult 18+) 45 pg/mL (<125); Troponin I < 0.012 ng/mL (0.01-0.034)
--- NOTE | 2024-03-10 17:59 | ED_ITS ---
HPI - General Adult General Chief complaint: Hypertension Stated complaint: nausea, dizzy, high BP Time Seen by Provider: 03/10/24 17:56 Source: patient Mode of arrival: Ambulatory History of Present Illness HPI narrative: 69-year-old female with history of hypertension, hypothyroidism presents by private vehicle from home for elevated blood pressure readings, nausea at home. Patient states that normally her blood pressure is well-controlled with 50 mg daily of losartan. This afternoon she felt some mild nausea and took her blood pressure, and found that it was elevated. She presented for evaluation. Triage note also states dizziness and chest tightness - patient states that dizziness is chronic and has been intermittent for years. She has had imaging performed for this complaint that hasn't shown a reason for the dizziness. Denies chest tightness or pain when I ask. Patient does state that she has been under a lot of stress lately. Related Data Home Medications Medication Instructions Recorded Confirmed calcium carbonate 1,200 mg PO DAILY 05/21/18 03/10/24 cholecalciferol (vitamin D3) 50 4,000 unit PO DAILY 05/21/18 03/10/24 mcg (2,000 unit) capsule multivitamin 1 tab PO DAILY 04/25/19 03/10/24 Previous Rx's Medication Instructions Recorded lorazepam 0.5 mg tablet 0.5 mg PO BID PRN Restless legs 04/17/23 #10 tabs pravastatin 40 mg tablet 40 mg PO BEDTIME #90 tabs 07/16/23 trazodone 50 mg tablet 50 mg PO BEDTIME PRN sleep #90 tabs 12/03/23 levothyroxine 88 mcg tablet 88 mcg PO DAILY #90 tabs 02/07/24 amlodipine 2.5 mg tablet 2.5 mg PO BEDTIME #90 tabs 02/27/24 losartan 50 mg tablet 50 mg PO DAILY #90 tabs 02/27/24 Allergies Allergy/AdvReac Type Severity Reaction Status Date / Time No Known Drug Allergies Allergy Verified 03/03/24 10:35 Patient History Medical History Other synovitis and tenosynovitis, left ankle and foot Fatigue Pes planus of right foot Hypertension Right ankle pain Hypothyroidism Hyperglycemia Palpitations Abnormal Pap smear of vagina Cervical dysplasia Surgical History Anesthesia History of colonoscopy (~2015) History of colonoscopy (~2007) History of hysteroscopy (~2004) History of foot surgery (~05/17/14) Status post loop electrosurgical excision procedure (LEEP) of cervix (~2012) Family History Father Esophageal cancer Mother Hyperlipidemia Diabetes mellitus Congestive heart failure Grandfather No problems noted. Grandmother Stroke Grandmother No problems noted. Brother Cancer Brother Thyroid disease Brother Neuropathy High cholesterol Sister Crohn's disease Daughter Type 2 diabetes mellitus Family/Other Cancer Family/Other Cancer Social History Smoking Status: Never smoker Smoking Status: Never smoker alcohol intake frequency: 0-2 drinks per day Alcohol type: wine Exam Initial Vital Signs Initial Vital Signs: Vital Signs Temperature 97.6 F 03/10/24 15:02 Pulse Rate 100 H 03/10/24 15:02 Respiratory Rate 18 03/10/24 15:02 Blood Pressure 184/95 H 03/10/24 15:02 Pulse Oximetry 99 03/10/24 15:02 Oxygen Delivery Method Room Air 03/10/24 15:02 Const: Awake, alert, no acute distress, nontoxic appearing Cardiac: regular rate, regular rhythm RESP: unlabored, clear bilaterally, no wheezing Skin: Warm, Dry, intact, no rashes Neuro: AO x3, CN II-XII grossly intact, moves all extremities Course Orders Ordered: Discontinued Medications Aspirin (Aspirin 81 Mg Chew Tab) 324 mg PO NOW ONE Stop: 03/10/24 15:11 Vital Signs Vital signs: Vital Signs - 8 hr 03/10/24 18:00 03/10/24 18:01 03/10/24 18:01 Pulse Rate 86 88 Respiratory Rate 12 13 Blood Pressure 182/86 H Pulse Oximetry 96 99 Medical Decision Making Lab Data 03/10/24 15:15 03/10/24 15:15 Labs: Lab Results 03/10/24 Range/Units 15:15 WBC 8.3 (4.5-11.0) X10^3/uL RBC 4.39 (4.0-5.2) X10^6/uL Hgb 14.6 (12.0-16.0) g/dL Hct 43.3 (36-46) % MCV 98.6 (80-100) fL MCH 33.1 (26-34) PG MCHC 33.6 (30-36) % RDW 14.1 (11.6-14.8) % Plt Count 343 (150-400) X10^3/uL Neut % (Auto) 68.7 (50-75) % Lymph % (Auto) 22.5 L (25-40) % [place] % (Auto) 7.5 (3-14) % Eos % (Auto) 0.5 L (2-4) % Baso % (Auto) 0.8 (0-2) % Neut # (Auto) 5700 (5426-7910) /uL Lymph # (Auto) 1900 (3378-0771) /uL [place] # (Auto) 600 (0-900) /uL Eos # (Auto) 0 (0-450) /uL Baso # (Auto) 100 (0-100) /uL PT 11.1 (9.4-12.5) SECONDS INR 1.0 (0.9-1.3) APTT 35 (25.1-36.5) SECONDS Sodium 136 L (137-145) mmol/L Potassium 4.1 (3.4-5.1) mmol/L Chloride 105 (98-107) mmol/L Carbon Dioxide 22 (22-32) mmol/L BUN 16 (7-17) mg/dL Creatinine 0.67 (0.52-1.04) mg/dL Estimated GFR > 60 (>60) mL/min BUN/Creatinine Ratio 23.9 H (6-22) Glucose 102 (80-110) mg/dL Calcium 9.6 (8.4-10.2) mg/dL Magnesium 1.7 (1.6-2.3) mg/dL Total Bilirubin 0.9 (0.2-1.3) mg/dL AST 34 (14-36) IU/L ALT 27 (<35) IU/L Alkaline Phosphatase 100 (38-126) U/L Total Creatine Kinase 89 (30-135) U/L Troponin I < 0.012 (0.01-0.034) ng/mL NT-Pro-B Natriuret Pep 45 (<125) pg/mL Total Protein 7.5 (6.3-8.2) g/dL Albumin 4.6 (3.5-5.0) g/dL Globulin 2.9 (1.7-4.1) g/dL Albumin/Globulin Ratio 1.6 (1.0-2.8) Lipase 62 (23-300) U/L Urine RBC 1-5/hpf (0-5/HPF) Urine WBC 1-5/hpf (0-5/HPF) Ur Squamous Epith Cells 1-5 /hpf (0-5/HPF) Urine Bacteria Occasional (0-1) (None) Ur Culture Indicated? Cult not indicated Vol Urine Centrifuged 10ml (spun) Urine Dip Bedside Urine Glucose Negative Bedside Urine Bilirubin - Negative Bedside Urine Ketone - Negative Urine Specific [place] 1 Bedside Urine Occult Blood +/- Bedside Urine pH 5.5 Bedside Urine Protein - Negative Bedside Urine Urobilinogen - Negative Bedside Urine Nitrite - Negative Bedside Urine Leukocytes +/- 15 Esterase Point of care testing: Urine Dip Bedside Urine Glucose Negative Bedside Urine Bilirubin - Negative Bedside Urine Ketone - Negative Urine Specific [place] 1 Bedside Urine Occult Blood +/- Bedside Urine pH 5.5 Bedside Urine Protein - Negative Bedside Urine Urobilinogen - Negative Bedside Urine Nitrite - Negative Bedside Urine Leukocytes +/- 15 Esterase Imaging Data Chest x-ray: Radiologist's Impression: PROCEDURE: XR CHEST 1V INDICATIONS: chest pain TECHNIQUE: One view of the chest was acquired. COMPARISON: [facility], , XR CHEST 1V, 05/20/2019, 11:24. [facility], , XR CHEST 1V, 04/24/2019, 20:35. FINDINGS: Surgical changes and devices: None. Lungs and pleura: Lungs are clear. No pleural effusions or pneumothorax. Mediastinum: Mediastinal contours appear normal. Heart size is normal. Bones and chest wall: No suspicious bony lesions. Overlying soft tissues appear unremarkable. IMPRESSION: No acute cardiopulmonary abnormality is seen. Approved by: Jackson Peralta M.D. on 03/10/2024 at 15:28 ECG Data Attestation: I personally reviewed and interpreted this ECG as follows: Interpretation: Sinus tachycardia at 101 beats per minute. Normal [place], no ST T wave changes MDM Narrative Additional Information: Well-appearing patient with elevated blood pressure readings at home. Reported dizziness and chest tightness to triage, however patient denies chest tightness or pain to myself and states that her dizziness is chronic and intermittent. Has been under a lot of stress lately. Exam reassuring. Laboratory work shows no acute findings, no signs of end-organ damage. EKG nonischemic, chest x-ray negative for acute findings. Patient counseled that she may increase her losartan to either 75 or 100 mg daily if her blood pressure continues to be elevated. It was quite possible that the stress is causing her elevated blood pressure readings, however if she continues to have high blood pressure she should make a follow up appointment with her primary care doctor for medication adjustments. Discharge Plan Departure Patient Disposition: Home Clinical Impression: Hypertension Instructions: DI for High Blood Pressure Activity Restrictions/Additional Instructions: Your laboratory work today looks normal. Your EKG did not show any signs of heart stress or heart attack. You can increase your losartan to 75mg or 100mg while your blood pressure is elevated. Follow up with your doctor for the dizziness you have been experiencing. If you notice chest pain, shortness of breath, leg swelling, worst headache of your life, or any other concerning symptoms please come back to the ED for repeat evaluation Prescriptions: No Action lorazepam 0.5 mg tablet 0.5 mg PO BID PRN (Reason: Restless legs) Qty: 10 0RF trazodone 50 mg tablet 50 mg PO BEDTIME PRN (Reason: sleep) Qty: 90 1RF levothyroxine 88 mcg tablet 88 mcg PO DAILY Qty: 90 3RF amlodipine 2.5 mg tablet 2.5 mg PO BEDTIME Qty: 90 3RF losartan 50 mg tablet 50 mg PO DAILY Qty: 90 3RF pravastatin 40 mg tablet 40 mg PO BEDTIME Qty: 90 2RF Rx Instructions: start taking 40 mg cholecalciferol (vitamin D3) 2,000 unit capsule 4,000 unit PO DAILY calcium carbonate 600 mg calcium (1,500 mg) tablet 1,200 mg PO DAILY multivitamin Tablet 1 tab PO DAILY Referrals: Dc Joy DO [Primary Care Provider] - Stand Alone Forms: Patient Portal/API/Survey
== END 2024-03-10 18:42 | disposition home or self-care (01) ==
PROVIDERS: Emergency Medicine; Emergency Provider Emergency Medicine; Family Provider Family Medicine; PCP Family Medicine
DX: I10 Essential (primary) hypertension (principal)
CPT/HCPCS: 36415; 71045; 80053; 81003; 81015; 82550; 83690; 83735; 83880; 84484; 85025; 85610; 85730; 93005; 99283; 99284

== ENCOUNTER 2024-04-09 10:45 | Outpatient (RCR) | payer MEDICARE, OTHER, SELFPAY ==
--- NOTE | 2024-01-02 14:56 | PT.OIE ---
Current Diagnoses Other synovitis and tenosynovitis, left ankle and foot (01/02/24) Difficulty in walking, not elsewhere classified (01/02/24) Weakness (01/02/24) Past Medical History (Last Updated 11/21/23 @ 10:48 by Dc Joy DO) Abnormal Pap smear of vagina Cervical dysplasia Fatigue Hyperglycemia Hypertension Hypothyroidism Other synovitis and tenosynovitis, left ankle and foot Palpitations Pes planus of right foot Right ankle pain Past Surgical History (Last Reviewed 07/16/23 @ 17:18 by Dc Joy DO) Anesthesia History of colonoscopy (~2007) History of colonoscopy (~2015) History of foot surgery (~05/17/14) History of hysteroscopy (~2004) Status post loop electrosurgical excision procedure (LEEP) of cervix (~2012) Visit Care Team Role Provider Type Dc Joy DO Attending Provider Physician Family Provider Primary Care Provider Referring Provider Specialty: [facility] Practice Address: [address] [place] [address] Email: [email or web address] Physical Therapy Initial Evaluation PT-OP-A Visit Information Start: 12/23/23 08:33 Freq: Status: Active Protocol: Document 01/02/24 10:49 [facility] (Rec: 01/02/24 11:36 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 (Rec: 01/02/24 11:36 [facility] [id number]) Current Condition History of Current Condition Onset Date 3 months Current Complaints L ankle and arch History of Current Condition Pt reports L foot pain started in med ankle and arch without any specific starting incident . She has not been working for 2 months and will go back for 3 days this winter for 4 hours a day. For the first 6 weeks, it would swell anytime on feet extended. She did return from a trip and was walking a bit (10-15k one day then the next day driving to new location so rested). It was hurting a lot after days of walking. R one is doing good (hx of pain and PT in past). Hasn't been to the gym for a few months d/t this ( ellipical, [employer] machines). Has not been doing typical walks d /t pain [place], [place]-4 miles, 3 -4 days a week). Aims to get 10k steps a day. Before left on trip, had 1 massage a week. Prior Treatments and Tests MRI: IMPRESSION: 1. Moderate tenosynovitis of the posterior tibial tendon. 2. Mild tenosynovitis of the flexor hallucis longus and extensor digitorum longus tendon. 3. Mild to moderate thickening of the mid substance of the Achilles tendon with increased signal in peritenon consistent with some acute inflammation. 4. 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 5. Calcaneal heel spur. 6. Moderate edematous changes in the subcutaneous tissues along the medial aspect of the foot. Treatment Goals Patient/Caregiver Goals get back on elliptical, return to walks, return to gardening (shovel, etc) PT-OP-C Subjective Start: 12/23/23 08:33 Freq: Status: Active Protocol: Document 01/02/24 10:49 [facility] (Rec: 01/02/24 11:36 [facility] [id number]) Patient Questionnaires Foot & Ankle Ability Measure- ADL and Sports FAAM-ADL Score 47/84 Lower Extremity Functional Scale LEFS Score 54/80 OP-PT Pain Assessment Location L foot Pain Location Details L med foot and arch Intensity 8 Scale Used Numeric (0 - 10) Description Sharp Frequency constant worse w/activity Radiating Location L calf pain Pain Aggravating Factors Activity,Standing,Walking Other Pain Aggravating Factors ankle [place] Pain Alleviating Factors Cold,Inactivity Other Pain Alleviating Factors pain cream, essential oils PT-OP-D Balance Start: 12/23/23 08:33 Freq: Status: Active Protocol: Document 01/02/24 10:49 [facility] (Rec: 01/02/24 11:36 [facility] [id number]) Balance Tests Single Limb Standing Single Limb- Right 3 sec Single Limb- Left 1 sec PT-OP-J Posture/Palpation/Skin Start: 12/23/23 08:33 Freq: Status: Active Protocol: Document 01/02/24 10:49 [facility] (Rec: 01/02/24 11:36 [facility] [id number]) Posture Evaluation Comments Posture Comments L>R arch collapse, L foot turned out, rearfoot valgus PT-OP-K Range of Motion Start: 12/23/23 08:33 Freq: Status: Active Protocol: Document 01/02/24 10:49 [facility] (Rec: 01/02/24 11:36 [facility] [id number]) Ankle and Foot Goniometric Range of Motion Ankle and Foot Right Active Dorsiflexion with Knee Flexed 7 Dorsiflexion with Knee Extended 5 Plantarflexion 51 Inversion 31 Eversion 12 Left Active Dorsiflexion with Knee Flexed 4 Dorsiflexion with Knee Extended 1 Plantarflexion 55 Inversion 26 Eversion 12 Comments pain PF, inversion PT-OP-L Special Tests Start: 12/23/23 08:33 Freq: Status: Active Protocol: Document 01/02/24 10:49 [facility] (Rec: 01/02/24 11:36 [facility] [id number]) Special Tests Lumbar Spine Special Tests Slump Test Results neg L PT-OP-M Strength Start: 12/23/23 08:33 Freq: Status: Active Protocol: Document 01/02/24 10:49 [facility] (Rec: 01/02/24 11:36 [facility] [id number]) Hip Strength Hip Manual Muscle Testing Right Flexion (L2) 4- Good- Extension (S1) 3+ Fair+ Abduction 4- Good- External Rotation 4 Good Internal Rotation 5 Normal Left Flexion (L2) 4- Good- Extension (S1) 3+ Fair+ Abduction 3+ Fair+ External Rotation 4 Good Internal Rotation 5 Normal Knee Strength Knee Manual Muscle Testing Right Flexion (S2) 5 Normal Extension (L3) 5 Normal Left Flexion (S2) 4+ Good+ Extension (L3) 4+ Good+ Ankle/Foot Strength Ankle and Foot Manual Muscle Testing Right Dorsiflexion (L4) 5 Normal Plantarflexion (S1) 5 Normal Inversion 5 Normal Eversion (S1) 5 Normal Comments pain ankle end of reps 20 heel raises Left Dorsiflexion (L4) 5 Normal Plantarflexion (S1) 3+ Fair+ Inversion 3 Fair Eversion (S1) 4 Good Comments pain inversion and eversion & PF 2 heel raises Toe Strength Toe Manual Muscle Testing Right 2nd Toe Flexion 5 Normal Extension 5 Normal Comments 2-5 Right Great Toe Flexion 4 Good Extension 4 Good Left 2nd Toe Flexion 4- Good- Extension 4+ Good+ Comments 2-5 Left Great Toe Flexion 3 Fair Extension 4- Good- Comments unable to abd PT-OP-Q Treatments Start: 12/23/23 08:33 Freq: Status: Active Protocol: Document 01/02/24 10:49 [facility] (Rec: 01/02/24 11:36 [facility] [id number]) Self-Care/Home Management Treatment Education Other Education 8 min: edu on findings and her arch collapse likely affecting her pain, discussed pt to follow up w/doctor re: dizzienss constantly and what vestibular PT is and that it may help PT-OP-T Assessment and Plan Start: 12/23/23 08:33 Freq: Status: Active Protocol: Document 01/02/24 10:49 [facility] (Rec: 01/02/24 11:36 [facility] [id number]) Physical Therapy Assessment Rehab Potential Rehabilitation Potential Good Evaluation Complexity Number of Personal Factors/Comorbidities 3 or More Number of Body Systems Impaired 4 or More Clinical Presentation at Evaluation Evolving Impairments Impairments Activity Tolerance,Balance, Functional Activities, Functional Mobility,Gait,Pain, Posture,ROM,Soft Tissue Mobility,Strength Goals balance Half-Way Goal (LTG) Pt will be able to do SLS at least 10 sec B to show improved balance LTG Duration 03/12 activities Short Term Goal (STG) Pt will be able to return to full gym routine w/o inc foot pain STG Duration 02/04 Half-Way Goal (LTG) pt will be able to return to all gardening and walking w/o inc foot pain greater than 2/ 10 LTG Duration 03/12 strength Short Term Goal (STG) Pt will be indep w/HEP STG Duration 02/04 Half-Way Goal (LTG) Pt will score at least 4+/5 on all BLE MMT to show improved strength and stability to allow greater ease with typical activities. LTG Duration 03/12 FAAM Impairment 47/84 Short Term Goal (STG) Pt will improve FAAM score to at least 60 to show improved functional ability. STG Duration 02/04 Stockroom Clerk Goal (LTG) Pt will improve FAAM score to at least 70 to show improved functional ability. LTG Duration 03/12 Assessment Summary Assessment Pt presents w/R foot pain and calf tightness w/o specific injury starting about 3 months ago, which has limited her normal abilities. She works at [employer] on her feet 3 days a week typically, helps watch her neighbors kids,t ypically goes for walks and goes to the gym which may be affected by this . She has signfiicantly collapsed arch, weakness of L> RLE especially foot/ankle along w/dec joint moblity in ankle/foot. She would benefit from skilled PT to address her deficits in ROM, strength, balance and gait in order to dec her pain. Physical Therapy Plan Frequency and Duration Frequency of Treatment 2x/Week Duration of treatment (weeks) 10 Plan of Care Start Date 01/02/24 Plan of Care End Date 03/12/24 Therapeutic Interventions Therapeutic Interventions Balance Training,Gait Training ,Home Exercise Program,Joint Mobilizations,Manual Therapy, Neuromuscular Re-education, Patient/Caregiver Education, Self-Care/Home Management,Soft Tissue Mobilization,Taping, Therapeutic Activities, Therapeutic Exercises Modalities Cold Pack/Ice Massage,Electric Stimulation,Hot Packs, Infrared Therapy,Ultrasound Next Visit Focus/Plan Next Note Type Treatment Note Next Visit Plan try seated calf stretch, plantar fascia stretch, towel scrunch, toe yoga, self roll out manual: STM to calf, plantar fascia, foot/ankle jt mobs
--- NOTE | 2024-01-02 14:56 | PT.OPPOC ---
Physical, Occupational & Speech Therapy At [facility] Current Diagnoses Other synovitis and tenosynovitis, left ankle and foot (01/02/24) Difficulty in walking, not elsewhere classified (01/02/24) Weakness (01/02/24) Visit Care Team Role Provider Type Dc Joy DO Attending Provider Physician Family Provider Primary Care Provider Referring Provider Specialty: Family Practice Address: [address] [place] [address], [facility] Email: [email or web address] Plan Of Care PT-OP-B Current Condition Start: 12/23/23 08:33 Freq: Status: Active Protocol: Document 01/02/24 10:49 [facility] (Rec: 01/02/24 11:36 [facility] [id number]) Current Condition History of Current Condition Onset Date 3 months Current Complaints L ankle and arch History of Current Condition Pt reports L foot pain started in med ankle and arch without any specific starting incident . She has not been working for 2 months and will go back for 3 days this winter for 4 hours a day. For the first 6 weeks, it would swell anytime on feet extended. She did return from a trip and was walking a bit (10-15k one day then the next day driving to new location so rested). It was hurting a lot after days of walking. R one is doing good (hx of pain and PT in past). Hasn't been to the gym for a few months d/t this ( ellipical, [employer] machines). Has not been doing typical walks d /t pain ([place] [employer], 3-4 miles, 3 -4 days a week). Aims to get 10k steps a day. Before left on trip, had 1 massage a week. Prior Treatments and Tests MRI: IMPRESSION: 1. Moderate tenosynovitis of the posterior tibial tendon. 2. Mild tenosynovitis of the flexor hallucis longus and extensor digitorum longus tendon. 3. Mild to moderate thickening of the mid substance of the Achilles tendon with increased signal in peritenon consistent with some acute inflammation. 4. 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 5. Calcaneal heel spur. 6. Moderate edematous changes in the subcutaneous tissues along the medial aspect of the foot. Treatment Goals Patient/Caregiver Goals get back on elliptical, return to walks, return to gardening (shovel, etc) PT-OP-T Assessment and Plan Start: 12/23/23 08:33 Freq: Status: Active Protocol: Document 01/02/24 10:49 [facility] (Rec: 01/02/24 11:36 [facility] [id number]) Physical Therapy Assessment Rehab Potential Rehabilitation Potential Good Evaluation Complexity Number of Personal Factors/Comorbidities 3 or More Number of Body Systems Impaired 4 or More Clinical Presentation at Evaluation Evolving Impairments Impairments Activity Tolerance,Balance, Functional Activities, Functional Mobility,Gait,Pain, Posture,ROM,Soft Tissue Mobility,Strength Goals balance Skilled Nursing Goal (LTG) Pt will be able to do SLS at least 10 sec B to show improved balance LTG Duration 03/12 activities Short Term Goal (STG) Pt will be able to return to full gym routine w/o inc foot pain STG Duration 02/04 Toll Repairer Central Office Goal (LTG) pt will be able to return to all gardening and walking w/o inc foot pain greater than 2/ 10 LTG Duration 03/12 strength Short Term Goal (STG) Pt will be indep w/HEP STG Duration 02/04 Toll Repairer Central Office Goal (LTG) Pt will score at least 4+/5 on all BLE MMT to show improved strength and stability to allow greater ease with typical activities. LTG Duration 03/12 FAAM Impairment 47/84 Short Term Goal (STG) Pt will improve FAAM score to at least 60 to show improved functional ability. STG Duration 02/04 Toll Repairer Central Office Goal (LTG) Pt will improve FAAM score to at least 70 to show improved functional ability. LTG Duration 03/12 Assessment Summary Assessment Pt presents w/R foot pain and calf tightness w/o specific injury starting about 3 months ago, which has limited her normal abilities. She works at [employer] on her feet 3 days a week typically, helps watch her neighbors kids,t ypically goes for walks and goes to the gym which may be affected by this . She has signfiicantly collapsed arch, weakness of L> RLE especially foot/ankle along w/dec joint moblity in ankle/foot. She would benefit from skilled PT to address her deficits in ROM, strength, balance and gait in order to dec her pain. Physical Therapy Plan Frequency and Duration Frequency of Treatment 2x/Week Duration of treatment (weeks) 10 Plan of Care Start Date 01/02/24 Plan of Care End Date 03/12/24 Therapeutic Interventions Therapeutic Interventions Balance Training,Gait Training ,Home Exercise Program,Joint Mobilizations,Manual Therapy, Neuromuscular Re-education, Patient/Caregiver Education, Self-Care/Home Management,Soft Tissue Mobilization,Taping, Therapeutic Activities, Therapeutic Exercises Modalities Cold Pack/Ice Massage,Electric Stimulation,Hot Packs, Infrared Therapy,Ultrasound Next Visit Focus/Plan Next Note Type Treatment Note Next Visit Plan try seated calf stretch, plantar fascia stretch, towel scrunch, toe yoga, self roll out manual: STM to calf, plantar fascia, foot/ankle jt mobs Plan of Care Dates Plan of Care Start Date 01/02/24 Plan of Care End Date 03/12/24 Electronically Signed by: Heather Joy, PT 01/02/24 [id number] If you are in agreement with this Plan of Care, please return a signed and dated copy. I have reviewed this Plan of Care and certify that the skilled therapy services above are required to meet the patient?s needs. Physician Signature Date Printed Name and Credentials Clinical Instructor Signature Printed Name and Credentials
--- NOTE | 2024-01-06 18:25 | PT.OTN ---
Current Diagnoses Other synovitis and tenosynovitis, left ankle and foot (01/06/24) Difficulty in walking, not elsewhere classified (01/06/24) Weakness (01/06/24) Physical Therapy Treatment Note PT-OP-A Visit Information Start: 12/23/23 08:33 Freq: Status: Active Protocol: Document 01/06/24 18:20 [facility] (Rec: 01/06/24 18:25 [facility] [id number]) Out-Patient Physical Therapy Visit Information Visit Information Visit Type Treatment Note Visit Start Time 10:50 Visit Stop Time 11:30 Visit Number 2 Number of DYE RANGE FEEDER Visits 0 PT-OP-B Current Condition Start: 12/23/23 08:33 Freq: Status: Active Protocol: Document 01/02/24 10:49 [facility] (Rec: 01/02/24 11:36 [facility] [id number]) Current Condition History of Current Condition Onset Date 3 months Current Complaints L ankle and arch History of Current Condition Pt reports L foot pain started in med ankle and arch without any specific starting incident . She has not been working for 2 months and will go back for 3 days this winter for 4 hours a day. For the first 6 weeks, it would swell anytime on feet extended. She did return from a trip and was walking a bit (10-15k one day then the next day driving to new location so rested). It was hurting a lot after days of walking. R one is doing good (hx of pain and PT in past). Hasn't been to the gym for a few months d/t this ( ellipical, [employer] machines). Has not been doing typical walks d /t pain ([place] [employer], 3-4 miles, 3 -4 days a week). Aims to get 10k steps a day. Before left on trip, had 1 massage a week. Prior Treatments and Tests MRI: IMPRESSION: 1. Moderate tenosynovitis of the posterior tibial tendon. 2. Mild tenosynovitis of the flexor hallucis longus and extensor digitorum longus tendon. 3. Mild to moderate thickening of the mid substance of the Achilles tendon with increased signal in peritenon consistent with some acute inflammation. 4. 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 5. Calcaneal heel spur. 6. Moderate edematous changes in the subcutaneous tissues along the medial aspect of the foot. Treatment Goals Patient/Caregiver Goals get back on elliptical, return to walks, return to gardening (shovel, etc) PT-OP-C Subjective Start: 12/23/23 08:33 Freq: Status: Active Protocol: Document 01/06/24 18:20 [facility] (Rec: 01/06/24 18:25 [facility] [id number]) OP-PT Subjective Patient Comments Patient Comments Pt report she was really sore yesterday. unsure why PT-OP-D Balance Start: 12/23/23 08:33 Freq: Status: Active Protocol: Document 01/02/24 10:49 [facility] (Rec: 01/02/24 11:36 [facility] [id number]) Balance Tests Single Limb Standing Single Limb- Right 3 sec Single Limb- Left 1 sec PT-OP-J Posture/Palpation/Skin Start: 12/23/23 08:33 Freq: Status: Active Protocol: Document 01/02/24 10:49 [facility] (Rec: 01/02/24 11:36 [facility] [id number]) Posture Evaluation Comments Posture Comments L>R arch collapse, L foot turned out, rearfoot valgus PT-OP-K Range of Motion Start: 12/23/23 08:33 Freq: Status: Active Protocol: Document 01/02/24 10:49 [facility] (Rec: 01/02/24 11:36 [facility] [id number]) Ankle and Foot Goniometric Range of Motion Ankle and Foot Right Active Dorsiflexion with Knee Flexed 7 Dorsiflexion with Knee Extended 5 Plantarflexion 51 Inversion 31 Eversion 12 Left Active Dorsiflexion with Knee Flexed 4 Dorsiflexion with Knee Extended 1 Plantarflexion 55 Inversion 26 Eversion 12 Comments pain PF, inversion PT-OP-L Special Tests Start: 12/23/23 08:33 Freq: Status: Active Protocol: Document 01/02/24 10:49 [facility] (Rec: 01/02/24 11:36 [facility] [id number]) Special Tests Lumbar Spine Special Tests Slump Test Results neg L PT-OP-M Strength Start: 12/23/23 08:33 Freq: Status: Active Protocol: Document 01/02/24 10:49 [facility] (Rec: 01/02/24 11:36 [facility] [id number]) Hip Strength Hip Manual Muscle Testing Right Flexion (L2) 4- Good- Extension (S1) 3+ Fair+ Abduction 4- Good- External Rotation 4 Good Internal Rotation 5 Normal Left Flexion (L2) 4- Good- Extension (S1) 3+ Fair+ Abduction 3+ Fair+ External Rotation 4 Good Internal Rotation 5 Normal Knee Strength Knee Manual Muscle Testing Right Flexion (S2) 5 Normal Extension (L3) 5 Normal Left Flexion (S2) 4+ Good+ Extension (L3) 4+ Good+ Ankle/Foot Strength Ankle and Foot Manual Muscle Testing Right Dorsiflexion (L4) 5 Normal Plantarflexion (S1) 5 Normal Inversion 5 Normal Eversion (S1) 5 Normal Comments pain ankle end of reps 20 heel raises Left Dorsiflexion (L4) 5 Normal Plantarflexion (S1) 3+ Fair+ Inversion 3 Fair Eversion (S1) 4 Good Comments pain inversion and eversion & PF 2 heel raises Toe Strength Toe Manual Muscle Testing Right 2nd Toe Flexion 5 Normal Extension 5 Normal Comments 2-5 Right Great Toe Flexion 4 Good Extension 4 Good Left 2nd Toe Flexion 4- Good- Extension 4+ Good+ Comments 2-5 Left Great Toe Flexion 3 Fair Extension 4- Good- Comments unable to abd PT-OP-Q Treatments Start: 12/23/23 08:33 Freq: Status: Active Protocol: Document 01/06/24 18:20 [facility] (Rec: 01/06/24 18:25 [facility] [id number]) Therapeutic Exercises Sitting Exercises self roll out Side left Reps/Minutes 2 min arch raises Side left Reps/Minutes 10 Comments cues big toe down ROM Sitting Exercise Name abd of toes w/fingers w/ankle circles B Side left Reps/Minutes 10 ea toe yoga Sitting Exercise Name 1. big toe ext only 2. toes 2- 5 ext only Side left Reps/Minutes 10 ea Comments holding down opp as difficult stretch Sitting Exercise Name 1. calf w/towel 2. planar fascia Side left Reps/Minutes 1 min ea Manual Therapy Treatment Consent Patient gave verbal consent for manual Yes treatment Soft Tissue Mobilization calf Body Location L calf and achilles Mobilization Type Rolling Intensity/Depth Moderate Body Position Supine plantar fascia Body Location L Mobilization Type Rolling Intensity/Depth Moderate Body Position Supine Joint Mobilizations midfoot Comments cuneiform 1 and 2 med over foam roll FM talus Joint L Comments distraction and med rot calcaneus Joint L Comments distraction and lat tilt c/r PT-OP-T Assessment and Plan Start: 12/23/23 08:33 Freq: Status: Active Protocol: Document 01/06/24 18:20 [facility] (Rec: 01/06/24 18:25 [facility] [id number]) Physical Therapy Assessment Goals balance [facility]cf Goal (LTG) Pt will be able to do SLS at least 10 sec B to show improved balance LTG Duration 03/12 activities Short Term Goal (STG) Pt will be able to return to full gym routine w/o inc foot pain STG Duration 02/04 Platform Software Engineer Goal (LTG) pt will be able to return to all gardening and walking w/o inc foot pain greater than 2/ 10 LTG Duration 03/12 strength Short Term Goal (STG) Pt will be indep w/HEP STG Duration 02/04 [facility] Goal (LTG) Pt will score at least 4+/5 on all BLE MMT to show improved strength and stability to allow greater ease with typical activities. LTG Duration 03/12 FAAM Impairment 47/84 Short Term Goal (STG) Pt will improve FAAM score to at least 60 to show improved functional ability. STG Duration 02/04 [facility] Goal (LTG) Pt will improve FAAM score to at least 70 to show improved functional ability. LTG Duration 03/12 Assessment Summary Assessment Pt did well with exercises but did note some discomofrt w/ toe yoga so will have to monitor. Improved DF w/manual treatment along w/foot alignment Physical Therapy Plan Frequency and Duration Frequency of Treatment 2x/Week Duration of treatment (weeks) 10 Plan of Care Start Date 01/02/24 Plan of Care End Date 03/12/24 Next Visit Focus/Plan Next Note Type Treatment Note Next Visit Plan review seated calf stretch, plantar fascia stretch, arch lift, toe yoga, self roll out try towel scrunch or marble package pick up manual: STM to calf, plantar fascia, foot/ankle jt mobs
--- NOTE | 2024-01-10 11:28 | PT.OTN ---
Current Diagnoses Other synovitis and tenosynovitis, left ankle and foot (01/10/24) Difficulty in walking, not elsewhere classified (01/10/24) Weakness (01/10/24) Physical Therapy Treatment Note PT-OP-A Visit Information Start: 12/23/23 08:33 Freq: Status: Active Protocol: Document 01/10/24 10:48 [facility] (Rec: 01/10/24 11:33 SP [id number]) Out-Patient Physical Therapy Visit Information Visit Information Visit Type Treatment Note Visit Start Time 10:48 Visit Stop Time 11:28 Visit Number 3 Number of LENS GRINDING MACHINE OPERATOR Visits 1 PT-OP-B Current Condition Start: 12/23/23 08:33 Freq: Status: Active Protocol: Document 01/02/24 10:49 [facility] (Rec: 01/02/24 11:36 [facility] [id number]) Current Condition History of Current Condition Onset Date 3 months Current Complaints L ankle and arch History of Current Condition Pt reports L foot pain started in med ankle and arch without any specific starting incident . She has not been working for 2 months and will go back for 3 days this winter for 4 hours a day. For the first 6 weeks, it would swell anytime on feet extended. She did return from a trip and was walking a bit (10-15k one day then the next day driving to new location so rested). It was hurting a lot after days of walking. R one is doing good (hx of pain and PT in past). Hasn't been to the gym for a few months d/t this ( ellipical, [employer] machines). Has not been doing typical walks d /t pain ([place], [place] miles, 3 -4 days a week). Aims to get 10k steps a day. Before left on trip, had 1 massage a week. Prior Treatments and Tests MRI: IMPRESSION: 1. Moderate tenosynovitis of the posterior tibial tendon. 2. Mild tenosynovitis of the flexor hallucis longus and extensor digitorum longus tendon. 3. Mild to moderate thickening of the mid substance of the Achilles tendon with increased signal in peritenon consistent with some acute inflammation. 4. 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 5. Calcaneal heel spur. 6. Moderate edematous changes in the subcutaneous tissues along the medial aspect of the foot. Treatment Goals Patient/Caregiver Goals get back on elliptical, return to walks, return to gardening (shovel, etc) PT-OP-C Subjective Start: 12/23/23 08:33 Freq: Status: Active Protocol: Document 01/10/24 10:48 [facility] (Rec: 01/10/24 11:33 [facility] [id number]) OP-PT Subjective Patient Comments Patient Comments Pt reports does her ex end day in evening and arches of her L foot is uncomfortable. PT-OP-D Balance Start: 12/23/23 08:33 Freq: Status: Active Protocol: Document 01/02/24 10:49 [facility] (Rec: 01/02/24 11:36 [facility] [id number]) Balance Tests Single Limb Standing Single Limb- Right 3 sec Single Limb- Left 1 sec PT-OP-J Posture/Palpation/Skin Start: 12/23/23 08:33 Freq: Status: Active Protocol: Document 01/02/24 10:49 [facility] (Rec: 01/02/24 11:36 [facility] [id number]) Posture Evaluation Comments Posture Comments L>R arch collapse, L foot turned out, rearfoot valgus PT-OP-K Range of Motion Start: 12/23/23 08:33 Freq: Status: Active Protocol: Document 01/02/24 10:49 [facility] (Rec: 01/02/24 11:36 [facility] [id number]) Ankle and Foot Goniometric Range of Motion Ankle and Foot Right Active Dorsiflexion with Knee Flexed 7 Dorsiflexion with Knee Extended 5 Plantarflexion 51 Inversion 31 Eversion 12 Left Active Dorsiflexion with Knee Flexed 4 Dorsiflexion with Knee Extended 1 Plantarflexion 55 Inversion 26 Eversion 12 Comments pain PF, inversion PT-OP-L Special Tests Start: 12/23/23 08:33 Freq: Status: Active Protocol: Document 01/02/24 10:49 [facility] (Rec: 01/02/24 11:36 [facility] [id number]) Special Tests Lumbar Spine Special Tests Slump Test Results neg L PT-OP-M Strength Start: 12/23/23 08:33 Freq: Status: Active Protocol: Document 01/02/24 10:49 [facility] (Rec: 01/02/24 11:36 [facility] [id number]) Hip Strength Hip Manual Muscle Testing Right Flexion (L2) 4- Good- Extension (S1) 3+ Fair+ Abduction 4- Good- External Rotation 4 Good Internal Rotation 5 Normal Left Flexion (L2) 4- Good- Extension (S1) 3+ Fair+ Abduction 3+ Fair+ External Rotation 4 Good Internal Rotation 5 Normal Knee Strength Knee Manual Muscle Testing Right Flexion (S2) 5 Normal Extension (L3) 5 Normal Left Flexion (S2) 4+ Good+ Extension (L3) 4+ Good+ Ankle/Foot Strength Ankle and Foot Manual Muscle Testing Right Dorsiflexion (L4) 5 Normal Plantarflexion (S1) 5 Normal Inversion 5 Normal Eversion (S1) 5 Normal Comments pain ankle end of reps 20 heel raises Left Dorsiflexion (L4) 5 Normal Plantarflexion (S1) 3+ Fair+ Inversion 3 Fair Eversion (S1) 4 Good Comments pain inversion and eversion & PF 2 heel raises Toe Strength Toe Manual Muscle Testing Right 2nd Toe Flexion 5 Normal Extension 5 Normal Comments 2-5 Right Great Toe Flexion 4 Good Extension 4 Good Left 2nd Toe Flexion 4- Good- Extension 4+ Good+ Comments 2-5 Left Great Toe Flexion 3 Fair Extension 4- Good- Comments unable to abd PT-OP-Q Treatments Start: 12/23/23 08:33 Freq: Status: Active Protocol: Document 01/10/24 10:48 [facility] (Rec: 01/10/24 11:33 SP [id number]) Therapeutic Exercises Sitting Exercises ankle&toe band Sitting Exercise Name concentric &eccentric ankle& toe flex/eccentric ext Side left Resistance TB #1 hammock positioning Equipment Used added toHEp /c HO Reps/Minutes x10 Comments cued slow eccentric full range tolerant/perform DF & toe ext self roll out Sitting Exercise Name 1. plantar fascia rolling 2. flexion arch foot & toes over tennis ball Side left Equipment Used tennis ball Reps/Minutes 1. 2 min if tolerant 2. x10 Comments cued GENTLE pressure and AROM tolerant- good feedback response arch raises Sitting Exercise Name 1. toe curls 2. arch lift 3. marble warp picker Side left Reps/Minutes 10 each Comments cues big toe down- not pain just tiring toe curl addition- arch lift if sarah ROM Sitting Exercise Name abd of toes w/fingers w/ankle circles B Side left Resistance PROM Reps/Minutes 10 ea toe yoga Sitting Exercise Name 1. big toe ext only 2. toes 2- 5 ext only Side left Reps/Minutes 10 ea Comments holding down opp toes due to challenged independent at this time stretch Sitting Exercise Name 1. calf w/towel 2. plantar fascia Side left Reps/Minutes 1 min ea Standing Exercises heel raise Standing Exercise Name trailed in PT Side bilateral Reps/Minutes x6 reps Comments counter support toe curls Standing Exercise Name trialed in PT Side left Reps/Minutes x10 Comments small pnfree range- not added to HEP Manual Therapy Treatment Consent Patient gave verbal consent for manual Yes treatment Soft Tissue Mobilization calf Body Location L calf and achilles Mobilization Type Rolling Intensity/Depth Moderate Body Position Sitting Comments L foot over opp knee plantar fascia Body Location L Mobilization Type Rolling Intensity/Depth Moderate Body Position Sitting Comments L foot over opp knee Joint Mobilizations midfoot Joint L Grade II Body Position seated Comments cuneiform 1 and 2 med over tennis ball FM calcaneus Joint L Grade II Body Position seated Comments distraction and lat tilt c/r- manual and ed instruction self general carryover Self-Care/Home Management Treatment Education Patient Education Home Exercise Program,Joint Protection,Pain Management Other Education Continue education and instruction on self manual STMs and ankle ROM//toe tarsal mobility for ROM, initiated over tennis ball- good feedback response Use CP for assist pain control Added hammock resisted ankle and toe mobility for gait foot strengthen progression. PT-OP-T Assessment and Plan Start: 12/23/23 08:33 Freq: Status: Active Protocol: Document 01/10/24 10:48 SP (Rec: 01/10/24 11:33 SP [id number]) Physical Therapy Assessment Goals balance Shelter Goal (LTG) Pt will be able to do SLS at least 10 sec B to show improved balance LTG Duration 03/12 activities Short Term Goal (STG) Pt will be able to return to full gym routine w/o inc foot pain STG Duration 02/04 Shelter Goal (LTG) pt will be able to return to all gardening and walking w/o inc foot pain greater than 2/ 10 LTG Duration 03/12 strength Short Term Goal (STG) Pt will be indep w/HEP STG Duration 02/04 Shelter Goal (LTG) Pt will score at least 4+/5 on all BLE MMT to show improved strength and stability to allow greater ease with typical activities. LTG Duration 03/12 FAAM Impairment 47/84 Short Term Goal (STG) Pt will improve FAAM score to at least 60 to show improved functional ability. STG Duration 02/04 Whizzer Hand Goal (LTG) Pt will improve FAAM score to at least 70 to show improved functional ability. LTG Duration 03/12 Assessment Summary Assessment Pt improved response to gentle manual and carryover instruction self application and use of toe curls first then arch lift and or toe/arch flexion over tennis ball for more supported AROM feedback response. Trialed heel raises and arch lift standing with reported plantar surface irritation so limited reps. Initiated hammock ankle PF and toe flexion/eccentric DF/ext to HEP for progression strengthening with no reports of adverse affects. Discussed use CP for pain control but know is stiff into standing after using. Physical Therapy Plan Frequency and Duration Frequency of Treatment 2x/Week Duration of treatment (weeks) 10 Plan of Care Start Date 01/02/24 Plan of Care End Date 03/12/24 Therapeutic Interventions Therapeutic Interventions Balance Training,Gait Training ,Home Exercise Program,Joint Mobilizations,Manual Therapy, Neuromuscular Re-education, Patient/Caregiver Education, Self-Care/Home Management,Soft Tissue Mobilization,Taping, Therapeutic Activities, Therapeutic Exercises Modalities Cold Pack/Ice Massage,Electric Stimulation,Hot Packs, Infrared Therapy,Ultrasound Next Visit Focus/Plan Next Note Type Treatment Note Next Visit Plan review seated calf stretch, plantar fascia stretch, arch lift, toe yoga, self roll out try towel scrunch or marble warp picker manual: STM to calf, plantar fascia, foot/ankle jt mobs
--- NOTE | 2024-01-13 11:29 | PT.OTN ---
Current Diagnoses Other synovitis and tenosynovitis, left ankle and foot (01/13/24) Difficulty in walking, not elsewhere classified (01/13/24) Weakness (01/13/24) Physical Therapy Treatment Note PT-OP-A Visit Information Start: 12/23/23 08:33 Freq: Status: Active Protocol: Document 01/13/24 10:49 SP (Rec: 01/13/24 11:32 SP [id number]) Out-Patient Physical Therapy Visit Information Visit Information Visit Type Treatment Note Visit Start Time 10:49 Visit Stop Time 11:29 Visit Number 4 (06/25 since eval) Number of BILINGUAL OPERATOR Visits 2 PT-OP-B Current Condition Start: 12/23/23 08:33 Freq: Status: Active Protocol: Document 01/02/24 10:49 [facility] (Rec: 01/02/24 11:36 [facility] [id number]) Current Condition History of Current Condition Onset Date 3 months Current Complaints L ankle and arch History of Current Condition Pt reports L foot pain started in med ankle and arch without any specific starting incident . She has not been working for 2 months and will go back for 3 days this winter for 4 hours a day. For the first 6 weeks, it would swell anytime on feet extended. She did return from a trip and was walking a bit (10-15k one day then the next day driving to new location so rested). It was hurting a lot after days of walking. R one is doing good (hx of pain and PT in past). Hasn't been to the gym for a few months d/t this ( ellipical, wt machines). Has not been doing typical walks d /t pain ([place], 3 -4 days a week). Aims to get 10k steps a day. Before left on trip, had 1 massage a week. Prior Treatments and Tests MRI: IMPRESSION: 1. Moderate tenosynovitis of the posterior tibial tendon. 2. Mild tenosynovitis of the flexor hallucis longus and extensor digitorum longus tendon. 3. Mild to moderate thickening of the mid substance of the Achilles tendon with increased signal in peritenon consistent with some acute inflammation. 4. 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 5. Calcaneal heel spur. 6. Moderate edematous changes in the subcutaneous tissues along the medial aspect of the foot. Treatment Goals Patient/Caregiver Goals get back on elliptical, return to walks, return to gardening (shovel, etc) PT-OP-C Subjective Start: 12/23/23 08:33 Freq: Status: Active Protocol: Document 01/13/24 10:49 SP (Rec: 01/13/24 11:32 SP [id number]) OP-PT Subjective Patient Comments Patient Comments Pt reports complaint with HEP daily. States still some lower level plantar fascia pain with arch lift, no pain with resisted theraband exercise. She reports can only tolerate work 4 hrs. Danced with at [employer] function over the weekend, didn't tolerant much slow dancing. PT-OP-D Balance Start: 12/23/23 08:33 Freq: Status: Active Protocol: Document 01/02/24 10:49 [facility] (Rec: 01/02/24 11:36 [facility] [id number]) Balance Tests Single Limb Standing Single Limb- Right 3 sec Single Limb- Left 1 sec PT-OP-J Posture/Palpation/Skin Start: 12/23/23 08:33 Freq: Status: Active Protocol: Document 01/02/24 10:49 [facility] (Rec: 01/02/24 11:36 [facility] [id number]) Posture Evaluation Comments Posture Comments L>R arch collapse, L foot turned out, rearfoot valgus PT-OP-K Range of Motion Start: 12/23/23 08:33 Freq: Status: Active Protocol: Document 01/02/24 10:49 [facility] (Rec: 01/02/24 11:36 [facility] [id number]) Ankle and Foot Goniometric Range of Motion Ankle and Foot Right Active Dorsiflexion with Knee Flexed 7 Dorsiflexion with Knee Extended 5 Plantarflexion 51 Inversion 31 Eversion 12 Left Active Dorsiflexion with Knee Flexed 4 Dorsiflexion with Knee Extended 1 Plantarflexion 55 Inversion 26 Eversion 12 Comments pain PF, inversion PT-OP-L Special Tests Start: 12/23/23 08:33 Freq: Status: Active Protocol: Document 01/02/24 10:49 [facility] (Rec: 01/02/24 11:36 [facility] [id number]) Special Tests Lumbar Spine Special Tests Slump Test Results neg L PT-OP-M Strength Start: 12/23/23 08:33 Freq: Status: Active Protocol: Document 01/02/24 10:49 [facility] (Rec: 01/02/24 11:36 [facility] [id number]) Hip Strength Hip Manual Muscle Testing Right Flexion (L2) 4- Good- Extension (S1) 3+ Fair+ Abduction 4- Good- External Rotation 4 Good Internal Rotation 5 Normal Left Flexion (L2) 4- Good- Extension (S1) 3+ Fair+ Abduction 3+ Fair+ External Rotation 4 Good Internal Rotation 5 Normal Knee Strength Knee Manual Muscle Testing Right Flexion (S2) 5 Normal Extension (L3) 5 Normal Left Flexion (S2) 4+ Good+ Extension (L3) 4+ Good+ Ankle/Foot Strength Ankle and Foot Manual Muscle Testing Right Dorsiflexion (L4) 5 Normal Plantarflexion (S1) 5 Normal Inversion 5 Normal Eversion (S1) 5 Normal Comments pain ankle end of reps 20 heel raises Left Dorsiflexion (L4) 5 Normal Plantarflexion (S1) 3+ Fair+ Inversion 3 Fair Eversion (S1) 4 Good Comments pain inversion and eversion & PF 2 heel raises Toe Strength Toe Manual Muscle Testing Right 2nd Toe Flexion 5 Normal Extension 5 Normal Comments 2-5 Right Great Toe Flexion 4 Good Extension 4 Good Left 2nd Toe Flexion 4- Good- Extension 4+ Good+ Comments 2-5 Left Great Toe Flexion 3 Fair Extension 4- Good- Comments unable to abd PT-OP-Q Treatments Start: 12/23/23 08:33 Freq: Status: Active Protocol: Document 01/13/24 10:49 SP (Rec: 01/13/24 11:32 SP [id number]) Cardio Equipment Recumbent Elliptical (Biodex) Duration (Minutes) 6 Resistance 3 Seat Position in 8 Other LEs only Gym Equipment Shuttle Balance red clips Details 4s- wt shift Comments fwd/bwd/lateral Therapeutic Exercises Sitting Exercises ankle 3 way Sitting Exercise Name DF, EV, IV Side left Resistance TB #2 teal Reps/Minutes x10 each ankle&toe band Sitting Exercise Name concentric &eccentric ankle& toe flex/eccentric ext Side left Resistance TB #2 hammock positioning Reps/Minutes x10 Comments cued slow eccentric full range tolerant/perform DF & toe ext arch raises Sitting Exercise Name 1. toe extension 2. arch lift 3. marble pepper picker Side left Reps/Minutes 10 reps each Comments 1. challenge isolate 1st MTP lift 2. toe /c arch more comfortable 3. pnfree toe yoga Sitting Exercise Name 1. big toe ext only 2. toes 2- 5 ext only Side left Equipment Used 1. has to hold down 2-5 for 1st MTP lift most time Reps/Minutes 10 ea Comments 1. challenge but able perform few reps independent 2. performs toe abd&ext Standing Exercises knee & ankle mobility stairs Standing Exercise Name trialed in PT (recheck, add next tx) Side left Resistance 2nd step> chair Equipment Used rail/chair back support Reps/Minutes 8 reps each surface Comments tarsal posterior glide assist by BILINGUAL OPERATOR calf stretch Standing Exercise Name added to HEP declined HO Side left Resistance forefoot on rolled towel Equipment Used rail support Reps/Minutes 30 x2 Manual Therapy Treatment Consent Patient gave verbal consent for manual Yes treatment Soft Tissue Mobilization calf Body Location L calf and achilles Mobilization Type Rolling Intensity/Depth Moderate Body Position long sitting plantar fascia Body Location L Mobilization Type Rolling Intensity/Depth Moderate Body Position long sitting Joint Mobilizations midfoot Joint L Grade II Body Position long sit Comments gross rotation talus Joint L Comments posterior glide long sit and during ankle mobility at step into DF calcaneus Joint L Grade II Body Position long sit Comments distraction and lat tilt Neuro Re-Education Treatment Balance Activities rocker board Details easy Equipment no UE support near side stairs Reps/Duration 20 reps PT-OP-T Assessment and Plan Start: 12/23/23 08:33 Freq: Status: Active Protocol: Document 01/13/24 10:49 SP (Rec: 01/13/24 11:32 SP [id number]) Physical Therapy Assessment Goals balance Intermediate Goal (LTG) Pt will be able to do SLS at least 10 sec B to show improved balance LTG Duration 03/12 activities Short Term Goal (STG) Pt will be able to return to full gym routine w/o inc foot pain STG Duration 02/04 Packing Machine Feeder Goal (LTG) pt will be able to return to all gardening and walking w/o inc foot pain greater than 2/ 10 LTG Duration 03/12 strength Short Term Goal (STG) Pt will be indep w/HEP STG Duration 02/04 Packing Machine Feeder Goal (LTG) Pt will score at least 4+/5 on all BLE MMT to show improved strength and stability to allow greater ease with typical activities. LTG Duration 03/12 FAAM Impairment 47/84 Short Term Goal (STG) Pt will improve FAAM score to at least 60 to show improved functional ability. STG Duration 02/04 Intermediate Goal (LTG) Pt will improve FAAM score to at least 70 to show improved functional ability. LTG Duration 03/12 Assessment Summary Assessment Pt good tolerance to manual, ed continue self application. No reports of pain during foot resisted ther ex today. Improved mobility tolerance no pain initiated tilt board then shuttle balance, cues for wt shift slow motion. Physical Therapy Plan Frequency and Duration Frequency of Treatment 2x/Week Duration of treatment (weeks) 10 Plan of Care Start Date 01/02/24 Plan of Care End Date 03/12/24 Therapeutic Interventions Therapeutic Interventions Balance Training,Gait Training ,Home Exercise Program,Joint Mobilizations,Manual Therapy, Neuromuscular Re-education, Patient/Caregiver Education, Self-Care/Home Management,Soft Tissue Mobilization,Taping, Therapeutic Activities, Therapeutic Exercises Modalities Cold Pack/Ice Massage,Electric Stimulation,Hot Packs, Infrared Therapy,Ultrasound Next Visit Focus/Plan Next Note Type Treatment Note Next Visit Plan review seated HEP, progress standing activities. manual: STM to calf, plantar fascia, foot/ankle jt mobs
--- NOTE | 2024-01-16 11:31 | PT.OTN ---
Current Diagnoses Other synovitis and tenosynovitis, left ankle and foot (01/16/24) Difficulty in walking, not elsewhere classified (01/16/24) Weakness (01/16/24) Physical Therapy Treatment Note PT-OP-A Visit Information Start: 12/23/23 08:33 Freq: Status: Active Protocol: Document 01/16/24 10:46 MB (Rec: 01/16/24 11:30 MB [id number]) Out-Patient Physical Therapy Visit Information Visit Information Visit Type Treatment Note Visit Note Medicare 08/03 before KX Visit Start Time 10:46 Visit Stop Time 11:26 Visit Number 5 Number of [facility] [employer] [facility] Visits 0 PT-OP-B Current Condition Start: 12/23/23 08:33 Freq: Status: Active Protocol: Document 01/02/24 10:49 [facility] (Rec: 01/02/24 11:36 [facility] [id number]) Current Condition History of Current Condition Onset Date 3 months Current Complaints L ankle and arch History of Current Condition Pt reports L foot pain started in med ankle and arch without any specific starting incident . She has not been working for 2 months and will go back for 3 days this winter for 4 hours a day. For the first 6 weeks, it would swell anytime on feet extended. She did return from a trip and was walking a bit (10-15k one day then the next day driving to new location so rested). It was hurting a lot after days of walking. R one is doing good (hx of pain and PT in past). Hasn't been to the gym for a few months d/t this ( ellipical, wt machines). Has not been doing typical walks d /t pain ([place], [place] miles, 3 -4 days a week). Aims to get 10k steps a day. Before left on trip, had 1 massage a week. Prior Treatments and Tests MRI: IMPRESSION: 1. Moderate tenosynovitis of the posterior tibial tendon. 2. Mild tenosynovitis of the flexor hallucis longus and extensor digitorum longus tendon. 3. Mild to moderate thickening of the mid substance of the Achilles tendon with increased signal in peritenon consistent with some acute inflammation. 4. 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 5. Calcaneal heel spur. 6. Moderate edematous changes in the subcutaneous tissues along the medial aspect of the foot. Treatment Goals Patient/Caregiver Goals get back on elliptical, return to walks, return to gardening (shovel, etc) PT-OP-C Subjective Start: 12/23/23 08:33 Freq: Status: Active Protocol: Document 01/16/24 10:46 MB (Rec: 01/16/24 11:30 MB [id number]) OP-PT Subjective Patient Comments Patient Comments Pt states exercises are going well. She declines TrP treatment today. PT-OP-D Balance Start: 12/23/23 08:33 Freq: Status: Active Protocol: Document 01/02/24 10:49 [facility] (Rec: 01/02/24 11:36 [facility] [id number]) Balance Tests Single Limb Standing Single Limb- Right 3 sec Single Limb- Left 1 sec PT-OP-J Posture/Palpation/Skin Start: 12/23/23 08:33 Freq: Status: Active Protocol: Document 01/02/24 10:49 [facility] (Rec: 01/02/24 11:36 [facility] [id number]) Posture Evaluation Comments Posture Comments L>R arch collapse, L foot turned out, rearfoot valgus PT-OP-K Range of Motion Start: 12/23/23 08:33 Freq: Status: Active Protocol: Document 01/02/24 10:49 [facility] (Rec: 01/02/24 11:36 [facility] [id number]) Ankle and Foot Goniometric Range of Motion Ankle and Foot Right Active Dorsiflexion with Knee Flexed 7 Dorsiflexion with Knee Extended 5 Plantarflexion 51 Inversion 31 Eversion 12 Left Active Dorsiflexion with Knee Flexed 4 Dorsiflexion with Knee Extended 1 Plantarflexion 55 Inversion 26 Eversion 12 Comments pain PF, inversion PT-OP-L Special Tests Start: 12/23/23 08:33 Freq: Status: Active Protocol: Document 01/02/24 10:49 [facility] (Rec: 01/02/24 11:36 [facility] [id number]) Special Tests Lumbar Spine Special Tests Slump Test Results neg L PT-OP-M Strength Start: 12/23/23 08:33 Freq: Status: Active Protocol: Document 01/02/24 10:49 [facility] (Rec: 01/02/24 11:36 [facility] [id number]) Hip Strength Hip Manual Muscle Testing Right Flexion (L2) 4- Good- Extension (S1) 3+ Fair+ Abduction 4- Good- External Rotation 4 Good Internal Rotation 5 Normal Left Flexion (L2) 4- Good- Extension (S1) 3+ Fair+ Abduction 3+ Fair+ External Rotation 4 Good Internal Rotation 5 Normal Knee Strength Knee Manual Muscle Testing Right Flexion (S2) 5 Normal Extension (L3) 5 Normal Left Flexion (S2) 4+ Good+ Extension (L3) 4+ Good+ Ankle/Foot Strength Ankle and Foot Manual Muscle Testing Right Dorsiflexion (L4) 5 Normal Plantarflexion (S1) 5 Normal Inversion 5 Normal Eversion (S1) 5 Normal Comments pain ankle end of reps 20 heel raises Left Dorsiflexion (L4) 5 Normal Plantarflexion (S1) 3+ Fair+ Inversion 3 Fair Eversion (S1) 4 Good Comments pain inversion and eversion & PF 2 heel raises Toe Strength Toe Manual Muscle Testing Right 2nd Toe Flexion 5 Normal Extension 5 Normal Comments 2-5 Right Great Toe Flexion 4 Good Extension 4 Good Left 2nd Toe Flexion 4- Good- Extension 4+ Good+ Comments 2-5 Left Great Toe Flexion 3 Fair Extension 4- Good- Comments unable to abd PT-OP-Q Treatments Start: 12/23/23 08:33 Freq: Status: Active Protocol: Document 01/16/24 10:46 MB (Rec: 01/16/24 11:30 MB [id number]) Cardio Equipment Recumbent Elliptical ([employer]) Duration (Minutes) 10 Resistance 2-3 Seat Position 8 Other LEs only Manual Therapy Treatment Consent Patient gave verbal consent for manual Yes treatment Other Other Manual Treatments Pt supine: left gastroc, soleus, fibularis STM and MWM, positional release, compression left first metatarsal to help with bone/ likely arthritic tension, positional release and STM plantar fascia. Pt with cyst- like areas plantar fascia and inferior knee in the gastroc medial and lateral PT-OP-T Assessment and Plan Start: 12/23/23 08:33 Freq: Status: Active Protocol: Document 01/16/24 10:46 MB (Rec: 01/16/24 11:30 MB [id number]) Physical Therapy Assessment Goals balance Schedule Planning Manager Goal (LTG) Pt will be able to do SLS at least 10 sec B to show improved balance LTG Duration 03/12 activities Short Term Goal (STG) Pt will be able to return to full gym routine w/o inc foot pain STG Duration 02/04 Schedule Planning Manager Goal (LTG) pt will be able to return to all gardening and walking w/o inc foot pain greater than 2/ 10 LTG Duration 03/12 strength Short Term Goal (STG) Pt will be indep w/HEP STG Duration 02/04 Snf Goal (LTG) Pt will score at least 4+/5 on all BLE MMT to show improved strength and stability to allow greater ease with typical activities. LTG Duration 03/12 FAAM Impairment 47/84 Short Term Goal (STG) Pt will improve FAAM score to at least 60 to show improved functional ability. STG Duration 02/04 Schedule Planning Manager Goal (LTG) Pt will improve FAAM score to at least 70 to show improved functional ability. LTG Duration 03/12 Assessment Summary Assessment Pt tolerates manual work well today. She is not interested in TrP treatment and so STM, joint mobs and positional release only today. Physical Therapy Plan Frequency and Duration Frequency of Treatment 2x/Week Duration of treatment (weeks) 10 Plan of Care Start Date 01/02/24 Plan of Care End Date 03/12/24 Therapeutic Interventions Therapeutic Interventions Balance Training,Gait Training ,Home Exercise Program,Joint Mobilizations,Manual Therapy, Neuromuscular Re-education, Patient/Caregiver Education, Self-Care/Home Management,Soft Tissue Mobilization,Taping, Therapeutic Activities, Therapeutic Exercises Modalities Cold Pack/Ice Massage,Electric Stimulation,Hot Packs, Infrared Therapy,Ultrasound Next Visit Focus/Plan Next Note Type Treatment Note Next Visit Plan Con't per plan, review exercises and progress as tolerated, including standing exercises, con't manual work
--- NOTE | 2024-01-23 09:48 | PT.OTN ---
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 (Rec: 01/02/24 11:36 [facility] [id number]) Current Condition History of Current Condition Onset Date 3 months Current Complaints L ankle and arch History of Current Condition Pt reports L foot pain started in med ankle and arch without any specific starting incident . She has not been working for 2 months and will go back for 3 days this winter for 4 hours a day. For the first 6 weeks, it would swell anytime on feet extended. She did return from a trip and was walking a bit (10-15k one day then the next day driving to new location so rested). It was hurting a lot after days of walking. R one is doing good (hx of pain and PT in past). Hasn't been to the gym for a few months d/t this ( ellipical, wt machines). Has not been doing typical walks d /t pain [place], 3 -4 days a week). Aims to get 10k steps a day. Before left on trip, had 1 massage a week. Prior Treatments and Tests MRI: IMPRESSION: 1. Moderate tenosynovitis of the posterior tibial tendon. 2. Mild tenosynovitis of the flexor hallucis longus and extensor digitorum longus tendon. 3. Mild to moderate thickening of the mid substance of the Achilles tendon with increased signal in peritenon consistent with some acute inflammation. 4. 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 5. Calcaneal heel spur. 6. Moderate edematous changes in the subcutaneous tissues along the medial aspect of the foot. Treatment Goals Patient/Caregiver Goals get back on elliptical, return to walks, return to gardening (shovel, etc) PT-OP-C Subjective Start: 12/23/23 08:33 Freq: Status: Active Protocol: Document 01/23/24 09:07 SP (Rec: 01/23/24 09:50 SP [id number]) OP-PT Subjective Patient Comments Patient Comments Pt reports pain within the L ankle inferior medial malleolus still most of the time approx 810. She reports no pain with exercises but they don't make is significantly pain reducation. I felt fine after PT sessions. PT-OP-D Balance Start: 12/23/23 08:33 Freq: Status: Active Protocol: Document 01/02/24 10:49 [facility] (Rec: 01/02/24 11:36 [facility] [id number]) Balance Tests Single Limb Standing Single Limb- Right 3 sec Single Limb- Left 1 sec PT-OP-J Posture/Palpation/Skin Start: 12/23/23 08:33 Freq: Status: Active Protocol: Document 01/02/24 10:49 [facility] (Rec: 01/02/24 11:36 [facility] [id number]) Posture Evaluation Comments Posture Comments L>R arch collapse, L foot turned out, rearfoot valgus PT-OP-K Range of Motion Start: 12/23/23 08:33 Freq: Status: Active Protocol: Document 01/02/24 10:49 [facility] (Rec: 01/02/24 11:36 [facility] [id number]) Ankle and Foot Goniometric Range of Motion Ankle and Foot Right Active Dorsiflexion with Knee Flexed 7 Dorsiflexion with Knee Extended 5 Plantarflexion 51 Inversion 31 Eversion 12 Left Active Dorsiflexion with Knee Flexed 4 Dorsiflexion with Knee Extended 1 Plantarflexion 55 Inversion 26 Eversion 12 Comments pain PF, inversion PT-OP-L Special Tests Start: 12/23/23 08:33 Freq: Status: Active Protocol: Document 01/02/24 10:49 [facility] (Rec: 01/02/24 11:36 [facility] [id number]) Special Tests Lumbar Spine Special Tests Slump Test Results neg L PT-OP-M Strength Start: 12/23/23 08:33 Freq: Status: Active Protocol: Document 01/02/24 10:49 [facility] (Rec: 01/02/24 11:36 [facility] [id number]) Hip Strength Hip Manual Muscle Testing Right Flexion (L2) 4- Good- Extension (S1) 3+ Fair+ Abduction 4- Good- External Rotation 4 Good Internal Rotation 5 Normal Left Flexion (L2) 4- Good- Extension (S1) 3+ Fair+ Abduction 3+ Fair+ External Rotation 4 Good Internal Rotation 5 Normal Knee Strength Knee Manual Muscle Testing Right Flexion (S2) 5 Normal Extension (L3) 5 Normal Left Flexion (S2) 4+ Good+ Extension (L3) 4+ Good+ Ankle/Foot Strength Ankle and Foot Manual Muscle Testing Right Dorsiflexion (L4) 5 Normal Plantarflexion (S1) 5 Normal Inversion 5 Normal Eversion (S1) 5 Normal Comments pain ankle end of reps 20 heel raises Left Dorsiflexion (L4) 5 Normal Plantarflexion (S1) 3+ Fair+ Inversion 3 Fair Eversion (S1) 4 Good Comments pain inversion and eversion & PF 2 heel raises Toe Strength Toe Manual Muscle Testing Right 2nd Toe Flexion 5 Normal Extension 5 Normal Comments 2-5 Right Great Toe Flexion 4 Good Extension 4 Good Left 2nd Toe Flexion 4- Good- Extension 4+ Good+ Comments 2-5 Left Great Toe Flexion 3 Fair Extension 4- Good- Comments unable to abd PT-OP-Q Treatments Start: 12/23/23 08:33 Freq: Status: Active Protocol: Document 01/23/24 09:07 SP (Rec: 01/23/24 09:50 SP [id number]) Cardio Equipment Recumbent Elliptical (BiodAircuity) Duration (Minutes) 8 Resistance 4 Seat Position 8 Other LEs only Gym Equipment Shuttle Balance red clips Details 4s- wt shift Comments fwd/bwd ok SBA lateral R 6/10 pain inferior medial malleolus. Therapeutic Exercises Standing Exercises calf stretch Standing Exercise Name gastric and soleus Side left Resistance forefoot on rolled towel Equipment Used rail support Reps/Minutes 30 x2 Comments reports 3/10 pain inferior medial malleolus gastroc, not sarah soleus stretch heel raise Standing Exercise Name 1. foam no shoes 2. eccentric off step Side bilateral Equipment Used rail/counter support Reps/Minutes x6 reps before starting hurting Comments cues for ankle alignment Manual Therapy Treatment Consent Patient gave verbal consent for manual Yes treatment Soft Tissue Mobilization L ankle Body Location L inferior medial malleolus Mobilization Type Rolling Intensity/Depth Moderate Body Position Supine Comments gentle STMs and MWM ankle IV/ EV calf Body Location L calf and achilles Mobilization Type Rolling,Sustained Pressure, Other Intensity/Depth Moderate Body Position Prone Comments STMs and MWM ankle flex/ext plantar fascia Body Location L Mobilization Type Rolling Intensity/Depth Moderate Body Position long sitting Joint Mobilizations midfoot Joint L Grade II Body Position long sit Comments gross rotation talus Joint L Comments posterior glide long sit and during ankle mobility at step into DF calcaneus Joint L Grade II Body Position long sit Comments distraction and lat tilt Taping L ankle Treatment Focus ankle stability support inferior malleolus Type of Tape ktaping Skin Inspection normal color intact Comments beige PT-OP-T Assessment and Plan Start: 12/23/23 08:33 Freq: Status: Active Protocol: Document 01/23/24 09:07 SP (Rec: 01/23/24 09:50 SP [id number]) Physical Therapy Assessment Goals balance Long-Term Goal (LTG) Pt will be able to do SLS at least 10 sec B to show improved balance LTG Duration 03/12 activities Short Term Goal (STG) Pt will be able to return to full gym routine w/o inc foot pain STG Duration 02/04 Long-Term Goal (LTG) pt will be able to return to all gardening and walking w/o inc foot pain greater than 2/ 10 LTG Duration 03/12 strength Short Term Goal (STG) Pt will be indep w/HEP STG Duration 02/04 Long-Term Goal (LTG) Pt will score at least 4+/5 on all BLE MMT to show improved strength and stability to allow greater ease with typical activities. LTG Duration 03/12 FAAM Impairment 47/84 Short Term Goal (STG) Pt will improve FAAM score to at least 60 to show improved functional ability. STG Duration 02/04 Long-Term Goal (LTG) Pt will improve FAAM score to at least 70 to show improved functional ability. LTG Duration 03/12 Assessment Summary Assessment Pt sensitive to pressure L inferior medial malleolus adjusted with feedback. Trialed progression ankle mobility, not tolerated WB heel raises, fwd/bwd on shuttle balance fine but 6/10 pain during Lateral tilt to R, to L was fine. Physical Therapy Plan Frequency and Duration Frequency of Treatment 2x/Week Duration of treatment (weeks) 10 Plan of Care Start Date 01/02/24 Plan of Care End Date 03/12/24 Therapeutic Interventions Therapeutic Interventions Balance Training,Gait Training ,Home Exercise Program,Joint Mobilizations,Manual Therapy, Neuromuscular Re-education, Patient/Caregiver Education, Self-Care/Home Management,Soft Tissue Mobilization,Taping, Therapeutic Activities, Therapeutic Exercises Modalities Cold Pack/Ice Massage,Electric Stimulation,Hot Packs, Infrared Therapy,Ultrasound Next Visit Focus/Plan Next Note Type Treatment Note Next Visit Plan Con't per plan, review exercises and progress as tolerated, including standing exercises, con't manual work
--- NOTE | 2024-01-30 16:25 | PT.OTN ---
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 (Rec: 01/02/24 11:36 [facility] [id number]) Current Condition History of Current Condition Onset Date 3 months Current Complaints L ankle and arch History of Current Condition Pt reports L foot pain started in med ankle and arch without any specific starting incident . She has not been working for 2 months and will go back for 3 days this winter for 4 hours a day. For the first 6 weeks, it would swell anytime on feet extended. She did return from a trip and was walking a bit (10-15k one day then the next day driving to new location so rested). It was hurting a lot after days of walking. R one is doing good (hx of pain and PT in past). Hasn't been to the gym for a few months d/t this ( ellipical, wt machines). Has not been doing typical walks d /t pain ([place], [place] miles, 3 -4 days a week). Aims to get 10k steps a day. Before left on trip, had 1 massage a week. Prior Treatments and Tests MRI: IMPRESSION: 1. Moderate tenosynovitis of the posterior tibial tendon. 2. Mild tenosynovitis of the flexor hallucis longus and extensor digitorum longus tendon. 3. Mild to moderate thickening of the mid substance of the Achilles tendon with increased signal in peritenon consistent with some acute inflammation. 4. 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 5. Calcaneal heel spur. 6. Moderate edematous changes in the subcutaneous tissues along the medial aspect of the foot. Treatment Goals Patient/Caregiver Goals get back on elliptical, return to walks, return to gardening (shovel, etc) PT-OP-C Subjective Start: 12/23/23 08:33 Freq: Status: Active Protocol: Document 01/30/24 15:25 SW (Rec: 01/30/24 16:24 SW [id number]) OP-PT Subjective Patient Comments Patient Comments Pt reports working 3 days a week. 7/10 pain today. Notices most pain standing. Pt trialed recriprocal eliptical like machine at the gym, did not tolerate well. PT-OP-D Balance Start: 12/23/23 08:33 Freq: Status: Active Protocol: Document 01/02/24 10:49 [facility] (Rec: 01/02/24 11:36 [facility] [id number]) Balance Tests Single Limb Standing Single Limb- Right 3 sec Single Limb- Left 1 sec PT-OP-J Posture/Palpation/Skin Start: 12/23/23 08:33 Freq: Status: Active Protocol: Document 01/02/24 10:49 [facility] (Rec: 01/02/24 11:36 [facility] [id number]) Posture Evaluation Comments Posture Comments L>R arch collapse, L foot turned out, rearfoot valgus PT-OP-K Range of Motion Start: 12/23/23 08:33 Freq: Status: Active Protocol: Document 01/02/24 10:49 [facility] (Rec: 01/02/24 11:36 [facility] [id number]) Ankle and Foot Goniometric Range of Motion Ankle and Foot Right Active Dorsiflexion with Knee Flexed 7 Dorsiflexion with Knee Extended 5 Plantarflexion 51 Inversion 31 Eversion 12 Left Active Dorsiflexion with Knee Flexed 4 Dorsiflexion with Knee Extended 1 Plantarflexion 55 Inversion 26 Eversion 12 Comments pain PF, inversion PT-OP-L Special Tests Start: 12/23/23 08:33 Freq: Status: Active Protocol: Document 01/02/24 10:49 [facility] (Rec: 01/02/24 11:36 [facility] [id number]) Special Tests Lumbar Spine Special Tests Slump Test Results neg L PT-OP-M Strength Start: 12/23/23 08:33 Freq: Status: Active Protocol: Document 01/02/24 10:49 [facility] (Rec: 01/02/24 11:36 [facility] [id number]) Hip Strength Hip Manual Muscle Testing Right Flexion (L2) 4- Good- Extension (S1) 3+ Fair+ Abduction 4- Good- External Rotation 4 Good Internal Rotation 5 Normal Left Flexion (L2) 4- Good- Extension (S1) 3+ Fair+ Abduction 3+ Fair+ External Rotation 4 Good Internal Rotation 5 Normal Knee Strength Knee Manual Muscle Testing Right Flexion (S2) 5 Normal Extension (L3) 5 Normal Left Flexion (S2) 4+ Good+ Extension (L3) 4+ Good+ Ankle/Foot Strength Ankle and Foot Manual Muscle Testing Right Dorsiflexion (L4) 5 Normal Plantarflexion (S1) 5 Normal Inversion 5 Normal Eversion (S1) 5 Normal Comments pain ankle end of reps 20 heel raises Left Dorsiflexion (L4) 5 Normal Plantarflexion (S1) 3+ Fair+ Inversion 3 Fair Eversion (S1) 4 Good Comments pain inversion and eversion & PF 2 heel raises Toe Strength Toe Manual Muscle Testing Right 2nd Toe Flexion 5 Normal Extension 5 Normal Comments 2-5 Right Great Toe Flexion 4 Good Extension 4 Good Left 2nd Toe Flexion 4- Good- Extension 4+ Good+ Comments 2-5 Left Great Toe Flexion 3 Fair Extension 4- Good- Comments unable to abd PT-OP-Q Treatments Start: 12/23/23 08:33 Freq: Status: Active Protocol: Document 01/30/24 15:25 (Rec: 01/30/24 16:24 [id number]) Cardio Equipment Recumbent Elliptical (Biodex) Duration (Minutes) 8 Resistance 5 Seat Position 8 Other LEs only Therapeutic Exercises Sitting Exercises Towel scrunches Sitting Exercise Name Towel scrunches Side left Resistance AROM Equipment Used hand towel Comments cues for alignment, no increase in pain Standing Exercises heel raise Standing Exercise Name Heel raises- trialed w/ shoes Side bilateral Equipment Used rail support Reps/Minutes x8 reps before starting hurting Comments cues for ankle alignment Manual Therapy Treatment Consent Patient gave verbal consent for manual Yes treatment Soft Tissue Mobilization L ankle Body Location L inferior medial malleolus Mobilization Type Rolling Intensity/Depth Moderate Body Position Supine Comments gentle STMs and MWM ankle IV/ EV calf Body Location L calf and achilles Mobilization Type Rolling,Sustained Pressure, Other Intensity/Depth Moderate Body Position Prone Comments STMs and MWM ankle flex/ext plantar fascia Body Location L Mobilization Type Rolling Intensity/Depth Moderate Body Position long sitting PT-OP-T Assessment and Plan Start: 12/23/23 08:33 Freq: Status: Active Protocol: Document 01/30/24 15:25 SW (Rec: 01/30/24 16:24 SW [id number]) Physical Therapy Assessment Goals balance Software Lead Goal (LTG) Pt will be able to do SLS at least 10 sec B to show improved balance LTG Duration 03/12 activities Short Term Goal (STG) Pt will be able to return to full gym routine w/o inc foot pain STG Duration 02/04 Assisted Goal (LTG) pt will be able to return to all gardening and walking w/o inc foot pain greater than 2/ 10 LTG Duration 03/12 strength Short Term Goal (STG) Pt will be indep w/HEP STG Duration 02/04 Assisted Goal (LTG) Pt will score at least 4+/5 on all BLE MMT to show improved strength and stability to allow greater ease with typical activities. LTG Duration 03/12 FAAM Impairment 47/84 Short Term Goal (STG) Pt will improve FAAM score to at least 60 to show improved functional ability. STG Duration 02/04 Software Lead Goal (LTG) Pt will improve FAAM score to at least 70 to show improved functional ability. LTG Duration 03/12 Assessment Summary Assessment Started session with manual work due to patient pain level , pt tolerated mod pressure today. Continued gentle stretches followed up with strength post stretching. Pt had good tolerance to recumbant eliptical, with increased resistance today, decreased pain post. Pt reports standing causes most pain, such as standing to do dishes, suggested pt trial propping LLE onto stool or something similar to offload left foot prn to do chores, to reduce pain. Physical Therapy Plan Frequency and Duration Frequency of Treatment 2x/Week Duration of treatment (weeks) 10 Plan of Care Start Date 01/02/24 Plan of Care End Date 03/12/24 Therapeutic Interventions Therapeutic Interventions Balance Training,Gait Training ,Home Exercise Program,Joint Mobilizations,Manual Therapy, Neuromuscular Re-education, Patient/Caregiver Education, Self-Care/Home Management,Soft Tissue Mobilization,Taping, Therapeutic Activities, Therapeutic Exercises Modalities Cold Pack/Ice Massage,Electric Stimulation,Hot Packs, Infrared Therapy,Ultrasound Next Visit Focus/Plan Next Note Type Treatment Note Next Visit Plan Con't per plan, review exercises and progress as tolerated, including standing exercises, con't manual work
--- NOTE | 2024-02-04 16:43 | PT.OTN ---
Current Diagnoses Other synovitis and tenosynovitis, left ankle and foot (02/04/24) Difficulty in walking, not elsewhere classified (02/04/24) Weakness (02/04/24) Physical Therapy Treatment Note PT-OP-A Visit Information Start: 12/23/23 08:33 Freq: Status: Active Protocol: Document 02/04/24 10:48 SW (Rec: 02/04/24 12:42 [id number]) Out-Patient Physical Therapy Visit Information Visit Information Visit Type Treatment Note Visit Note 11/03 before KX Visit Start Time 10:48 Visit Stop Time 11:13 Visit Number 8(10/25 with eval) Number of DRIVER LICENSE EXAMINER Visits 3 PT-OP-B Current Condition Start: 12/23/23 08:33 Freq: Status: Active Protocol: Document 01/02/24 10:49 [facility] (Rec: 01/02/24 11:36 [facility] [id number]) Current Condition History of Current Condition Onset Date 3 months Current Complaints L ankle and arch History of Current Condition Pt reports L foot pain started in med ankle and arch without any specific starting incident . She has not been working for 2 months and will go back for 3 days this winter for 4 hours a day. For the first 6 weeks, it would swell anytime on feet extended. She did return from a trip and was walking a bit (10-15k one day then the next day driving to new location so rested). It was hurting a lot after days of walking. R one is doing good (hx of pain and PT in past). Hasn't been to the gym for a few months d/t this ( ellipical, wt machines). Has not been doing typical walks d /t pain [place], 3 -4 days a week). Aims to get 10k steps a day. Before left on trip, had 1 massage a week. Prior Treatments and Tests MRI: IMPRESSION: 1. Moderate tenosynovitis of the posterior tibial tendon. 2. Mild tenosynovitis of the flexor hallucis longus and extensor digitorum longus tendon. 3. Mild to moderate thickening of the mid substance of the Achilles tendon with increased signal in peritenon consistent with some acute inflammation. 4. 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 5. Calcaneal heel spur. 6. Moderate edematous changes in the subcutaneous tissues along the medial aspect of the foot. Treatment Goals Patient/Caregiver Goals get back on elliptical, return to walks, return to gardening (shovel, etc) PT-OP-C Subjective Start: 12/23/23 08:33 Freq: Status: Active Protocol: Document 02/04/24 10:48 SW (Rec: 02/04/24 11:34 [id number]) OP-PT Subjective Patient Comments Patient Comments Pt reports went for a long walk yesterday, it was tender, so far today it is not bad. . Pt plans to change up schedule after first of year, to give pt a day of rest between. Currently working 4 hour days. Pt reports pain is no longer keeping awake at night. PT-OP-D Balance Start: 12/23/23 08:33 Freq: Status: Active Protocol: Document 01/02/24 10:49 [facility] (Rec: 01/02/24 11:36 [facility] [id number]) Balance Tests Single Limb Standing Single Limb- Right 3 sec Single Limb- Left 1 sec PT-OP-J Posture/Palpation/Skin Start: 12/23/23 08:33 Freq: Status: Active Protocol: Document 01/02/24 10:49 [facility] (Rec: 01/02/24 11:36 [facility] [id number]) Posture Evaluation Comments Posture Comments L>R arch collapse, L foot turned out, rearfoot valgus PT-OP-K Range of Motion Start: 12/23/23 08:33 Freq: Status: Active Protocol: Document 01/02/24 10:49 [facility] (Rec: 01/02/24 11:36 [facility] [id number]) Ankle and Foot Goniometric Range of Motion Ankle and Foot Right Active Dorsiflexion with Knee Flexed 7 Dorsiflexion with Knee Extended 5 Plantarflexion 51 Inversion 31 Eversion 12 Left Active Dorsiflexion with Knee Flexed 4 Dorsiflexion with Knee Extended 1 Plantarflexion 55 Inversion 26 Eversion 12 Comments pain PF, inversion PT-OP-L Special Tests Start: 12/23/23 08:33 Freq: Status: Active Protocol: Document 01/02/24 10:49 [facility] (Rec: 01/02/24 11:36 [facility] [id number]) Special Tests Lumbar Spine Special Tests Slump Test Results neg L PT-OP-M Strength Start: 12/23/23 08:33 Freq: Status: Active Protocol: Document 01/02/24 10:49 [facility] (Rec: 01/02/24 11:36 [facility] [id number]) Hip Strength Hip Manual Muscle Testing Right Flexion (L2) 4- Good- Extension (S1) 3+ Fair+ Abduction 4- Good- External Rotation 4 Good Internal Rotation 5 Normal Left Flexion (L2) 4- Good- Extension (S1) 3+ Fair+ Abduction 3+ Fair+ External Rotation 4 Good Internal Rotation 5 Normal Knee Strength Knee Manual Muscle Testing Right Flexion (S2) 5 Normal Extension (L3) 5 Normal Left Flexion (S2) 4+ Good+ Extension (L3) 4+ Good+ Ankle/Foot Strength Ankle and Foot Manual Muscle Testing Right Dorsiflexion (L4) 5 Normal Plantarflexion (S1) 5 Normal Inversion 5 Normal Eversion (S1) 5 Normal Comments pain ankle end of reps 20 heel raises Left Dorsiflexion (L4) 5 Normal Plantarflexion (S1) 3+ Fair+ Inversion 3 Fair Eversion (S1) 4 Good Comments pain inversion and eversion & PF 2 heel raises Toe Strength Toe Manual Muscle Testing Right 2nd Toe Flexion 5 Normal Extension 5 Normal Comments 2-5 Right Great Toe Flexion 4 Good Extension 4 Good Left 2nd Toe Flexion 4- Good- Extension 4+ Good+ Comments 2-5 Left Great Toe Flexion 3 Fair Extension 4- Good- Comments unable to abd PT-OP-Q Treatments Start: 12/23/23 08:33 Freq: Status: Active Protocol: Document 02/04/24 10:48 (Rec: 02/04/24 11:34 [id number]) Cardio Equipment Recumbent Elliptical (Biodex) Duration (Minutes) 8 Resistance 5 Seat Position 8 Other LEs only Therapeutic Exercises Sitting Exercises Towel scrunches Sitting Exercise Name Towel scrunches Side left Resistance AROM Equipment Used hand towel Comments cues for alignment, no increase in pain ankle 3 way Sitting Exercise Name DF/PF, trialed Ev slight increase in pain Side left Resistance TB #2 teal>TB#3 Reps/Minutes x10, x10 ankle&toe band Sitting Exercise Name concentric &eccentric ankle& toe flex/eccentric ext Side left Resistance TB #2 hammock positioning TB#3 Reps/Minutes x10 Comments cued slow eccentric full range tolerant/perform DF & toe ext arch raises Sitting Exercise Name Removed from HEP Manual Therapy Treatment Soft Tissue Mobilization L ankle Body Location L inferior medial malleolus Mobilization Type Rolling Intensity/Depth Moderate Body Position Supine Comments gentle STMs and MWM ankle IV/ EV calf Body Location L calf and achilles Mobilization Type Rolling,Sustained Pressure, Other Intensity/Depth Moderate Body Position Prone Comments STMs and MWM ankle flex/ext plantar fascia Body Location L Mobilization Type Rolling Intensity/Depth Moderate Body Position long sitting Joint Mobilizations talus Joint L Comments posterior glide long sit and during ankle mobility at step into DF calcaneus Joint L Grade II Body Position long sit Comments distraction and lat tilt PT-OP-T Assessment and Plan Start: 12/23/23 08:33 Freq: Status: Active Protocol: Document 02/04/24 10:48 SW (Rec: 02/04/24 11:34 SW [id number]) Physical Therapy Assessment Goals balance Intermediate Goal (LTG) Pt will be able to do SLS at least 10 sec B to show improved balance LTG Duration 03/12 activities Short Term Goal (STG) Pt will be able to return to full gym routine w/o inc foot pain STG Duration 02/04 Rotary Machine Operator Goal (LTG) pt will be able to return to all gardening and walking w/o inc foot pain greater than 2/ 10 LTG Duration 03/12 strength Short Term Goal (STG) Pt will be indep w/HEP STG Duration 02/04 Rotary Machine Operator Goal (LTG) Pt will score at least 4+/5 on all BLE MMT to show improved strength and stability to allow greater ease with typical activities. LTG Duration 03/12 FAAM Impairment 47/84 Short Term Goal (STG) Pt will improve FAAM score to at least 60 to show improved functional ability. STG Duration 02/04 Intermediate Goal (LTG) Pt will improve FAAM score to at least 70 to show improved functional ability. LTG Duration 03/12 Assessment Summary Assessment Pt tolerated session well today. Pt pain level today was at a 2/10, decreased from previous session pain level 7/ 10. Pt did not tolerate standing strengthening well last session. Session focused on seated strength and manual therapy today for pt tolerance . Discontinued arch raises from pt HEP today, due to increased pain with exercise. Issued HEP HO for ankle strength (DF/PF only) and towel scrunches for foot intrinsic strength. Pt reports pain increase with inversion movements, and minimal increase with eversion. Plan to followup on tolerance to HEP ex issued today. Pt plans to change work schedule after beginning of year to allow for a day rest between 2/3 days, pt currently working x3 days a week x4 hour shifts, consecutive days. Physical Therapy Plan Frequency and Duration Frequency of Treatment 2x/Week Duration of treatment (weeks) 10 Plan of Care Start Date 01/02/24 Plan of Care End Date 03/12/24 Therapeutic Interventions Therapeutic Interventions Balance Training,Gait Training ,Home Exercise Program,Joint Mobilizations,Manual Therapy, Neuromuscular Re-education, Patient/Caregiver Education, Self-Care/Home Management,Soft Tissue Mobilization,Taping, Therapeutic Activities, Therapeutic Exercises Modalities Cold Pack/Ice Massage,Electric Stimulation,Hot Packs, Infrared Therapy,Ultrasound Next Visit Focus/Plan Next Note Type Treatment Note Next Visit Plan Con't per plan, review exercises and progress as tolerated, including standing exercises (pt did not tolerate standing exercises well last session, 02/04/24, continued seated strength), con't manual work
--- NOTE | 2024-02-06 08:19 | PT.OTN ---
Current Diagnoses Other synovitis and tenosynovitis, left ankle and foot (02/06/24) Difficulty in walking, not elsewhere classified (02/06/24) Weakness (02/06/24) Physical Therapy Treatment Note PT-OP-A Visit Information Start: 12/23/23 08:33 Freq: Status: Active Protocol: Document 02/06/24 07:29 [facility] (Rec: 02/06/24 08:19 [facility] [id number]) Out-Patient Physical Therapy Visit Information Visit Information Visit Type Progress Note Visit Start Time 07:31 Visit Stop Time 08:14 Visit Number 9 (03/27 PN) Number of RENTAL CLERK TOOL AND EQUIPMENT Visits 0 PT-OP-B Current Condition Start: 12/23/23 08:33 Freq: Status: Active Protocol: Document 01/02/24 10:49 [facility] (Rec: 01/02/24 11:36 [facility] [id number]) Current Condition History of Current Condition Onset Date 3 months Current Complaints L ankle and arch History of Current Condition Pt reports L foot pain started in med ankle and arch without any specific starting incident . She has not been working for 2 months and will go back for 3 days this winter for 4 hours a day. For the first 6 weeks, it would swell anytime on feet extended. She did return from a trip and was walking a bit (10-15k one day then the next day driving to new location so rested). It was hurting a lot after days of walking. R one is doing good (hx of pain and PT in past). Hasn't been to the gym for a few months d/t this ( ellipical, wt machines). Has not been doing typical walks d /t pain ([place], [place]-4 miles, 3 -4 days a week). Aims to get 10k steps a day. Before left on trip, had 1 massage a week. Prior Treatments and Tests MRI: IMPRESSION: 1. Moderate tenosynovitis of the posterior tibial tendon. 2. Mild tenosynovitis of the flexor hallucis longus and extensor digitorum longus tendon. 3. Mild to moderate thickening of the mid substance of the Achilles tendon with increased signal in peritenon consistent with some acute inflammation. 4. 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 5. Calcaneal heel spur. 6. Moderate edematous changes in the subcutaneous tissues along the medial aspect of the foot. Treatment Goals Patient/Caregiver Goals get back on elliptical, return to walks, return to gardening (shovel, etc) PT-OP-C Subjective Start: 12/23/23 08:33 Freq: Status: Active Protocol: Document 02/06/24 07:29 [facility] (Rec: 02/06/24 08:19 [facility] [id number]) OP-PT Subjective Patient Comments Patient Comments Put in an extra hour of work yesterday and it was the first day that she didn't have really bad pain. It still hurt , but wasn't as bad PT-OP-D Balance Start: 12/23/23 08:33 Freq: Status: Active Protocol: Document 02/06/24 07:29 [facility] (Rec: 02/06/24 08:19 [facility] [id number]) Balance Tests Single Limb Standing Single Limb- Right 7 sec Single Limb- Left 9 sec PT-OP-J Posture/Palpation/Skin Start: 12/23/23 08:33 Freq: Status: Active Protocol: Document 01/02/24 10:49 [facility] (Rec: 01/02/24 11:36 [facility] [id number]) Posture Evaluation Comments Posture Comments L>R arch collapse, L foot turned out, rearfoot valgus PT-OP-K Range of Motion Start: 12/23/23 08:33 Freq: Status: Active Protocol: Document 01/02/24 10:49 [facility] (Rec: 01/02/24 11:36 [facility] [id number]) Ankle and Foot Goniometric Range of Motion Ankle and Foot Right Active Dorsiflexion with Knee Flexed 7 Dorsiflexion with Knee Extended 5 Plantarflexion 51 Inversion 31 Eversion 12 Left Active Dorsiflexion with Knee Flexed 4 Dorsiflexion with Knee Extended 1 Plantarflexion 55 Inversion 26 Eversion 12 Comments pain PF, inversion PT-OP-L Special Tests Start: 12/23/23 08:33 Freq: Status: Active Protocol: Document 01/02/24 10:49 [facility] (Rec: 01/02/24 11:36 [facility] [id number]) Special Tests Lumbar Spine Special Tests Slump Test Results neg L PT-OP-M Strength Start: 12/23/23 08:33 Freq: Status: Active Protocol: Document 02/06/24 07:29 [facility] (Rec: 02/06/24 08:19 [facility] [id number]) Hip Strength Hip Manual Muscle Testing Right Flexion (L2) 4 Good Extension (S1) 4 Good Abduction 4- Good- Adduction 5 Normal External Rotation 4+ Good+ Internal Rotation 5 Normal Left Flexion (L2) 4 Good Extension (S1) 4 Good Abduction 3+ Fair+ Adduction 5 Normal External Rotation 4+ Good+ Internal Rotation 5 Normal Knee Strength Knee Manual Muscle Testing Right Flexion (S2) 5 Normal Extension (L3) 5 Normal Left Flexion (S2) 5 Normal Extension (L3) 5 Normal Ankle/Foot Strength Ankle and Foot Manual Muscle Testing Right Dorsiflexion (L4) 5 Normal Plantarflexion (S1) 5 Normal Inversion 5 Normal Eversion (S1) 5 Normal Comments pain ankle end of reps 20 heel raises Left Dorsiflexion (L4) 5 Normal Plantarflexion (S1) 3+ Fair+ Inversion 4- Good- Eversion (S1) 4 Good Comments pain inversion and eversion & PF 4 heel raises PT-OP-Q Treatments Start: 12/23/23 08:33 Freq: Status: Active Protocol: Document 02/06/24 07:29 [facility] (Rec: 02/06/24 08:19 [facility] [id number]) Therapeutic Exercises Supine Exercises isometric Supine Exercise Name DL isometric flex w/DF Side bilateral Reps/Minutes 20 sec,30 sec Standing Exercises sidesteps Side bilateral Equipment Used L1 band Reps/Minutes 20ft ea Comments cues to avoid leaning heel raise Standing Exercise Name Heel raises- trialed w/ shoes Side bilateral Equipment Used rail support Reps/Minutes x10 Comments tennis ball btwn ankles Other Exercises isometrics Other Exercise Name B MMT Manual Therapy Treatment Consent Patient gave verbal consent for manual Yes treatment Soft Tissue Mobilization plantar fascia Body Location L Mobilization Type Rolling Intensity/Depth Moderate Body Position long sitting Joint Mobilizations midfoot Comments med cunieform 1 and 2 talus Comments L distraction & lat glide c/r calcaneus Comments distraction and lat glide PT-OP-T Assessment and Plan Start: 12/23/23 08:33 Freq: Status: Active Protocol: Document 02/06/24 07:29 [facility] (Rec: 02/06/24 08:19 [facility] [id number]) Physical Therapy Assessment Goals balance Business Objects Architect Goal (LTG) Pt will be able to do SLS at least 10 sec B to show improved balance 02/05-7 sec R, 9 sec L LTG Duration 03/12 activities Short Term Goal (STG) Pt will be able to return to full gym routine w/o inc foot pain 02/05-doing bike, rowing and saturday did elliptical, wt lifting also-a little tender after STG Duration 02/04 Skilled Nursing Goal (LTG) pt will be able to return to all gardening and walking w/o inc foot pain greater than 2/ 10 LTG Duration 03/12 strength Short Term Goal (STG) Pt will be indep w/HEP STG Duration achieved 02/05 advancing as able Skilled Nursing Goal (LTG) Pt will score at least 4+/5 on all BLE MMT to show improved strength and stability to allow greater ease with typical activities. 02/05-improving LTG Duration 03/12 FAAM Impairment 47/84 Short Term Goal (STG) Pt will improve FAAM score to at least 60 to show improved functional ability. STG Duration 02/04 Skilled Nursing Goal (LTG) Pt will improve FAAM score to at least 70 to show improved functional ability. LTG Duration 03/12 Assessment Summary Assessment Pt making good progress w/PT w /less pain w/work recently and is progressing w/strength and balance. Cont PT for improving mobility. Physical Therapy Plan Next Visit Focus/Plan Next Note Type Treatment Note Next Visit Plan review new exercises from this session, work on ankle mobility and foot mobility. consider trying tband inversion/eversion
--- NOTE | 2024-02-11 16:36 | PT.OTN ---
Current Diagnoses Other synovitis and tenosynovitis, left ankle and foot (02/11/24) Difficulty in walking, not elsewhere classified (02/11/24) Weakness (02/11/24) Physical Therapy Treatment Note PT-OP-A Visit Information Start: 12/23/23 08:33 Freq: Status: Active Protocol: Document 02/11/24 15:25 SW (Rec: 02/11/24 16:35 SW [id number]) Out-Patient Physical Therapy Visit Information Visit Information Visit Type Treatment Note Visit Start Time 15:24 Visit Stop Time 16:04 Visit Number 10 (2/10 PN) Number of CARPENTER APPRENTICE Visits 1 PT-OP-B Current Condition Start: 12/23/23 08:33 Freq: Status: Active Protocol: Document 01/02/24 10:49 [facility] (Rec: 01/02/24 11:36 [facility] [id number]) Current Condition History of Current Condition Onset Date 3 months Current Complaints L ankle and arch History of Current Condition Pt reports L foot pain started in med ankle and arch without any specific starting incident . She has not been working for 2 months and will go back for 3 days this winter for 4 hours a day. For the first 6 weeks, it would swell anytime on feet extended. She did return from a trip and was walking a bit (10-15k one day then the next day driving to new location so rested). It was hurting a lot after days of walking. R one is doing good (hx of pain and PT in past). Hasn't been to the gym for a few months d/t this ( ellipical, [employer] machines). Has not been doing typical walks d /t pain ([place], [place] miles, 3 -4 days a week). Aims to get 10k steps a day. Before left on trip, had 1 massage a week. Prior Treatments and Tests MRI: IMPRESSION: 1. Moderate tenosynovitis of the posterior tibial tendon. 2. Mild tenosynovitis of the flexor hallucis longus and extensor digitorum longus tendon. 3. Mild to moderate thickening of the mid substance of the Achilles tendon with increased signal in peritenon consistent with some acute inflammation. 4. 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 5. Calcaneal heel spur. 6. Moderate edematous changes in the subcutaneous tissues along the medial aspect of the foot. Treatment Goals Patient/Caregiver Goals get back on elliptical, return to walks, return to gardening (shovel, etc) PT-OP-C Subjective Start: 12/23/23 08:33 Freq: Status: Active Protocol: Document 02/11/24 15:25 SW (Rec: 02/11/24 16:35 SW [id number]) OP-PT Subjective Patient Comments Patient Comments Pt reports only works 1 day this week. Pt reports pain level around a 3 to a 4 at times. Pt reports going on eliptical 30 minutes, tolerated well. PT-OP-D Balance Start: 12/23/23 08:33 Freq: Status: Active Protocol: Document 02/06/24 07:29 [facility] (Rec: 02/06/24 08:19 [facility] [id number]) Balance Tests Single Limb Standing Single Limb- Right 7 sec Single Limb- Left 9 sec PT-OP-J Posture/Palpation/Skin Start: 12/23/23 08:33 Freq: Status: Active Protocol: Document 01/02/24 10:49 [facility] (Rec: 01/02/24 11:36 [facility] [id number]) Posture Evaluation Comments Posture Comments L>R arch collapse, L foot turned out, rearfoot valgus PT-OP-K Range of Motion Start: 12/23/23 08:33 Freq: Status: Active Protocol: Document 01/02/24 10:49 [facility] (Rec: 01/02/24 11:36 [facility] [id number]) Ankle and Foot Goniometric Range of Motion Ankle and Foot Right Active Dorsiflexion with Knee Flexed 7 Dorsiflexion with Knee Extended 5 Plantarflexion 51 Inversion 31 Eversion 12 Left Active Dorsiflexion with Knee Flexed 4 Dorsiflexion with Knee Extended 1 Plantarflexion 55 Inversion 26 Eversion 12 Comments pain PF, inversion PT-OP-L Special Tests Start: 12/23/23 08:33 Freq: Status: Active Protocol: Document 01/02/24 10:49 [facility] (Rec: 01/02/24 11:36 [facility] [id number]) Special Tests Lumbar Spine Special Tests Slump Test Results neg L PT-OP-M Strength Start: 12/23/23 08:33 Freq: Status: Active Protocol: Document 02/06/24 07:29 [facility] (Rec: 02/06/24 08:19 [facility] [id number]) Hip Strength Hip Manual Muscle Testing Right Flexion (L2) 4 Good Extension (S1) 4 Good Abduction 4- Good- Adduction 5 Normal External Rotation 4+ Good+ Internal Rotation 5 Normal Left Flexion (L2) 4 Good Extension (S1) 4 Good Abduction 3+ Fair+ Adduction 5 Normal External Rotation 4+ Good+ Internal Rotation 5 Normal Knee Strength Knee Manual Muscle Testing Right Flexion (S2) 5 Normal Extension (L3) 5 Normal Left Flexion (S2) 5 Normal Extension (L3) 5 Normal Ankle/Foot Strength Ankle and Foot Manual Muscle Testing Right Dorsiflexion (L4) 5 Normal Plantarflexion (S1) 5 Normal Inversion 5 Normal Eversion (S1) 5 Normal Comments pain ankle end of reps 20 heel raises Left Dorsiflexion (L4) 5 Normal Plantarflexion (S1) 3+ Fair+ Inversion 4- Good- Eversion (S1) 4 Good Comments pain inversion and eversion & PF 4 heel raises PT-OP-Q Treatments Start: 12/23/23 08:33 Freq: Status: Active Protocol: Document 02/11/24 15:25 SW (Rec: 02/11/24 16:35 [id number]) Cardio Equipment Recumbent Elliptical ([employer] Clothing) Duration (Minutes) 8 Resistance 5 Seat Position 8 Other LEs only Therapeutic Exercises Supine Exercises isometric Supine Exercise Name DL isometric flex w/DF Side bilateral Reps/Minutes 20 sec,30 sec Sitting Exercises Towel scrunches Sitting Exercise Name verbal review ankle 3 way Sitting Exercise Name DF/PF, EV (issued [facility] 02/11/24 ), Inv Raquel (issued [facility] ) Resistance DF/PF lvl 3 TB, EV Lvl 2 TB, Inv Isometric Comments pain free, good tolerance to isometric inv ankle&toe band Sitting Exercise Name verbal review Standing Exercises sidesteps Side bilateral Equipment Used L1 band Reps/Minutes 20ft ea Comments cues to avoid leaning heel raise Standing Exercise Name Heel raises Side bilateral Equipment Used rail support Reps/Minutes x10 Comments tennis ball btwn ankles Neuro Re-Education Treatment Balance Activities SLS Details SLS Surface Stable Equipment Elevated plinth for UE support prn Reps/Duration 2' PT-OP-T Assessment and Plan Start: 12/23/23 08:33 Freq: Status: Active Protocol: Document 02/11/24 15:25 (Rec: 02/11/24 16:35 [id number]) Physical Therapy Assessment Goals balance Mine Deputy Goal (LTG) Pt will be able to do SLS at least 10 sec B to show improved balance 02/05-7 sec R, 9 sec L LTG Duration 03/12 activities Short Term Goal (STG) Pt will be able to return to full gym routine w/o inc foot pain 02/05-doing bike, rowing and saturday did elliptical, wt lifting also-a little tender after STG Duration 02/04 Mine Deputy Goal (LTG) pt will be able to return to all gardening and walking w/o inc foot pain greater than 2/ 10 LTG Duration 03/12 strength Short Term Goal (STG) Pt will be indep w/HEP STG Duration achieved 02/05 advancing as able [facility] Goal (LTG) Pt will score at least 4+/5 on all BLE MMT to show improved strength and stability to allow greater ease with typical activities. 02/05-improving LTG Duration 03/12 FAAM Impairment 47/84 Short Term Goal (STG) Pt will improve FAAM score to at least 60 to show improved functional ability. STG Duration 02/04 [facility] Goal (LTG) Pt will improve FAAM score to at least 70 to show improved functional ability. LTG Duration 03/12 Assessment Summary Assessment Progressed pt with ankle eversion with TB this session for increased strength, pt tolerated well, issued HEP HO. Pt still has pain with AROM L ankle inversion, trialed isometrics for strengthening today, pt tolerated well, no pain, issued HEP HO. Pt reports decreased pain, staying around a 3-4/10, pt was able to do the eliptical at the gym for 30 minutes the other day, with minimal increase in pain. Reviewed SLS for strength and balance this session, pt challenged unable to hold for 10 bilaterally, encouraged carryover at home while at kitchen or bathroom counter for UE support prn. Physical Therapy Plan Frequency and Duration Frequency of Treatment 2x/Week Duration of treatment (weeks) 10 Plan of Care Start Date 01/02/24 Plan of Care End Date 03/12/24 Therapeutic Interventions Therapeutic Interventions Balance Training,Gait Training ,Home Exercise Program,Joint Mobilizations,Manual Therapy, Neuromuscular Re-education, Patient/Caregiver Education, Self-Care/Home Management,Soft Tissue Mobilization,Taping, Therapeutic Activities, Therapeutic Exercises Modalities Cold Pack/Ice Massage,Electric Stimulation,Hot Packs, Infrared Therapy,Ultrasound Next Visit Focus/Plan Next Note Type Treatment Note Next Visit Plan review new exercises from this session, work on ankle mobility and foot mobility. consider trying tband inversion/eversion
--- NOTE | 2024-02-18 18:02 | PT.OTN ---
Current Diagnoses Other synovitis and tenosynovitis, left ankle and foot (02/18/24) Difficulty in walking, not elsewhere classified (02/18/24) Weakness (02/18/24) Physical Therapy Treatment Note PT-OP-A Visit Information Start: 12/23/23 08:33 Freq: Status: Active Protocol: Document 02/18/24 16:55 [facility] (Rec: 02/18/24 18:02 [facility] [id number]) Out-Patient Physical Therapy Visit Information Visit Information Visit Type Treatment Note Visit Start Time 17:03 Visit Stop Time 17:45 Visit Number 11 (3/10 PN) Number of MATH INTERVENTIONIST Visits 0 PT-OP-B Current Condition Start: 12/23/23 08:33 Freq: Status: Active Protocol: Document 01/02/24 10:49 [facility] (Rec: 01/02/24 11:36 [facility] [id number]) Current Condition History of Current Condition Onset Date 3 months Current Complaints L ankle and arch History of Current Condition Pt reports L foot pain started in med ankle and arch without any specific starting incident . She has not been working for 2 months and will go back for 3 days this winter for 4 hours a day. For the first 6 weeks, it would swell anytime on feet extended. She did return from a trip and was walking a bit (10-15k one day then the next day driving to new location so rested). It was hurting a lot after days of walking. R one is doing good (hx of pain and PT in past). Hasn't been to the gym for a few months d/t this ( ellipical, wt machines). Has not been doing typical walks d /t pain ([place], [place]4 miles, 3 -4 days a week). Aims to get 10k steps a day. Before left on trip, had 1 massage a week. Prior Treatments and Tests MRI: IMPRESSION: 1. Moderate tenosynovitis of the posterior tibial tendon. 2. Mild tenosynovitis of the flexor hallucis longus and extensor digitorum longus tendon. 3. Mild to moderate thickening of the mid substance of the Achilles tendon with increased signal in peritenon consistent with some acute inflammation. 4. 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 5. Calcaneal heel spur. 6. Moderate edematous changes in the subcutaneous tissues along the medial aspect of the foot. Treatment Goals Patient/Caregiver Goals get back on elliptical, return to walks, return to gardening (shovel, etc) PT-OP-C Subjective Start: 12/23/23 08:33 Freq: Status: Active Protocol: Document 02/18/24 16:55 [facility] (Rec: 02/18/24 18:02 [facility] [id number]) OP-PT Subjective Patient Comments Patient Comments Only worked one day last week. Every now and then tries arch raises and still hurts PT-OP-D Balance Start: 12/23/23 08:33 Freq: Status: Active Protocol: Document 02/06/24 07:29 [facility] (Rec: 02/06/24 08:19 [facility] [id number]) Balance Tests Single Limb Standing Single Limb- Right 7 sec Single Limb- Left 9 sec PT-OP-J Posture/Palpation/Skin Start: 12/23/23 08:33 Freq: Status: Active Protocol: Document 01/02/24 10:49 [facility] (Rec: 01/02/24 11:36 [facility] [id number]) Posture Evaluation Comments Posture Comments L>R arch collapse, L foot turned out, rearfoot valgus PT-OP-K Range of Motion Start: 12/23/23 08:33 Freq: Status: Active Protocol: Document 01/02/24 10:49 [facility] (Rec: 01/02/24 11:36 [facility] [id number]) Ankle and Foot Goniometric Range of Motion Ankle and Foot Right Active Dorsiflexion with Knee Flexed 7 Dorsiflexion with Knee Extended 5 Plantarflexion 51 Inversion 31 Eversion 12 Left Active Dorsiflexion with Knee Flexed 4 Dorsiflexion with Knee Extended 1 Plantarflexion 55 Inversion 26 Eversion 12 Comments pain PF, inversion PT-OP-L Special Tests Start: 12/23/23 08:33 Freq: Status: Active Protocol: Document 01/02/24 10:49 [facility] (Rec: 01/02/24 11:36 [facility] [id number]) Special Tests Lumbar Spine Special Tests Slump Test Results neg L PT-OP-M Strength Start: 12/23/23 08:33 Freq: Status: Active Protocol: Document 02/06/24 07:29 [facility] (Rec: 02/06/24 08:19 [facility] [id number]) Hip Strength Hip Manual Muscle Testing Right Flexion (L2) 4 Good Extension (S1) 4 Good Abduction 4- Good- Adduction 5 Normal External Rotation 4+ Good+ Internal Rotation 5 Normal Left Flexion (L2) 4 Good Extension (S1) 4 Good Abduction 3+ Fair+ Adduction 5 Normal External Rotation 4+ Good+ Internal Rotation 5 Normal Knee Strength Knee Manual Muscle Testing Right Flexion (S2) 5 Normal Extension (L3) 5 Normal Left Flexion (S2) 5 Normal Extension (L3) 5 Normal Ankle/Foot Strength Ankle and Foot Manual Muscle Testing Right Dorsiflexion (L4) 5 Normal Plantarflexion (S1) 5 Normal Inversion 5 Normal Eversion (S1) 5 Normal Comments pain ankle end of reps 20 heel raises Left Dorsiflexion (L4) 5 Normal Plantarflexion (S1) 3+ Fair+ Inversion 4- Good- Eversion (S1) 4 Good Comments pain inversion and eversion & PF 4 heel raises PT-OP-Q Treatments Start: 12/23/23 08:33 Freq: Status: Active Protocol: Document 02/18/24 16:55 [facility] (Rec: 02/18/24 18:02 [facility] [id number]) Therapeutic Exercises Sitting Exercises ankle 3 way Side left Resistance DF lvl 3, eversion Lvl 2, inversion Lvl 1 Reps/Minutes 15 ea arch raises Side left Reps/Minutes 2x8 Comments cues not inversion and smaller range Manual Therapy Treatment Consent Patient gave verbal consent for manual Yes treatment Soft Tissue Mobilization L ankle Comments L along tib post calf Body Location L calf and achilles Mobilization Type Rolling,Sustained Pressure, Other Intensity/Depth Moderate Body Position Supine Comments w/APs plantar fascia Body Location L Mobilization Type Rolling Intensity/Depth Moderate Body Position long sitting Joint Mobilizations tib fib Comments AP midfoot Comments navicular med sup & med cunieform 1/2 talus Comments AP PT-OP-T Assessment and Plan Start: 12/23/23 08:33 Freq: Status: Active Protocol: Document 02/18/24 16:55 [facility] (Rec: 02/18/24 18:02 [facility] [id number]) Physical Therapy Assessment Goals balance Plumbing Drafter Goal (LTG) Pt will be able to do SLS at least 10 sec B to show improved balance 02/05-7 sec R, 9 sec L LTG Duration 03/12 activities Short Term Goal (STG) Pt will be able to return to full gym routine w/o inc foot pain 02/05-doing bike, rowing and saturday did elliptical, wt lifting also-a little tender after STG Duration 02/04 Longterm Goal (LTG) pt will be able to return to all gardening and walking w/o inc foot pain greater than 2/ 10 LTG Duration 03/12 strength Short Term Goal (STG) Pt will be indep w/HEP STG Duration achieved 02/05 advancing as able Plumbing Drafter Goal (LTG) Pt will score at least 4+/5 on all BLE MMT to show improved strength and stability to allow greater ease with typical activities. 02/05-improving LTG Duration 03/12 FAAM Impairment 47/84 Short Term Goal (STG) Pt will improve FAAM score to at least 60 to show improved functional ability. STG Duration 02/04 Longterm Goal (LTG) Pt will improve FAAM score to at least 70 to show improved functional ability. LTG Duration 03/12 Assessment Summary Assessment Pt tolerated return to arch raise w/cues for not inversion but arch lift and cues to keep big toe downa nd smaller range. cues needed w/band exercises Physical Therapy Plan Frequency and Duration Frequency of Treatment 2x/Week Duration of treatment (weeks) 10 Plan of Care Start Date 01/02/24 Plan of Care End Date 03/12/24 Next Visit Focus/Plan Next Note Type Treatment Note Next Visit Plan cont manual to foot/calf/ankle to improve DF and neutral foot position
--- NOTE | 2024-02-20 14:28 | PT.OTN ---
Current Diagnoses Other synovitis and tenosynovitis, left ankle and foot (02/20/24) Difficulty in walking, not elsewhere classified (02/20/24) Weakness (02/20/24) Physical Therapy Treatment Note PT-OP-A Visit Information Start: 12/23/23 08:33 Freq: Status: Active Protocol: Document 02/20/24 10:49 SW (Rec: 02/20/24 11:32 SW [id number]) Out-Patient Physical Therapy Visit Information Visit Information Visit Type Treatment Note PT-OP-B Current Condition Start: 12/23/23 08:33 Freq: Status: Active Protocol: Document 01/02/24 10:49 [facility] (Rec: 01/02/24 11:36 [facility] [id number]) Current Condition History of Current Condition Onset Date 3 months Current Complaints L ankle and arch History of Current Condition Pt reports L foot pain started in med ankle and arch without any specific starting incident . She has not been working for 2 months and will go back for 3 days this winter for 4 hours a day. For the first 6 weeks, it would swell anytime on feet extended. She did return from a trip and was walking a bit (10-15k one day then the next day driving to new location so rested). It was hurting a lot after days of walking. R one is doing good (hx of pain and PT in past). Hasn't been to the gym for a few months d/t this ( ellipical, wt machines). Has not been doing typical walks d /t pain ([place], [place] miles, 3 -4 days a week). Aims to get 10k steps a day. Before left on trip, had 1 massage a week. Prior Treatments and Tests MRI: IMPRESSION: 1. Moderate tenosynovitis of the posterior tibial tendon. 2. Mild tenosynovitis of the flexor hallucis longus and extensor digitorum longus tendon. 3. Mild to moderate thickening of the mid substance of the Achilles tendon with increased signal in peritenon consistent with some acute inflammation. 4. 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 5. Calcaneal heel spur. 6. Moderate edematous changes in the subcutaneous tissues along the medial aspect of the foot. Treatment Goals Patient/Caregiver Goals get back on elliptical, return to walks, return to gardening (shovel, etc) PT-OP-C Subjective Start: 12/23/23 08:33 Freq: Status: Active Protocol: Document 02/20/24 10:49 SW (Rec: 02/20/24 11:32 SW [id number]) OP-PT Subjective Patient Comments Patient Comments Pt reports on feet a lot yesterday, was throbbing after . Better today, 2/10 pain PT-OP-D Balance Start: 12/23/23 08:33 Freq: Status: Active Protocol: Document 02/06/24 07:29 [facility] (Rec: 02/06/24 08:19 [facility] [id number]) Balance Tests Single Limb Standing Single Limb- Right 7 sec Single Limb- Left 9 sec PT-OP-J Posture/Palpation/Skin Start: 12/23/23 08:33 Freq: Status: Active Protocol: Document 01/02/24 10:49 [facility] (Rec: 01/02/24 11:36 [facility] [id number]) Posture Evaluation Comments Posture Comments L>R arch collapse, L foot turned out, rearfoot valgus PT-OP-K Range of Motion Start: 12/23/23 08:33 Freq: Status: Active Protocol: Document 01/02/24 10:49 [facility] (Rec: 01/02/24 11:36 [facility] [id number]) Ankle and Foot Goniometric Range of Motion Ankle and Foot Right Active Dorsiflexion with Knee Flexed 7 Dorsiflexion with Knee Extended 5 Plantarflexion 51 Inversion 31 Eversion 12 Left Active Dorsiflexion with Knee Flexed 4 Dorsiflexion with Knee Extended 1 Plantarflexion 55 Inversion 26 Eversion 12 Comments pain PF, inversion PT-OP-L Special Tests Start: 12/23/23 08:33 Freq: Status: Active Protocol: Document 01/02/24 10:49 [facility] (Rec: 01/02/24 11:36 [facility] [id number]) Special Tests Lumbar Spine Special Tests Slump Test Results neg L PT-OP-M Strength Start: 12/23/23 08:33 Freq: Status: Active Protocol: Document 02/06/24 07:29 [facility] (Rec: 02/06/24 08:19 [facility] [id number]) Hip Strength Hip Manual Muscle Testing Right Flexion (L2) 4 Good Extension (S1) 4 Good Abduction 4- Good- Adduction 5 Normal External Rotation 4+ Good+ Internal Rotation 5 Normal Left Flexion (L2) 4 Good Extension (S1) 4 Good Abduction 3+ Fair+ Adduction 5 Normal External Rotation 4+ Good+ Internal Rotation 5 Normal Knee Strength Knee Manual Muscle Testing Right Flexion (S2) 5 Normal Extension (L3) 5 Normal Left Flexion (S2) 5 Normal Extension (L3) 5 Normal Ankle/Foot Strength Ankle and Foot Manual Muscle Testing Right Dorsiflexion (L4) 5 Normal Plantarflexion (S1) 5 Normal Inversion 5 Normal Eversion (S1) 5 Normal Comments pain ankle end of reps 20 heel raises Left Dorsiflexion (L4) 5 Normal Plantarflexion (S1) 3+ Fair+ Inversion 4- Good- Eversion (S1) 4 Good Comments pain inversion and eversion & PF 4 heel raises PT-OP-Q Treatments Start: 12/23/23 08:33 Freq: Status: Active Protocol: Document 02/20/24 10:49 SW (Rec: 02/20/24 11:32 [id number]) Therapeutic Exercises Standing Exercises Hip 3 way Standing Exercise Name hip flex, abd, ext Side bilateral Resistance level 2 band Equipment Used @ [facility] for Neuro Re-Education Treatment Balance Activities SLS Details SLS Surface Stable Equipment Elevated plinth for UE support prn Reps/Duration 2' PT-OP-T Assessment and Plan Start: 12/23/23 08:33 Freq: Status: Active Protocol: Document 02/20/24 10:49 SW (Rec: 02/20/24 11:32 [id number]) Physical Therapy Assessment Goals balance Alf Goal (LTG) Pt will be able to do SLS at least 10 sec B to show improved balance 02/05-7 sec R, 9 sec L LTG Duration 03/12 activities Short Term Goal (STG) Pt will be able to return to full gym routine w/o inc foot pain 02/05-doing bike, rowing and saturday did elliptical, wt lifting also-a little tender after STG Duration 02/04 Architectural Drafting Instructor Goal (LTG) pt will be able to return to all gardening and walking w/o inc foot pain greater than 2/ 10 LTG Duration 03/12 strength Short Term Goal (STG) Pt will be indep w/HEP STG Duration achieved 02/05 advancing as able Architectural Drafting Instructor Goal (LTG) Pt will score at least 4+/5 on all BLE MMT to show improved strength and stability to allow greater ease with typical activities. 02/05-improving LTG Duration 03/12 FAAM Impairment 47/84 Short Term Goal (STG) Pt will improve FAAM score to at least 60 to show improved functional ability. STG Duration 02/04 Architectural Drafting Instructor Goal (LTG) Pt will improve FAAM score to at least 70 to show improved functional ability. LTG Duration 03/12 Assessment Summary Assessment Initiated hip strengthening this session, cued for weight distribution equally on stance foot, mod cues required for compensation and eccentric control, pt tolerated well with no increase in symptoms in L foot, issued HEP HO, plan to followup on pt tolerance and carryover of form next session. Assessed pt balance this session toward goals, pt unable to SLS for 10, pt reports dizziness, not all the time, but often, pt reports has followed up with MD regarding dizziness. Physical Therapy Plan Frequency and Duration Frequency of Treatment 2x/Week Duration of treatment (weeks) 10 Plan of Care Start Date 01/02/24 Plan of Care End Date 03/12/24 Therapeutic Interventions Therapeutic Interventions Balance Training,Gait Training ,Home Exercise Program,Joint Mobilizations,Manual Therapy, Neuromuscular Re-education, Patient/Caregiver Education, Self-Care/Home Management,Soft Tissue Mobilization,Taping, Therapeutic Activities, Therapeutic Exercises Modalities Cold Pack/Ice Massage,Electric Stimulation,Hot Packs, Infrared Therapy,Ultrasound Next Visit Focus/Plan Next Note Type Treatment Note Next Visit Plan Assess pt tolerance and carryover of form with hip exercises next session. cont manual to foot/calf/ankle to improve DF and neutral foot position
--- NOTE | 2024-02-24 13:13 | PT.OTN ---
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 She has not been working for 2 months and will go back for 3 days this winter for 4 hours a day. For the first 6 weeks, it would swell anytime on feet extended. She did return from a trip and was walking a bit (10-15k one day then the next day driving to new location so rested). It was hurting a lot after days of walking. R one is doing good (hx of pain and PT in past). Hasn't been to the gym for a few months d/t this ( ellipical, wt machines). Has not been doing typical walks d /t pain ([place], [place] miles, 3 -4 days a week). Aims to get 10k steps a day. Before left on trip, had 1 massage a week. Prior Treatments and Tests MRI: IMPRESSION: 1. Moderate tenosynovitis of the posterior tibial tendon. 2. Mild tenosynovitis of the flexor hallucis longus and extensor digitorum longus tendon. 3. Mild to moderate thickening of the mid substance of the Achilles tendon with increased signal in peritenon consistent with some acute inflammation. 4. 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 5. Calcaneal heel spur. 6. Moderate edematous changes in the subcutaneous tissues along the medial aspect of the foot. Treatment Goals Patient/Caregiver Goals get back on elliptical, return to walks, return to gardening (shovel, etc) PT-OP-C Subjective Start: 12/23/23 08:33 Freq: Status: Active Protocol: Document 02/24/24 10:56 [facility] (Rec: 02/24/24 13:13 [facility] [id number]) OP-PT Subjective Patient Comments Patient Comments pt reports was on her feet a lot yesterday for a dinner [employer] party so ankle/foot was sore. Notes BP was high yesterday too PT-OP-D Balance Start: 12/23/23 08:33 Freq: Status: Active Protocol: Document 02/06/24 07:29 [facility] (Rec: 02/06/24 08:19 [facility] [id number]) Balance Tests Single Limb Standing Single Limb- Right 7 sec Single Limb- Left 9 sec PT-OP-J Posture/Palpation/Skin Start: 12/23/23 08:33 Freq: Status: Active Protocol: Document 01/02/24 10:49 [facility] (Rec: 01/02/24 11:36 [facility] [id number]) Posture Evaluation Comments Posture Comments L>R arch collapse, L foot turned out, rearfoot valgus PT-OP-K Range of Motion Start: 12/23/23 08:33 Freq: Status: Active Protocol: Document 01/02/24 10:49 [facility] (Rec: 01/02/24 11:36 [facility] [id number]) Ankle and Foot Goniometric Range of Motion Ankle and Foot Right Active Dorsiflexion with Knee Flexed 7 Dorsiflexion with Knee Extended 5 Plantarflexion 51 Inversion 31 Eversion 12 Left Active Dorsiflexion with Knee Flexed 4 Dorsiflexion with Knee Extended 1 Plantarflexion 55 Inversion 26 Eversion 12 Comments pain PF, inversion PT-OP-L Special Tests Start: 12/23/23 08:33 Freq: Status: Active Protocol: Document 01/02/24 10:49 [facility] (Rec: 01/02/24 11:36 [facility] [id number]) Special Tests Lumbar Spine Special Tests Slump Test Results neg L PT-OP-M Strength Start: 12/23/23 08:33 Freq: Status: Active Protocol: Document 02/06/24 07:29 [facility] (Rec: 02/06/24 08:19 [facility] [id number]) Hip Strength Hip Manual Muscle Testing Right Flexion (L2) 4 Good Extension (S1) 4 Good Abduction 4- Good- Adduction 5 Normal External Rotation 4+ Good+ Internal Rotation 5 Normal Left Flexion (L2) 4 Good Extension (S1) 4 Good Abduction 3+ Fair+ Adduction 5 Normal External Rotation 4+ Good+ Internal Rotation 5 Normal Knee Strength Knee Manual Muscle Testing Right Flexion (S2) 5 Normal Extension (L3) 5 Normal Left Flexion (S2) 5 Normal Extension (L3) 5 Normal Ankle/Foot Strength Ankle and Foot Manual Muscle Testing Right Dorsiflexion (L4) 5 Normal Plantarflexion (S1) 5 Normal Inversion 5 Normal Eversion (S1) 5 Normal Comments pain ankle end of reps 20 heel raises Left Dorsiflexion (L4) 5 Normal Plantarflexion (S1) 3+ Fair+ Inversion 4- Good- Eversion (S1) 4 Good Comments pain inversion and eversion & PF 4 heel raises PT-OP-Q Treatments Start: 12/23/23 08:33 Freq: Status: Active Protocol: Document 02/24/24 10:56 [facility] (Rec: 02/24/24 13:13 [facility] [id number]) Therapeutic Exercises Sitting Exercises arch raises Side left Reps/Minutes 8 sitting, 8 standing Comments cues to keep big toe down Manual Therapy Treatment Consent Patient gave verbal consent for manual Yes treatment Soft Tissue Mobilization calf Body Location L calf and achilles Mobilization Type Rolling,Sustained Pressure, Other Intensity/Depth Moderate Body Position Supine Comments w/APs plantar fascia Body Location L Mobilization Type Rolling Intensity/Depth Moderate Body Position long sitting Joint Mobilizations tib fib Comments AP tib c/r midfoot Comments navicular sup & med cunieform 1&2 talus Comments L distraction, AP and lat rot c/r calcaneus Comments distraction L Taping L ankle Treatment Focus support Type of Tape ktaping Skin Inspection normal color intact Comments 1 I strip for arch and 1 strip as along B ankle Self-Care/Home Management Treatment Activities Self-Care/Home Management Activities HR 82 154/84 152/85 at end of session encouraged to monitor and follow up w/primary if remains high PT-OP-T Assessment and Plan Start: 12/23/23 08:33 Freq: Status: Active Protocol: Document 02/24/24 10:56 [facility] (Rec: 02/24/24 13:13 [facility] [id number]) Physical Therapy Assessment Goals balance Fdc Goal (LTG) Pt will be able to do SLS at least 10 sec B to show improved balance 02/05-7 sec R, 9 sec L LTG Duration 03/12 activities Short Term Goal (STG) Pt will be able to return to full gym routine w/o inc foot pain 02/05-doing bike, rowing and saturday did elliptical, wt lifting also-a little tender after STG Duration 02/04 Hand Drawer In Goal (LTG) pt will be able to return to all gardening and walking w/o inc foot pain greater than 2/ 10 LTG Duration 03/12 strength Short Term Goal (STG) Pt will be indep w/HEP STG Duration achieved 02/05 advancing as able Fdc Goal (LTG) Pt will score at least 4+/5 on all BLE MMT to show improved strength and stability to allow greater ease with typical activities. 02/05-improving LTG Duration 03/12 FAAM Impairment 47/84 Short Term Goal (STG) Pt will improve FAAM score to at least 60 to show improved functional ability. STG Duration 02/04 Hand Drawer In Goal (LTG) Pt will improve FAAM score to at least 70 to show improved functional ability. LTG Duration 03/12 Assessment Summary Assessment Pt is improving w/ability to perform arch raise and was able to progress to performing in standing today. Physical Therapy Plan Frequency and Duration Frequency of Treatment 2x/Week Duration of treatment (weeks) 10 Plan of Care Start Date 01/02/24 Plan of Care End Date 03/12/24 Next Visit Focus/Plan Next Note Type Treatment Note Next Visit Plan cont manual to foot/calf/ankle to improve DF and neutral foot position cont to advance balance and arch stability
--- NOTE | 2024-02-27 16:08 | PT.OTN ---
Current Diagnoses Other synovitis and tenosynovitis, left ankle and foot (02/27/24) Difficulty in walking, not elsewhere classified (02/27/24) Weakness (02/27/24) Physical Therapy Treatment Note PT-OP-A Visit Information Start: 12/23/23 08:33 Freq: Status: Active Protocol: Document 02/27/24 10:47 SW (Rec: 02/27/24 11:32 SW [id number]) Out-Patient Physical Therapy Visit Information Visit Information Visit Type Treatment Note Visit Start Time 10:48 Visit Stop Time 11:26 Visit Number 13 (5/10 PN) Number of GIFT SHOP MANAGER Visits 1 PT-OP-B Current Condition Start: 12/23/23 08:33 Freq: Status: Active Protocol: Document 01/02/24 10:49 [facility] (Rec: 01/02/24 11:36 [facility] [id number]) Current Condition History of Current Condition Onset Date 3 months Current Complaints L ankle and arch History of Current Condition Pt reports L foot pain started in med ankle and arch without any specific starting incident . She has not been working for 2 months and will go back for 3 days this winter for 4 hours a day. For the first 6 weeks, it would swell anytime on feet extended. She did return from a trip and was walking a bit (10-15k one day then the next day driving to new location so rested). It was hurting a lot after days of walking. R one is doing good (hx of pain and PT in past). Hasn't been to the gym for a few months d/t this ( ellipical, [employer] machines). Has not been doing typical walks d [place]t [place], 3 -4 days a week). Aims to get 10k steps a day. Before left on trip, had 1 massage a week. Prior Treatments and Tests MRI: IMPRESSION: 1. Moderate tenosynovitis of the posterior tibial tendon. 2. Mild tenosynovitis of the flexor hallucis longus and extensor digitorum longus tendon. 3. Mild to moderate thickening of the mid substance of the Achilles tendon with increased signal in peritenon consistent with some acute inflammation. 4. 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 5. Calcaneal heel spur. 6. Moderate edematous changes in the subcutaneous tissues along the medial aspect of the foot. Treatment Goals Patient/Caregiver Goals get back on elliptical, return to walks, return to gardening (shovel, etc) PT-OP-C Subjective Start: 12/23/23 08:33 Freq: Status: Active Protocol: Document 02/27/24 10:47 SW (Rec: 02/27/24 11:32 [id number]) OP-PT Subjective Patient Comments Patient Comments Pt reports everyday feels like it gets a little better. Pt reports called a doctor for increased blood pressure on Saturday, did not go to work yesterday, today feels better. Pt reports blood pressure today 133/73. PT-OP-D Balance Start: 12/23/23 08:33 Freq: Status: Active Protocol: Document 02/06/24 07:29 [facility] (Rec: 02/06/24 08:19 [facility] [id number]) Balance Tests Single Limb Standing Single Limb- Right 7 sec Single Limb- Left 9 sec PT-OP-J Posture/Palpation/Skin Start: 12/23/23 08:33 Freq: Status: Active Protocol: Document 01/02/24 10:49 [facility] (Rec: 01/02/24 11:36 [facility] [id number]) Posture Evaluation Comments Posture Comments L>R arch collapse, L foot turned out, rearfoot valgus PT-OP-K Range of Motion Start: 12/23/23 08:33 Freq: Status: Active Protocol: Document 01/02/24 10:49 [facility] (Rec: 01/02/24 11:36 [facility] [id number]) Ankle and Foot Goniometric Range of Motion Ankle and Foot Right Active Dorsiflexion with Knee Flexed 7 Dorsiflexion with Knee Extended 5 Plantarflexion 51 Inversion 31 Eversion 12 Left Active Dorsiflexion with Knee Flexed 4 Dorsiflexion with Knee Extended 1 Plantarflexion 55 Inversion 26 Eversion 12 Comments pain PF, inversion PT-OP-L Special Tests Start: 12/23/23 08:33 Freq: Status: Active Protocol: Document 01/02/24 10:49 [facility] (Rec: 01/02/24 11:36 [facility] [id number]) Special Tests Lumbar Spine Special Tests Slump Test Results neg L PT-OP-M Strength Start: 12/23/23 08:33 Freq: Status: Active Protocol: Document 02/06/24 07:29 [facility] (Rec: 02/06/24 08:19 [facility] [id number]) Hip Strength Hip Manual Muscle Testing Right Flexion (L2) 4 Good Extension (S1) 4 Good Abduction 4- Good- Adduction 5 Normal External Rotation 4+ Good+ Internal Rotation 5 Normal Left Flexion (L2) 4 Good Extension (S1) 4 Good Abduction 3+ Fair+ Adduction 5 Normal External Rotation 4+ Good+ Internal Rotation 5 Normal Knee Strength Knee Manual Muscle Testing Right Flexion (S2) 5 Normal Extension (L3) 5 Normal Left Flexion (S2) 5 Normal Extension (L3) 5 Normal Ankle/Foot Strength Ankle and Foot Manual Muscle Testing Right Dorsiflexion (L4) 5 Normal Plantarflexion (S1) 5 Normal Inversion 5 Normal Eversion (S1) 5 Normal Comments pain ankle end of reps 20 heel raises Left Dorsiflexion (L4) 5 Normal Plantarflexion (S1) 3+ Fair+ Inversion 4- Good- Eversion (S1) 4 Good Comments pain inversion and eversion & PF 4 heel raises PT-OP-Q Treatments Start: 12/23/23 08:33 Freq: Status: Active Protocol: Document 02/27/24 10:47 SW (Rec: 02/27/24 11:32 SW [id number]) Gym Equipment Shuttle Balance red clips Details Fwd/lateral Comments 1. Balance 2. weight shifts cues for equal weight distribution in L foot, soft knees, core stability pt tolerated fwd balance well with no increase in pain, some pain present with lateral balance Therapeutic Exercises Sitting Exercises arch raises Side left Reps/Minutes x10 standing Comments cues to keep big toe down Neuro Re-Education Treatment Balance Activities Foam Details NBOS Surface Foam Equipment @ elevated plinth for balance prn Comments cues for slight bend in knees, tolerate fairly well with only minimal increase in pain PT-OP-T Assessment and Plan Start: 12/23/23 08:33 Freq: Status: Active Protocol: Document 02/27/24 10:47 SW (Rec: 02/27/24 11:32 SW [id number]) Physical Therapy Assessment Goals balance Mcc Goal (LTG) Pt will be able to do SLS at least 10 sec B to show improved balance 02/05-7 sec R, 9 sec L LTG Duration 03/12 activities Short Term Goal (STG) Pt will be able to return to full gym routine w/o inc foot pain 02/05-doing bike, rowing and saturday did elliptical, wt lifting also-a little tender after STG Duration 02/04 Territory Manager Goal (LTG) pt will be able to return to all gardening and walking w/o inc foot pain greater than 2/ 10 LTG Duration 03/12 strength Short Term Goal (STG) Pt will be indep w/HEP STG Duration achieved 02/05 advancing as able Mcc Goal (LTG) Pt will score at least 4+/5 on all BLE MMT to show improved strength and stability to allow greater ease with typical activities. 02/05-improving LTG Duration 03/12 FAAM Impairment 47/84 Short Term Goal (STG) Pt will improve FAAM score to at least 60 to show improved functional ability. STG Duration 02/04 Territory Manager Goal (LTG) Pt will improve FAAM score to at least 70 to show improved functional ability. LTG Duration 03/12 Assessment Summary Assessment Reviewed standing arch raises today, pt tolerating well, with reports of significantly decreased pain than when first starting arch raises. Continued work on balance with NBOS on foam and shuttle balance. ankle strategies engaged cued pt to maintain soft bend in knees increasing balance challenge, slight increase in pain with lateral balance on shuttle recovery, tolerated fwd/bck well. Physical Therapy Plan Frequency and Duration Frequency of Treatment 2x/Week Duration of treatment (weeks) 10 Plan of Care Start Date 01/02/24 Plan of Care End Date 03/12/24 Therapeutic Interventions Therapeutic Interventions Balance Training,Gait Training ,Home Exercise Program,Joint Mobilizations,Manual Therapy, Neuromuscular Re-education, Patient/Caregiver Education, Self-Care/Home Management,Soft Tissue Mobilization,Taping, Therapeutic Activities, Therapeutic Exercises Modalities Cold Pack/Ice Massage,Electric Stimulation,Hot Packs, Infrared Therapy,Ultrasound Next Visit Focus/Plan Next Note Type Treatment Note Next Visit Plan cont manual to foot/calf/ankle to improve DF and neutral foot position cont to advance balance and arch stability
--- NOTE | 2024-03-02 12:28 | PT.OTN ---
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 She has not been working for 2 months and will go back for 3 days this winter for 4 hours a day. For the first 6 weeks, it would swell anytime on feet extended. She did return from a trip and was walking a bit (10-15k one day then the next day driving to new location so rested). It was hurting a lot after days of walking. R one is doing good (hx of pain and PT in past). Hasn't been to the gym for a few months d/t this ( ellipical, wt machines). Has not been doing typical walks d /t pain ([place], [place]-4 miles, 3 -4 days a week). Aims to get 10k steps a day. Before left on trip, had 1 massage a week. Prior Treatments and Tests MRI: IMPRESSION: 1. Moderate tenosynovitis of the posterior tibial tendon. 2. Mild tenosynovitis of the flexor hallucis longus and extensor digitorum longus tendon. 3. Mild to moderate thickening of the mid substance of the Achilles tendon with increased signal in peritenon consistent with some acute inflammation. 4. 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 5. Calcaneal heel spur. 6. Moderate edematous changes in the subcutaneous tissues along the medial aspect of the foot. Treatment Goals Patient/Caregiver Goals get back on elliptical, return to walks, return to gardening (shovel, etc) PT-OP-C Subjective Start: 12/23/23 08:33 Freq: Status: Active Protocol: Document 03/02/24 11:36 [facility] (Rec: 03/02/24 12:28 [facility] [id number]) OP-PT Subjective Patient Comments Patient Comments pt reports thinks did well w/ work but it was pretty slow. PT-OP-D Balance Start: 12/23/23 08:33 Freq: Status: Active Protocol: Document 02/06/24 07:29 [facility] (Rec: 02/06/24 08:19 [facility] [id number]) Balance Tests Single Limb Standing Single Limb- Right 7 sec Single Limb- Left 9 sec PT-OP-J Posture/Palpation/Skin Start: 12/23/23 08:33 Freq: Status: Active Protocol: Document 01/02/24 10:49 [facility] (Rec: 01/02/24 11:36 [facility] [id number]) Posture Evaluation Comments Posture Comments L>R arch collapse, L foot turned out, rearfoot valgus PT-OP-K Range of Motion Start: 12/23/23 08:33 Freq: Status: Active Protocol: Document 01/02/24 10:49 [facility] (Rec: 01/02/24 11:36 [facility] [id number]) Ankle and Foot Goniometric Range of Motion Ankle and Foot Right Active Dorsiflexion with Knee Flexed 7 Dorsiflexion with Knee Extended 5 Plantarflexion 51 Inversion 31 Eversion 12 Left Active Dorsiflexion with Knee Flexed 4 Dorsiflexion with Knee Extended 1 Plantarflexion 55 Inversion 26 Eversion 12 Comments pain PF, inversion PT-OP-L Special Tests Start: 12/23/23 08:33 Freq: Status: Active Protocol: Document 01/02/24 10:49 [facility] (Rec: 01/02/24 11:36 [facility] [id number]) Special Tests Lumbar Spine Special Tests Slump Test Results neg L PT-OP-M Strength Start: 12/23/23 08:33 Freq: Status: Active Protocol: Document 02/06/24 07:29 [facility] (Rec: 02/06/24 08:19 [facility] [id number]) Hip Strength Hip Manual Muscle Testing Right Flexion (L2) 4 Good Extension (S1) 4 Good Abduction 4- Good- Adduction 5 Normal External Rotation 4+ Good+ Internal Rotation 5 Normal Left Flexion (L2) 4 Good Extension (S1) 4 Good Abduction 3+ Fair+ Adduction 5 Normal External Rotation 4+ Good+ Internal Rotation 5 Normal Knee Strength Knee Manual Muscle Testing Right Flexion (S2) 5 Normal Extension (L3) 5 Normal Left Flexion (S2) 5 Normal Extension (L3) 5 Normal Ankle/Foot Strength Ankle and Foot Manual Muscle Testing Right Dorsiflexion (L4) 5 Normal Plantarflexion (S1) 5 Normal Inversion 5 Normal Eversion (S1) 5 Normal Comments pain ankle end of reps 20 heel raises Left Dorsiflexion (L4) 5 Normal Plantarflexion (S1) 3+ Fair+ Inversion 4- Good- Eversion (S1) 4 Good Comments pain inversion and eversion & PF 4 heel raises PT-OP-Q Treatments Start: 12/23/23 08:33 Freq: Status: Active Protocol: Document 03/02/24 11:36 [facility] (Rec: 03/02/24 12:28 [facility] [id number]) Gym Equipment Shuttle Balance red clips Comments fwd& side: WBOS, NBOS fwd: staggered stance B Manual Therapy Treatment Consent Patient gave verbal consent for manual Yes treatment Soft Tissue Mobilization calf Body Location L calf and achilles Mobilization Type Rolling,Sustained Pressure, Other Intensity/Depth Moderate Body Position Supine Comments w/APs plantar fascia Body Location L Mobilization Type Rolling Intensity/Depth Moderate Body Position long sitting Joint Mobilizations tib fib Comments AP tib c/r midfoot Comments med cunieform 1&2 c/r over foam roll talus Comments L distraction, AP and lat rot c/r calcaneus Comments distraction L and lat glide Neuro Re-Education Treatment Movement Re-Education Movement Re-education Activities arch raise progressed to SL w/ small touch to plinth PT-OP-T Assessment and Plan Start: 12/23/23 08:33 Freq: Status: Active Protocol: Document 03/02/24 11:36 [facility] (Rec: 03/02/24 12:28 [facility] [id number]) Physical Therapy Assessment Assessment Summary Assessment Pt improved DF today w/manual w/more neutral foot position. She was challenged by balance exercise. Physical Therapy Plan Frequency and Duration Frequency of Treatment 2x/Week Duration of treatment (weeks) 10 Plan of Care Start Date 01/02/24 Plan of Care End Date 03/12/24 Next Visit Focus/Plan Next Note Type Progress Note Next Visit Plan cont manual to foot/calf/ankle to improve DF and neutral foot position cont to advance balance and arch stability
--- NOTE | 2024-03-05 09:45 | PT.OTN ---
Current Diagnoses Other synovitis and tenosynovitis, left ankle and foot (03/05/24) Difficulty in walking, not elsewhere classified (03/05/24) Weakness (03/05/24) Physical Therapy Treatment Note PT-OP-A Visit Information Start: 12/23/23 08:33 Freq: Status: Active Protocol: Document 03/05/24 18:43 [facility] (Rec: 03/05/24 09:48 [facility] [id number]) Out-Patient Physical Therapy Visit Information Visit Information Visit Type Treatment Note Visit Start Time 09:04 Visit Stop Time 09:45 Visit Number 15 (8/ PN) Number of OUTBOUND CALL CENTER REPRESENTATIVE Visits 1 PT-OP-B Current Condition Start: 12/23/23 08:33 Freq: Status: Active Protocol: Document 01/02/24 10:49 [facility] (Rec: 01/02/24 11:36 [facility] [id number]) Current Condition History of Current Condition Onset Date 3 months Current Complaints L ankle and arch History of Current Condition Pt reports L foot pain started in med ankle and arch without any specific starting incident . She has not been working for 2 months and will go back for 3 days this winter for 4 hours a day. For the first 6 weeks, it would swell anytime on feet extended. She did return from a trip and was walking a bit (10-15k one day then the next day driving to new location so rested). It was hurting a lot after days of walking. R one is doing good (hx of pain and PT in past). Hasn't been to the gym for a few months d/t this ( ellipical, [employer] machines). Has not been doing typical walks d /t pain ([place], [place]-4 miles, 3 -4 days a week). Aims to get 10k steps a day. Before left on trip, had 1 massage a week. Prior Treatments and Tests MRI: IMPRESSION: 1. Moderate tenosynovitis of the posterior tibial tendon. 2. Mild tenosynovitis of the flexor hallucis longus and extensor digitorum longus tendon. 3. Mild to moderate thickening of the mid substance of the Achilles tendon with increased signal in peritenon consistent with some acute inflammation. 4. 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 5. Calcaneal heel spur. 6. Moderate edematous changes in the subcutaneous tissues along the medial aspect of the foot. Treatment Goals Patient/Caregiver Goals get back on elliptical, return to walks, return to gardening (shovel, etc) PT-OP-C Subjective Start: 12/23/23 08:33 Freq: Status: Active Protocol: Document 03/05/24 18:43 [facility] (Rec: 03/05/24 09:48 [facility] [id number]) OP-PT Subjective Patient Comments Patient Comments Pt reports has been feeling pretty good. When woke up this am and stood up had some pain . PT-OP-D Balance Start: 12/23/23 08:33 Freq: Status: Active Protocol: Document 02/06/24 07:29 [facility] (Rec: 02/06/24 08:19 [facility] [id number]) Balance Tests Single Limb Standing Single Limb- Right 7 sec Single Limb- Left 9 sec PT-OP-J Posture/Palpation/Skin Start: 12/23/23 08:33 Freq: Status: Active Protocol: Document 01/02/24 10:49 [facility] (Rec: 01/02/24 11:36 [facility] [id number]) Posture Evaluation Comments Posture Comments L>R arch collapse, L foot turned out, rearfoot valgus PT-OP-K Range of Motion Start: 12/23/23 08:33 Freq: Status: Active Protocol: Document 01/02/24 10:49 [facility] (Rec: 01/02/24 11:36 [facility] [id number]) Ankle and Foot Goniometric Range of Motion Ankle and Foot Right Active Dorsiflexion with Knee Flexed 7 Dorsiflexion with Knee Extended 5 Plantarflexion 51 Inversion 31 Eversion 12 Left Active Dorsiflexion with Knee Flexed 4 Dorsiflexion with Knee Extended 1 Plantarflexion 55 Inversion 26 Eversion 12 Comments pain PF, inversion PT-OP-L Special Tests Start: 12/23/23 08:33 Freq: Status: Active Protocol: Document 01/02/24 10:49 [facility] (Rec: 01/02/24 11:36 [facility] [id number]) Special Tests Lumbar Spine Special Tests Slump Test Results neg L PT-OP-M Strength Start: 12/23/23 08:33 Freq: Status: Active Protocol: Document 03/05/24 18:43 [facility] (Rec: 03/05/24 16:10 [facility] [id number]) Hip Strength Hip Manual Muscle Testing Right Flexion (L2) 5 Normal Extension (S1) 4+ Good+ Abduction 4+ Good+ Adduction 5 Normal External Rotation 5 Normal Internal Rotation 5 Normal Left Flexion (L2) 5 Normal Extension (S1) 4+ Good+ Abduction 4+ Good+ Adduction 5 Normal External Rotation 5 Normal Internal Rotation 5 Normal Knee Strength Knee Manual Muscle Testing Right Flexion (S2) 5 Normal Extension (L3) 5 Normal Left Flexion (S2) 5 Normal Extension (L3) 5 Normal Ankle/Foot Strength Ankle and Foot Manual Muscle Testing Left Dorsiflexion (L4) 5 Normal Plantarflexion (S1) 4 Good Inversion 4 Good Eversion (S1) 4 Good Comments Continues have pain PF more than inversion and eversion 10 heel raises PT-OP-Q Treatments Start: 12/23/23 08:33 Freq: Status: Active Protocol: Document 03/05/24 18:43 [facility] (Rec: 03/05/24 09:48 [facility] [id number]) Cardio Equipment Bicycle (Upright) Duration (Minutes) 6 Resistance 8 Seat Position 5 Other 59-60 RPMs- cued ankle mobility emphasis Therapeutic Exercises Other Exercises isometrics Other Exercise Name 4 way hip strengthen assessment Reps/Minutes making gains most 5/5 Comments 4+ hip abd & ext, ankle PF, IV , EV- still needing emphasis, Manual Therapy Treatment Consent Patient gave verbal consent for manual Yes treatment Soft Tissue Mobilization calf Body Location L calf and achilles Mobilization Type Rolling,Sustained Pressure, Other Intensity/Depth Moderate Body Position Supine Comments w/APs plantar fascia Body Location L Mobilization Type Rolling Intensity/Depth Moderate Body Position long sitting Joint Mobilizations tib fib Comments AP tib c/r midfoot Comments med foot gross rotation talus Comments L distraction, AP and lat rot c/r calcaneus Comments distraction L and lat glide Taping L ankle Treatment Focus support Type of Tape ktaping Skin Inspection normal color intact Comments 1 I strip for arch and 1 strip as along med>lat ankle Neuro Re-Education Treatment Balance Activities SLS Details SLS Surface Stable Comments unstable but no pain: 4 sec RLE, 5 sec- regression from initial 7 and 9 sec previous assessed in Nov. PT-OP-T Assessment and Plan Start: 12/23/23 08:33 Freq: Status: Active Protocol: Document 03/05/24 18:43 [facility] (Rec: 03/05/24 09:48 [facility] [id number]) Physical Therapy Assessment Goals balance Seasoning Mixer Goal (LTG) Pt will be able to do SLS at least 10 sec B to show improved balance 02/05-7 sec R, 9 sec L 03/05/24: more unstable today but no pain: 4 sec RLE, 5 sec LTG Duration 03/12 no progress 03/05/24 activities Short Term Goal (STG) Pt will be able to return to full gym routine w/o inc foot pain 02/05-doing bike, rowing and saturday did elliptical, wt lifting also-a little tender after : elliptical, bicycle , weight machines upper and lower body. 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 LTG Duration 03/12 not consistant 2-06/25 pian 03/05/24 strength Short Term Goal (STG) Pt will be indep w/HEP STG Duration achieved 02/05 advancing as able Skilled Nursing Goal (LTG) Pt will score at least 4+/5 on all BLE MMT to show improved strength and stability to allow greater ease with typical activities. 02/05-improving LTG Duration 03/12 FAAM Impairment 47/84 Short Term Goal (STG) Pt will improve FAAM score to at least 60 to show improved functional ability. 03/05/24: didn't fully fill out form so unable score, will redo next tx. STG Duration 02/04 will fill out next tx 03/19/24 Seasoning Mixer Goal (LTG) Pt will improve FAAM score to at least 70 to show improved functional ability. LTG Duration 03/12 Assessment Summary Assessment Tx focused on assessment of strength and mobility, able stand longer tolerance with less pain at work but PF, EV, IV area still painful motions. Decrease stance time and would benefit form SLS activities. Pt is compliant with HEP, will progress as tolerated into future appts. Physical Therapy Plan Frequency and Duration Frequency of Treatment 2x/Week Duration of treatment (weeks) 10 Plan of Care Start Date 01/02/24 Plan of Care End Date 03/12/24 Therapeutic Interventions Therapeutic Interventions Balance Training,Gait Training ,Home Exercise Program,Joint Mobilizations,Manual Therapy, Neuromuscular Re-education, Patient/Caregiver Education, Self-Care/Home Management,Soft Tissue Mobilization,Taping, Therapeutic Activities, Therapeutic Exercises Modalities Cold Pack/Ice Massage,Electric Stimulation,Hot Packs, Infrared Therapy,Ultrasound Next Visit Focus/Plan Next Note Type Treatment Note Next Visit Plan cont manual to foot/calf/ankle to improve DF and neutral foot position cont to advance balance, SLS activities and arch stability
--- NOTE | 2024-03-05 18:47 | PT.OPPN ---
Current Diagnoses Other synovitis and tenosynovitis, left ankle and foot (03/05/24) Difficulty in walking, not elsewhere classified (03/05/24) Weakness (03/05/24) Physical Therapy Progress Note PT-OP-A Visit Information Start: 12/23/23 08:33 Freq: Status: Active Protocol: Document 03/05/24 09:04 [facility] (Rec: 03/05/24 09:48 [facility] [id number]) Out-Patient Physical Therapy Visit Information Visit Information Visit Type Treatment Note Visit Start Time 09:04 Visit Stop Time 09:45 Visit Number 15 (8/10 PN) Number of SPORTS STATISTICIAN Visits 1 PT-OP-B Current Condition Start: 12/23/23 08:33 Freq: Status: Active Protocol: Document 01/02/24 10:49 [facility] (Rec: 01/02/24 11:36 [facility] [id number]) Current Condition History of Current Condition Onset Date 3 months Current Complaints L ankle and arch History of Current Condition Pt reports L foot pain started in med ankle and arch without any specific starting incident . She has not been working for 2 months and will go back for 3 days this winter for 4 hours a day. For the first 6 weeks, it would swell anytime on feet extended. She did return from a trip and was walking a bit (10-15k one day then the next day driving to new location so rested). It was hurting a lot after days of walking. R one is doing good (hx of pain and PT in past). Hasn't been to the gym for a few months d/t this ( ellipical, [employer] machines). Has not been doing typical walks d /t pain ([place], 3-4 miles, 3 -4 days a week). Aims to get 10k steps a day. Before left on trip, had 1 massage a week. Prior Treatments and Tests MRI: IMPRESSION: 1. Moderate tenosynovitis of the posterior tibial tendon. 2. Mild tenosynovitis of the flexor hallucis longus and extensor digitorum longus tendon. 3. Mild to moderate thickening of the mid substance of the Achilles tendon with increased signal in peritenon consistent with some acute inflammation. 4. 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 5. Calcaneal heel spur. 6. Moderate edematous changes in the subcutaneous tissues along the medial aspect of the foot. Treatment Goals Patient/Caregiver Goals get back on elliptical, return to walks, return to gardening (shovel, etc) PT-OP-C Subjective Start: 12/23/23 08:33 Freq: Status: Active Protocol: Document 03/05/24 09:04 [facility] (Rec: 03/05/24 09:48 [facility] [id number]) OP-PT Subjective Patient Comments Patient Comments Pt reports has been feeling pretty good. When woke up this am and stood up had some pain . PT-OP-D Balance Start: 12/23/23 08:33 Freq: Status: Active Protocol: Document 02/06/24 07:29 [facility] (Rec: 02/06/24 08:19 [facility] [id number]) Balance Tests Single Limb Standing Single Limb- Right 7 sec Single Limb- Left 9 sec PT-OP-J Posture/Palpation/Skin Start: 12/23/23 08:33 Freq: Status: Active Protocol: Document 01/02/24 10:49 [facility] (Rec: 01/02/24 11:36 [facility] [id number]) Posture Evaluation Comments Posture Comments L>R arch collapse, L foot turned out, rearfoot valgus PT-OP-K Range of Motion Start: 12/23/23 08:33 Freq: Status: Active Protocol: Document 01/02/24 10:49 [facility] (Rec: 01/02/24 11:36 [facility] [id number]) Ankle and Foot Goniometric Range of Motion Ankle and Foot Measured in Degrees Right Active Dorsiflexion with Knee Flexed 7 Dorsiflexion with Knee Extended 5 Plantarflexion 51 Inversion 31 Eversion 12 Left Active Dorsiflexion with Knee Flexed 4 Dorsiflexion with Knee Extended 1 Plantarflexion 55 Inversion 26 Eversion 12 Comments pain PF, inversion PT-OP-L Special Tests Start: 12/23/23 08:33 Freq: Status: Active Protocol: Document 01/02/24 10:49 [facility] (Rec: 01/02/24 11:36 [facility] [id number]) Special Tests Lumbar Spine Special Tests Slump Test Results neg L PT-OP-M Strength Start: 12/23/23 08:33 Freq: Status: Active Protocol: Document 03/05/24 09:04 [facility] (Rec: 03/05/24 16:10 [facility] [id number]) Hip Strength Hip Manual Muscle Testing Right Flexion (L2) 5 Normal Extension (S1) 4+ Good+ Abduction 4+ Good+ Adduction 5 Normal External Rotation 5 Normal Internal Rotation 5 Normal Left Flexion (L2) 5 Normal Extension (S1) 4+ Good+ Abduction 4+ Good+ Adduction 5 Normal External Rotation 5 Normal Internal Rotation 5 Normal Knee Strength Knee Manual Muscle Testing Right Flexion (S2) 5 Normal Extension (L3) 5 Normal Left Flexion (S2) 5 Normal Extension (L3) 5 Normal Ankle/Foot Strength Ankle and Foot Manual Muscle Testing Left Dorsiflexion (L4) 5 Normal Plantarflexion (S1) 4 Good Inversion 4 Good Eversion (S1) 4 Good Comments Continues have pain PF more than inversion and eversion 10 heel raises PT-OP-T Assessment and Plan Start: 12/23/23 08:33 Freq: Status: Active Protocol: Document 03/05/24 18:42 [facility] (Rec: 03/05/24 18:46 [facility] [id number]) Physical Therapy Assessment Goals balance Fdc Goal (LTG) Pt will be able to do SLS at least 10 sec B to show improved balance 02/05-7 sec R, 9 sec L 03/05/24: more unstable today but no pain: 4 sec RLE, 5 sec LTG Duration 04/30 activities Short Term Goal (STG) Pt will be able to return to full gym routine w/o inc foot pain 02/05-doing bike, rowing and saturday did elliptical, wt lifting also-a little tender after : elliptical, bicycle , weight machines upper and lower body. 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 03/05-not consistant 2-06/25 pian abut not gardening much d /t season and working 4 hours LTG Duration 04/30 strength Short Term Goal (STG) Pt will be indep w/HEP STG Duration achieved 02/05 advancing as able Mud Temperer Goal (LTG) Pt will score at least 4+/5 on all BLE MMT to show improved strength and stability to allow greater ease with typical activities. 02/05-improving 03/05-much improved LTG Duration 04/30 FAAM Impairment 47/84 Short Term Goal (STG) Pt will improve FAAM score to at least 60 to show improved functional ability. 03/05/24: didn't fully fill out form so unable score, will redo next tx. STG Duration 04/01 Fdc Goal (LTG) Pt will improve FAAM score to at least 70 to show improved functional ability. LTG Duration 04/30 Assessment Summary Assessment Pt has much decreased pain level, improved tolerance to work and other standing activities along w/improved strength in LEs and foot w/ less pain. Still limited in foot strength and balance and would benefit from cont PT to address these deficits. Physical Therapy Plan Frequency and Duration Frequency of Treatment 1-2x/Week Duration of treatment (weeks) 8 Plan of Care Start Date 03/05/24 Plan of Care End Date 04/30/24 Therapeutic Interventions Therapeutic Interventions Balance Training,Gait Training ,Home Exercise Program,Joint Mobilizations,Manual Therapy, Neuromuscular Re-education, Patient/Caregiver Education, Self-Care/Home Management,Soft Tissue Mobilization,Taping, Therapeutic Activities, Therapeutic Exercises Modalities Cold Pack/Ice Massage,Electric Stimulation,Hot Packs, Infrared Therapy,Ultrasound Next Visit Focus/Plan Next Note Type Treatment Note Next Visit Plan FAAM cont manual to foot/calf/ankle to improve DF and neutral foot position cont to advance balance and arch stability
--- NOTE | 2024-03-19 09:52 | PT.OTN ---
Current Diagnoses Other synovitis and tenosynovitis, left ankle and foot (03/19/24) Difficulty in walking, not elsewhere classified (03/19/24) Weakness (03/19/24) Physical Therapy Treatment Note PT-OP-A Visit Information Start: 12/23/23 08:33 Freq: Status: Active Protocol: Document 03/19/24 09:04 [facility] (Rec: 03/19/24 09:51 [facility] [id number]) Out-Patient Physical Therapy Visit Information Visit Information Visit Type Treatment Note Visit Start Time 09:03 Visit Stop Time 09:43 Visit Number 16 (04/27) Number of BALLET MASTER/MISTRESS Visits 0 PT-OP-B Current Condition Start: 12/23/23 08:33 Freq: Status: Active Protocol: Document 01/02/24 10:49 [facility] (Rec: 01/02/24 11:36 [facility] [id number]) Current Condition History of Current Condition Onset Date 3 months Current Complaints L ankle and arch History of Current Condition Pt reports L foot pain started in med ankle and arch without any specific starting incident . She has not been working for 2 months and will go back for 3 days this winter for 4 hours a day. For the first 6 weeks, it would swell anytime on feet extended. She did return from a trip and was walking a bit (10-15k one day then the next day driving to new location so rested). It was hurting a lot after days of walking. R one is doing good (hx of pain and PT in past). Hasn't been to the gym for a few months d/t this ( ellipical, wt machines). Has not been doing typical walks d /t pain ([place], [place] miles, 3 -4 days a week). Aims to get 10k steps a day. Before left on trip, had 1 massage a week. Prior Treatments and Tests MRI: IMPRESSION: 1. Moderate tenosynovitis of the posterior tibial tendon. 2. Mild tenosynovitis of the flexor hallucis longus and extensor digitorum longus tendon. 3. Mild to moderate thickening of the mid substance of the Achilles tendon with increased signal in peritenon consistent with some acute inflammation. 4. 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 5. Calcaneal heel spur. 6. Moderate edematous changes in the subcutaneous tissues along the medial aspect of the foot. Treatment Goals Patient/Caregiver Goals get back on elliptical, return to walks, return to gardening (shovel, etc) PT-OP-C Subjective Start: 12/23/23 08:33 Freq: Status: Active Protocol: Document 03/19/24 09:04 [facility] (Rec: 03/19/24 09:51 [facility] [id number]) OP-PT Subjective Patient Comments Patient Comments pt reports unknown cause but about 1 week ago, L knee started feeling like it is going to give out on her. Saturday went fro a pretty good walk and ankle and knee bothered only a litle. DId 3 miles. pt hasn't been to work last week. PT-OP-D Balance Start: 12/23/23 08:33 Freq: Status: Active Protocol: Document 02/06/24 07:29 [facility] (Rec: 02/06/24 08:19 [facility] [id number]) Balance Tests Single Limb Standing Single Limb- Right 7 sec Single Limb- Left 9 sec PT-OP-J Posture/Palpation/Skin Start: 12/23/23 08:33 Freq: Status: Active Protocol: Document 01/02/24 10:49 [facility] (Rec: 01/02/24 11:36 [facility] [id number]) Posture Evaluation Comments Posture Comments L>R arch collapse, L foot turned out, rearfoot valgus PT-OP-K Range of Motion Start: 12/23/23 08:33 Freq: Status: Active Protocol: Document 01/02/24 10:49 [facility] (Rec: 01/02/24 11:36 [facility] [id number]) Ankle and Foot Goniometric Range of Motion Ankle and Foot Right Active Dorsiflexion with Knee Flexed 7 Dorsiflexion with Knee Extended 5 Plantarflexion 51 Inversion 31 Eversion 12 Left Active Dorsiflexion with Knee Flexed 4 Dorsiflexion with Knee Extended 1 Plantarflexion 55 Inversion 26 Eversion 12 Comments pain PF, inversion PT-OP-L Special Tests Start: 12/23/23 08:33 Freq: Status: Active Protocol: Document 01/02/24 10:49 [facility] (Rec: 01/02/24 11:36 [facility] [id number]) Special Tests Lumbar Spine Special Tests Slump Test Results neg L PT-OP-M Strength Start: 12/23/23 08:33 Freq: Status: Active Protocol: Document 03/05/24 09:04 [facility] (Rec: 03/05/24 16:10 [facility] [id number]) Hip Strength Hip Manual Muscle Testing Right Flexion (L2) 5 Normal Extension (S1) 4+ Good+ Abduction 4+ Good+ Adduction 5 Normal External Rotation 5 Normal Internal Rotation 5 Normal Left Flexion (L2) 5 Normal Extension (S1) 4+ Good+ Abduction 4+ Good+ Adduction 5 Normal External Rotation 5 Normal Internal Rotation 5 Normal Knee Strength Knee Manual Muscle Testing Right Flexion (S2) 5 Normal Extension (L3) 5 Normal Left Flexion (S2) 5 Normal Extension (L3) 5 Normal Ankle/Foot Strength Ankle and Foot Manual Muscle Testing Left Dorsiflexion (L4) 5 Normal Plantarflexion (S1) 4 Good Inversion 4 Good Eversion (S1) 4 Good Comments Continues have pain PF more than inversion and eversion 10 heel raises PT-OP-Q Treatments Start: 12/23/23 08:33 Freq: Status: Active Protocol: Document 03/19/24 09:04 [facility] (Rec: 03/19/24 09:51 [facility] [id number]) Therapeutic Exercises Sitting Exercises arch raises Sitting Exercise Name standing Side left Reps/Minutes 8 Standing Exercises sit to stand Standing Exercise Name to chair Side bilateral Equipment Used 1. none 2. band Lvl 2 Reps/Minutes 1. 5 2. 10 Manual Therapy Treatment Consent Patient gave verbal consent for manual Yes treatment Soft Tissue Mobilization calf Body Location L calf and achilles Mobilization Type Rolling,Sustained Pressure, Other Intensity/Depth Moderate Body Position Supine Comments w/APs plantar fascia Body Location L Mobilization Type Rolling Intensity/Depth Moderate Body Position long sitting Joint Mobilizations tib fib Comments 1. distal AP tib c/r 2. cranial fib cr 3. AP tibia proximal c/r midfoot Comments med cunieform 1&2 c/r talus Comments L distraction, AP and rot c/r calcaneus Comments distraction L and lat glide Taping L ankle Treatment Focus support Type of Tape ktaping Skin Inspection normal color intact Comments 1 I strip for arch and 1 strip as along med>lat ankle PT-OP-T Assessment and Plan Start: 12/23/23 08:33 Freq: Status: Active Protocol: Document 03/19/24 09:04 [facility] (Rec: 03/19/24 09:51 [facility] [id number]) Physical Therapy Assessment Goals balance Intermediate Goal (LTG) Pt will be able to do SLS at least 10 sec B to show improved balance 02/05-7 sec R, 9 sec L 03/05/24: more unstable today but no pain: 4 sec RLE, 5 sec LTG Duration 04/30 activities Short Term Goal (STG) Pt will be able to return to full gym routine w/o inc foot pain 02/05-doing bike, rowing and saturday did elliptical, wt lifting also-a little tender after : elliptical, bicycle , weight machines upper and lower body. STG Duration achieved 03/05 Intermediate Goal (LTG) pt will be able to return to all gardening and walking w/o inc foot pain greater than 03/05/24: working in [employer] walking in 04/27 lately, if walking more or standing longer periods time increases 09/24. 03/05-not consistant 2-06/25 pian abut not gardening much d /t season and working 4 hours LTG Duration 04/30 strength Short Term Goal (STG) Pt will be indep w/HEP STG Duration achieved 02/05 advancing as able Intermediate Goal (LTG) Pt will score at least 4+/5 on all BLE MMT to show improved strength and stability to allow greater ease with typical activities. 02/05-improving 03/05-much improved LTG Duration 04/30 FAAM Impairment 47/84 Short Term Goal (STG) Pt will improve FAAM score to at least 60 to show improved functional ability. 03/05/24: didn't fully fill out form so unable score, will redo next tx. STG Duration 04/01 Intermediate Goal (LTG) Pt will improve FAAM score to at least 70 to show improved functional ability. LTG Duration 04/30 Assessment Summary Assessment No pain w/ROM of hip or knee on L side or MMT HS/quads but able to elicit knee pain w/ standing up from sitting. Imporved knee pain when working on arch lift w/sit to stand Physical Therapy Plan Frequency and Duration Frequency of Treatment 1-2x/Week Duration of treatment (weeks) 8 Plan of Care Start Date 03/05/24 Plan of Care End Date 04/30/24 Next Visit Focus/Plan Next Note Type Treatment Note Next Visit Plan FAAM cont manual to foot/calf/ankle to improve DF and neutral foot position cont to advance balance and arch stability
--- NOTE | 2024-03-26 12:09 | PT.OTN ---
Current Diagnoses Other synovitis and tenosynovitis, left ankle and foot (03/26/24) Difficulty in walking, not elsewhere classified (03/26/24) Weakness (03/26/24) Physical Therapy Treatment Note PT-OP-A Visit Information Start: 12/23/23 08:33 Freq: Status: Active Protocol: Document 03/26/24 09:49 SW (Rec: 03/26/24 10:41 SW [id number]) Out-Patient Physical Therapy Visit Information Visit Information Visit Type Treatment Note PT-OP-B Current Condition Start: 12/23/23 08:33 Freq: Status: Active Protocol: Document 01/02/24 10:49 [facility] (Rec: 01/02/24 11:36 [facility] [id number]) Current Condition History of Current Condition Onset Date 3 months Current Complaints L ankle and arch History of Current Condition Pt reports L foot pain started in med ankle and arch without any specific starting incident . She has not been working for 2 months and will go back for 3 days this winter for 4 hours a day. For the first 6 weeks, it would swell anytime on feet extended. She did return from a trip and was walking a bit (10-15k one day then the next day driving to new location so rested). It was hurting a lot after days of walking. R one is doing good (hx of pain and PT in past). Hasn't been to the gym for a few months d/t this ( ellipical, wt machines). Has not been doing typical walks d /t pain [place] miles, 3 -4 days a week). Aims to get 10k steps a day. Before left on trip, had 1 massage a week. Prior Treatments and Tests MRI: IMPRESSION: 1. Moderate tenosynovitis of the posterior tibial tendon. 2. Mild tenosynovitis of the flexor hallucis longus and extensor digitorum longus tendon. 3. Mild to moderate thickening of the mid substance of the Achilles tendon with increased signal in peritenon consistent with some acute inflammation. 4. 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 5. Calcaneal heel spur. 6. Moderate edematous changes in the subcutaneous tissues along the medial aspect of the foot. Treatment Goals Patient/Caregiver Goals get back on elliptical, return to walks, return to gardening (shovel, etc) PT-OP-C Subjective Start: 12/23/23 08:33 Freq: Status: Active Protocol: Document 03/26/24 09:49 SW (Rec: 03/26/24 10:41 SW [id number]) OP-PT Subjective Patient Comments Patient Comments Pt reeports that at end of 4 hour shift, feels like could have gone a little PT-OP-D Balance Start: 12/23/23 08:33 Freq: Status: Active Protocol: Document 02/06/24 07:29 [facility] (Rec: 02/06/24 08:19 [facility] [id number]) Balance Tests Single Limb Standing Single Limb- Right 7 sec Single Limb- Left 9 sec PT-OP-J Posture/Palpation/Skin Start: 12/23/23 08:33 Freq: Status: Active Protocol: Document 01/02/24 10:49 [facility] (Rec: 01/02/24 11:36 [facility] [id number]) Posture Evaluation Comments Posture Comments L>R arch collapse, L foot turned out, rearfoot valgus PT-OP-K Range of Motion Start: 12/23/23 08:33 Freq: Status: Active Protocol: Document 01/02/24 10:49 [facility] (Rec: 01/02/24 11:36 [facility] [id number]) Ankle and Foot Goniometric Range of Motion Ankle and Foot Right Active Dorsiflexion with Knee Flexed 7 Dorsiflexion with Knee Extended 5 Plantarflexion 51 Inversion 31 Eversion 12 Left Active Dorsiflexion with Knee Flexed 4 Dorsiflexion with Knee Extended 1 Plantarflexion 55 Inversion 26 Eversion 12 Comments pain PF, inversion PT-OP-L Special Tests Start: 12/23/23 08:33 Freq: Status: Active Protocol: Document 01/02/24 10:49 [facility] (Rec: 01/02/24 11:36 [facility] [id number]) Special Tests Lumbar Spine Special Tests Slump Test Results neg L PT-OP-M Strength Start: 12/23/23 08:33 Freq: Status: Active Protocol: Document 03/05/24 09:04 SP (Rec: 03/05/24 16:10 SP [id number]) Hip Strength Hip Manual Muscle Testing Right Flexion (L2) 5 Normal Extension (S1) 4+ Good+ Abduction 4+ Good+ Adduction 5 Normal External Rotation 5 Normal Internal Rotation 5 Normal Left Flexion (L2) 5 Normal Extension (S1) 4+ Good+ Abduction 4+ Good+ Adduction 5 Normal External Rotation 5 Normal Internal Rotation 5 Normal Knee Strength Knee Manual Muscle Testing Right Flexion (S2) 5 Normal Extension (L3) 5 Normal Left Flexion (S2) 5 Normal Extension (L3) 5 Normal Ankle/Foot Strength Ankle and Foot Manual Muscle Testing Left Dorsiflexion (L4) 5 Normal Plantarflexion (S1) 4 Good Inversion 4 Good Eversion (S1) 4 Good Comments Continues have pain PF more than inversion and eversion 10 heel raises PT-OP-Q Treatments Start: 12/23/23 08:33 Freq: Status: Active Protocol: Document 03/26/24 09:49 SW (Rec: 03/26/24 10:41 [id number]) Gym Equipment Shuttle Balance red clips Details Red clips Comments fwd& side: WBOS, NBOS Fwd: mini squat Therapeutic Exercises Sitting Exercises ankle 3 way Sitting Exercise Name Reviewed for Inv/Ev Comments HEP 3x10 as tolerated arch raises Sitting Exercise Name standing Side left Reps/Minutes 8 Manual Therapy Treatment Consent Patient gave verbal consent for manual Yes treatment Soft Tissue Mobilization L ankle Comments L along tib post calf Body Location L calf and achilles Mobilization Type Rolling,Sustained Pressure, Other Intensity/Depth Moderate Body Position Supine Comments w/APs plantar fascia Body Location L Mobilization Type Rolling Intensity/Depth Moderate Body Position long sitting Joint Mobilizations midfoot Comments med cunieform 1&2 c/r calcaneus Comments distraction L and lat glide Taping L ankle Treatment Focus support Type of Tape ktaping Skin Inspection normal color intact Comments 1 I strip for arch and 1 strip as along med>lat ankle Neuro Re-Education Treatment Balance Activities Foam Details WBOS Surface unstable Equipment @ rail Comments ankle strategy engaged rocker board Details lateral Surface unstable Equipment UE support Comments slight increase in pain PT-OP-T Assessment and Plan Start: 12/23/23 08:33 Freq: Status: Active Protocol: Document 03/26/24 09:49 SW (Rec: 03/26/24 10:41 [id number]) Physical Therapy Assessment Goals balance Skilled Nursing Goal (LTG) Pt will be able to do SLS at least 10 sec B to show improved balance 02/05-7 sec R, 9 sec L 03/05/24: more unstable today but no pain: 4 sec RLE, 5 sec LTG Duration 04/30 activities Short Term Goal (STG) Pt will be able to return to full gym routine w/o inc foot pain 02/05-doing bike, rowing and saturday did elliptical, wt lifting also-a little tender after : elliptical, bicycle , weight machines upper and lower body. STG Duration achieved 03/05 Security Business Analyst Goal (LTG) pt will be able to return to all gardening and walking w/o inc foot pain greater than 2/ 10 03/05/24: working in [place] walking in 04/27 lately, if walking more or standing longer periods time increases 09/24. 03/05-not consistant 2-06/25 pian abut not gardening much d /t season and working 4 hours LTG Duration 04/30 strength Short Term Goal (STG) Pt will be indep w/HEP STG Duration achieved 02/05 advancing as able Security Business Analyst Goal (LTG) Pt will score at least 4+/5 on all BLE MMT to show improved strength and stability to allow greater ease with typical activities. 02/05-improving 03/05-much improved LTG Duration 04/30 FAAM Impairment 47/84 Short Term Goal (STG) Pt will improve FAAM score to at least 60 to show improved functional ability. 03/05/24: didn't fully fill out form so unable score, will redo next tx. STG Duration 04/01 Security Business Analyst Goal (LTG) Pt will improve FAAM score to at least 70 to show improved functional ability. LTG Duration 04/30 Assessment Summary Assessment Pt continues to have slight increase in pain with lateral balance no pain with fwd/bck balance on shuttle. Verbal review of ankle strengthening with TB for HEP, progressed pt with increased reps this session, instructed pt to monitor tolerance. Consider increasing resistance for ankle strength next session depending on pt tolerance to increased reps. Physical Therapy Plan Frequency and Duration Frequency of Treatment 1-2x/Week Duration of treatment (weeks) 8 Plan of Care Start Date 03/05/24 Plan of Care End Date 04/30/24 Therapeutic Interventions Therapeutic Interventions Balance Training,Gait Training ,Home Exercise Program,Joint Mobilizations,Manual Therapy, Neuromuscular Re-education, Patient/Caregiver Education, Self-Care/Home Management,Soft Tissue Mobilization,Taping, Therapeutic Activities, Therapeutic Exercises Modalities Cold Pack/Ice Massage,Electric Stimulation,Hot Packs, Infrared Therapy,Ultrasound Next Visit Focus/Plan Next Note Type Treatment Note Next Visit Plan FAAM cont manual to foot/calf/ankle to improve DF and neutral foot position cont to advance balance and arch stability
--- NOTE | 2024-04-09 12:22 | PT.OTN ---
Current Diagnoses Other synovitis and tenosynovitis, left ankle and foot (04/09/24) Difficulty in walking, not elsewhere classified (04/09/24) Weakness (04/09/24) Physical Therapy Treatment Note PT-OP-A Visit Information Start: 12/23/23 08:33 Freq: Status: Active Protocol: Document 04/09/24 12:22 [facility] (Rec: 04/09/24 12:22 [facility] [id number]) Out-Patient Physical Therapy Visit Information Visit Information Visit Type Discharge Summary Visit Start Time 10:49 Visit Stop Time 11:29 Visit Number 18 Number of SENIOR MARKETING MANAGER Visits 0 PT-OP-B Current Condition Start: 12/23/23 08:33 Freq: Status: Active Protocol: Document 01/02/24 10:49 [facility] (Rec: 01/02/24 11:36 [facility] [id number]) Current Condition History of Current Condition Onset Date 3 months Current Complaints L ankle and arch History of Current Condition Pt reports L foot pain started in med ankle and arch without any specific starting incident . She has not been working for 2 months and will go back for 3 days this winter for 4 hours a day. For the first 6 weeks, it would swell anytime on feet extended. She did return from a trip and was walking a bit (10-15k one day then the next day driving to new location so rested). It was hurting a lot after days of walking. R one is doing good (hx of pain and PT in past). Hasn't been to the gym for a few months d/t this ( ellipical, [employer] machines). Has not been doing typical walks d /t pain ([place] [employer], 3-4 miles, 3 -4 days a week). Aims to get 10k steps a day. Before left on trip, had 1 massage a week. Prior Treatments and Tests MRI: IMPRESSION: 1. Moderate tenosynovitis of the posterior tibial tendon. 2. Mild tenosynovitis of the flexor hallucis longus and extensor digitorum longus tendon. 3. Mild to moderate thickening of the mid substance of the Achilles tendon with increased signal in peritenon consistent with some acute inflammation. 4. 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 5. Calcaneal heel spur. 6. Moderate edematous changes in the subcutaneous tissues along the medial aspect of the foot. Treatment Goals Patient/Caregiver Goals get back on elliptical, return to walks, return to gardening (shovel, etc) PT-OP-C Subjective Start: 12/23/23 08:33 Freq: Status: Active Protocol: Document 04/09/24 10:48 [facility] (Rec: 04/09/24 12:21 [facility] [id number]) OP-PT Subjective Patient Comments Patient Comments went to [employer] last weekend and one day walked 21k steps. It was a little tender but it was okay overall. PT-OP-D Balance Start: 12/23/23 08:33 Freq: Status: Active Protocol: Document 02/06/24 07:29 [facility] (Rec: 02/06/24 08:19 [facility] [id number]) Balance Tests Single Limb Standing Single Limb- Right 7 sec Single Limb- Left 9 sec PT-OP-J Posture/Palpation/Skin Start: 12/23/23 08:33 Freq: Status: Active Protocol: Document 01/02/24 10:49 [facility] (Rec: 01/02/24 11:36 [facility] [id number]) Posture Evaluation Comments Posture Comments L>R arch collapse, L foot turned out, rearfoot valgus PT-OP-K Range of Motion Start: 12/23/23 08:33 Freq: Status: Active Protocol: Document 04/09/24 10:48 [facility] (Rec: 04/09/24 12:21 [facility] [id number]) Ankle and Foot Goniometric Range of Motion Ankle and Foot Left Active Dorsiflexion with Knee Flexed 8 Dorsiflexion with Knee Extended 4 Plantarflexion 60 Inversion 40 Eversion 16 PT-OP-L Special Tests Start: 12/23/23 08:33 Freq: Status: Active Protocol: Document 01/02/24 10:49 [facility] (Rec: 01/02/24 11:36 [facility] [id number]) Special Tests Lumbar Spine Special Tests Slump Test Results neg L PT-OP-M Strength Start: 12/23/23 08:33 Freq: Status: Active Protocol: Document 04/09/24 10:48 [facility] (Rec: 04/09/24 12:21 [facility] [id number]) Ankle/Foot Strength Ankle and Foot Manual Muscle Testing Left Dorsiflexion (L4) 5 Normal Plantarflexion (S1) 5 Normal Inversion 4 Good Eversion (S1) 5 Normal Comments Continues have pain PF more than inversion and eversion 10 heel raises PT-OP-Q Treatments Start: 12/23/23 08:33 Freq: Status: Active Protocol: Document 04/09/24 10:48 [facility] (Rec: 04/09/24 12:21 [facility] [id number]) Gym Equipment Shuttle Balance red clips Details Red clips Comments fwd& side: WBOS, NBOS Fwd: staggered stance B Therapeutic Exercises Sitting Exercises ankle 3 way Sitting Exercise Name inversion Side left Equipment Used L3 Reps/Minutes 20 Standing Exercises DF Side bilateral Reps/Minutes 20 calf stretch Standing Exercise Name fwd lean gastroc Side left Reps/Minutes 1 min Other Exercises isometrics Other Exercise Name B ankle mmt Manual Therapy Treatment Consent Patient gave verbal consent for manual Yes treatment Soft Tissue Mobilization calf Body Location L calf and achilles Mobilization Type Rolling,Sustained Pressure, Other Intensity/Depth Moderate Body Position Supine Comments w/APs plantar fascia Body Location L Mobilization Type Rolling Intensity/Depth Moderate Body Position long sitting Joint Mobilizations tib fib Comments 1. distal AP tib c/r midfoot Comments med cunieform 1&2 c/r; navicular sup Neuro Re-Education Treatment Balance Activities tandem Comments 1. stance B 2. walk x6ft x2 Foam Comments black foam marching x10 B SLS Comments B SLS trials PT-OP-T Assessment and Plan Start: 12/23/23 08:33 Freq: Status: Active Protocol: Document 04/09/24 10:48 [facility] (Rec: 04/09/24 12:21 [facility] [id number]) Physical Therapy Assessment Goals balance Group Home Goal (LTG) Pt will be able to do SLS at least 10 sec B to show improved balance 02/05-7 sec R, 9 sec L 03/05/24: more unstable today but no pain: 4 sec RLE, 5 sec 04/09- 4 sec L, 12 sec R LTG Duration acheived R; HEP L activities Short Term Goal (STG) Pt will be able to return to full gym routine w/o inc foot pain 02/05-doing bike, rowing and saturday did elliptical, wt lifting also-a little tender after : elliptical, bicycle , weight machines upper and lower body. STG Duration achieved 03/05 Auto Damage Insurance Appraiser Goal (LTG) pt will be able to return to all gardening and walking w/o inc foot pain greater than 2/ 10 03/05/24: working in [place] walking in 04/27 lately, if walking more or standing longer periods time increases 09/24. 03/05-not consistant 2-06/25 pian abut not gardening much d /t season and working 4 hours 04/09-hasn't started gardening but 1-04/27 w/walking LTG Duration mostly achieved-not time of year for gardening strength Short Term Goal (STG) Pt will be indep w/HEP STG Duration achieved 02/05 advancing as able Auto Damage Insurance Appraiser Goal (LTG) Pt will score at least 4+/5 on all BLE MMT to show improved strength and stability to allow greater ease with typical activities. 02/05-improving 03/05-much improved LTG Duration mostly achieved except inversion FAAM Impairment 47/84 Short Term Goal (STG) Pt will improve FAAM score to at least 60 to show improved functional ability. 03/05/24: didn't fully fill out form so unable score, will redo next tx. STG Duration achieved to 70 04/09 Auto Damage Insurance Appraiser Goal (LTG) Pt will improve FAAM score to at least 70 to show improved functional ability. LTG Duration achieved to 70 04/09 Assessment Summary Assessment Pt has made excellent progress w/PT and was able to do a lot of walking in [place] this past weekend along w/work her 4 hour shifts w/o significant pain in ankle. She does still have some inversion weakness and dec balance and has HEP focused on this. Pt to DC to HEP at this time d/t meeting most goals. Physical Therapy Plan Discharge Physical Therapy Discharge Reasons Goals Met
== END 2024-04-15 14:31 | disposition home or self-care (01) ==
LOC: PHYS 10:45
PROVIDERS: Family Provider Family Medicine; PCP Family Medicine; Referring Provider Family Medicine; Visit Provider Family Medicine
DX: M65.872 Other synovitis and tenosynovitis, left ankle and foot (principal); R26.2 Difficulty in walking, not elsewhere classified; R53.1 Weakness
CPT/HCPCS: 97110; 97112; 97140; 97162; 97535

== ENCOUNTER → 2024-06-09 15:44 | Outpatient (CLI) | payer MEDICARE, OTHER, SELFPAY ==
--- NOTE | 2024-06-09 15:45 | DI.MG.S_ITS ---
MM screening mammo BI: 06/09/2024. BI-RADS: 1 CLINICAL: 69-year old female for bilateral screening mammogram. Tyrer-Cuzick lifetime risk of 5.9%. No personal or first-degree family history of breast cancer. Current reported family history of breast cancer: paternal aunt and paternal aunt's daughter. PRIOR EXAMS 05/20/2023, 01/11/2021, 01/20/2019, 12/16/2017, 10/29/2016, 08/03/2015. MAMMOGRAPHY TECHNIQUE: 2D and 3D (tomosynthesis) digital mammographic views obtained, with additional images as needed for full coverage. Current study was also evaluated with a Computer Aided Detection (CAD) system. DENSITY B. There are scattered areas of fibroglandular density. MAMMOGRAPHY FINDINGS Bilateral: No suspicious mass, asymmetry, microcalcification, or other abnormality seen. No significant change from comparison. IMPRESSION: * No evidence of malignancy. RECOMMENDATIONS Bilateral * Annual screening mammography. OVERALL ASSESSMENT CATEGORY BI-RADS-1: Negative. The [employer] recommends annual screening mammography beginning at age 40 for women with average risk of breast cancer. ELECTRONICALLY SIGNED: Yesica Delcid M.D. on 06/10/2024 at 08:37:27 AM PT Interpreting Station ID: [id number]
== END ==
PROVIDERS: Family Provider Family Medicine; PCP Family Medicine; Referring Provider Family Medicine; Visit Provider Family Medicine
DX: Z12.31 Encounter for screening mammogram for malignant neoplasm of breast (principal); Z80.3 Family history of malignant neoplasm of breast
CPT/HCPCS: 77063; 77067

== ENCOUNTER → 2024-12-31 10:01 | Outpatient (CLI) | payer MEDICARE, OTHER, SELFPAY ==
[2024-12-31 10:50] LABS: Add Manual Diff / Slide Review NO; Hematocrit 41.4 % (36-46); Hemoglobin 14.1 g/dL (12.0-16.0); Lymphocytes Absolute Auto 1300 /uL (1100-4500); Mean Corpuscular HGB Conc 33.9 % (30-36); Mean Corpuscular Hemoglobin 33.2 PG (26-34); Mean Corpuscular Volume 97.9 fL (80-100); Platelet Count 281 X10^3/uL (150-400)
[2024-12-31 11:05] LABS: Hemoglobin A1C% w Est Avg Glu 5.6 % (4.0-6.0)
[2024-12-31 11:27] LABS: Alanine Aminotransferase 23 IU/L (<35); Albumin 4.3 g/dL (3.5-5.0); Albumin Globulin Ratio 1.7 (1.0-2.8); Alkaline Phosphatase 93 U/L (38-126); Blood Urea Nitrogen 16 mg/dL (7-17); Calcium 9.5 mg/dL (8.4-10.2); Carbon Dioxide 25 mmol/L (22-32); Chloride 102 mmol/L (98-107); Estimated Glomerular Filt Rate > 60 mL/min (>60); Globulin 2.5 g/dL (1.7-4.1); Glucose 132 mg/dL (70-99); HDL Cholesterol 76 mg/dL (40-60); HEMOLYSIS < 15 (0-50); Magnesium 1.7 mg/dL (1.6-2.3); Potassium 4.2 mmol/L (3.4-5.1); Sodium 136 mmol/L (137-145); Total Protein 6.8 g/dL (6.3-8.2); Triglycerides 176 mg/dL (35-150)
[2024-12-31 11:35] LABS: Cholesterol 348 mg/dL (140-199)
[2024-12-31 11:56] LABS: TSH w/ Reflex to FT4 0.89 uIU/mL (0.47-4.68)
== END ==
PROVIDERS: Family Provider Family Medicine; PCP Family Medicine; Referring Provider Physician Assistant; Visit Provider Physician Assistant
DX: R42 Dizziness and giddiness (principal); E78.2 Mixed hyperlipidemia
CPT/HCPCS: 36415; 80053; 80061; 83036; 83735; 84443; 85025

== ENCOUNTER → 2025-01-05 08:29 | Outpatient (CLI) | payer MEDICARE, OTHER, SELFPAY ==
--- NOTE | 2025-01-05 08:30 | DI.US.S_ITS ---
PROCEDURE: US CAROTID DOPPLER BI INDICATIONS: chronic light headedness, elevated cholesterol TECHNIQUE: Color and pulse Doppler interrogation was performed of both carotid systems, with image documentation and velocity measurements. COMPARISON: None. FINDINGS: Stenosis calculations are based on SRU (Society of Radiologists in Ultrasound) criteria. Right side: Common carotid artery peak systolic velocity: 67 cm/sec. Internal carotid artery peak systolic velocity: 74 cm/sec. Internal carotid artery end diastolic velocity: 21 cm/sec. External carotid artery peak systolic velocity: 96 cm/sec. ICA/CCA peak systolic ratio: 1.1 . Chamorro scale imaging description: Mild atherosclerotic plaques Percent internal carotid artery stenosis: Less than 50 percent . Vertebral artery: Flow direction is antegrade. Left side: Common carotid artery peak systolic velocity: 64 cm/sec. Internal carotid artery peak systolic velocity: 91 cm/sec. Internal carotid artery end diastolic velocity: 33 cm/sec. External carotid artery peak systolic velocity: 88 cm/sec. ICA/CCA peak systolic ratio: 1.4 . Chamorro scale imaging description: Mild atherosclerotic plaque Percent internal carotid artery stenosis: Less than 50 percent . Vertebral artery: Flow direction is antegrade. IMPRESSION: 1. In the right carotid artery, there is less than 50 percent stenosis based on peak systolic velocity criteria. 2. In the left carotid artery, there is less than 50 percent stenosis based on peak systolic velocity criteria. 3. Antegrade vertebral arteries. Dictated by: Dayday Woodward M.D. on 01/05/2025 at 8:55 Approved by: Dayday Woodward M.D. on 01/05/2025 at 8:56
== END ==
LOC: US 08:30
PROVIDERS: Family Provider Family Medicine; PCP Family Medicine; Referring Provider Physician Assistant; Visit Provider Physician Assistant
DX: I65.23 Occlusion and stenosis of bilateral carotid arteries (principal); R42 Dizziness and giddiness
CPT/HCPCS: 93880

== ENCOUNTER → 2025-02-12 10:30 | Outpatient (CLI) | payer MEDICARE, OTHER, SELFPAY ==
[2025-02-12 11:45] LABS: Cholesterol 304 mg/dL (140-199); HDL Cholesterol 72 mg/dL (40-60); Triglycerides 135 mg/dL (35-150)
== END ==
PROVIDERS: Family Provider Family Medicine; PCP Family Medicine; Referring Provider Physician Assistant; Visit Provider Physician Assistant
DX: E78.2 Mixed hyperlipidemia (principal)
CPT/HCPCS: 80061